=== PATIENT | male | born 1945 | race Caucasian/White ===

== ENCOUNTER 2023-12-12 06:20 | Emergency (ER) | payer MEDICARE, SELFPAY ==
[2023-12-12] VITALS (14 sets, daily range): BP systolic 131–177; BP diastolic 89–113; PULSE 50–78; TEMP 36.1; O2SAT 98–100
--- NOTE | 2023-12-12 06:32 | XR_ITS ---
The [address] [address] Patient Name: RAY SUAREZ MRN: [id number] date: 1945 Sex: M Assigned Patient Location: ED.MAIN Current Patient Location: ER Accession/Order Number: [id number] Exam Date: 12/12/2023 06:34 Report Date: 12/12/2023 06:56 At the request of: RICARDO WORLEY Procedure: XR chest 1V EXAM: XR chest 1V HISTORY: chest pain COMPARISON: Chest radiographs dated 09/02/2020. TECHNIQUE: One view of the chest was obtained. FINDINGS: The cardiac silhouette is enlarged though stable in size. Aortic atherosclerotic disease is seen. The lungs are clear. There is no significant pneumothorax or pleural effusion. No acute osseous abnormality is seen. XR/XR chest 1V IMPRESSION: 1. Stable enlarged cardiac silhouette with clear lungs. Electronically authenticated by: Lachelle HUNG Date: 12/12/2023 06:56
--- NOTE | 2023-12-12 06:32 | ECG_ITS ---
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
[2023-12-12 06:43] LABS: Basophils Absolute Auto 0.2 10^3/uL (0.0-0.1); Basophils Percent Auto 1.5 % (0.2-2.0); Eosinophils Absolute Auto 0.2 10^3/uL (0.0-0.7); Hematocrit 52.5 % (42.0-54.0); Hemoglobin 17.8 g/dL (14.0-18.0); Immature Granulocytes Abs Auto 0.03 10^3/uL (0.00-0.03); Immature Granulocytes Pct Auto 0.3 % (0.0-0.5); Lymphocytes Absolute Auto 3.3 10^3/uL (1.2-3.8); Mean Corpuscular HGB Conc 33.9 g/dL (29.9-35.2); Mean Corpuscular Hemoglobin 30.5 pg (25.9-34.0); Mean Corpuscular Volume 90.1 fL (80.0-94.0); Mean Platelet Volume 12.2 fL (9.5-13.5); Monocytes Absolute Auto 0.9 10^3/uL (0.3-0.8); Monocytes Percent Auto 8.6 % (1.7-12.0); Neutrophils Percent Auto 56.6 % (43.0-75.0); Platelet Count 213 10^3/uL (150-450); Red Blood Count 5.83 10^6/uL (4.70-6.10); Red Cell Distribution Width 14.1 % (11.0-15.0); White Blood Count 10.6 10^3/uL (4.0-11.0)
[2023-12-12] MEDS: ASPIRIN 81 MG TAB.CHEW 324 MG PO (06:43)
[2023-12-12] MEDS: NITROGLYCERIN 0.4 MG BOTTLE PO (06:43)
[2023-12-12] MEDS: TICAGRELOR 90 MG TABLET 180 MG PO (06:53)
[2023-12-12] MEDS: NITROGLYCERIN IN 5 % DEXTROSE 50 MG/250 ML INFUS..BTL 6 MG IV (06:53)
[2023-12-12 06:56] LABS: Partial Thromboplastin Time 26.7 sec (22.3-36.2); Prothrombin Time 10.6 sec (9.0-11.6)
--- NOTE | 2023-12-12 07:03 | ED.GENADUL1 ---
HPI HPI - General Adult General Chief complaint: Chest Pain Stated complaint: chest pain Time Seen by Provider: 12/12/23 06:27 Source: patient Mode of arrival: Wheelchair Limitations: no limitations History of Present Illness HPI narrative: 78-year-old male to the emergency department chief complaint of crushing chest pain. Patient reports symptoms began at 5:30 AM. It was associate with sweating. He denies any shortness of breath. Patient reports he has a remote history of a heart attack. He reports a history of diabetes, hyper tension, hyperlipidemia. He reports nausea without vomiting. He has otherwise been at his baseline health recently. He had carpal tunnel release surgery few weeks ago which went unremarkably. He has not seen a chicken catcher in several years per his report. Related Data Home Medications ?Medication ?Instructions ?Recorded ?Confirmed aspirin 81 mg capsule 81 mg PO DAILY 12/12/23 12/12/23 carvedilol 12.5 mg tablet 12.5 mg PO DAILY 12/12/23 12/12/23 levothyroxine 175 mcg tablet 175 mcg PO DAILY 12/12/23 12/12/23 montelukast 10 mg tablet 10 mg PO DAILY 12/12/23 12/12/23 pravastatin 20 mg tablet 20 mg PO DAILY 12/12/23 12/12/23 sacubitril 97 mg-valsartan 103 mg 1 tab PO BID 12/12/23 12/12/23 tablet (Entresto) sitagliptin phosphate 50 1 tab PO BID 12/12/23 12/12/23 mg-metformin 1,000 mg tablet (Janumet) Allergies Allergy/AdvReac Type Severity Reaction Status Date / Time Iodinated Contrast Media AdvReac Intermediate Vomiting Verified 12/12/23 06:33 Opioid HPI Opioid Management Most Recent Opioid Data: No Data to Display Review of Systems ROS Status of ROS 10 or more systems reviewed and unremarkable except as noted in history and below Exam Narrative Exam Narrative: VITALS: I have reviewed the triage vital signs. GENERAL: Diaphoretic, clutching chest. NEURO: Alert and oriented. Moves all extremities. Face is symmetric and expressive. EYES: PERRL. No scleral icterus or conjunctival injection. No discharge. HENT: Normocephalic, atraumatic. Hearing is grossly intact. Nares grossly patent and without discharge. Mucous membranes moist. NECK: No JVD. Patient moves neck without restriction. CARDIO: Rhythm regular. Normal rate. No murmur, rub, or gallop. Pulses equal bilaterally in the upper and lower extremity. No lower extremity edema. PULM: Lungs clear to auscultation in all cowan. No wheezes, rales, or rhonchi. No conversational dyspnea. No splinting, stridor, or accessory muscle use. GI/: Abdomen is soft and non-tender. Normoactive bowel sounds. EXTREMITIES: Symmetric muscle bulk. No joint swelling. No clubbing, cyanosis, or deformity. SKIN: Warm and dry. Normal turgor. No rash or lesions appreciated. PSYCH: Anxious Constitutional Vital Signs, click to edit/add: Last Vital Signs Temp 97 F L 12/12/23 06:27 Pulse 66 12/12/23 06:27 Resp 22 H 12/12/23 06:27 BP 168/113 H 12/12/23 06:27 Pulse Ox 100 12/12/23 06:27 O2 Del Method Room Air 12/12/23 06:27 Course Vital Signs Vital signs: Vital Signs Temperature 97 F L 12/12/23 06:27 Pulse Rate 66 12/12/23 06:27 Respiratory Rate 22 H 12/12/23 06:27 Blood Pressure 168/113 H 12/12/23 06:27 Pulse Oximetry 100 12/12/23 06:27 Oxygen Delivery Method Room Air 12/12/23 06:27 Temperature 97 F L 12/12/23 06:27 Pulse Rate 66 12/12/23 06:27 Respiratory Rate 22 H 12/12/23 06:27 Blood Pressure 168/113 H 12/12/23 06:27 Pulse Oximetry 100 12/12/23 06:27 Oxygen Delivery Method Room Air 12/12/23 06:27 Medical Decision Making MDM Narrative Medical decision making narrative: 78-year-old male to the emergency department chief with chest pain. Vital stable, the patient is afebrile. EKG is concerning for STEMI. He has a nonspecific intraventricular conduction delay however there is concordant ST elevation in V2, 1, aVL. Cardiac workup was initiated. I called and discussed the case with Dr. Sales who is the on-call chicken catcher at [facility]. He accepts the patient, asked for STEMI meds to be given. Patient's arrived and reports that he is at [facility] cardiology patient they would like transfer to that facility instead. The transfer to [facility] was called off. I called and discussed the case with Dr. Haynes and the nursing litharge supervisor at [facility]. They accept the patient to the Operator/Assistant Foreman. [facility] was called. Patient was transferred to [facility] for care of his STEMI. Medical Records Medical records reviewed: Yes I reviewed the patient's medical records Lab Data Lab results reviewed: Yes I reviewed the patient's lab results Labs: Lab Results 12/12/23 Range/Units 06:30 WBC 10.6 (4.0-11.0) 10^3/uL RBC 5.83 (4.70-6.10) 10^6/uL Hgb 17.8 (14.0-18.0) g/dL Hct 52.5 (42.0-54.0) % MCV 90.1 (80.0-94.0) fL MCH 30.5 (25.9-34.0) pg MCHC 33.9 (29.9-35.2) g/dL RDW 14.1 (11.0-15.0) % Plt Count 213 (150-450) 10^3/uL MPV 12.2 (9.5-13.5) fL Neut % (Auto) 56.6 (43.0-75.0) % Lymph % (Auto) 31.0 (20.5-60.0) % [place] % (Auto) 8.6 (1.7-12.0) % Eos % (Auto) 2.0 (0.9-7.0) % Baso % (Auto) 1.5 (0.2-2.0) % Neut # (Auto) 6.0 (1.4-6.5) 10^3/uL Lymph # (Auto) 3.3 (1.2-3.8) 10^3/uL [place] # (Auto) 0.9 H (0.3-0.8) 10^3/uL Eos # (Auto) 0.2 (0.0-0.7) 10^3/uL Baso # (Auto) 0.2 H (0.0-0.1) 10^3/uL Abs Immat Gran (auto) 0.03 (0.00-0.03) 10^3/uL Imm/Tot Granulo (auto) 0.3 (0.0-0.5) % Imaging Data Chest x-ray: Attestation: I have reviewed the pertinent imaging results. Radiologist's impression: ITS Impressions Chest X-Ray 12/12/23 06:32 IMPRESSION: 1. Stable enlarged cardiac silhouette with clear lungs. Electronically authenticated by: Lachelle HUNG Date: 12/12/2023 06:56 ECG Data Attestation: I personally reviewed and interpreted this ECG as follows: (Normal sinus rhythm. Nonspecific intraventricular conduction delay. Concordant ST elevation in 1, aVL, V2 concerning for STEMI. Normal QTc.) Critical Care Time Critical Care Time Critical Care Time: Yes Total Critical Care Time: 35 Attestation: Critical Care Procedure Note Authorized and Performed by: Taco Graham DO Total critical care time: 35 min Due to a high probability of clinically significant, life threatening deterioration, the patient required my highest level of preparedness to intervene emergently and I personally spent this critical care time directly and personally managing the patient. This critical care time included obtaining a history; examining the patient; pulse oximetry; ordering and review of studies; arranging urgent treatment with development of a management plan; evaluation of patient's response to treatment; frequent reassessment; and, discussions with other providers. This critical care time was performed to assess and manage the high probability of imminent, life-threatening deterioration that could result in multi-organ failure. It was exclusive of separately billable procedures and treating other patients and teaching time. Please see MDM section and the rest of the note for further information on patient assessment and treatment. Discharge Plan Discharge Chief Complaint: Chest Pain Clinical Impression: ST elevation (STEMI) myocardial infarction Patient Disposition: [facility] Time of Disposition Decision: 07:09 Discharge location: [facility] Operator/Assistant Foreman Condition: Fair Mode of Transportation: [facility] Prescriptions / Home Meds: No Action carvedilol 12.5 mg tablet 12.5 mg PO DAILY levothyroxine 175 mcg tablet 175 mcg PO DAILY montelukast 10 mg tablet 10 mg PO DAILY pravastatin 20 mg tablet 20 mg PO DAILY Entresto 97-103 mg tablet 1 tab PO BID Janumet 50-1,000 mg tablet 1 tab PO BID aspirin 81 mg capsule 81 mg PO DAILY Print Language: Trinidadian Referrals: Todd Osman DO [Primary Care Provider] - 1 week
[2023-12-12 07:04] LABS: Alanine Aminotransferase 30 U/L (16-63); Albumin Globulin Ratio 1.1; Albumin Level 4.1 g/dL (3.4-5.0); Alkaline Phosphatase 74 U/L (46-116); Aspartate Amino Transferase 32 U/L (15-37); BUN Creatinine Ratio 13.8; Bilirubin Total 0.6 mg/dL (0.2-1.0); Calcium 10.1 mg/dL (8.5-10.1); Carbon Dioxide 24.2 mmol/L (21.0-32.0); Chloride 103 mmol/L (98-107); Estimated GFR (African America >60 (>=60); Estimated GFR (Non-African Ame 53 (>=60); Globulin 3.6 g/dL; Glucose 150 mg/dL (74-106); Potassium 4.2 mmol/L (3.5-5.1); Sodium 140 mmol/L (136-145); Total Protein 7.7 g/dL (6.4-8.2)
[2023-12-12 07:05] LABS: Troponin I High Sensitivity 98.9 pg/mL (4.0-76.1)
[2023-12-12] MEDS: HEPARIN SODIUM (PORCINE) 5,000 UNIT/ML VIAL 5000 UNIT IV (07:08)
--- NOTE | 2023-12-12 07:17 | PC.NURSE ---
Pt reports dyspnea, breathing appears tachypneic. Pt placed on 2L O2 via NC.
--- NOTE | 2023-12-12 10:53 | ECG_ITS ---
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
== END 2023-12-12 07:21 | disposition short-term general hospital (02) ==
PROVIDERS: Emergency Provider Student in an Organized Health Care Education/Training Program; PCP Family Medicine
DX: I21.3 ST elevation (STEMI) myocardial infarction of unspecified site (principal); E11.9 Type 2 diabetes mellitus without complications; I10 Essential (primary) hypertension; E78.5 Hyperlipidemia, unspecified; I25.2 Old myocardial infarction
CPT/HCPCS: 36415; 71045; 80053; 83880; 84484; 85025; 85610; 85730; 93005; 99291; J2305

== ENCOUNTER 2024-12-01 14:33 | Emergency (ER) | payer MEDICARE, SELFPAY ==
--- OUTSIDE RECORDS SUMMARY | 2024-11-04 14:17 | XMS_ITS ---
Author Name Auto Generated Organization OH[facility] Care Team Providers Care Gym Instructor Name Role Phone DAVION NOLEN Attending UnavailDAVION Sanchez Referring Unavailab le GENERIC PROVIDER, NO ASSIGNED PCP Primary Care Unavailable DAVION NOLEN Attending UnavailDAVION Sanchez Referring Unavailab TODD Sarah Primary Care Unavailable DAVION NOLEN Referring Unavailab TODD Sarah Primary Care Unavailable Todd Osman Attending Unavailable Jonathna Hernandez Attending Unavailable Jonathan Hernandez Admitting Unavailable Jonathan Hernandez Referring Unavailable Wilner Hooper Consulting Unavailable Wilner Hooper Consulting Unavailable Wilner Hooper Consulting Unavailable ANDREAS MONCADA Admitting Unavailable ANDREAS MONCADA Attending Unavailable Jen Edgar Attending Unavailable Carol Underwood Attending Unavailable Carol Underwood Attending Unavailable [facility] Cardio, XXXX Consulting Unavailable Antonietta Lucia Admitting Unavailable Jen Edgar Attending Unavailable Todd Osman Attending Unavailable Todd Osman Admitting Unavailable Link, Todd C Admitting Unavailable Link, Todd C Attending Unavailable Link, Todd C Attending Unavailable Link, Todd C Admitting Unavailable Link, Todd C Admitting Unavailable Link, Todd C Admitting Unavailable ANDREAS MONCADA Attending Unavailable Link, Todd C Attending Unavailable Link, Todd C Referring Unavailable Link, Todd C Attending Unavailable Link, Todd C Attending Unavailable Link, Todd C Attending Unavailable Link, Todd C Attending Unavailable SYDNIE MODI Attending UnavailCarol Deleon Attending Unavailable Antonietta Lucia Admitting Unavailable Hernandez, Jonathan Anderson Admitting Unavailable Hernandez, Jonathan Anderson Attending Unavailable NONE, XXXX Referring Unavailable Hernandez, Jonathan A Attending Unavailable NONE, XXXX Referring Unavailable Hernandez, Jonathan A Admitting Unavailable Hernandez, Jonathan Anderson Attending Unavailable NONE, XXXX Referring Unavailable DAVION NOLEN Attending Unavaila ble DAVION NOLEN Referring Unavaila ble DAVION NOLEN Attending Unavaila ble DAVION NOLEN Referring Unavaila ble AMIR, Hasan Admitting Unavailable DAVION NOLEN Consulting Unavaila ble Leopoldo Patel Attending Unavailable MD DAVION NOLEN Consulting Unava ilDavion Herrera Consulting Unavaila ble AMIR, Hasan Admitting Unavailable DAVION NOLEN Consulting Unavaila ble Leopoldo Patel Attending Unavailable MD DAVION NOLEN Consulting Unava ilDavion Herrera Consulting Unavaila ble AMIR, Hasan Admitting Unavailable DAVION NOLEN Consulting Unavaila Leopoldo Mai Attending Unavailable MD DAVION NOLEN Consulting Unava ilDavion Herrera Consulting Unavaila ble [facility] Cardio, XXXX Consulting Unavailable Antonietta Lucia Attending Unavailable Jacquelin Luciaen Admitting Unavailable [facility] Cardio, XXXX Consulting Unavailable Antonietta Lucia Attending Unavailable Antonietta Lucia Admitting Unavailable Edd Alexandra Consulting Unavailable Antonietta Lucia Admitting Unavailable Antonietta Lucia Attending Unavailable MD Edd Alexandra Consulting Unavailable Edd Alexandra Consulting Unavailable Edd Alexandra Consulting Unavailable Edd Alexandra Consulting Unavailable Edd Alexandra Consulting Unavailable Edd Alexandra Consulting Unavailable Billings, Edd Consulting Unavailable Billings, Edd Consulting Unavailable [facility] Cardio, XXXX Consulting Unavailable [facility] Cardio, XXXX Consulting Unavailable Leopoldo Patel Attending Unavailable Antonietta Lucia Admitting Unavailable DAVION NOLEN Consulting Unavaila ble Ofmary, Leopoldo Horn Admitting Unavailable Ofungwnanette, Leopoldo Horn Attending Unavailable MD DAVION NOLEN Consulting Unava ilable AMIR, Hasan Admitting Unavailable OfungwuLeopoldo Attending Unavailable AMIR, Hasan Admitting Unavailable Ofungwu, Leopoldo Horn Attending Unavailable Hajdari, Astrit H Attending Unavailable NONE, XXXX Referring Unavailable Wilner Hooper Attending Unavailable Wilner Hooper Admitting Unavailable Link, Todd Pacheco Attending Unavailable Link, Todd Pacheco Attending Unavailable Link, Todd Pacheco Attending Unavailable Link, Todd Pacheco Attending Unavailable Link, Todd Pacheco Attending Unavailable POCOSRADHIKA Attending Unavailable DEWAYNE GOMEZ Attending Unavailable DWEAYNE GOMEZ Attending Unavailable FABI GODINEZ Attending Unavailable FABI GODINEZ Attending Unavailable PROBLEMS DATE TYPE CONDITION / CODE ATTENDING STATUS [facility] 06/26/2024 Admitting Diagnosis Atherosclerotic heart disease of [place] coronary artery with other forms of angina pectoris ([facility] / I25.118(ICD-10) [facility] 06/26/2024 Admitting Diagnosis Aneurysm of the ascending aorta, without rupture ([facility] [place] / I71.21(ICD-10) [facility] 06/26/2024 Admitting Diagnosis Acute combined systolic (congestive) and diastolic (congestive) heart failure / I50.41(ICD-10) [facility] 12/23/2023 Unknown I22.2 / I22.2(ICD-10) Leopoldo Valenzuela Active [facility] 12/12/2023 Unknown I21.02 / I21.02(ICD-10) Leopoldo Patel Active [facility] PROCEDURES No Procedure Records Found RESULTS AMBULATORY VISIT SUMMARY Observed: 10/28 5:22 PM Status: F Source: [facility] Ambulatory Visit Summary RAY SUAREZ :1945 Visit Date:10/28/2024 Ambulatory Visit Instructions Your Diagnosis Type 2 diabetes mellitus with hyperlipidemia Benign essential hypertension CHF - Congestive heart failure Former smoker BMI 28.0-28.9,adult Your Care Team Attending Physician - Todd Osman DO Primary Care Physician - Todd Osman DO This Is Your Medications List Misc Prescription (BD UF Mini Pen Needle [id number]) Misc Prescription (One Touch Ultra Test Strip) aspirin atorvastatin (atorvastatin 40 mg Tab) carvedilol (carvedilol 3.125 mg Tab) cholecalciferol (Vitamin D3) cyanocobalamin (Vitamin B12 1000 mcg Tab) ezetimibe (Zetia 10 mg Tab) levothyroxine (levothyroxine 175 mcg (0.175 mg) Tab) metformin-sitagliptin (Janumet 50 mg/1000 mg oral tablet) montelukast (Singulair 10 mg Tab) mupirocin topical (mupirocin Top 2% Oint) nitroglycerin (nitroglycerin 0.4 mg sublingual Tab) sacubitril-valsartan (sacubitril-valsartan 49 mg-51 mg oral tablet) ticagrelor (Brilinta (ticagrelor) 90 mg oral tablet) Procedures Performed Cardiac catheterization, left heart (12/24/2023), PCI - Percutaneous coronary intervention (12/24/2023), STEMI - ST elevation myocardial infarction (12/12/2023), Carpal tunnel (12/02/2023), right total hip arthroplasty (09/11/2016), left total hip arthroplasty (07/19/2015), Cardiac catheterization (08/27/2006), Colonoscopy (2006), Vasectomy (1975), attempted tendon repair right leg, back surgery, Radical prostatectomy, Rotator cuff repair, Thyroidectomy, Tonsillectomy. Discharge Vitals Heart Rate (Peripheral) 60 Respiratory Rate 18 Blood Pressure 118/70 Height 177 cm Height 70 in Weight 90.2 kg Weight 198.857 lb BMI 28.79 What to do next Scheduled Follow-Up Appointments 2024 11:20 AM EDT With: Todd Osman DO Where: [facility] [address] [place] [address]- Sunday2025 2:00 PM EST With: Where: [facility] [address] [place] [address]- Medications What How Much When Why Instructions Unchanged aspirin 81 Milligram By Mouth At bedtime Unchanged atorvastatin (atorvastatin 40 mg Tab) 1 Tablets By Mouth Every day Hyperlipidemia, unspecified Unchanged carvedilol (carvedilol 3.125 mg Tab) 1 Tablets By Mouth 2 times a day Unchanged cholecalciferol (Vitamin D3) 3,000 Units By Mouth Every day Unchanged cyanocobalamin (Vitamin B12 1000 mcg Tab) 1 Tablets By Mouth Every day Unchanged ezetimibe (Zetia 10 mg Tab) 0.5 Tablets By Mouth Every day Unchanged levothyroxine (levothyroxine 175 mcg (0.175 mg) Tab) 0.5 Tablets By Mouth Every day Unchanged metformin-sitagliptin (Janumet 50 mg/ 1000 mg oral tablet) 0.5 Tablets By Mouth Every day Unchanged Misc Prescription (BD UF Mini Pen Needle [id number]) See instructions For daily blood sugar management and application of medication Unchanged Misc Prescription (One Touch Ultra Test Strip) See instructions For daily blood sugar testing Unchanged montelukast (Singulair 10 mg Tab) 1 Tablets By Mouth Once a day (in the evening) Unchanged mupirocin topical (mupirocin Top 2% Oint) APPLY TO AFFECTED AREAS ON BUTTOCKS TWICE A DAY UNTIL CLEAR NEEDED FOR FLARES Unchanged nitroglycerin (nitroglycerin 0.4 mg sublingual Tab) 1 Tablets Sublingual As Directed as needed for for chest pain takeif SBP is greater than 110 Unchanged sacubitril-valsartan (sacubitril-valsartan 49 mg-51 mg oral tablet) 1 Tablets By Mouth 2 times a day hold if BP is lower than 90 systolic or 50 diastolic Unchanged ticagrelor (Brilinta (ticagrelor) 90 mg oral tablet) 1 Tablets By Mouth 2 times a day CAD in [place] artery Allergies Aldactone Contrast Dye (Flushing) Crestor Pollen (Hayfever) Toradol Problems Ongoing - Any problem that you are currently receiving treatment for. Asthma At risk for falls Benign essential hypertension BMI 27.0-27.9,adult CAD in [place] artery CHF - Congestive heart failure COPD with asthma Dyslipidemia Former smoker GERD (gastroesophageal reflux disease) History of prostate cancer History of prostatectomy Hyperlipidemia, unspecified Hypothyroidism (acquired) SAMIRA (obstructive sleep apnea) Type 2 diabetes mellitus with hyperlipidemia Historical - Any problem that you are no longer receiving treatment for. Chronic back pain Dyslipidemia Smoker Patient Survey You may receive a survey via text or e-mail asking about your office visit. Please share your experience with us by completing your survey. We appreciate your feedback and thank you for choosing us for your care. FAMILY MEDICINE OFFICE/CLINI C NOTE Observed: 10/28/2024 5:22 PM Status: F Source: [facility] Office/Clini c Note Chief Complaint Chronic Condition follow up HPI Staff Patient here for Chronic Condition f/u (, Maryjo) Patient is here for follow up on Diabetes. - At last visit Janumet discontinued. called in the beginning of September requesting to restart due to weight gain and increase in eating and sweats. Provider advised patient could restart half a tab. Patient is taking as directed. How often are you checking your blood sugars? 1 times per day What are your average readings?little higher then it should be Do you have any of the following symptoms? Vision problems? yes dry eyes, patient is using OTC Visine Lightheadedness? no Paresthesias, Ulcerations or sores? yes paresthesias in bilateral hands. Coccyx wound healed. Foot Exam: completed today Eye Exam: Patient see's every 6 months U Microalb: 2 mg/dL High (05/06/24 13:49:00) Hgb A1C %: 5.2 % (12/13/23 05:54:00) Hgb A1c POC: 5.4 % (10/05/23 10:36:00) - completed today 5.3 Patient is here for follow up on hypertension. - Patient does see [facility] Cardiology, last visit was 04/2024. No changes made. How often are you checking your blood pressure? Daily What are your average readings? WNL Do you have any of the following symptoms? Chest Pain? no Palpitations? no MILES/SOB? yes Intermittent MILES Headache? no Peripheral Edema? no BUN: 22 mg/dL High (05/06/24 11:17:00) Calcium Lvl: 10.1 mg/dL (05/06/24:17:00) Chloride: 106 mmol/L (05/06/24:17:00) CO2: 29 mmol/L (05/06/24:17:00) Creatinine: 1.3 mg/dL (05/06/24:17:00) eGFR: 55 mL/min/1.73 m2 Low (05/06/24:17:00) Glucose Lvl: 93 mg/dL (05/06/24:17:00) Potassium Lvl: 4.6 mmol/L (05/06/24:17:00) Sodium Lvl: 138 mmol/L (05/06/24:17:00) Chol: 98 mg/dL Low (05/06/24::) HDL: 48 mg/dL (05/06/24::) LDL Direct: 42 mg/dL (05/06/24::00) Tri mg/dL (05/06/24::) VLDL: 9 mg/dL (05/06/24::) Patient is here for follow up on Thyroid Disease. T3 Free: 2.6 (05/06/24) T4 Free: 1.25 ng/dL (05/06/24) TSH: 1.43 mcIU/mL (05/06/24::) - Patient notes bilateral leg weakness continues. He has completed PT in the past without improvement. He notes he has been working in his barn to try and strengthen them. AMW: UTD History of Present Illness Patient presents today for DM Followup. - Stable on medications today - No return of chest pain since last visit - 2x stents to LAD on 12/12/2023, 1x stent to PDA 12/24/2023, Echo 11/2023 showed EF 35-45% with ischemic cardiomyopathy/severe LVH Last A1c - 4.5% on 07/29/2024 Current medications - Janumet 1/2 tablet 50mg-1000mgQD Diabetic neuropathy - None noted Diabetic retinopathy - Monitored by ophthalmology Diabetic education - Completed previously Urine microalbumin - 2.0 on 05/06/2024 Diabetic foot exam - Due Statin - 40mg atorvastatin QD Today, they state that patient is doing well. Patient saw cardiology this morning. He continues to follow with [facility] Heart and Vascular. He states his fasting sugars are 90-120's in the AM. He is due for A1c as above. Patient states that his legs remain a little weak. He has been through physical therapy. He states that he has not had any other acute changes to his function. He is using 1/2 tab of Janumet, states he is tolerating this well. Review of Systems PHQ Score Initial Depression Screen Score: 0 SCORE ROS - Provider Constitutional: no fever, no chills Skin: no rash, no lesions ENMT: no ear pain, no sore throat, no congestion, no hoarseness. Respiratory: yes shortness of breath, no cough, no wheezing. Cardiovascular: yes chest pain, no palpitations, no edema. Gastrointestinal: no nausea, no vomiting, no diarrhea, Musculoskeletal: no back pain, no trauma. Neurologic: no headache, yes dizziness, no numbness, no weakness. Psychiatric: no sleeping problems, no irritability, no mood swings/depression. Physical Exam Vitals & Measurements HR: 60(Peripheral) RR: 18 BP: 118/70 SpO2: 97% HT: 70 in HT: 177 cm WT: 198.857 lb WT: 90.2 kg BMI: 28.79 General: Well developed, well nourished, in no acute distress Head: Normocephalic/atraumatic Eyes: Pupils equal, round, and reactive to light. Sclerae normal, and extraocular movements intact Lungs: Normal respiratory effort and clear to auscultation Cardio: Regular rate and rhythm, normal S1 and S2, no new murmur, no rub Musculoskeletal: No deformity or scoliosis noted. Normal range of motion. Joints normal. No erythema, edema, effusion, or ecchymosis Extremity: No clubbing, cyanosis, edema, or deformity, with normal ROM in both upper and lower bilateral extremities Neurologic: Grossly normal Skin: No rash, petechiae, suspicious lesions Mental Status: Alert and oriented x3. Normal mood and affect Diabetic Foot Exam Decreased Monofilament Sensation Foot: Left - Normal, Right - Normal Bunions/Foot Deformity: Left - Normal, Right - Normal Abnormal Pulse Foot: Left - Normal, Right - Normal Skin Lesions Foot: Left - Normal, Right - Normal Vibratory Sensation Foot: Left - Normal, Right - Normal Foot Exam Result: Normal foot exam Foot Exam Findings: Nail onychomycosis Assessment/Plan 1. Type 2 diabetes mellitus with hyperlipidemia (E11.69: Type 2 diabetes mellitus with other specified complication) POC A1c today is 5.3%. Doing fine on the 05/29 tab Lmt. Will hold on this at this time. We will consider further management of sugar if warranted. Ordered: Diabetic Foot Exam 2. Benign essential hypertension (I10: Essential (primary) hypertension) Stable today, no concerns. Recheck at followup, continue current medications. 3. CHF - Congestive heart failure (I50.9: Heart failure, unspecified) Stable today, weight steady on intake. No changes to medications, continue to follow with cardiology. 4. 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 5. BMI 28.0-28.9,adult (Z68.28: Body mass index [BMI] 28.0-28.9, adult) The standard range for ages 18 and older is >=18.5 and < 25 kg/m2. Your BMI today was above this range, this falls in the overweight to obese category and there are medical benefits to weight loss. We can offer counselling, referral, and/or medical support in addressing this problem. Your BMI and weight management will be followed at subsequent visits. Follow-up With When Contact Information Link Todd [facility] Within 3 months [address] [place] [address]- Additional Instructions: 3 MONTH DIABETIC CHECKUP Problem List/Past Medical History Ongoing Asthma At risk for falls Benign essential hypertension BMI 27.0-27.9,adult CAD in [place] artery CHF - Congestive heart failure COPD with asthma Dyslipidemia Former smoker GERD (gastroesophageal reflux disease) History of prostate cancer History of prostatectomy Hyperlipidemia, unspecified Hypothyroidism (acquired) SAMIRA (obstructive sleep apnea) Type 2 diabetes mellitus with hyperlipidemia Historical Chronic back pain Dyslipidemia Smoker Procedure/Surgical History Cardiac catheterization, left heart (12/24/2023), PCI - Percutaneous coronary intervention (12/24/2023), STEMI - ST elevation myocardial infarction (12/12/2023), Carpal tunnel (12/02/2023), right total hip arthroplasty (09/11/2016), left total hip arthroplasty (07/19/2015), Cardiac catheterization (08/27/2006), Colonoscopy (2006), Vasectomy (1975), attempted tendon repair right leg, back surgery, Radical prostatectomy, Rotator cuff repair, Thyroidectomy, Tonsillectomy. Medications aspirin, 81 mg, Oral, Bedtime atorvastatin 40 mg Tab, 40 mg= 1 tab(s), Oral, Daily, 3 refills BD UF Mini Pen Needle [id number], See Instructions, 5 refills Brilinta (ticagrelor) 90 mg oral tablet, 90 mg= 1 tab(s), Oral, BID, 2 refills carvedilol 3.125 mg Tab, 3.125 mg= 1 tab(s), Oral, BID, 3 refills Janumet 50 mg/1000 mg oral tablet, 0.5 tab(s), Oral, Daily levothyroxine 175 mcg (0.175 mg) Tab, 87.5 mcg= 0.5 tab(s), Oral, Daily, 4 refills mupirocin Top 2% Oint nitroglycerin 0.4 mg sublingual Tab, 0.4 mg= 1 tab(s), SubLingual, As Directed, PRN One Touch Ultra Test Strip, See Instructions, 5 refills sacubitril-valsartan 49 mg-51 mg oral tablet, 1 tab(s), Oral, BID, 11 refills Singulair 10 mg Tab, 10 mg= 1 tab(s), Oral, qPM, 4 refills Vitamin B12 1000 mcg Tab, 1000 mcg= 1 tab(s), Oral, Daily Vitamin D3, 3000 unit(s), Oral, Daily Zetia 10 mg Tab, 5 mg= 0.5 tab(s), Oral, Daily, 3 refills Allergies Aldactone Contrast Dye (Flushing) Crestor Pollen (Hayfever) Toradol Social History Alcohol - Low Risk, 07/29/2024 Current, Beer, 1-2 times per year, 1 drinks/episode average. 1.00 drinks/episode maximum., 07/29/2024 Substance Abuse - Denies Substance Abuse, 05/31/2015 Never., 05/22/2024 Tobacco - Denies Tobacco Use, 10/05/2023 Former smoker, quit more than 30 days ago Tobacco Use:. Never Smokeless Tobacco Use:. Household tobacco concerns: No., 10/28/2024 Family History Acute myocardial infarction: Grandparent. Alcoholism: Mother. Cardiac arrhythmia: Mother. Diabetes mellitus type 2: Mother and Father. Hypertension: Father. Hypotension: Brother. Primary malignant neoplasm of lung: Mother. Primary malignant neoplasm of prostate: Father. Stroke: Father. Immunizations Vaccine Date Status Comments influenza virus vaccine, inactivated 03/31/2024 Given influenza virus vaccine, inactivated - Not Given Postpone due to refusal influenza virus vaccine, inactivated 02/2023 Recorded SARS-CoV-2 (COVID-19) [id number] 05/16/2022 Recorded SARSCoV2 mRNA([id number]) vac 09/17/2021 Recorded influenza virus vaccine, inactivated 02/21/2021 Recorded SARS-CoV-2 (COVID-19) mRNA BNT-162b2 vax 02/21/2021 Recorded 2023-07-09: [id number] SARS-CoV-2 (COVID-19) mRNA BNT-162b2 vax 08/11/2020 Recorded SARS-CoV-2 (COVID-19) mRNA BNT-162b2 vax 07/18/2020 Recorded 2023-07-09: [id number] SARS-CoV-2 (COVID-19) mRNA BNT-162b2 vax 07/14/2020 Recorded SARS-CoV-2 (COVID-19) mRNA BNT-162b2 vax 06/27/2020 Recorded 2023-07-09: [id number] pneumococcal 23-valent vaccine 07/12/2018 Recorded pneumococcal 13-valent vaccine 12/09/2014 Recorded pneumococcal 13-valent vaccine 12/09/2014 Recorded zoster vaccine live 04/23/2013 Recorded Result Comment: Electronical ly Signed By: Todd Osman DO\.br\Date and Time Signed: 11/22/24 08:39 EDT AMBULATORY VISIT SUMMARY Observed: 07/29 4:46 PM Status: F Source: [facility] Ambulatory Visit Summary RAY SUAREZ :1945 Visit Date:07/29/2024 Ambulatory Visit Instructions Your Diagnosis Annual visit for general adult medical examination without abnormal findings Type 2 diabetes mellitus with hyperlipidemia CHF - Congestive heart failure COPD with asthma Hypothyroidism (acquired) Benign essential hypertension At risk for falls Overweight Your Care Team Attending Physician - Todd Osman DO Primary Care Physician - Todd Osman DO This Is Your Medications List [facility] Prescription (BD UF Mini Pen Needle [id number]) Misc Prescription (One Touch Ultra Test Strip) aspirin atorvastatin (atorvastatin 40 mg Tab) carvedilol (carvedilol 3.125 mg Tab) cholecalciferol (Vitamin D3) cyanocobalamin (Vitamin B12 1000 mcg Tab) ezetimibe (Zetia 10 mg Tab) levothyroxine (levothyroxine 175 mcg (0.175 mg) Tab) montelukast (Singulair 10 mg Tab) mupirocin topical (mupirocin Top 2% Oint) nitroglycerin (nitroglycerin 0.4 mg sublingual Tab) sacubitril-valsartan (sacubitril-valsartan 49 mg-51 mg oral tablet) ticagrelor (Brilinta (ticagrelor) 90 mg oral tablet) [Image Removed: STOP]Stop taking these medications metformin-sitagliptin (Janumet 50 mg/1000 mg oral tablet) Procedures Performed Cardiac catheterization, left heart (12/24/2023), PCI - Percutaneous coronary intervention (12/24/2023), STEMI - ST elevation myocardial infarction (12/12/2023), Carpal tunnel (12/02/2023), right total hip arthroplasty (09/11/2016), left total hip arthroplasty (07/19/2015), Cardiac catheterization (08/27/2006), Colonoscopy (2006), Vasectomy (1975), attempted tendon repair right leg, back surgery, Radical prostatectomy, Rotator cuff repair, Thyroidectomy, Tonsillectomy. Discharge Vitals Heart Rate (Peripheral) 63 Respiratory Rate 20 Blood Pressure 116/74 Height 177 cm Height 70 in Weight 86.7 kg Weight 191.141 lb BMI 27.67 What to do next Scheduled Follow-Up Appointments Sunday 5:40 PM EDT With: Todd Osman DO Where: [facility] [address] [place] [address]- Sunday2025 2:00 PM EST With: Where: [facility] [place] [address] [place] [address]- Medications What How Much When Why Instructions Unchanged aspirin 81 Milligram By Mouth At bedtime Unchanged atorvastatin (atorvastatin 40 mg Tab) 1 Tablets By Mouth Every day Hyperlipidemia, unspecified Unchanged carvedilol (carvedilol 3.125 mg Tab) 1 Tablets By Mouth 2 times a day Unchanged cholecalciferol (Vitamin D3) 3,000 Units By Mouth Every day Unchanged cyanocobalamin (Vitamin B12 1000 mcg Tab) 1 Tablets By Mouth Every day Unchanged ezetimibe (Zetia 10 mg Tab) 0.5 Tablets By Mouth Every day Unchanged levothyroxine (levothyroxine 175 mcg (0.175 mg) Tab) 0.5 Tablets By Mouth Every day Unchanged Misc Prescription (BD UF Mini Pen Needle [id number]) See instructions For daily blood sugar management and application of medication Unchanged Misc Prescription (One Touch Ultra Test Strip) See instructions For daily blood sugar testing Unchanged montelukast (Singulair 10 mg Tab) 1 Tablets By Mouth Once a day (in the evening) Unchanged mupirocin topical (mupirocin Top 2% Oint) APPLY TO AFFECTED AREAS ON BUTTOCKS TWICE A DAY UNTIL CLEAR NEEDED FOR FLARES Unchanged nitroglycerin (nitroglycerin 0.4 mg sublingual Tab) 1 Tablets Sublingual As Directed as needed for for chest pain takeif SBP is greater than 110 Unchanged sacubitril-valsartan (sacubitril-valsartan 49 mg-51 mg oral tablet) 1 Tablets By Mouth 2 times a day hold if BP is lower than 90 systolic or 50 diastolic Unchanged ticagrelor (Brilinta (ticagrelor) 90 mg oral tablet) 1 Tablets By Mouth 2 times a day What How Much When Comments Stop Taking metformin-sitagliptin (Janumet 50 mg/ 1000 mg oral tablet) 1 Tablets By Mouth Every day Allergies Aldactone Contrast Dye (Flushing) Crestor Pollen (Hayfever) Toradol Problems Ongoing - Any problem that you are currently receiving treatment for. Asthma At risk for falls Benign essential hypertension BMI 27.0-27.9,adult CAD in [place] artery CHF - Congestive heart failure COPD with asthma Dyslipidemia Former smoker GERD (gastroesophageal reflux disease) History of prostate cancer History of prostatectomy Hyperlipidemia, unspecified Hypothyroidism (acquired) SAMIRA (obstructive sleep apnea) Type 2 diabetes mellitus with hyperlipidemia Historical - Any problem that you are no longer receiving treatment for. Chronic back pain Dyslipidemia Smoker Patient Survey You may receive a survey via text or e-mail asking about your office visit. Please share your experience with us by completing your survey. We appreciate your feedback and thank you for choosing us for your care. Education Materials DASH Eating Plan DASH stands for Dietary Approaches to Stop Hypertension. The DASH eating plan is a healthy eating plan that has been shown to: ??? Lower high blood pressure (hypertension). ??? Reduce your risk for type 2 diabetes, heart disease, and stroke. ??? Help with weight loss. What are tips for following this plan? Reading food labels ??? Check food labels for the amount of salt (sodium) per serving. Choose foods with less than 5 percent of the Daily Value (DV) of sodium. In general, foods with less than 300 milligrams (mg) of sodium per serving fit into this eating plan. ??? To find whole grains, look for the word whole as the first word in the ingredient list. Shopping ??? Buy products labeled as low-sodium or no salt added. ??? Buy fresh foods. Avoid canned foods and pre-made or frozen meals. Cooking ??? Try not to add salt when you cook. Use salt-free seasonings or herbs instead of table salt or sea salt. Check with your health care provider or pharmacist before using salt substitutes. ??? Do not ruiz foods. Cook foods in healthy ways, such as baking, boiling, grilling, roasting, or broiling. ??? Cook using oils that are good for your heart. These include olive, canola, avocado, soybean, and sunflower oil. Meal planning ??? Eat a balanced diet. This should include: ? 4 or more servings of fruits and 4 or more servings of vegetables each day. Try to fill half of your plate with fruits and vegetables. ? 6???8 servings of whole grains each day. ? 6 or less servings of lean meat, poultry, or fish each day. 1 oz is 1 serving. A 3 oz (85 g) serving of meat is about the same size as the palm of your hand. One egg is 1 oz (28 g). ? 2???3 servings of low-fat dairy each day. One serving is 1 cup (237 mL). ? 1 serving of nuts, seeds, or beans 5 times each week. ? 2???3 servings of heart-healthy fats. Healthy fats called omega-3 fatty acids are found in foods such as walnuts, flaxseeds, fortified milks, and eggs. These fats are also found in cold-water fish, such as sardines, salmon, and mackerel. ??? Limit how much you eat of: ? Canned or prepackaged foods. ? Food that is high in trans fat, such as fried foods. ? Food that is high in saturated fat, such as fatty meat. ? Desserts and other sweets, sugary drinks, and other foods with added sugar. ? Full-fat dairy products. ??? Do not salt foods before eating. ??? Do not eat more than 4 egg yolks a week. ??? Try to eat at least 2 vegetarian meals a week. ??? Eat more home-cooked food and less restaurant, buffet, and fast food. Lifestyle ??? When eating at a restaurant, ask if your food can be made with less salt or no salt. ??? If you drink alcohol: ? Limit how much you have to: ? 0???1 drink a day if you are female. ? 0???2 drinks a day if you are male. ? Know how much alcohol is in your drink. In the [place] one drink is one 12 oz bottle of beer (355 mL), one 5 oz glass of wine (148 mL), or one 1??? oz glass of hard liquor (44 mL). General information ??? Avoid eating more than 2,300 mg of salt a day. If you have hypertension, you may need to reduce your sodium intake to 1,500 mg a day. ??? Work with your provider to stay at a healthy body weight or lose weight. Ask what the best weight range is for you. ??? On most days of the week, get at least 30 minutes of exercise that causes your heart to beat faster. This may include walking, swimming, or biking. ??? Work with your provider or dietitian to adjust your eating plan to meet your specific calorie needs. What foods should I eat? Fruits All fresh, dried, or frozen fruit. Canned fruits that are in their natural juice and do not have sugar added to them. Vegetables Fresh or frozen vegetables that are raw, steamed, roasted, or grilled. Low- sodium or reduced-sodium tomato and vegetable juice. Low-sodium or reduced-sodium tomato sauce and tomato paste. Low-sodium or reduced-sodium canned vegetables. Grains Whole-grain or whole-wheat bread. Whole-grain or whole-wheat pasta. Brown rice. Oatmeal. Quinoa. Bulgur. Whole-grain and low-sodium cereals. Lilly bread. Low- fat, low-sodium crackers. Whole-wheat flour tortillas. Meats and other proteins Skinless chicken or turkey. Ground chicken or turkey. Pork with fat trimmed off. Fish and seafood. Egg whites. Dried beans, peas, or lentils. Unsalted nuts, nut butters, and seeds. Unsalted canned beans. Lean cuts of beef with fat trimmed off. Low- sodium, lean precooked or cured meat, such as sausages or meat loaves. Dairy Low-fat (1%) or fat-free (skim) milk. Reduced-fat, low-fat, or fat-free cheeses. Nonfat, low-sodium ricotta or cottage cheese. Low-fat or nonfat yogurt. Low-fat, low-sodium cheese. Fats and oils Soft margarine without trans fats. Vegetable oil. Reduced-fat, low-fat, or light mayonnaise and salad dressings (reduced-sodium). Canola, safflower, olive, avocado, soybean, and sunflower oils. Avocado. Seasonings and condiments Herbs. Spices. Seasoning mixes without salt. Other foods Unsalted popcorn and pretzels. Fat-free sweets. The items listed above may not be all the foods and drinks you can have. Talk to a dietitian to learn more. What foods should I avoid? Fruits Canned fruit in a light or heavy syrup. Fried fruit. Fruit in cream or butter sauce. Vegetables Creamed or fried vegetables. Vegetables in a cheese sauce. Regular canned vegetables that are not marked as low-sodium or reduced-sodium. Regular canned tomato sauce and paste that are not marked as low-sodium or reduced-sodium. Regular tomato and vegetable juices that are not marked as low-sodium or reduced-sodium. Pickles. Olives. Grains Baked goods made with fat, such as croissants, muffins, or some breads. Dry pasta or rice meal packs. Meats and other proteins Fatty cuts of meat. Ribs. Fried meat. Powers. Bologna, salami, and other precooked or cured meats, such as sausages or meat loaves, that are not lean and low in sodium. Fat from the back of a pig (fatback). Bratwurst. Salted nuts and seeds. Canned beans with added salt. Canned or smoked fish. Whole eggs or egg yolks. Chicken or turkey with skin. Dairy Whole or 2% milk, cream, and [id number]. Whole or full-fat cream cheese. Whole-fat or sweetened yogurt. Full-fat cheese. Nondairy creamers. Whipped toppings. Processed cheese and cheese spreads. Fats and oils Butter. Stick margarine. Lard. Shortening. Ghee. Powers fat. Tropical oils, such as coconut, palm kernel, or palm oil. Seasonings and condiments Onion salt, garlic salt, seasoned salt, table salt, and sea salt. Worcestershire sauce. Tartar sauce. Barbecue sauce. Teriyaki sauce. Soy sauce, including reduced-sodium soy sauce. Steak sauce. Canned and packaged gravies. Fish sauce. Oyster sauce. Cocktail sauce. Store-bought horseradish. Ketchup. Mustard. Meat flavorings and tenderizers. Bouillon cubes. Hot sauces. Pre-made or packaged marinades. Pre-made or packaged taco seasonings. Relishes. Regular salad dressings. Other foods Salted popcorn and pretzels. The items listed above may not be all the foods and drinks you should avoid. Talk to a dietitian to learn more. Where to find more information ??? National Heart, Lung, and Blood [place] (NHLBI): nhlbi.nih.gov ??? [place] Heart Association (AHA): heart.org ??? Academy of Nutrition and Dietetics: eatright.org ??? National Kidney Foundation (NKF): kidney.org This information is not intended to replace advice given to you by your health care provider. Make sure you discuss any questions you have with your health care provider. Document Revised: 05/31/2023 Document Reviewed: 05/31/2023 [employer] Patient Education ??? 2023 [employer] Understanding Your Risk for Falls Millions of people have serious injuries from falls each year. It is important to understand your risk of falling. Talk with your health care provider about your risk and what you can do to lower it. If you do have a serious fall, make sure to tell your provider. Falling once raises your risk of falling again. How can falls affect me? Serious injuries from falls are common. These include: ??? Broken bones, such as hip fractures. ??? Head injuries, such as traumatic brain injuries (TBI) or concussions. A fear of falling can cause you to avoid activities and stay at home. This can make your muscles weaker and raise your risk for a fall. What can increase my risk? There are a number of risk factors that increase your risk for falling. The more risk factors you have, the higher your risk of falling. Serious injuries from a fall happen most often to people who are older than 65 years old. Teenagers and young adults ages 15???29 are also at higher risk. Common risk factors include: ??? Weakness in the lower body. ??? Being generally weak or confused due to long-term (chronic) illness. ??? Dizziness or balance problems. ??? Poor vision. ??? Medicines that cause dizziness or drowsiness. These may include: ? Medicines for your blood pressure, heart, anxiety, insomnia, or swelling (edema). ? Pain medicines. ? Muscle relaxants. Other risk factors include: ??? Drinking alcohol. ??? Having had a fall in the past. ??? Having foot pain or wearing improper footwear. ??? Working at a dangerous job. ??? Having any of the following in your home: ? Tripping hazards, such as floor clutter or loose rugs. ? Poor lighting. ? Pets. ??? Having dementia or memory loss. What actions can I take to lower my risk of falling? Physical activity Stay physically fit. Do strength and balance exercises. Consider taking a regular class to build strength and balance. Yoga and haven chi are good options. Vision Have your eyes checked every year and your prescription for glasses or contacts updated as needed. Shoes and walking aids ??? Wear non-skid shoes. ??? Wear shoes that have rubber soles and low heels. ??? Do not wear high heels. ??? Do not walk around the house in socks or slippers. ??? Use a cane or walker as told by your provider. Home safety ??? Attach secure railings on both sides of your stairs. ??? Install grab bars for your bathtub, shower, and toilet. Use a non-skid mat in your bathtub or shower. Attach bath mats securely with double-sided, non-slip rug tape. ??? Use good lighting in all rooms. Keep a flashlight near your bed. ??? Make sure there is a clear path from your bed to the bathroom. Use night-lights. ??? Do not use throw rugs. Make sure all carpeting is taped or tacked down securely. ??? Remove all clutter from walkways and stairways, including extension cords. ??? Repair uneven or broken steps and floors. ??? Avoid walking on icy or slippery surfaces. Walk on the grass instead of on icy or slick sidewalks. Use ice melter to get rid of ice on walkways in the winter. ??? Use a cordless phone. Questions to ask your health care provider ??? Can you help me check my risk for a fall? Do any of my medicines make me more likely to fall? Should I take a vitamin D supplement? What exercises can I do to improve my strength and balance? Should I make an appointment to have my vision checked? Do I need a bone density test to check for weak bones (osteoporosis)? Would it help to use a cane or a walker? Where to find more information ??? Centers for Disease Control and Prevention, STEADI: cdc.gov ??? Community-Based Fall Prevention Programs: cdc.gov ??? National [place] on Aging: [place].nih.gov Contact a health care provider if: ??? You fall at home. ??? You are afraid of falling at home. ??? You feel weak, drowsy, or dizzy. This information is not intended to replace advice given to you by your health care provider. Make sure you discuss any questions you have with your health care provider. Document Revised: 01/15/2023 Document Reviewed: 01/15/2023 [employer] Patient Education ??? 2023 [employer] Fall Prevention in the Home, Adult Falls can cause injuries and affect people of all ages. There are many simple things that you can do to make your home safe and to help prevent falls. If you need it, ask for help making these changes. What actions can I take to prevent falls? General information ??? Use good lighting in all rooms. Make sure to: ? Replace any light bulbs that burn out. ? Turn on lights if it is dark and use night-lights. ??? Keep items that you use often in [id number] places. Lower the shelves around your home if needed. ??? Move furniture so that there are clear paths around it. ??? Do not keep throw rugs or other things on the floor that can make you trip. ??? If any of your floors are uneven, fix them. ??? Add color or contrast paint or tape to clearly karel and help you see: ? Grab bars or handrails. ? First and last steps of staircases. ? Where the edge of each step is. ??? If you use a ladder or stepladder: ? Make sure that it is fully opened. Do not climb a closed ladder. ? Make sure the sides of the ladder are locked in place. ? Have someone hold the ladder while you use it. ??? Know where your pets are as you move through your home. What can I do in the bathroom? Keep the floor dry. Clean up any water that is on the floor right away. ??? Remove soap buildup in the bathtub or shower. Buildup makes bathtubs and showers slippery. ??? Use non-skid mats or decals on the floor of the bathtub or shower. ??? Attach bath mats securely with double-sided, non-slip rug tape. ??? If you need to sit down while you are in the shower, use a non-slip stool. ??? Install grab bars by the toilet and in the bathtub and shower. Do not use towel bars as grab bars. What can I do in the bedroom? Make sure that you have a light by your bed that is easy to reach. ??? Do not use any sheets or blankets on your bed that hang to the floor. ??? Have a firm bench or chair with side arms that you can use for support when you get dressed. What can I do in the kitchen? Clean up any spills right away. ??? If you need to reach something above you, use a sturdy step stool that has a grab bar. ??? Keep electrical cables out of the way. ??? Do not use floor tongan or wax that makes floors slippery. What can I do with my stairs? Do not leave anything on the stairs. ??? Make sure that you have a light switch at the top and the bottom of the stairs. Have them installed if you do not have them. ??? Make sure that there are handrails on both sides of the stairs. Fix handrails that are broken or loose. Make sure that handrails are as long as the staircases. ??? Install non-slip stair treads on all stairs in your home if they do not have carpet. ??? Avoid having throw rugs at the top or bottom of stairs, or secure the rugs with carpet tape to prevent them from moving. ??? Choose a carpet design that does not hide the edge of steps on the stairs. Make sure that carpet is firmly attached to the stairs. Fix any carpet that is loose or worn. What can I do on the outside of my home? Use bright outdoor lighting. ??? Repair the edges of walkways and driveways and fix any cracks. Clear paths of anything that can make you trip, such as tools or rocks. ??? Add color or contrast paint or tape to clearly karel and help you see high doorway thresholds. ??? Trim any bushes or trees on the main path into your home. ??? Check that handrails are securely fastened and in good repair. Both sides of all steps should have handrails. ??? Install guardrails along the edges of any raised decks or porches. ??? Have leaves, snow, and ice cleared regularly. Use sand, salt, or ice melt on walkways during winter months if you live where there is ice and snow. ??? In the garage, clean up any spills right away, including grease or oil spills. What other actions can I take? Review your medicines with your health care provider. Some medicines can make you confused or feel dizzy. This can increase your chance of falling. ??? Wear closed-toe shoes that fit well and support your feet. Wear shoes that have rubber soles and low heels. ??? Use a cane, walker, scooter, or crutches that help you move around if needed. Talk with your provider about other ways that you can decrease your risk of falls. This may include seeing a physical therapist to learn to do exercises to improve movement and strength. Where to find more information ??? Centers for Disease Control and Prevention, STEADI: cdc.gov ??? National [place] on Aging: mas[place].nih.gov ??? National [place] on Aging: [place].nih.gov Contact a health care provider if: ??? You are afraid of falling at home. ??? You feel weak, drowsy, or dizzy at home. ??? You fall at home. Get help right away if you: ??? Lose consciousness or have trouble moving after a fall. ??? Have a fall that causes a head injury. These symptoms may be an emergency. Get help right away. Call 911. ??? Do not wait to see if the symptoms will go away. ??? Do not drive yourself to the hospital. This information is not intended to replace advice given to you by your health care provider. Make sure you discuss any questions you have with your health care provider. Document Revised: 01/15/2023 Document Reviewed: 01/15/2023 [employer] Patient Education ??? 2023 [employer] FAMILY MEDICINE OFFICE/CLINI C NOTE Observed: 07/29/2024 4:46 PM Status: F Source: [facility] Medicine Office/Clini c Note Chief Complaint Medicare Wellness Visit History of Present Illness I was in the office and available for consultation and to provide direct supervision at the time of this visit. I have provided supervision of the care team and have reviewed this chart and office note and agree with the plan of care. Review of Systems PHQ Score Initial Depression Screen Score: 0 SCORE Physical Exam Vitals & Measurements HR: 63(Peripheral) RR: 20 BP: 116/74 SpO2: 98% HT: 177 cm HT: 70 in WT: 86.7 kg WT: 191.141 lb BMI: 27.67 Assessment/Plan 1. Annual visit for general adult medical examination without abnormal findings (Z00.00: Encounter for general adult medical examination without abnormal findings) Patient Maryjo accompanied patient to visit today. Discussed all the current AHRQ USPSTF???s recommendations for preventative services and all current CDC recommended immunizations, relevant risk recommendations and the following patient brochures were given. Reviewed Medicare Prevention Services checklist. CDC-Falls Prevention and home safety screening reviewed. Patient states 3 or 4 falls in last 12 months, voices some worry about falling. Uses a cane for ambulation. Patient aware with keeping walk way area free of clutter to prevent tripping and/or falling. See #7. [place] Advance Directives reviewed. Documents remain at home/district attorney's office and present in the chart. Patient denies any problems with ADL???s and Instrumental ADL???s. Cognitive screening completed with memory and clock face drawing. No deficits noted. Immunization record reviewed, discussed Shingrix vaccine with educational handout and availability. COVID vaccines have been administered, with Boosters received. Patient states he is UTD on Pneumonia vaccination through Dr. Villafuerte's office. Per a Annual Wellness visit note from Dr. Villafuerte's office it mentions patient having received Prevnar and Pneumo [address] Villafuerte's office for administration record for more specific information. Allergies and medications reviewed and up to date. No concerns with taking medication as prescribed. Reviewed OTC medications, medication list up to date. Blood tests were reviewed: Labs UTD. No concerns with bowel/ bladder. Colonoscopy: Aged out. Reviewed pain symptoms : denies pain today. States sometimes he has pain in his hand that is relieved with movement. Reviewed all outside providers that patient follows. Last visit summary notes available in chart and/or have been requested. Patient declines any signs or symptoms of depression at this time. 8 minutes spent with screening and documentation. PHQ2 screening score 0. Patient drinks alcohol once a year or less, 1 drink, denies concerns. 8 minutes spent with screening and documentation. Audit score 1. Follow up scheduled with PCP, 10/28/24 AWV has been scheduled, 07/28/25 Medicare provides yearly screening for alcohol and depression concerns. This is completed during our Medicare wellness visit for those who do not have a current diagnosis of depression or concerns with alcohol use. I spent a total of 16 minutes on this date of service which included preparing to see the patient, face to face patient care, completing clinical documentation, obtaining and/or reviewing separately obtained history, counseling and educating the patient with handouts. Explanations were provided with reviewing questionnaires. AUDIT risk assessment screening completed, risk score (1) with patient denying concerns with use. Completed PHQ-2 risk assessment for depression with risk score (0), negative findings. Patient has been reminded to notify the provider if there would be a change or concerns with symptoms with fear, unable to sleep, worrying too much or feeling down and/or sad with lost of interest with daily activities. Will continue to monitor with screening yearly during Medicare wellness visits. 2. Type 2 diabetes mellitus with hyperlipidemia (E11.69: Type 2 diabetes mellitus with other specified complication) DM stoplight handout reviewed with signs and symptoms to monitor for and report to PCP. Discussed ADA dietary recommendations with handouts provided. Encouraged to increase daily physical activity, adequate water intake, monitor carbs/chol and fats. Currently treating with diet and exercise. Monitoring BS at home with results reviewed with PCP. Follows up yearly with DM foot check, reminded patient to perform at home foot checks to prevent future complications. Patient has not completed DM education. Declines interest at this time for referral. Complete DM eye exams completed yearly with Dr. Godinez, latest DM eye exam requested for the chart. Patient encouraged to eat a diet that is low in saturated fats. Stressed importance of losing weight and/or maintain healthy BMI. as being overweight does produce more lipids. Monitor alcohol intake and avoid smoking. Risks may also increase with a family history of hyperlipidemia. Patient voices understanding with healthy dietary choices to reduce risk factors associated with CVA. Taking statin medication daily. Will continue to follow up with labs as directed. 3. CHF - Congestive heart failure (I50.9: Heart failure, unspecified) Taking Entresto as directed. Follows with Cardiology, Dr. Nolen every 6 months. Reviewed nutritional recommendations with handouts provided. Voices understanding with signs and symptoms to monitor for and report to provider. 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 Denies feeling SOB, denies concerns. Follow up with PCP. 5. Hypothyroidism (acquired) (E03.9: Hypothyroidism, unspecified) Continues taking Levothyroxine daily as ordered. Labs and medications followed up with PCP as needed. 6. Benign essential hypertension (I10: Essential (primary) hypertension) Patient taking medications daily as directed, BP monitored at home with <140/90 results. Patient does voice understanding with signs and symptoms to monitor for. HTN stoplight handout reviewed with importance of keeping BP <140/90 to prevent increased cardiovascular risks. DASH dietary handout reviewed with importance to lower salt intake, eat more chicken, fish and lean white meats. 7. At risk for falls (Z91.81: History of falling) Fall Risk Assessment reviewed with abnormal findings, patient states multiple falls in the past year. Encouraged patient to use a cane or walker for balance and support. Plan of care reviewed with patient: Upon standing up, do not start ambulating quickly and be aware of feeling dizzy which could increase fall risk. Patient to be aware of surroundings at all times. Make sure proper lighting is on, do not ambulate at night in the dark. Remove area rugs that are in walkway to prevent tripping. Always use caution with stairs, check banister railing for sturdiness. Discussed referral to PT for strengthening and/or balance needs. Referral declined at this time. Patient states he has done PT in the past year, states PCP changed some of his meds at office visit today and patient believes the med changes will help him feel less weak and more balance. Patient will start Supervised Exercise Therapy at [facility] soon per , they both believe this will help strengthen him and help prevent falls. Fall safety and prevention handout provided, will continue to monitor during visits. 8. Overweight (E66.3: Overweight) A combination of diet and exercise can help you lose weight. Discussed weight loss benefits to dietary management and overall health with increased cardiovascular risks associated with waist measurement female>35 men>40. Reminded of importance to work on lowering current body weight with healthy dietary intake choices and portion control. Reviewed goals and patients readiness with needing to make a lifestyle change. Will work on increasing daily activity to prevent further weight gain. Will continue to monitor during office visits with progress. Follow-up No qualifying data available Patient Education DASH Eating Plan Understanding Your Risk for Falls Fall Prevention in the Home, Adult Problem List/Past Medical History Ongoing Asthma At risk for falls Benign essential hypertension BMI 27.0-27.9,adult CAD in [place] artery CHF - Congestive heart failure COPD with asthma Dyslipidemia Former smoker GERD (gastroesophageal reflux disease) History of prostate cancer History of prostatectomy Hyperlipidemia, unspecified Hypothyroidism (acquired) SAMIRA (obstructive sleep apnea) Type 2 diabetes mellitus with hyperlipidemia Historical Chronic back pain Dyslipidemia Smoker Procedure/Surgical History Cardiac catheterization, left heart (12/24/2023), PCI - Percutaneous coronary intervention (12/24/2023), STEMI - ST elevation myocardial infarction (12/12/2023), Carpal tunnel (12/02/2023), right total hip arthroplasty (09/11/2016), left total hip arthroplasty (07/19/2015), Cardiac catheterization (08/27/2006), Colonoscopy (2006), Vasectomy (1975), attempted tendon repair right leg, back surgery, Radical prostatectomy, Rotator cuff repair, Thyroidectomy, Tonsillectomy. Medications aspirin, 81 mg, Oral, Bedtime atorvastatin 40 mg Tab, 40 mg= 1 tab(s), Oral, Daily, 3 refills BD UF Mini Pen Needle [id number], See Instructions, 5 refills Brilinta (ticagrelor) 90 mg oral tablet, 90 mg= 1 tab(s), Oral, BID carvedilol 3.125 mg Tab, 3.125 mg= 1 tab(s), Oral, BID, 3 refills levothyroxine 175 mcg (0.175 mg) Tab, 87.5 mcg= 0.5 tab(s), Oral, Daily mupirocin Top 2% Oint nitroglycerin 0.4 mg sublingual Tab, 0.4 mg= 1 tab(s), SubLingual, As Directed, PRN One Touch Ultra Test Strip, See Instructions, 5 refills sacubitril-valsartan 49 mg-51 mg oral tablet, 1 tab(s), Oral, BID, 11 refills Singulair 10 mg Tab, 10 mg= 1 tab(s), Oral, qPM, 4 refills Vitamin B12 1000 mcg Tab, 1000 mcg= 1 tab(s), Oral, Daily Vitamin D3, 3000 unit(s), Oral, Daily Zetia 10 mg Tab, 5 mg= 0.5 tab(s), Oral, Daily, 3 refills Allergies Aldactone Contrast Dye (Flushing) Crestor Pollen (Hayfever) Toradol Social History Alcohol - Low Risk, 07/29/2024 Current, Beer, 1-2 times per year, 1 drinks/episode average. 1.00 drinks/episode maximum., 07/29/2024 Substance Abuse - Denies Substance Abuse, 05/31/2015 Never., 05/22/2024 Tobacco - Denies Tobacco Use, 10/05/2023 Former smoker, quit more than 30 days ago Tobacco Use:. Never Smokeless Tobacco Use:. Household tobacco concerns: No., 07/29/2024 Family History Acute myocardial infarction: Grandparent. Alcoholism: Mother. Cardiac arrhythmia: Mother. Diabetes mellitus type 2: Mother and Father. Hypertension: Father. Hypotension: Brother. Primary malignant neoplasm of lung: Mother. Primary malignant neoplasm of prostate: Father. Stroke: Father. Immunizations Vaccine Date Status Comments influenza virus vaccine, inactivated 03/31/2024 Given influenza virus vaccine, inactivated - Not Given Postpone due to refusal influenza virus vaccine, inactivated 02/2023 Recorded SARS-CoV-2 (COVID-19) [id number] 05/16/2022 Recorded SARSCoV2 mRNA(ryfxfcfrl-wcan-hyusdx) vac 09/17/2021 Recorded influenza virus vaccine, inactivated 02/21/2021 Recorded SARS-CoV-2 (COVID-19) mRNA BNT-162b2 vax 02/21/2021 Recorded 2023-07-09: [id number] SARS-CoV-2 (COVID-19) mRNA BNT-162b2 vax 08/11/2020 Recorded SARS-CoV-2 (COVID-19) mRNA BNT-162b2 vax 07/18/2020 Recorded 2023-07-09: [id number] SARS-CoV-2 (COVID-19) mRNA BNT-162b2 vax 07/14/2020 Recorded SARS-CoV-2 (COVID-19) mRNA BNT-162b2 vax 06/27/2020 Recorded 2023-07-09: [id number] zoster vaccine live 04/23/2013 Recorded Result Comment: Electronical ly Signed By: Todd Osman DO\.br\Date and Time Signed: 07/29/24 17:57 EST\.br\Electronically Co-Signed By: Barb Grimaldo LPN\.br\Date and Time Co-Signed: 07/29/24 16:46 EST PATIENT EDUCATION Observed: 07/29/2024 4:41 PM Status: C Source: [facility] Patient Education Caregiving Understanding Your Risk for Falls Millions of people have serious injuries from falls each year. It is important to understand your risk of falling. Talk with your health care provider about your risk and what you can do to lower it. If you do have a serious fall, make sure to tell your provider. Falling once raises your risk of falling again. How can falls affect me? Serious injuries from falls are common. These include: ??? Broken bones, such as hip fractures. ??? Head injuries, such as traumatic brain injuries (TBI) or concussions. A fear of falling can cause you to avoid activities and stay at home. This can make your muscles weaker and raise your risk for a fall. What can increase my risk? There are a number of risk factors that increase your risk for falling. The more risk factors you have, the higher your risk of falling. Serious injuries from a fall happen most often to people who are older than 65 years old. Teenagers and young adults ages 15?29 are also at higher risk. Common risk factors include: ??? Weakness in the lower body. ??? Being generally weak or confused due to long-term (chronic) illness. ??? Dizziness or balance problems. ??? Poor vision. ??? Medicines that cause dizziness or drowsiness. These may include: ? Medicines for your blood pressure, heart, anxiety, insomnia, or swelling (edema). ? Pain medicines. ? Muscle relaxants. Other risk factors include: ??? Drinking alcohol. ??? Having had a fall in the past. ??? Having foot pain or wearing improper footwear. ??? Working at a dangerous job. ??? Having any of the following in your home: ? Tripping hazards, such as floor clutter or loose rugs. ? Poor lighting. ? Pets. ??? Having dementia or memory loss. What actions can I take to lower my risk of falling? Physical activity Stay physically fit. Do strength and balance exercises. Consider taking a regular class to build strength and balance. Yoga and [facility] chi are good options. Vision Have your eyes checked every year and your prescription for glasses or contacts updated as needed. Shoes and walking aids ??? Wear non-skid shoes. ??? Wear shoes that have rubber soles and low heels. ??? Do not wear high heels. ??? Do not walk around the house in socks or slippers. ??? Use a cane or walker as told by your provider. Home safety ??? Attach secure railings on both sides of your stairs. ??? Install grab bars for your bathtub, shower, and toilet. Use a non-skid mat in your bathtub or shower. Attach bath mats securely with double-sided, non-slip rug tape. ??? Use good lighting in all rooms. Keep a flashlight near your bed. ??? Make sure there is a clear path from your bed to the bathroom. Use night- lights. ??? Do not use throw rugs. Make sure all carpeting is taped or tacked down securely. ??? Remove all clutter from walkways and stairways, including extension cords. ??? Repair uneven or broken steps and floors. ??? Avoid walking on icy or slippery surfaces. Walk on the grass instead of on icy or slick sidewalks. Use ice melter to get rid of ice on walkways in the winter. ??? Use a cordless phone. Questions to ask your health care provider ??? Can you help me check my risk for a fall? Do any of my medicines make me more likely to fall? Should I take a vitamin D supplement? What exercises can I do to improve my strength and balance? Should I make an appointment to have my vision checked? Do I need a bone density test to check for weak bones (osteoporosis)? Would it help to use a cane or a walker? Where to find more information ??? Centers for Disease Control and Prevention, [place]: cdc.gov ??? Community-Based Fall Prevention Programs: cdc.gov ??? National [place] on Aging: [place].nih.gov Contact a health care provider if: ??? You fall at home. ??? You are afraid of falling at home. ??? You feel weak, drowsy, or dizzy. This information is not intended to replace advice given to you by your health care provider. Make sure you discuss any questions you have with your health care provider. Document Revised: 01/15/2023 Document Reviewed: 01/15/2023 [employer] Patient Education ? 2023 [employer]Fall Prevention in the Home, Adult Falls can cause injuries and affect people of all ages. There are many simple things that you can do to make your home safe and to help prevent falls. If you need it, ask for help making these changes. What actions can I take to prevent falls? General information ??? Use good lighting in all rooms. Make sure to: ? Replace any light bulbs that burn out. ? Turn on lights if it is dark and use night-lights. ??? Keep items that you use often in [id number] places. Lower the shelves around your home if needed. ??? Move furniture so that there are clear paths around it. ??? Do not keep throw rugs or other things on the floor that can make you trip. ??? If any of your floors are uneven, fix them. ??? Add color or contrast paint or tape to clearly karel and help you see: ? Grab bars or handrails. ? First and last steps of staircases. ? Where the edge of each step is. ??? If you use a ladder or stepladder: ? Make sure that it is fully opened. Do not climb a closed ladder. ? Make sure the sides of the ladder are locked in place. ? Have someone hold the ladder while you use it. ??? Know where your pets are as you move through your home. What can I do in the bathroom? Keep the floor dry. Clean up any water that is on the floor right away. ??? Remove soap buildup in the bathtub or shower. Buildup makes bathtubs and showers slippery. ??? Use non-skid mats or decals on the floor of the bathtub or shower. ??? Attach bath mats securely with double-sided, non-slip rug tape. ??? If you need to sit down while you are in the shower, use a non-slip stool. ??? Install grab bars by the toilet and in the bathtub and shower. Do not use towel bars as grab bars. What can I do in the bedroom? Make sure that you have a light by your bed that is easy to reach. ??? Do not use any sheets or blankets on your bed that hang to the floor. ??? Have a firm bench or chair with side arms that you can use for support when you get dressed. What can I do in the kitchen? Clean up any spills right away. ??? If you need to reach something above you, use a sturdy step stool that has a grab bar. ??? Keep electrical cables out of the way. ??? Do not use floor tongan or wax that makes floors slippery. What can I do with my stairs? Do not leave anything on the stairs. ??? Make sure that you have a light switch at the top and the bottom of the stairs. Have them installed if you do not have them. ??? Make sure that there are handrails on both sides of the stairs. Fix handrails that are broken or loose. Make sure that handrails are as long as the staircases. ??? Install non-slip stair treads on all stairs in your home if they do not have carpet. ??? Avoid having throw rugs at the top or bottom of stairs, or secure the rugs with carpet tape to prevent them from moving. ??? Choose a carpet design that does not hide the edge of steps on the stairs. Make sure that carpet is firmly attached to the stairs. Fix any carpet that is loose or worn. What can I do on the outside of my home? Use bright outdoor lighting. ??? Repair the edges of walkways and driveways and fix any cracks. Clear paths of anything that can make you trip, such as tools or rocks. ??? Add color or contrast paint or tape to clearly karel and help you see high doorway thresholds. ??? Trim any bushes or trees on the main path into your home. ??? Check that handrails are securely fastened and in good repair. Both sides of all steps should have handrails. ??? Install guardrails along the edges of any raised decks or porches. ??? Have leaves, snow, and ice cleared regularly. Use sand, salt, or ice melt on walkways during winter months if you live where there is ice and snow. ??? In the garage, clean up any spills right away, including grease or oil spills. What other actions can I take? Review your medicines with your health care provider. Some medicines can make you confused or feel dizzy. This can increase your chance of falling. ??? Wear closed-toe shoes that fit well and support your feet. Wear shoes that have rubber soles and low heels. ??? Use a cane, walker, scooter, or crutches that help you move around if needed. Talk with your provider about other ways that you can decrease your risk of falls. This may include seeing a physical therapist to learn to do exercises to improve movement and strength. Where to find more information ??? Centers for Disease Control and Prevention, [place]: cdc.gov ??? National [place] on Aging: [place].nih.gov ??? National [place] on Aging: [place].nih.gov Contact a health care provider if: ??? You are afraid of falling at home. ??? You feel weak, drowsy, or dizzy at home. ??? You fall at home. Get help right away if you: ??? Lose consciousness or have trouble moving after a fall. ??? Have a fall that causes a head injury. These symptoms may be an emergency. Get help right away. Call 911. ??? Do not wait to see if the symptoms will go away. ??? Do not drive yourself to the hospital. This information is not intended to replace advice given to you by your health care provider. Make sure you discuss any questions you have with your health care provider. Document Revised: 01/15/2023 Document Reviewed: 01/15/2023 [employer] Patient Education ? 2023 [employer]Nutrition DASH Eating Plan DASH stands for Dietary Approaches to Stop Hypertension. The DASH eating plan is a healthy eating plan that has been shown to: ??? Lower high blood pressure (hypertension). ??? Reduce your risk for type 2 diabetes, heart disease, and stroke. ??? Help with weight loss. What are tips for following this plan? Reading food labels ??? Check food labels for the amount of salt (sodium) per serving. Choose foods with less than 5 percent of the Daily Value (DV) of sodium. In general, foods with less than 300 milligrams (mg) of sodium per serving fit into this eating plan. ??? To find whole grains, look for the word whole as the first word in the ingredient list. Shopping ??? Buy products labeled as low-sodium or no salt added. ??? Buy fresh foods. Avoid canned foods and pre-made or frozen meals. Cooking ??? Try not to add salt when you cook. Use salt-free seasonings or herbs instead of table salt or sea salt. Check with your health care provider or pharmacist before using salt substitutes. ??? Do not ruiz foods. Cook foods in healthy ways, such as baking, boiling, grilling, roasting, or broiling. ??? Cook using oils that are good for your heart. These include olive, canola, avocado, soybean, and sunflower oil. Meal planning ??? Eat a balanced diet. This should include: ? 4 or more servings of fruits and 4 or more servings of vegetables each day. Try to fill half of your plate with fruits and vegetables. ? 6?8 servings of whole grains each day. ? 6 or less servings of lean meat, poultry, or fish each day. 1 oz is 1 serving. A 3 oz (85 g) serving of meat is about the same size as the palm of your hand. One egg is 1 oz (28 g). ? 2?3 servings of low-fat dairy each day. One serving is 1 cup (237 mL). ? 1 serving of nuts, seeds, or beans 5 times each week. ? 2?3 servings of heart-healthy fats. Healthy fats called omega-3 fatty acids are found in foods such as walnuts, flaxseeds, fortified milks, and eggs. These fats are also found in cold-water fish, such as sardines, salmon, and mackerel. ??? Limit how much you eat of: ? Canned or prepackaged foods. ? Food that is high in trans fat, such as fried foods. ? Food that is high in saturated fat, such as fatty meat. ? Desserts and other sweets, sugary drinks, and other foods with added sugar. ? Full-fat dairy products. ??? Do not salt foods before eating. ??? Do not eat more than 4 egg yolks a week. ??? Try to eat at least 2 vegetarian meals a week. ??? Eat more home-cooked food and less restaurant, buffet, and fast food. Lifestyle ??? When eating at a restaurant, ask if your food can be made with less salt or no salt. ??? If you drink alcohol: ? Limit how much you have to: ? 0?1 drink a day if you are female. ? 0?2 drinks a day if you are male. ? Know how much alcohol is in your drink. In the [place] one drink is one 12 oz bottle of beer (355 mL), one 5 oz glass of wine (148 mL), or one 1? oz glass of hard liquor (44 mL). General information ??? Avoid eating more than 2,300 mg of salt a day. If you have hypertension, you may need to reduce your sodium intake to 1,500 mg a day. ??? Work with your provider to stay at a healthy body weight or lose weight. Ask what the best weight range is for you. ??? On most days of the week, get at least 30 minutes of exercise that causes your heart to beat faster. This may include walking, swimming, or biking. ??? Work with your provider or dietitian to adjust your eating plan to meet your specific calorie needs. What foods should I eat? Fruits All fresh, dried, or frozen fruit. Canned fruits that are in their natural juice and do not have sugar added to them. Vegetables Fresh or frozen vegetables that are raw, steamed, roasted, or grilled. Low- sodium or reduced-sodium tomato and vegetable juice. Low-sodium or reduced-sodium tomato sauce and tomato paste. Low-sodium or reduced-sodium canned vegetables. Grains Whole-grain or whole-wheat bread. Whole-grain or whole-wheat pasta. Brown rice. Oatmeal. Quinoa. Bulgur. Whole-grain and low-sodium cereals. Lilly bread. Low- fat, low-sodium crackers. Whole-wheat flour tortillas. Meats and other proteins Skinless chicken or turkey. Ground chicken or turkey. Pork with fat trimmed off. Fish and seafood. Egg whites. Dried beans, peas, or lentils. Unsalted nuts, nut butters, and seeds. Unsalted canned beans. Lean cuts of beef with fat trimmed off. Low- sodium, lean precooked or cured meat, such as sausages or meat loaves. Dairy Low-fat (1%) or fat-free (skim) milk. Reduced-fat, low-fat, or fat-free cheeses. Nonfat, low-sodium ricotta or cottage cheese. Low-fat or nonfat yogurt. Low-fat, low-sodium cheese. Fats and oils Soft margarine without trans fats. Vegetable oil. Reduced-fat, low-fat, or light mayonnaise and salad dressings (reduced-sodium). Canola, safflower, olive, avocado, soybean, and sunflower oils. Avocado. Seasonings and condiments Herbs. Spices. Seasoning mixes without salt. Other foods Unsalted popcorn and pretzels. Fat-free sweets. The items listed above may not be all the foods and drinks you can have. Talk to a dietitian to learn more. What foods should I avoid? Fruits Canned fruit in a light or heavy syrup. Fried fruit. Fruit in cream or butter sauce. Vegetables Creamed or fried vegetables. Vegetables in a cheese sauce. Regular canned vegetables that are not marked as low-sodium or reduced-sodium. Regular canned tomato sauce and paste that are not marked as low-sodium or reduced-sodium. Regular tomato and vegetable juices that are not marked as low-sodium or reduced-sodium. Pickles. Olives. Grains Baked goods made with fat, such as croissants, muffins, or some breads. Dry pasta or rice meal packs. Meats and other proteins Fatty cuts of meat. Ribs. Fried meat. Powers. Bologna, salami, and other precooked or cured meats, such as sausages or meat loaves, that are not lean and low in sodium. Fat from the back of a pig (fatback). Bratwurst. Salted nuts and seeds. Canned beans with added salt. Canned or smoked fish. Whole eggs or egg yolks. Chicken or turkey with skin. Dairy Whole or 2% milk, cream, and bxls-ecz-uoni. Whole or full-fat cream cheese. Whole-fat or sweetened yogurt. Full-fat cheese. Nondairy creamers. Whipped toppings. Processed cheese and cheese spreads. Fats and oils Butter. Stick margarine. Lard. Shortening. Ghee. Powers fat. Tropical oils, such as coconut, palm kernel, or palm oil. Seasonings and condiments Onion salt, garlic salt, seasoned salt, table salt, and sea salt. Worcestershire sauce. Tartar sauce. Barbecue sauce. Teriyaki sauce. Soy sauce, including reduced-sodium soy sauce. Steak sauce. Canned and packaged gravies. Fish sauce. Oyster sauce. Cocktail sauce. Store-bought horseradish. Ketchup. Mustard. Meat flavorings and tenderizers. Bouillon cubes. Hot sauces. Pre-made or packaged marinades. Pre-made or packaged taco seasonings. Relishes. Regular salad dressings. Other foods Salted popcorn and pretzels. The items listed above may not be all the foods and drinks you should avoid. Talk to a dietitian to learn more. Where to find more information ??? National Heart, Lung, and Blood [place] (NHLBI): nhlbi.nih.gov ??? [place] Heart Association (AHA): heart.org ??? Academy of Nutrition and Dietetics: eatright.org ??? National Kidney Foundation (NKF): kidney.org This information is not intended to replace advice given to you by your health care provider. Make sure you discuss any questions you have with your health care provider. Document Revised: 05/31/2023 Document Reviewed: 05/31/2023 [employer] Patient Education ? 2023 [employer] AMBULATORY VISIT SUMMARY Observed: 07/29 2:33 PM Status: F Source: [facility] Ambulatory Visit Summary RAY SUAREZ :1945 Visit Date:07/29/2024 Ambulatory Visit Instructions Your Diagnosis Type 2 diabetes mellitus with hyperlipidemia Hyperlipidemia, unspecified, Hyperlipidemia, unspecified CHF - Congestive heart failure COPD with asthma At risk for falls Former smoker SAMIRA (obstructive sleep apnea) BMI 27.0-27.9,adult Your Care Team Attending Physician - Todd Osman DO Primary Care Physician - Todd Osman DO This Is Your Medications List Misc Prescription (BD UF Mini Pen Needle [id number]) Misc Prescription (One Touch Ultra Test Strip) aspirin atorvastatin (atorvastatin 40 mg Tab) carvedilol (carvedilol 3.125 mg Tab) cholecalciferol (Vitamin D3) cyanocobalamin (Vitamin B12 1000 mcg Tab) ezetimibe (Zetia 10 mg Tab) levothyroxine (levothyroxine 175 mcg (0.175 mg) Tab) montelukast (Singulair 10 mg Tab) mupirocin topical (mupirocin Top 2% Oint) nitroglycerin (nitroglycerin 0.4 mg sublingual Tab) sacubitril-valsartan (sacubitril-valsartan 49 mg-51 mg oral tablet) ticagrelor (Brilinta (ticagrelor) 90 mg oral tablet) [Image Removed: STOP]Stop taking these medications metformin-sitagliptin (Janumet 50 mg/1000 mg oral tablet) Procedures Performed Cardiac catheterization, left heart (12/24/2023), PCI - Percutaneous coronary intervention (12/24/2023), STEMI - ST elevation myocardial infarction (12/12/2023), Carpal tunnel (12/02/2023), right total hip arthroplasty (09/11/2016), left total hip arthroplasty (07/19/2015), Cardiac catheterization (08/27/2006), Colonoscopy (2006), Vasectomy (1975), attempted tendon repair right leg, back surgery, Radical prostatectomy, Rotator cuff repair, Thyroidectomy, Tonsillectomy. Discharge Vitals Heart Rate (Peripheral) 63 Blood Pressure 116/74 Height 177 cm Height 70 in Weight 86.7 kg Weight 191.141 lb BMI 27.67 What to do next Scheduled Follow-Up Appointments Sunday 5:40 PM EDT With: Todd Osman DO Where: [facility] [address] [place] [address]- Sunday2025 2:00 PM EST With: Where: [facility] [address] [place] [address]- You Need to Schedule the Following Appointments Follow Up with Todd Osman DO, FAM When: Within 3 months Comments: 3 MONTH DIABETIC CHECKUP Where: [address] [place] [address]- Medications What How Much When Why Instructions Unchanged aspirin 81 Milligram By Mouth At bedtime Unchanged atorvastatin (atorvastatin 40 mg Tab) 1 Tablets By Mouth Every day Hyperlipidemia, unspecified Unchanged carvedilol (carvedilol 3.125 mg Tab) 1 Tablets By Mouth 2 times a day Unchanged cholecalciferol (Vitamin D3) 3,000 Units By Mouth Every day Unchanged cyanocobalamin (Vitamin B12 1000 mcg Tab) 1 Tablets By Mouth Every day Unchanged ezetimibe (Zetia 10 mg Tab) 0.5 Tablets By Mouth Every day Unchanged levothyroxine (levothyroxine 175 mcg (0.175 mg) Tab) 0.5 Tablets By Mouth Every day Unchanged Misc Prescription (BD UF Mini Pen Needle [id number]) See instructions For daily blood sugar management and application of medication Unchanged Misc Prescription (One Touch Ultra Test Strip) See instructions For daily blood sugar testing Unchanged montelukast (Singulair 10 mg Tab) 1 Tablets By Mouth Once a day (in the evening) Unchanged mupirocin topical (mupirocin Top 2% Oint) APPLY TO AFFECTED AREAS ON BUTTOCKS TWICE A DAY UNTIL CLEAR NEEDED FOR FLARES Unchanged nitroglycerin (nitroglycerin 0.4 mg sublingual Tab) 1 Tablets Sublingual As Directed as needed for for chest pain takeif SBP is greater than 110 Unchanged sacubitril-valsartan (sacubitril-valsartan 49 mg-51 mg oral tablet) 1 Tablets By Mouth 2 times a day hold if BP is lower than 90 systolic or 50 diastolic Unchanged ticagrelor (Brilinta (ticagrelor) 90 mg oral tablet) 1 Tablets By Mouth 2 times a day What How Much When Comments Stop Taking metformin-sitagliptin (Janumet 50 mg/ 1000 mg oral tablet) 1 Tablets By Mouth Every day Allergies Aldactone Contrast Dye (Flushing) Crestor Pollen (Hayfever) Toradol Problems Ongoing - Any problem that you are currently receiving treatment for. Asthma At risk for falls Benign essential hypertension CAD in [place] artery CHF - Congestive heart failure COPD with asthma Dyslipidemia Former smoker GERD (gastroesophageal reflux disease) History of prostate cancer History of prostatectomy Hyperlipidemia, unspecified Hypothyroidism (acquired) SAMIRA (obstructive sleep apnea) Type 2 diabetes mellitus with hyperlipidemia Historical - Any problem that you are no longer receiving treatment for. Chronic back pain Dyslipidemia Smoker Patient Survey You may receive a survey via text or e-mail asking about your office visit. Please share your experience with us by completing your survey. We appreciate your feedback and thank you for choosing us for your care. FAMILY MEDICINE OFFICE/CLINI C NOTE Observed: 07/29/2024 1:53 PM Status: F Source: [facility] Family Medicine Office/Clini c Note Chief Complaint Chronic Condition follow up HPI Staff Patient here for Chronic Condition f/u (, Maryjo) Patient is here for follow up on hypertension. - Patient does see [facility] Cardiology, Dr. Hooper, last visit 05/23/24. No changes made. How often are you checking your blood pressure? Daily What are your average readings? 120's/70's Do you have any of the following symptoms? Chest Pain? no Palpitations? no MILES/SOB? no Headache? no Peripheral Edema? yes ankle, left Light Headiness? no BUN: 22 mg/dL High (05/06/24:17:00) Calcium Lvl: 10.1 mg/dL (05/06/24 11:17:00) Chloride: 106 mmol/L (05/06/24 11:17:00) CO2: 29 mmol/L (05/06/24:17:00) Creatinine: 1.3 mg/dL (05/06/24 11:17:00) eGFR: 55 mL/min/1.73 m2 Low (05/06/24 11:17:00) Glucose Lvl: 93 mg/dL (05/06/24 11:17:00) Potassium Lvl: 4.6 mmol/L (05/06/24 11:17:00) Sodium Lvl: 138 mmol/L (05/06/24 11:17:00) Chol: 98 mg/dL Low (05/06/24 11:17:00) HDL: 48 mg/dL (05/06/24 11:17:00) LDL Direct: 42 mg/dL (05/06/24 11:17:00) Tri mg/dL (05/06/24 11:17:00) VLDL: 9 mg/dL (05/06/24 11:17:00) Patient is here for follow up on Diabetes. How often are you checking your blood sugars? 1 times per day What are your average readings?100's Do you have any of the following symptoms? Vision problems? yes dry eyes, he is using OTC Visine GI-Nausea/committing/bloating? no Lightheadedness? no Paresthesias, Ulcerations or sores? yes Coccyx, he did see Dermatology ([facility]) was given cream, but notes no improvement. He has been using it for the last month. He is having paresthesias in bilateral hands. Foot Exam: Denies Eye Exam: per pt UTD U Microalb: 2 mg/dL High (05/06/24 13:49:00) Hgb A1C %: 5.2 % (12/13/23 05:54:00) Hgb A1c POC: 5.4 % (10/05/23 10:36:00) - Completed today 4.5 Patient is here for follow up on Thyroid Disease. TSH: 1.43 mcIU/mL (05/06/24 11:17:00) T3 Free: 2.6 (05/06/24) T4 Free: 1.25 ng/dL (05/06/24) AMW: Scheduled 10/09/24 Flu: UTD History of Present Illness Patient presents today for DM Followup. - Stable on medications today - No return of chest pain since last visit - 2x stents to LAD on 12/12/2023, 1x stent to PDA 12/24/2023, Echo 11/2023 showed EF 35-45% with ischemic cardiomyopathy/severe LVH Last A1c - 4.5 on 12/23/2023 Current medications - Janumet 50mg/1000mg QD Diabetic neuropathy - None noted Diabetic retinopathy - Monitored by ophthalmology Diabetic education - Completed previously Urine microalbumin - 2.0 on 05/06/2024 Diabetic foot exam - Due Statin - 40mg atorvastatin QD Today, they state that patient is doing well. Patient saw cardiology this morning. He continues to follow with Dr. Hooper. He states his fasting sugars are 90-120's in the AM. He is due for A1c as above. Review of Systems PHQ Score Initial Depression Screen Score: 3 SCORE Detailed Depression Screen Score: 8 Total Depression Screen Score: 11 ROS - Provider Constitutional: no fever, no chills Skin: no rash, no lesions ENMT: no ear pain, no sore throat, no congestion, no hoarseness. Respiratory: yes shortness of breath, no cough, no wheezing. Cardiovascular: yes chest pain, no palpitations, no edema. Gastrointestinal: no nausea, no vomiting, no diarrhea, Musculoskeletal: no back pain, no trauma. Neurologic: no headache, yes dizziness, no numbness, no weakness. Psychiatric: no sleeping problems, no irritability, no mood swings/depression. Physical Exam Vitals & Measurements HR: 63(Peripheral) BP: 116/74 SpO2: 98% HT: 70 in HT: 177 cm WT: 86.7 kg WT: 191.141 lb BMI: 27.67 General: Well developed, well nourished, in no acute distress Head: Normocephalic/atraumatic Eyes: Pupils equal, round, and reactive to light. Sclerae normal, and extraocular movements intact Lungs: Normal respiratory effort and clear to auscultation Cardio: Regular rate and rhythm, normal S1 and S2, no new murmur, no rub Musculoskeletal: No deformity or scoliosis noted. Normal range of motion. Joints normal. No erythema, edema, effusion, or ecchymosis Extremity: No clubbing, cyanosis, edema, or deformity, with normal ROM in both upper and lower bilateral extremities Neurologic: Grossly normal Skin: No rash, petechiae, suspicious lesions Mental Status: Alert and oriented x3. Normal mood and affect Assessment/Plan 1. Type 2 diabetes mellitus with hyperlipidemia (E11.69: Type 2 diabetes mellitus with other specified complication) POC A1c today is 4.5%. At this time would like to come off the Janumet. We will pull medication today. Recheck in 3 months for next A1c looking rebound. 2. Hyperlipidemia, unspecified, (E78.5: Hyperlipidemia, unspecified)Hyperlipidemia, unspecified Stable on last labs, no changes to current medications. 3. CHF - Congestive heart failure (I50.9: Heart failure, unspecified) Stable on last echocardiogram, notes as per the HPI. Continue to follow with cardiology, continue with current medications, no changes. 4. COPD with asthma (J44.9: Chronic obstructive pulmonary disease, unspecified) Secondary to smoking, doing well today. Monitor for exacerbations. 5. At risk for falls (Z91.81: History of falling) Maintain maximum fall risk precautions. 6. 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 Ordered: Current tobacco non-user 1036F Fall Risk Screen 2 or more w/injury 1100F Falls plan of care documented 0518F 7. SAMIRA (obstructive sleep apnea) (G47.33: Obstructive sleep apnea (adult) (pediatric)) Patient continues to use CPAP nightly, and continues to gain benefit from use. Recommended patient continue with nightly use to retain benefit. Recommend patient continue to receive all supplies necessary for patient's good functioning and maintenance of CPAP machine. 8. BMI 27.0-27.9,adult (Z68.27: Body mass index [BMI] 27.0-27.9, adult) The standard range for ages 18 and older is >=18.5 and < 25 kg/m2. Your BMI today was above this range, this falls in the overweight to obese category and there are medical benefits to weight loss. We can offer counselling, referral, and/or medical support in addressing this problem. Your BMI and weight management will be followed at subsequent visits. Ordered: Body Mass Index (BMI) documented 3008F Depression Screening Positive 3354F Influenza immunization administered or previously received 4274F Most recent diastolic blood pressure <80 mm Hg 3078F Systolic BP <130 mm Hg (Most Recent) 3074F Follow-up With When Contact Information Link Todd GARCÍA FAM Within 3 months [address] [place] [address]- Additional Instructions: 3 MONTH DIABETIC CHECKUP Problem List/Past Medical History Ongoing Asthma At risk for falls Benign essential hypertension CAD in [place] artery CHF - Congestive heart failure COPD with asthma Dyslipidemia Former smoker GERD (gastroesophageal reflux disease) History of prostate cancer History of prostatectomy Hyperlipidemia, unspecified Hypothyroidism (acquired) SAMIRA (obstructive sleep apnea) Type 2 diabetes mellitus with hyperlipidemia Historical Chronic back pain Dyslipidemia Smoker Procedure/Surgical History Cardiac catheterization, left heart (12/24/2023), PCI - Percutaneous coronary intervention (12/24/2023), STEMI - ST elevation myocardial infarction (12/12/2023), Carpal tunnel (12/02/2023), right total hip arthroplasty (09/11/2016), left total hip arthroplasty (07/19/2015), Cardiac catheterization (08/27/2006), Colonoscopy (2006), Vasectomy (1975), attempted tendon repair right leg, back surgery, Radical prostatectomy, Rotator cuff repair, Thyroidectomy, Tonsillectomy. Medications aspirin, 81 mg, Oral, Bedtime atorvastatin 40 mg Tab, 40 mg= 1 tab(s), Oral, Daily, 3 refills BD UF Mini Pen Needle [id number], See Instructions, 5 refills Brilinta (ticagrelor) 90 mg oral tablet, 90 mg= 1 tab(s), Oral, BID carvedilol 3.125 mg Tab, 3.125 mg= 1 tab(s), Oral, BID, 3 refills levothyroxine 175 mcg (0.175 mg) Tab, 87.5 mcg= 0.5 tab(s), Oral, Daily mupirocin Top 2% Oint nitroglycerin 0.4 mg sublingual Tab, 0.4 mg= 1 tab(s), SubLingual, As Directed, PRN One Touch Ultra Test Strip, See Instructions, 5 refills sacubitril-valsartan 49 mg-51 mg oral tablet, 1 tab(s), Oral, BID, 11 refills Singulair 10 mg Tab, 10 mg= 1 tab(s), Oral, qPM, 4 refills Vitamin B12 1000 mcg Tab, 1000 mcg= 1 tab(s), Oral, Daily Vitamin D3, 3000 unit(s), Oral, Daily Zetia 10 mg Tab, 5 mg= 0.5 tab(s), Oral, Daily, 3 refills Allergies Aldactone Contrast Dye (Flushing) Crestor Pollen (Hayfever) Toradol Social History Alcohol - No Risk, 10/05/2023 Never., 07/27/2024 Substance Abuse - Denies Substance Abuse, 05/31/2015 Never., 05/22/2024 Tobacco - Denies Tobacco Use, 10/05/2023 Former smoker, quit more than 30 days ago Tobacco Use:. Never Smokeless Tobacco Use:. Household tobacco concerns: No., 07/29/2024 Family History Acute myocardial infarction: Grandparent. Alcoholism: Mother. Cardiac arrhythmia: Mother. Diabetes mellitus type 2: Mother and Father. Hypertension: Father. Hypotension: Brother. Primary malignant neoplasm of lung: Mother. Primary malignant neoplasm of prostate: Father. Stroke: Father. Immunizations Vaccine Date Status Comments influenza virus vaccine, inactivated 03/31/2024 Given influenza virus vaccine, inactivated - Not Given Postpone due to refusal influenza virus vaccine, inactivated 02/2023 Recorded SARS-CoV-2 (COVID-19) [id number] 05/16/2022 Recorded SARSCoV2 mRNA([id number]) vac 09/17/2021 Recorded influenza virus vaccine, inactivated 02/21/2021 Recorded SARS-CoV-2 (COVID-19) mRNA BNT-162b2 vax 02/21/2021 Recorded 2023-07-09: TPV75 SARS-CoV-2 (COVID-19) mRNA BNT-162b2 vax 08/11/2020 Recorded SARS-CoV-2 (COVID-19) mRNA BNT-162b2 vax 07/18/2020 Recorded 2023-07-09: TPV75 SARS-CoV-2 (COVID-19) mRNA BNT-162b2 vax 07/14/2020 Recorded SARS-CoV-2 (COVID-19) mRNA BNT-162b2 vax 06/27/2020 Recorded 2023-07-09: TPV75 zoster vaccine live 04/23/2013 Recorded Result Comment: Electronical ly Signed By: Todd Osman DO\Date and Time Signed: 07/29/24 13:[address] CHEST W IV CONTRAST Observed: 025 10:35 AM Status: F Source: [facility] Interpreted By: Johnny Jose, STUDY: CT CHEST W IV CONTRAST; 07/07/2024 10:52 am INDICATION: Signs/Symptoms:aortic aneurysm. ,I71.21 Aneurysm of the ascending aorta, without rupture (CMS-HCC) COMPARISON: No prior cross-sectional imaging of the chest is available for comparison. ACCESSION NUMBER(S): [id number] ORDERING CLINICIAN: DAVION NOLEN TECHNIQUE: Helical data acquisition of the chest was obtained following intravenous administration of 75 ML Omnipaque 350. Images were reformatted in axial, coronal, and sagittal planes. FINDINGS: LUNGS AND AIRWAYS: The trachea and central airways are patent. No endobronchial lesion is seen. The bilateral lungs are clear without evidence of focal consolidation, pleural effusion, or pneumothorax. MEDIASTINUM AND PHILLIP, LOWER NECK AND AXILLA: Thyroid appears mildly atrophic, otherwise grossly normal. There is partially visualized 1.5 cm soft tissue nodule along the soft tissues of the left anterior thyroid cartilage, possibly representing a thyroglossal duct cyst.. No evidence of thoracic lymphadenopathy by CT criteria. Esophagus appears within normal limits as seen. HEART AND VESSELS: Mildly aneurysmal ascending thoracic aorta measuring 4.1 cm at the level of aortic root in coronal plane and measuring 4.1 cm at the level of pulmonary trunk. Mild aortic valve atherosclerotic calcifications. No wall irregularity to suggest dissection. Main pulmonary trunk is upper normal limits measuring 2.9 cm in caliber. The cardiac chambers are not enlarged. There is heavy coronary artery atherosclerotic calcifications versus left anterior coronary artery stent. There is no pericardial effusion seen. UPPER ABDOMEN: Partially visualized multiple small renal cysts. There is also intermediate density 1.7 cm right upper pole exophytic presumed proteinaceous cyst. Small nonobstructing right intrarenal calculus. Mild bilateral renal cortical thinning. Cholelithiasis. CHEST WALL AND OSSEOUS STRUCTURES: Chest wall is within normal limits. No acute osseous pathology.There are no suspicious osseous lesions. Mild chronic height loss of L1 vertebral body. IMPRESSION: 1. No evidence of acute pathology. Severe coronary artery atherosclerotic calcifications versus left anterior coronary artery stent. Mildly aneurysmal ascending aorta measuring 4.1 cm at the level of pulmonary trunk and at the level of aortic root. 2. Partially visualized 1.5 cm soft tissue nodule located along the anterior paramidline left thyroid cartilage. This may possibly represent a thyroglossal duct cyst and further characterization with follow-up CT of the neck is recommended. 3. Mild bilateral renal cortical thinning. Bilateral small renal cysts including presumed proteinaceous 1.7 cm cyst arising from the right upper lobe kidney incompletely characterized. Follow-up renal ultrasound or multiphase imaging of the kidneys is recommended. Signed by: Nael Jose 07/08/2024 3:58 PM Dictation workstation: [id number] ECHO TRANSTHORACIC W/ CONTRAST Observed: 06/10/2024 4:01 PM Status: F Source: [facility] Echocardiology Procedure Exam Date/Time Accession # Ordering Echo Transthoracic w/ 06/10/2024 16:01 EST [id number] Jonathan Hernandez PA-C Contrast CPT code 41446 C8929 Reason for Exam (Echo Transthoracic w/ Contrast) I25.10;Congestive Heart Failure Report [facility] [address] [place] [address] Adult Echocardiogram Report Name: RAY SUAREZ Study Date: 06/10/2024 02:04 PM BP: 116/71 mmHg Patient Location: [facility] Ambulatory(s) [facility] HR: 55 : 1945 Gender: Male Height: 70 in Age: 78 yrs Ethnicity: [facility] Weight: 185 lb Reason For Study: Congestive Heart Failure; Murmur BSA: 2.0 m2 History: High Cholesterol,HTN,Diabetes,Smoker-Quit,CAD,COPD,SAMIRA,Stents,Cardiomyopathy,IA Ordering Physician: Mary^Jonathan^Justin Referring Physician: Jonathan Hernandez Performed By: Karla Garcia [facility] Interpretation Summary Image enhancing agent used for endocardial delineation. Moderate left ventricular hypertrophy. Left ventricular systolic function is mild to moderately reduced. EF around 40% There is septal wall akinesis There is mid anterior wall akinesis There is apical wall akinesis Grade I diastolic dysfunction, (abnormal relaxation pattern). Aortic sclerosis. Probably mild to moderate aortic stenosis. There is mild tricuspid regurgitation. The aortic root is dilated at 4.3 cm. The ascending aorta is mildly dilated at 4.1 cm. Procedure A complete two-dimensional transthoracic echocardiogram was performed using contrast (2D, M-mode, spectral and color flow Doppler). Left Ventricle Echocardiology Report The left ventricle is normal in size. moderate left ventricular hypertrophy. Left ventricular systolic function is mild to moderately reduced. EF around 40%. There is septal wall akinesis. There is apical wall akinesis. There is mid anterior wall akinesis. Grade I diastolic dysfunction, (abnormal relaxation pattern). Left Atrium The left atrial size is normal. There is no atrial septal defect. Right Atrium The right atrium is grossly normal. Right Ventricle The right ventricular systolic function is normal. The right ventricle is normal size. Aortic Valve The aortic valve is trileaflet. No aortic regurgitation. Aortic sclerosis. Probably mild to moderate aortic stenosis. Mitral Valve The mitral valve is grossly normal. There is no mitral regurgitation noted. No mitral valve stenosis. Tricuspid Valve The tricuspid valve is grossly normal. There is mild tricuspid regurgitation. Right ventricular systolic pressure is normal. No evidence of tricuspid stenosis. Pulmonic Valve The pulmonic valve is normal. Trace pulmonic valvular regurgitation. No evidence of stenosis. Arteries The aortic root is dilated at 4.3 cm. The ascending aorta is mildly dilated at 4.1 cm. Effusion There is no pericardial effusion. MMode/2D Measurements & Calculations RVDd: 3.0 cm LVIDd: 5.4 cm FS: 47.1 % Ao root diam: 4.3 cm IVSd: 1.5 cm LVIDs: 2.9 cm EDV(Teich): 143.7 ml Ao root area: 14.2 cm2 LVPWd: 1.2 cm ESV(Teich): 31.7 ml LA dimension: 4.0 cm EF(Teich): 78.0 % asc Aorta Diam: 4.1 cm LVOT diam: 2.4 cm LVLd ap4: 9.8 cm EDV(MOD-sp2): 130.0 ml LVOT area: 4.7 cm2 EDV(MOD-sp4): 170.0 ml ESV(MOD-sp2): 84.1 ml LVLs ap4: 8.8 cm EF(MOD-sp2): 35.3 % ESV(MOD-sp4): 88.7 ml EF(MOD-sp4): 47.8 % SV(MOD-sp4): 81.3 ml TAPSE: 2.4 cm RVIDd/LVIDd: 0.54 EF (MOD-bp): 43.9 % LA Vol Index: 21.6 ml/m2 Echocardiology Report Doppler Measurements & Calculations MV E max jaison: 56.9 cm/sec MV dec time: 0.23 sec Ao V2 max: 204.0 cm/sec LV V1 max P.7 mmHg MV A max jaison: 74.4 cm/sec Ao max P.6 mmHg LV V1 mean P.0 mmHg MV E/A: 0.76 Ao V2 mean: 136.0 cm/sec LV V1 max: 64.3 cm/sec Lat Peak E' Jaison: 5.2 cm/sec Ao mean P.0 mmHg LV V1 mean: 42.2 cm/sec E/E' Lat: 10.9 Ao V2 VTI: 40.5 cm LV V1 VTI: 12.8 cm Med Peak E' Jaison: 4.8 cm/sec E/E' Med: 11.9 KYRIE(I,D): 1.5 cm2 KYRIE(V,D): 1.5 cm2 SV(LVOT): 59.7 ml TR max jaison: 202.6 cm/sec AV VR: 0.32 TR max P.4 mmHg KYRIE(VTI)/BSA_phl: 0.71 FINAL REPORT Dictated: 06/10/2024 2:04 pm Wilner Hooper MD Signed (Electronic Signature): 06/12/2024 12:45 pm Signed by: Wilner Hoopre MD Transcribed by: SUE Technologist: [facility]/CLINIC NOTE Observed: 05/23/2024 3:12 PM Status: F Source: [facility] Heart and Vascular Office/Cl inic Note Chief Complaint f/u questioning heart rythm, recent illness. seen at [facility] last week and was given bromfed and was told by pharmacy he should not be given that. pt is also sob History of Present Illness Ray is an 78 year old male with past medical hx of CAD with PCI due to in STEMI 11/2023. Patient had ARLETTE x 2 to LAD on 12/12/2023 followed by ARLETTE x 1 to right PDA on 12/24/2023. Echo from 11/2023 showed decreased EF of 35-40%, ischemic cardiomyopathy, akinetic septum/dyskinetic apex and severe LVH. He was seen by Jonathan Hernandez last time in the office on April for 3 months follow-up. He presents today with symptoms of what looks like bronchitis; he was prescribed Zithromax, according to him, it is not making any difference. He is requesting a different antibiotics. Complaints of fatigue. Reports no chest pain or worsening shortness of breath, orthopnea or PND Review of Systems PHQ Score Initial Depression Screen Score: 0 SCORE ROS - Provider Constitutional: no fever, no chills, yes fatigue Skin:no rash, no lesions ENMT: no ear pain, no sore throat, no congestion. Respiratory: yes shortness of breath, yes cough, no wheezing. Cardiovascular: no chest pain, no palpitations, no edema. Gastrointestinal: no nausea, no vomiting, no diarrhea, no GI bleeding. Genitourinary: no dysuria, no frequencyno hematuria Musculoskeletal: no back pain, no trauma. Neurologic: no headache, no dizziness, no numbness, no weakness. Psychiatric: no sleeping problems, no irritability, no mood swings/depression. Heme/Lymph: no bleeding tendency, no bruising tendency, no petechiae, Allergy/Immuno logic: no seasonal allergies, no food allergies, no recurrent infections Physical Exam Vitals & Measurements HR: 64(Peripheral) RR: 16 BP: 138/87 SpO2: 97% HT: 70 in HT: 177 cm WT: 83 kg WT: 182.983 lb BMI: 26.49 General: alert, no acute distress Neck: Supple, noJVD nocarotid bruit Cardiovascular: regular rate and rhythm, no murmur normal peripheral perfusion Respiratory: Lungs rhonchi, respirations non labored Extremities: no edema left lower extremity. no edema right lower extremity Neurological: oriented x 4, LOC appropriate for age, speech normal Skin: Warm, dry, intact- no rash or concerning lesions Procedure (12/13/2023 17:05 EDT Echo Transthoracic w/ Contrast) Adult Echocardiogram Report Name: RAY SUAREZ Study Date: 12/13/2023, 3: 17 PM Patient Location: [address] [place] [address] : 1945 (MM/DD/YYYY) Gender: Male Age: 78 Years Height: 177 cm BP: 108 / 70 mmHg Weight: 102 kg HR: 57 bpm BSA: 2.19 m?? Ordering Physician: Leopoldo Patel Performed By: Karla Garcia RDCS Reason For Study: CAD Coronary artery disease History: High Cholesterol, HTN, CHF, Obesity Interpretation Summary Ejection Fraction = 35-40%. Ischemic cardiomyopathy. Normal LV size with moderate LV systolic dysfunction. Akinetic septum/dyskinetic apex. No LV apical thrombus. No significant valve disease. No estimated PA pressure. Impaired diastolic relaxation. Severe LVH. [1] Cardiac Diagnostics [facility] with Dr. Nolen on 12/24/2023: LMT: Normal left main trunk with trifurcation LAD: Normal caliber with patent proximal to mid stents and mild diffuse disease less than 30% stenosis, reaches the apex. LCx: Normal caliber with mild-moderate disease less than 30% stenosis, reaches the lateral wall. Ramus intermedius present RCA: Normal caliber with mild irregularity and 99% stenosis of ostial PDA stenosis, dominant, reaches the inferior wall. Hemodynamics: Normal LVEDP at 11 mmHg with no gradient across the aortic valve. Left ventriculography: Not performed PCI note: Success PCI right PDA 99% stenosed SYMONE-3 flow reduced to 0% residual SYMONE-3 flow after implantation of a Xience 2.5/28 postdilated stent balloon at multiple inflations. Conclusions: Patent previously placed stents, no new narrowings. Nonculprit lesion was stented. CAD: DAPT, beta-shawn, statin, risk factor modification., Importance of antiplatelet compliance was emphasized including risk of stent thrombosis or . The patient understands as well as his accompanying family member/friend that the patient may have stent thrombosis or heart attack and the patient agrees. I myself have specifically counseled the patient regarding stent thrombosis risk including and the patient will additionally be counseled by the [employer] team and in follow-up. [1] [facility] with Dr. Nolen on 12/12/2023: LMT: Normal left main trunk with trifurcation LAD: Normal caliber with 100% proximal stenosis, reaches the apex. Heavily calcified. 80% mid stenosis beyond the lesion after opening up the proximal LAD. LCx: Normal caliber with mild-moderate diffuse disease less than 50% stenosis, reaches the lateral wall. RCA: Normal caliber with mild-moderate diffuse disease less than 50% stenosis, dominant, reaches the inferior wall. The PDA has 95% ostial stenosis and 90% mid body stenosis. Hemodynamics: Borderline elevated LVEDP at 25 mmHg with no gradient across the aortic valve. Left ventriculography: Abnormal LV systolic function, EF 35-40 %, apical dyskinesis wall motion abnormalities and normal chamber size with no mitral regurgitation. PCI note: Success PCI proximal/mid LAD 100% stenosis SYMONE 0 flow reduced to 0% residual SYMONE-3 flow after implantation of a Xience 3.0/23 and 2.75/23 overlapping from proximal to mid. Postdilated with a 2.75 NC and a 3.25 NC high-pressure. Conclusions: Anterolateral STEMI secondary to proximal LAD occlusion, status post primary PCI with ARLETTE x 2. Probable staged PCI at a much later date of the PDA due to renal insufficiency contrast and urgency, nonculprit lesion. CAD: DAPT, beta- shawn, statin, risk factor modification. Importance of antiplatelet compliance was emphasized including risk of stent thrombosis or . The patient understands as well as his accompanying family member/friend that the patient may have stent thrombosis or heart attack and the patient agrees. I myself have specifically counseled the patient regarding stent thrombosis risk including and the patient will additionally be counseled by the [employer] team and in follow-up. [2] (12/13/2023 17:05 EDT Echo Transthoracic w/ Contrast) Interpretation Summary Ejection Fraction = 35-40%. Ischemic cardiomyopathy. Normal LV size with moderate LV systolic dysfunction. Akinetic septum/dyskinetic apex. No LV apical thrombus. No significant valve disease. No estimated PA pressure. Impaired diastolic relaxation. Severe LVH. [2] Assessment/Plan 1. CAD in [place] artery (I25.10: Atherosclerotic heart disease of [place] coronary artery without angina pectoris) Stable status. The patient does have unrevascularized PLV territory with significant stenosis, however, reports no chest pain or worsening shortness of breath. Continue DAPT for at least a year since the index event/last PCI 2. Ischemic cardiomyopathy (I25.5: Ischemic cardiomyopathy) TTE was ordered for May 29. 3. Benign essential hypertension (I10: Essential (primary) hypertension) Blood pressure is slightly elevated. In the setting of systemic disease, I would not make any adjustments of antihypertensives. 4. CHF - Congestive heart failure (I50.9: Heart failure, unspecified) Documented LVEF in the range of 35 to 40%. Appears to be euvolemic by physical exam. Current medical therapy will be continued without making any changes. 5. Bronchitis (J40: Bronchitis, not specified as acute or chronic) I suggested the patient and his family, if symptoms of bronchitis are not improving, seek care at ER or urgent care. Follow-up No qualifying data available After the echocardiogram/recovery Problem List/Past Medical History Ongoing Asthma At risk for falls Benign essential hypertension CAD in [place] artery CHF - Congestive heart failure COPD with asthma Dyslipidemia Former smoker GERD (gastroesophageal reflux disease) History of prostate cancer History of prostatectomy Hyperlipidemia, unspecified Hypothyroidism (acquired) SAMIRA (obstructive sleep apnea) Type 2 diabetes mellitus with hyperlipidemia Historical Chronic back pain Smoker Procedure/Surgical History Cardiac catheterization, left heart (12/24/2023), PCI - Percutaneous coronary intervention (12/24/2023), STEMI - ST elevation myocardial infarction (12/12/2023), Carpal tunnel (12/02/2023), right total hip arthroplasty (09/11/2016), left total hip arthroplasty (07/19/2015), Cardiac catheterization (08/27/2006), Colonoscopy (2006), Vasectomy (1975), attempted tendon repair right leg, back surgery, Radical prostatectomy, Rotator cuff repair, Thyroidectomy, Tonsillectomy. Medications aspirin, 81 mg, Oral, Bedtime atorvastatin 40 mg Tab, 40 mg= 1 tab(s), Oral, Daily, 3 refills BD UF Mini Pen Needle [id number], See Instructions, 5 refills Brilinta (ticagrelor) 90 mg oral tablet, 90 mg= 1 tab(s), Oral, BID Bromfed DM oral syrup, 10 mL, Oral, QID carvedilol 3.125 mg Tab, 3.125 mg= 1 tab(s), Oral, BID, 3 refills Janumet 50 mg/1000 mg oral tablet, 1 tab(s), Oral, Daily levothyroxine 175 mcg (0.175 mg) Tab, 87.5 mcg= 0.5 tab(s), Oral, Daily nitroglycerin 0.4 mg sublingual Tab, 0.4 mg= 1 tab(s), SubLingual, As Directed, PRN One Touch Ultra Test Strip, See Instructions, 5 refills sacubitril-valsartan 49 mg-51 mg oral tablet, 1 tab(s), Oral, BID, 11 refills Singulair 10 mg Tab, 10 mg= 1 tab(s), Oral, qPM, 4 refills Vitamin B12 1000 mcg Tab, 1000 mcg= 1 tab(s), Oral, Daily Vitamin D3, 3000 unit(s), Oral, Daily Zetia 10 mg Tab, 5 mg= 0.5 tab(s), Oral, Daily, 3 refills Allergies Aldactone Contrast Dye (Flushing) Crestor Pollen (Hayfever) Toradol Social History Alcohol - No Risk, 10/05/2023 Current. 1-2 times per year., 05/22/2024 Substance Abuse - Denies Substance Abuse, 05/31/2015 Never., 05/22/2024 Tobacco - Denies Tobacco Use, 10/05/2023 Former smoker, quit more than 30 days ago Tobacco Use:., 05/23/2024 Family History Acute myocardial infarction: Grandparent. Alcoholism: Mother. Cardiac arrhythmia: Mother. Diabetes mellitus type 2: Mother and Father. Hypertension: Father. Hypotension: Brother. Primary malignant neoplasm of lung: Mother. Primary malignant neoplasm of prostate: Father. Stroke: Father. Immunizations Vaccine Date Status Comments influenza virus vaccine, inactivated 03/31/2024 Given influenza virus vaccine, inactivated - Not Given Postpone due to refusal influenza virus vaccine, inactivated 02/2023 Recorded SARS-CoV-2 (COVID-19) [id number].[id number] 05/16/2022 Recorded SARSCoV2 mRNA(fszrevylp-ibxd-uhtehb) vac 09/17/2021 Recorded influenza virus vaccine, inactivated 02/21/2021 Recorded SARS-CoV-2 (COVID-19) mRNA BNT-162b2 vax 02/21/2021 Recorded 2023-07-09: [id number] SARS-CoV-2 (COVID-19) mRNA BNT-162b2 vax 08/11/2020 Recorded SARS-CoV-2 (COVID-19) mRNA BNT-162b2 vax 07/18/2020 Recorded 2023-07-09: [id number] SARS-CoV-2 (COVID-19) mRNA BNT-162b2 vax 07/14/2020 Recorded SARS-CoV-2 (COVID-19) mRNA BNT-162b2 vax 06/27/2020 Recorded 2023-07-09: [id number] zoster vaccine live 04/23/2013 Recorded [1] Echo Transthoracic w/ Contrast; Davion Nolen MD 12/13/2023 17:05 EDT [2] Office Visit Note; Mary ORELLANA, Jonathan Anderson 05/02/2024 12:21 EST Result Comment: Electronical ly Signed By: Rufus AUGUSTE, Wilner Echeverria.[email or web address]\Date and Time Signed: 05/23/24 15:13 [facility] OFFICE/CLINI C NOTE Observed: 05/17/2024 12:26 PM Status: F Source: [facility] Medicine Office/Clini c Note Chief Complaint cough, runny nose HPI Staff 78 year old male presents with a cough, runny nose symptoms began Sunday took Tessalon pearls History of Present Illness Reviewed and agree with above documented HPI by biomedical equipment technician. Portions of this record may have been created with voice recognition artificial intelligence software, specifically [employer] and or [employer]. Substitutions may have occurred due to the inherent limitations of voice recognition and artificial intelligence software. Patient is a 78-year-old male who presents to [facility] care, for nonproductive cough, sinus congestion, facial pressure, sinus headache. Patient states he does have a history of acute bronchitis, but no history of asthma, states his symptoms started on Sunday, about 4 days ago, before that he was not feeling well, has sinus issues, has been trying to treat it with sjog-xwv-ddsojjd medication, states he had some leftover Tessalon Perles, started taking Tessalon Perles without any relief, states that they are not concerned about exposure to COVID-19 influenza, she thinks this might he has bronchitis, patient stated when he eats and drinks she has a sense of taste and smell intact. Patient denies any worsening headache, different type of headache, dizziness, acute visual changes, nausea vomiting, fevers, chills, difficulty swallowing, productive cough, wheezing, palpitations, chest pain, dyspnea exertion, weakness. Review of Systems PHQ Score Initial Depression Screen Score: 0 SCORE Physical Exam Vitals & Measurements T: 36.5 ???C(Oral) HR: 68(Peripheral) BP: 120/84 SpO2: 99% HT: 70 in HT: 177 cm WT: 89 kg WT: 196.211 lb BMI: 28.41 General: Well developed, well nourished, in no acute distress. Patient does appear ill but not septic. No respiratory distress. Patient answers questions appropriately and in complete sentences. Follows commands appropriately. Head: Normocephalic/atraumatic. Positive upper respiratory infection. Eyes: Pupils equal, round, and reactive to light. Conjunctivae and sclerae normal.Ears: Bilateral TMs bulging equally, no signs of otitis media or otitis externa. Hearing intact. Nose: No deformity, discharge, inflammation, or lesions Mouth: Mucous membranes moist. Normal oropharynx, and posterior pharynx without erythema, nasal drip, exudates, lesions, or enlarged tonsils. No trismus. No difficulty swallowing. Neck: Neck supple. No masses or palpable cervical nodes. No mastoid tenderness. Lungs: Normal respiratory effort and clear to auscultation throughout. No wheezing, rales, crackles, or decreased breath sounds. Cardio: regular rate and rhythm, no murmur no chest wall tenderness. Pulses: Normal capillary refill Neurologic: Grossly normal Skin: No rashes, ulcerations, or suspicious lesions Lymph Nodes: no lad Mental Status: alert, active Assessment/Plan Chest x-ray for any possible acute findings. Patient preferred no swabs to be done at this time. Discussed with patient imaging findings read by the radiologist: No evidence of active cardiopulmonary disease . 78-year-old male presented to [facility] care, for acute bronchitis, symptoms started ago, worsening symptoms past 4 days, patient did appear ill but not septic, no respiratory distress, difficulty swallowing, chest pain, shortness of breath, weakness. Patient was given new prescriptions for Zithromax and Bromfed, to continue taking jpyz-chx-gpgvcfa ibuprofen and Tylenol for pain, headaches, fevers, body aches. Drink plenty of fluids to stay hydrated. Follow-up with primary care provider as needed. 1. Acute bronchitis (J20.9: Acute bronchitis, unspecified) See above 2. BMI 28.0-28.9,adult (Z68.28: Body mass index [BMI] 28.0-28.9, adult) The standard range for ages 18 and older is >=18.5 and < 25 kg/m2. Your BMI today was above this range, this falls in the overweight to obese category and there are medical benefits to weight loss. We can offer counselling, referral, and/or medical support in addressing this problem. Your BMI and weight management will be followed at subsequent visits. Follow-up With When Contact Information Link Todd GARCÍA, [address] [place] [address]- Additional Instructions: Problem List/Past Medical History Ongoing Asthma At risk for falls Benign essential hypertension CAD in [place] artery CHF - Congestive heart failure COPD with asthma Dyslipidemia Former smoker GERD (gastroesophageal reflux disease) History of prostate cancer History of prostatectomy Hyperlipidemia, unspecified Hypothyroidism (acquired) SAMIRA (obstructive sleep apnea) Type 2 diabetes mellitus with hyperlipidemia Historical Chronic back pain Smoker Procedure/Surgical History Cardiac catheterization, left heart (12/24/2023), PCI - Percutaneous coronary intervention (12/24/2023), STEMI - ST elevation myocardial infarction (12/12/2023), Carpal tunnel (12/02/2023), right total hip arthroplasty (09/11/2016), left total hip arthroplasty (07/19/2015), Cardiac catheterization (08/27/2006), Colonoscopy (2006), Vasectomy (1975), attempted tendon repair right leg, back surgery, Radical prostatectomy, Rotator cuff repair, Thyroidectomy, Tonsillectomy. Medications aspirin, 81 mg, Oral, Bedtime atorvastatin 40 mg Tab, 40 mg= 1 tab(s), Oral, Daily, 3 refills BD UF Mini Pen Needle [id number], See Instructions, 5 refills Brilinta (ticagrelor) 90 mg oral tablet, 90 mg= 1 tab(s), Oral, BID Bromfed DM oral syrup, 10 mL, Oral, QID, PRN carvedilol 3.125 mg Tab, 3.125 mg= 1 tab(s), Oral, BID, 3 refills Janumet 50 mg/1000 mg oral tablet, 1 tab(s), Oral, Daily Lasix 20 mg Tab, 40 mg= 2 tab(s), Oral, Daily, PRN levothyroxine 175 mcg (0.175 mg) Tab, 87.5 mcg= 0.5 tab(s), Oral, Daily nitroglycerin 0.4 mg sublingual Tab, 0.4 mg= 1 tab(s), SubLingual, As Directed, PRN One Touch Ultra Test Strip, See Instructions, 5 refills sacubitril-valsartan 49 mg-51 mg oral tablet, 1 tab(s), Oral, BID, 11 refills Singulair 10 mg Tab, 10 mg= 1 tab(s), Oral, qPM, 4 refills Vitamin B12 1000 mcg Tab, 1000 mcg= 1 tab(s), Oral, Daily Vitamin D3, 3000 unit(s), Oral, Daily Zetia 10 mg Tab, 5 mg= 0.5 tab(s), Oral, Daily, 3 refills Zithromax Z-Juan C 250 mg oral tablet, 1 packet(s), Oral, As Directed Allergies Aldactone Contrast Dye (Flushing) Crestor Pollen (Hayfever) Toradol Social History Alcohol - No Risk, 10/05/2023 Current, 1-2 times per year, 1 drinks/episode average. 1.00 drinks/episode maximum., 10/05/2023 Substance Abuse - Denies Substance Abuse, 05/31/2015 Tobacco - Denies Tobacco Use, 10/05/2023 Former smoker, quit more than 30 days ago Tobacco Use:. Former smokeless tobacco user, quit more than 30 days ago Smokeless Tobacco Use:. Cigarettes, Cigars, Oral, Started age 18.0 Years. Stopped age 33 Years., 05/15/2024 Family History Acute myocardial infarction: Grandparent. Alcoholism: Mother. Cardiac arrhythmia: Mother. Diabetes mellitus type 2: Mother and Father. Hypertension: Father. Hypotension: Brother. Primary malignant neoplasm of lung: Mother. Primary malignant neoplasm of prostate: Father. Stroke: Father. Immunizations Vaccine Date Status Comments influenza virus vaccine, inactivated 03/31/2024 Given influenza virus vaccine, inactivated - Not Given Postpone due to refusal influenza virus vaccine, inactivated 02/2023 Recorded SARS-CoV-2 (COVID-19) [id number].[id number] 05/16/2022 Recorded SARSCoV2 mRNA(rhjuvyylh-fjhc-cilqla) vac 09/17/2021 Recorded influenza virus vaccine, inactivated 02/21/2021 Recorded SARS-CoV-2 (COVID-19) mRNA BNT-162b2 vax 02/21/2021 Recorded 2023-07-09: TPV75 SARS-CoV-2 (COVID-19) mRNA BNT-162b2 vax 08/11/2020 Recorded SARS-CoV-2 (COVID-19) mRNA BNT-162b2 vax 07/18/2020 Recorded 2023-07-09: TPV75 SARS-CoV-2 (COVID-19) mRNA BNT-162b2 vax 07/14/2020 Recorded SARS-CoV-2 (COVID-19) mRNA BNT-162b2 vax 06/27/2020 Recorded 2023-07-09: TPV75 zoster vaccine live 04/23/2013 Recorded Result Comment: Electronical ly Signed By: CORAL ORELLANA, ANDREAS\.br\Date and Time Signed: 05/17/24 12:26 EST AMBULATORY VISIT SUMMARY Observed: 05/15 4:14 PM Status: F Source: [facility] Ambulatory Visit Summary RAY SUAREZ :1945 Visit Date:05/15/2024 Ambulatory Visit Instructions Your Diagnosis Acute bronchitis BMI 28.0-28.9,adult Your Care Team Attending Physician - CORAL ORELLANA, ANDREAS Primary Care Physician - Todd Osman DO This Is Your Medications List Misc Prescription (BD UF Mini Pen Needle [id number]) Misc Prescription (One Touch Ultra Test Strip) aspirin atorvastatin (atorvastatin 40 mg Tab) carvedilol (carvedilol 3.125 mg Tab) cholecalciferol (Vitamin D3) cyanocobalamin (Vitamin B12 1000 mcg Tab) ezetimibe (Zetia 10 mg Tab) furosemide (Lasix 20 mg Tab) levothyroxine (levothyroxine 175 mcg (0.175 mg) Tab) metformin-sitagliptin (Janumet 50 mg/1000 mg oral tablet) montelukast (Singulair 10 mg Tab) nitroglycerin (nitroglycerin 0.4 mg sublingual Tab) sacubitril-valsartan (sacubitril-valsartan 49 mg-51 mg oral tablet) ticagrelor (Brilinta (ticagrelor) 90 mg oral tablet) Procedures Performed Cardiac catheterization, left heart (12/24/2023), PCI - Percutaneous coronary intervention (12/24/2023), STEMI - ST elevation myocardial infarction (12/12/2023), Carpal tunnel (12/02/2023), right total hip arthroplasty (09/11/2016), left total hip arthroplasty (07/19/2015), Cardiac catheterization (08/27/2006), Colonoscopy (2006), Vasectomy (1975), attempted tendon repair right leg, back surgery, Radical prostatectomy, Rotator cuff repair, Thyroidectomy, Tonsillectomy. Discharge Vitals Temperature (Oral) 36.5 ???C Heart Rate (Peripheral) 68 Blood Pressure 120/84 Height 177 cm Height 70 in Weight 89 kg Weight 196.211 lb BMI 28.41 What to do next Scheduled Follow-Up Appointments Sunday 1:20 PM EST With: Todd Osman DO Where: [facility] [address] [place] [address]- Sunday 11:30 AM EST With: Jonathan Hernandez PA-C Where: [facility] 2024 9:30 AM EDT With: Where: [facility] [address] [place] [address]- Medications What How Much When Why Instructions Unchanged aspirin 81 Milligram By Mouth At bedtime Unchanged atorvastatin (atorvastatin 40 mg Tab) 1 Tablets By Mouth Every day Hyperlipidemia, unspecified Unchanged carvedilol (carvedilol 3.125 mg Tab) 1 Tablets By Mouth 2 times a day Unchanged cholecalciferol (Vitamin D3) 3,000 Units By Mouth Every day Unchanged cyanocobalamin (Vitamin B12 1000 mcg Tab) 1 Tablets By Mouth Every day Unchanged ezetimibe (Zetia 10 mg Tab) 0.5 Tablets By Mouth Every day Unchanged furosemide (Lasix 20 mg Tab) 2 Tablets By Mouth Every day as needed for Other (see comment) PRN for leg swelling (takes for >3 pound weight gain) Unchanged levothyroxine (levothyroxine 175 mcg (0.175 mg) Tab) 0.5 Tablets By Mouth Every day Unchanged metformin-sitagliptin (Janumet 50 mg/ 1000 mg oral tablet) 1 Tablets By Mouth Every day Unchanged Misc Prescription (BD UF Mini Pen Needle [id number]) See instructions For daily blood sugar management and application of medication Unchanged Misc Prescription (One Touch Ultra Test Strip) See instructions For daily blood sugar testing Unchanged montelukast (Singulair 10 mg Tab) 1 Tablets By Mouth Once a day (in the evening) Unchanged nitroglycerin (nitroglycerin 0.4 mg sublingual Tab) 1 Tablets Sublingual As Directed as needed for for chest pain takeif SBP is greater than 110 Unchanged sacubitril-valsartan (sacubitril-valsartan 49 mg-51 mg oral tablet) 1 Tablets By Mouth 2 times a day hold if BP is lower than 90 systolic or 50 diastolic Unchanged ticagrelor (Brilinta (ticagrelor) 90 mg oral tablet) 1 Tablets By Mouth 2 times a day Allergies Aldactone Contrast Dye (Flushing) Crestor Pollen (Hayfever) Toradol Problems Ongoing - Any problem that you are currently receiving treatment for. Asthma At risk for falls Benign essential hypertension CAD in [place] artery CHF - Congestive heart failure COPD with asthma Dyslipidemia Former smoker GERD (gastroesophageal reflux disease) History of prostate cancer History of prostatectomy Hyperlipidemia, unspecified Hypothyroidism (acquired) SAMIRA (obstructive sleep apnea) Type 2 diabetes mellitus with hyperlipidemia Historical - Any problem that you are no longer receiving treatment for. Chronic back pain Smoker Patient Survey You may receive a survey via text or e-mail asking about your office visit. Please share your experience with us by completing your survey. We appreciate your feedback and thank you for choosing us for your care. XR CHEST 2 VIEWS Observed: 05/15/2024 3:55 PM Status: F Source: [facility] Exam Date/Time: 05/15/2024 15:55 EST Reason for Exam: Cough Report IMPRESSION: NO EVIDENCE OF ACTIVE CARDIOPULMONARY DISEASE. EXAM: XR Chest 2 Views DATE: 05/15/2024 3:55 PM CLINICAL HISTORY: Cough. COMPARISON: Portable chest 03/15/2024 and two-view chest 08/24/2016. TECHNIQUE: Upright PA and lateral radiographs of the chest were obtained. FINDINGS: There is no significant pulmonary infiltrate, cardiomegaly, pleural effusion, vascular congestion, pneumothorax, or displaced fractures identified. Ordering Provider: ANDREAS MONCADA FINAL REPORT Dictated: 05/15/2024 4:00 pm Kobe Barboza MD Signed (Electronic Signature): 05/15/2024 4:00 pm Signed by: Kobe Barboza MD Transcribed by: NII Technologist: SABA Technical Comments Radiation Dose: Ka,r in mGy = na DAP = na U MICROALB Collected: 05/06/2024 1:49 PM Status: F Source: [facility] TYPE CODE TESTS RESULT OUT OF RANGE REFERENCE UNITS LAB 00122-5(LOINC) ALBUMIN:MCNC: PT:URINE:QN:D ETECTION LIMIT <= 20 MG/L 2.0 High 0.0-1.9 mg/dL Performed By: #### [id number] #### [facility] [address] [place] [address] NURSE CONSULTATION NOTE Observed: 2023 11:18 AM Status: F Source: [facility] Nurse Consultation Note Reason for Visit Patient here for lab draw Assessment/Plan Diabetes (E11.9: Type 2 diabetes mellitus without complications) Medications aspirin, 81 mg, Oral, Bedtime atorvastatin 40 mg Tab, 40 mg= 1 tab(s), Oral, Daily, 3 refills BD UF Mini Pen Needle [id number], See Instructions, 5 refills Brilinta (ticagrelor) 90 mg oral tablet, 90 mg= 1 tab(s), Oral, BID carvedilol 3.125 mg Tab, 3.125 mg= 1 tab(s), Oral, BID, 3 refills Janumet 50 mg/1000 mg oral tablet, 1 tab(s), Oral, Daily Lasix 20 mg Tab, 40 mg= 2 tab(s), Oral, Daily, PRN levothyroxine 175 mcg (0.175 mg) Tab, 87.5 mcg= 0.5 tab(s), Oral, Daily nitroglycerin 0.4 mg sublingual Tab, 0.4 mg= 1 tab(s), SubLingual, As Directed, PRN One Touch Ultra Test Strip, See Instructions, 5 refills sacubitril-valsartan 49 mg-51 mg oral tablet, 1 tab(s), Oral, BID, 11 refills Singulair 10 mg Tab, 10 mg= 1 tab(s), Oral, qPM, 4 refills Vitamin B12 1000 mcg Tab, 1000 mcg= 1 tab(s), Oral, Daily Vitamin D3, 3000 unit(s), Oral, Daily Zetia 10 mg Tab, 5 mg= 0.5 tab(s), Oral, Daily, 3 refills Allergies Aldactone Contrast Dye (Flushing) Crestor Pollen (Hayfever) Toradol Immunizations Vaccine Date Status Comments influenza virus vaccine, inactivated 03/31/2024 Given influenza virus vaccine, inactivated - Not Given Postpone due to refusal influenza virus vaccine, inactivated 02/2023 Recorded SARS-CoV-2 (COVID-19) [id number].[id number] 05/16/2022 Recorded SARSCoV2 mRNA(iivmhvvxx-pzxl-vlsqvn) vac 09/17/2021 Recorded influenza virus vaccine, inactivated 02/21/2021 Recorded SARS-CoV-2 (COVID-19) mRNA BNT-162b2 vax 02/21/2021 Recorded 2023-07-09: [id number] SARS-CoV-2 (COVID-19) mRNA BNT-162b2 vax 08/11/2020 Recorded SARS-CoV-2 (COVID-19) mRNA BNT-162b2 vax 07/18/2020 Recorded 2023-07-09: TPV75 SARS-CoV-2 (COVID-19) mRNA BNT-162b2 vax 07/14/2020 Recorded SARS-CoV-2 (COVID-19) mRNA BNT-162b2 vax 06/27/2020 Recorded 2023-07-09: [id number] zoster vaccine live 04/23/2013 Recorded FREE T4 Collected: 11:17 AM Status: F Source: [facility] TYPE CODE TESTS RESULT OUT OF RANGE REFERENCE UNITS LAB 3024-7(LOINC) THYROXINE.ZOYA E:MCNC:PT:SER /PLAS:QN: 1.25 Normal 0.58-1.64 ng/dL Performed By: #### [id number] # ### [facility] [address] [place] [address] T3 FREE Collected: 11:17 AM Status: F Source: [facility] TYPE CODE TESTS RESULT OUT OF RANGE REFERENCE UNITS LAB 3051-0(LOINC) TRIIODOTHYRON INE.FREE:MCNC :PT:SER/PLAS: QN: 2.6 Unknown 2.0-4.4 pg/mL Result Comment: Performed at : [facility] [address] [place], [place] [id number] PhD Mack Caceres Performed By: #### [id number] # ### [facility] [address] [place] [address] CBC W/ AUTO DIFF Collected: 05/06/2024 11:17 AM Stat us: F Source: [facility] TYPE CODE TESTS RESULT OUT OF RANGE REFERENCE UNITS LAB 08383-6(LOINC) LEUKOCYTES^^RANDI ECTED FOR NUCLEATED ERYTHROCYTES:NCN C:PT:BLD:QN:AUTO MATED COUNT 6.5 Normal 4.0-11.0 E9/L LAB 789-8([facility]) ERYTHROCYTES:NCN C:PT:BLD:QN:AUTO MATED COUNT 4.9 Normal 4.3-5.9 E12/L LAB 718-7([facility]) HEMOGLOBIN:MCNC: PT:BLD:QN: 15.6 Normal 13.5-17.5 gm/dL LAB 4544-3([facility]) HEMATOCRIT:VFR:P T:BLD:QN:AUTOMAT ED COUNT 45.6 Normal 37.7-49.0 % LAB 788-0([facility]) ERYTHROCYTE DISTRIBUTION WIDTH:RATIO:PT:R BC:QN:AUTOMATED COUNT 14.0 Normal 10.9-14.2 % LAB 785-6([facility]) ERYTHROCYTE MEAN CORPUSCULAR HEMOGLOBIN:ENTMA SS:PT:RBC:QN:AUT OMATED COUNT 32.0 Normal 27.0-34.0 pg LAB 786-4([facility]) ERYTHROCYTE MEAN CORPUSCULAR HEMOGLOBIN CONCENTRATION:MC NC:PT:RBC:QN:AUT OMATED COUNT 34.2 Normal 31.4-36.0 gm/dL LAB 787-2([facility]) ERYTHROCYTE MEAN CORPUSCULAR VOLUME:ENTVOL:PT :RBC:QN:AUTOMATE D COUNT 93.8 Normal 80.0-100.0 fL LAB 46467-4([facility]) PLATELET MEAN VOLUME:ENTVOL:PT :BLD:QN:AUTOMATE D COUNT 11.0 High 6.4-10.8 fL LAB 777-3([facility]) PLATELETS:NCNC:P T:BLD:QN:AUTOMAT ED COUNT 155.0 Normal 150.0-500.0 E9/L LAB 45027-2([facility]) NEUTROPHILS/100 LEUKOCYTES:NFR:P T:BLD:QN: 66.2 Normal 36.0-75.0 % LAB 731-0([facility]) LYMPHOCYTES:NCNC :PT:BLD:QN:AUTOM ATED COUNT 19.6 Normal 14.0-50.0 % LAB 742-7([facility]) MONOCYTES:NCNC:P T:BLD:QN:AUTOMAT ED COUNT 0.6 Normal 0.2-1.0 E9/L LAB 713-8([facility]) EOSINOPHILS/100 LEUKOCYTES:NFR:P T:BLD:QN:AUTOMAT ED COUNT 2.7 Normal 0.0-8.0 % LAB 704-7([facility]) BASOPHILS:NCNC:P T:BLD:QN:AUTOMAT ED COUNT 1.8 Normal 0.0-2.0 % LAB 751-8([facility]) NEUTROPHILS:NCNC :PT:BLD:QN:AUTOM ATED COUNT 4.3 Normal 2.0-7.5 E9/L LAB 26688-7([facility]) LYMPHOCYTES:NCNC :PT:BLD:QN: 1.3 Normal 1.0-4.0 E9/L LAB 16903-5([facility]) EOSINOPHILS:NCNC :PT:BLD:QN: 0.2 Normal 0.0-0.5 E9/L LAB 47722-3([facility]) BASOPHILS/LEUKOC YTES:NFR.DF:PT:B LD:QN:AUTOMATED COUNT 0.1 Normal 0.0-0.2 E9/L Performed By: #### [id number] # ### [facility] [address] [place] [address] EGFR Collected: 4 11:17 AM Status: F Source: [facility] TYPE CODE TESTS RESULT OUT OF RANGE REFERENCE UNITS LAB [id number]([facility]) eGFR 55 Low >=59 mL/min/1 .7 3 m2 Performed By: #### [id number] #### [facility] [address] [place] [address] TSH Collected: 4 11:17 AM Status: F Source: [facility] TYPE CODE TESTS RESULT OUT OF RANGE REFERENCE UNITS LAB 3016-3([facility]) THYROTROPIN: ACNC:PT:SER/ PLAS:QN: 1.43 Normal 0.34-5.60 mcIU/mL Performed By: #### [id number] # ### [facility] [address] [place] [address] LIPID PANEL Collected: 4 11:17 AM Status: F Source: [facility] TYPE CODE TESTS RESULT OUT OF RANGE REFERENCE UNITS LAB 2093-3([facility]) CHOLESTEROL:M CNC:PT:SER/PL :QN: 98 Low 120-200 mg/dL LAB 2085-01([facility]) CHOLESTEROL.I N HDL:MCNC:PT:S ER/PLAS:QN: 48 Unknown mg/dL Result Comment: '>= 60 LOW R ISK' '<= 40 HIGH RISK' LAB 2088-05([facility]) CHOLESTEROL.I N LDL:MCNC:PT:S ER/PLAS:QN: 42 Normal <=129 mg/dL LAB 2571-8([facility]) TRIGLYCERIDE: MCNC:PT:SER/P LAS:QN: 46 Normal <=149 mg/dL LAB 50880-9([facility]) CHOLESTEROL.I N VLDL:MCNC:PT: SER/PLAS:QN:C ALCULATED 9 Normal 7-40 mg/dL Performed By: #### [id number] # ### [facility] [address] [place] [address] LAB MISCELLANEOUS-LC Collected: 024 11:17 AM Status: F Source: [facility] TYPE CODE TESTS RESULT OUT OF RANGE REFERENCE UNITS LAB CD:[id number] ([facility]) Lab Miscellaneous COMMENT Unknown Result Comment: Test Ordered : [id number] Hemoglobin A1c Hemoglobin A1c 5.3 % Reference Range: 4.8-5.6 Prediabetes: 5.7 - 6.4 Diabetes: >6.4 Glycemic control for adults with diabetes: <7.0 Performed at: [facility] [id number] PhD Mack Caceres LAB CD:[id number] ([facility]) Test Code 763324 Unknown LAB 13275461([facility]) Test Name HgbA1c Unknown Performed By: #### [id number] #### [facility] [address] [place] [address] CMP Collected: 4 11:17 AM Status: F Source: [facility] TYPE CODE TESTS RESULT OUT OF RANGE REFERENCE UNITS LAB 2345-7([facility]) GLUCOSE:MCNC:P T:SER/PLAS:QN: 93 Normal 55-199 mg/dL LAB 3094-0([facility]) UREA NITROGEN:MCNC: PT:SER/PLAS:QN : 22 High 5-21 mg/dL LAB 2160-0([facility]) CREATININE:MCN C:PT:SER/PLAS: QN: 1.3 Normal 0.5-1.3 mg/dL LAB 26677-3([facility]) CALCIUM:MCNC:P T:SER/PLAS:QN: 10.1 Normal 8.9-11.1 mg/dL LAB 2951-2([facility]) SODIUM:SCNC:PT :SER/PLAS:QN: 138 Normal 135-145 mmol/L LAB 2823-3([facility]) POTASSIUM:SCNC :PT:SER/PLAS:Q N: 4.6 Normal 3.5-5.3 mmol/L LAB 2075-0([facility]) CHLORIDE:SCNC: PT:SER/PLAS:QN : 106 Normal 101-111 mmol/L LAB 2028-9([facility]) CARBON DIOXIDE:SCNC:P T:SER/PLAS:QN: 29 Normal 21-31 mmol/L LAB 6768-6([facility]) ALKALINE PHOSPHATASE:CC NC:PT:SER/PLAS :QN: 63 Normal 21-98 Int._Unit /L LAB 1975-2([facility]) BILIRUBIN:MCNC :PT:SER/PLAS:Q N: 0.9 Normal 0.0-1.1 mg/dL LAB 1751-7([facility]) ALBUMIN:MCNC:P T:SER/PLAS:QN: 4.1 Normal 3.3-5.0 gm/dL LAB 2885-2([facility]) PROTEIN:MCNC:P T:SER/PLAS:QN: 6.5 Normal 6.0-7.8 gm/dL LAB 1744-2([facility]) ALANINE AMINOTRANSFERA SE:CCNC:PT:SER /PLAS:QN:NO ADDITION OF P-5'-P 53 High 6-46 Int._Unit /L LAB 1920-8([facility]) ASPARTATE AMINOTRANSFERA SE:CCNC:PT:SER /PLAS:QN: 46 High 5-43 Int._Unit /L LAB 3097-3([facility]) UREA NITROGEN/CREAT ININE:MRTO:PT: SER/PLAS:QN: 17 Normal 10-20 No Units LAB 20187-8(LOINC) ANION GAP:SCNC:PT:SE R/PLAS:QN: 8 Normal 6-16 mEq/L LAB 59292-9(LOINC) GLOBULIN:MCNC: PT:SER:QN:CALC ULATED 2.4 Normal 1.4-4.0 gm/dL LAB 12031-9(LOINC) ALBUMIN/GLOBUL IN:MCRTO:PT:SE R:QN: 1.7 Normal 1.1-2.2 Performed By: #### [id number] # ### [facility] [address] [place] [address] AMBULATORY VISIT SUMMARY Observed: 05/02 1:35 PM Status: F Source: [facility] Ambulatory Visit Summary RAY SUAREZ :1945 Visit Date:05/02/2024 Ambulatory Visit Instructions Your Diagnosis Type 2 diabetes mellitus with hyperlipidemia Benign essential hypertension Hypothyroidism (acquired) Former smoker BMI 28.0-28.9,adult Non-smoker Your Care Team Attending Physician - Todd Osman DO Primary Care Physician - Todd Osman DO This Is Your Medications List Contact prescribing physician if questions or concerns Misc Prescription (BD UF Mini Pen Needle [id number]) Misc Prescription (One Touch Ultra Test Strip) aspirin atorvastatin (atorvastatin 40 mg Tab) carvedilol (carvedilol 3.125 mg Tab) cholecalciferol (Vitamin D3) cyanocobalamin (Vitamin B12 1000 mcg Tab) ezetimibe (Zetia 10 mg Tab) furosemide (Lasix 20 mg Tab) levothyroxine (levothyroxine 175 mcg (0.175 mg) Tab) metformin-sitagliptin (Janumet 50 mg/1000 mg oral tablet) montelukast (Singulair 10 mg Tab) nitroglycerin (nitroglycerin 0.4 mg sublingual Tab) sacubitril-valsartan (sacubitril-valsartan 49 mg-51 mg oral tablet) ticagrelor (Brilinta (ticagrelor) 90 mg oral tablet) Procedures Performed Cardiac catheterization, left heart (12/24/2023), PCI - Percutaneous coronary intervention (12/24/2023), STEMI - ST elevation myocardial infarction (12/12/2023), Carpal tunnel (12/02/2023), right total hip arthroplasty (09/11/2016), left total hip arthroplasty (07/19/2015), Cardiac catheterization (08/27/2006), Colonoscopy (2006), Vasectomy (1975), attempted tendon repair right leg, back surgery, Radical prostatectomy, Rotator cuff repair, Thyroidectomy, Tonsillectomy. Discharge Vitals Heart Rate (Peripheral) 51 Blood Pressure 122/84 Height 177 cm Height 70 in Weight 88.1 kg Weight 194.227 lb BMI 28.12 What to do next Scheduled Follow-Up Appointments Sunday 10:00 AM EST With: Where: [facility] [address] [facility] [address] [facility] [address]- Sunday 1:20 PM EST With: Todd Osman DO Where: [facility] [address] [facility] [address] [place] [address]- Sunday 11:30 AM EST With: Jonathan Hernandez PA-C Where: [facility] 2024 9:30 AM EDT With: Where: [facility] [address] [place] [address] [place] [address]- You Need to Schedule the Following Appointments Follow Up with Todd Osman DO, FAM When: Within 3 months Comments: 3 MONTH DIABETIC CHECKUP Where: [address] [place] [address]- You Need to Complete the Following CBC w/ Auto Diff, Blood, Routine collect, 05/02/24, Order for future visit, Lab Collect, Type 2 diabetes mellitus with hyperlipidemia, Not Required, Print Label By Order Location Comprehensive Metabolic Panel, Blood, Routine collect, 05/02/24, Order for future visit, Lab Collect, Type 2 diabetes mellitus with hyperlipidemia, Not Required, Print Label By Order Location Free T4, Blood, Routine collect, 05/02/24, Order for future visit, Lab Collect, Hypothyroidism (acquired), Required & Missing, Print Label By Order Location HgbA1c, Blood, Routine collect, 05/02/24, Order for future visit, Lab Collect, Type 2 diabetes mellitus with hyperlipidemia, Required & Missing, Print Label By Order Location Lipid Panel, Blood, Routine collect, 05/02/24, Order for future visit, Lab Collect, Type 2 diabetes mellitus with hyperlipidemia, Not Required, Print Label By Order Location Microalbumin Level Urine, Urine, Routine collect, 05/02/24, Order for future visit, Nurse collect, Type 2 diabetes mellitus with hyperlipidemia, Not Required, Print Label By Order Location T3 Free, Blood, Routine collect, 05/02/24, Order for future visit, Lab Collect, Hypothyroidism (acquired), Not Required, Print Label By Order Location Thyroid Stimulating Hormone, Blood, Routine collect, 05/02/24, Order for future visit, Lab Collect, Hypothyroidism (acquired), Required & Missing, Print Label By Order Location Medications What How Much When Why Instructions Unchanged aspirin 81 Milligram By Mouth At bedtime Contact prescribing physician if questions or concerns Unchanged atorvastatin (atorvastatin 40 mg Tab) 1 Tablets By Mouth Every day Hyperlipidemia, unspecified Contact prescribing physician if questions or concerns Unchanged carvedilol (carvedilol 3.125 mg Tab) 1 Tablets By Mouth 2 times a day Contact prescribing physician if questions or concerns Unchanged cholecalciferol (Vitamin D3) 3,000 Units By Mouth Every day Contact prescribing physician if questions or concerns Unchanged cyanocobalamin (Vitamin B12 1000 mcg Tab) 1 Tablets By Mouth Every day Contact prescribing physician if questions or concerns Unchanged ezetimibe (Zetia 10 mg Tab) 0.5 Tablets By Mouth Every day Contact prescribing physician if questions or concerns Unchanged furosemide (Lasix 20 mg Tab) 2 Tablets By Mouth Every day as needed for Other (see comment) PRN for leg swelling (takes for >3 pound weight gain) Contact prescribing physician if questions or concerns Unchanged levothyroxine (levothyroxine 175 mcg (0.175 mg) Tab) 0.5 Tablets By Mouth Every day Contact prescribing physician if questions or concerns Unchanged metformin-sitagliptin (Janumet 50 mg/ 1000 mg oral tablet) 1 Tablets By Mouth Every day Contact prescribing physician if questions or concerns Unchanged Misc Prescription (BD UF Mini Pen Needle [id number]) See instructions For daily blood sugar management and application of medication Contact prescribing physician if questions or concerns Unchanged Misc Prescription (One Touch Ultra Test Strip) See instructions For daily blood sugar testing Contact prescribing physician if questions or concerns Unchanged montelukast (Singulair 10 mg Tab) 1 Tablets By Mouth Once a day (in the evening) Contact prescribing physician if questions or concerns Unchanged nitroglycerin (nitroglycerin 0.4 mg sublingual Tab) 1 Tablets Sublingual As Directed as needed for for chest pain takeif SBP is greater than 110 Contact prescribing physician if questions or concerns Unchanged sacubitril-valsartan (sacubitril-valsartan 49 mg-51 mg oral tablet) 1 Tablets By Mouth 2 times a day hold if BP is lower than 90 systolic or 50 diastolic Contact prescribing physician if questions or concerns Unchanged ticagrelor (Brilinta (ticagrelor) 90 mg oral tablet) 1 Tablets By Mouth 2 times a day Contact prescribing physician if questions or concerns Allergies Aldactone Contrast Dye ([place]) Crestor Pollen (Hayfever) Toradol Problems Ongoing - Any problem that you are currently receiving treatment for. Asthma At risk for falls Benign essential hypertension CAD in [place] artery CHF - Congestive heart failure COPD with asthma Dyslipidemia Former smoker GERD (gastroesophageal reflux disease) History of prostate cancer History of prostatectomy Hyperlipidemia, unspecified Hypothyroidism (acquired) SAMIRA (obstructive sleep apnea) Type 2 diabetes mellitus with hyperlipidemia Historical - Any problem that you are no longer receiving treatment for. Chronic back pain Smoker Patient Survey You may receive a survey via text or e-mail asking about your office visit. Please share your experience with us by completing your survey. We appreciate your feedback and thank you for choosing us for your care. AMBULATORY VISIT SUMMARY Observed: 05/02 1:34 PM Status: F Source: [facility] Ambulatory Visit Summary RAY SUAREZ :1945 Visit Date:05/02/2024 Ambulatory Visit Instructions Your Diagnosis Type 2 diabetes mellitus with hyperlipidemia Benign essential hypertension Hypothyroidism (acquired) Former smoker BMI 28.0-28.9,adult Non-smoker Your Care Team Attending Physician - Todd Osman DO Primary Care Physician - Todd Osman DO This Is Your Medications List Contact prescribing physician if questions or concerns Misc Prescription (BD UF Mini Pen Needle [id number]) Misc Prescription (One Touch Ultra Test Strip) aspirin atorvastatin (atorvastatin 40 mg Tab) carvedilol (carvedilol 3.125 mg Tab) cholecalciferol (Vitamin D3) cyanocobalamin (Vitamin B12 1000 mcg Tab) ezetimibe (Zetia 10 mg Tab) furosemide (Lasix 20 mg Tab) levothyroxine (levothyroxine 175 mcg (0.175 mg) Tab) metformin-sitagliptin (Janumet 50 mg/1000 mg oral tablet) montelukast (Singulair 10 mg Tab) nitroglycerin (nitroglycerin 0.4 mg sublingual Tab) sacubitril-valsartan (sacubitril-valsartan 49 mg-51 mg oral tablet) ticagrelor (Brilinta (ticagrelor) 90 mg oral tablet) Procedures Performed Cardiac catheterization, left heart (12/24/2023), PCI - Percutaneous coronary intervention (12/24/2023), STEMI - ST elevation myocardial infarction (12/12/2023), Carpal tunnel (12/02/2023), right total hip arthroplasty (09/11/2016), left total hip arthroplasty (07/19/2015), Cardiac catheterization (08/27/2006), Colonoscopy (2006), Vasectomy (1975), attempted tendon repair right leg, back surgery, Radical prostatectomy, Rotator cuff repair, Thyroidectomy, Tonsillectomy. Discharge Vitals Heart Rate (Peripheral) 51 Blood Pressure 122/84 Height 177 cm Height 70 in Weight 88.1 kg Weight 194.227 lb BMI 28.12 What to do next Scheduled Follow-Up Appointments Sunday 10:00 AM EST With: Where: [facility] [address] [facility] [address] [place] [address]- Sunday 1:20 PM EST With: Todd Osman DO Where: [facility] [address] [facility] [address] [place] [address]- Sunday 11:30 AM EST With: Jonathan Hernandez PA-C Where: [facility] 2024 9:30 AM EDT With: Where: [facility] [address] [facility] [address] [place] [address]- You Need to Schedule the Following Appointments Follow Up with Todd Osman DO, FAM When: Within 3 months Comments: 3 MONTH DIABETIC CHECKUP Where: [address] [place] [address]- You Need to Complete the Following CBC w/ Auto Diff, Blood, Routine collect, 05/02/24, Order for future visit, Lab Collect, Type 2 diabetes mellitus with hyperlipidemia, Not Required, Print Label By Order Location Comprehensive Metabolic Panel, Blood, Routine collect, 05/02/24, Order for future visit, Lab Collect, Type 2 diabetes mellitus with hyperlipidemia, Not Required, Print Label By Order Location Free T4, Blood, Routine collect, 05/02/24, Order for future visit, Lab Collect, Hypothyroidism (acquired), Required & Missing, Print Label By Order Location HgbA1c, Blood, Routine collect, 05/02/24, Order for future visit, Lab Collect, Type 2 diabetes mellitus with hyperlipidemia, Required & Missing, Print Label By Order Location Lipid Panel, Blood, Routine collect, 05/02/24, Order for future visit, Lab Collect, Type 2 diabetes mellitus with hyperlipidemia, Not Required, Print Label By Order Location Microalbumin Level Urine, Urine, Routine collect, 05/02/24, Order for future visit, Nurse collect, Type 2 diabetes mellitus with hyperlipidemia, Not Required, Print Label By Order Location T3 Free, Blood, Routine collect, 05/02/24, Order for future visit, Lab Collect, Hypothyroidism (acquired), Not Required, Print Label By Order Location Thyroid Stimulating Hormone, Blood, Routine collect, 05/02/24, Order for future visit, Lab Collect, Hypothyroidism (acquired), Required & Missing, Print Label By Order Location Medications What How Much When Why Instructions Unchanged aspirin 81 Milligram By Mouth At bedtime Contact prescribing physician if questions or concerns Unchanged atorvastatin (atorvastatin 40 mg Tab) 1 Tablets By Mouth Every day Hyperlipidemia, unspecified Contact prescribing physician if questions or concerns Unchanged carvedilol (carvedilol 3.125 mg Tab) 1 Tablets By Mouth 2 times a day Contact prescribing physician if questions or concerns Unchanged cholecalciferol (Vitamin D3) 3,000 Units By Mouth Every day Contact prescribing physician if questions or concerns Unchanged cyanocobalamin (Vitamin B12 1000 mcg Tab) 1 Tablets By Mouth Every day Contact prescribing physician if questions or concerns Unchanged ezetimibe (Zetia 10 mg Tab) 0.5 Tablets By Mouth Every day Contact prescribing physician if questions or concerns Unchanged furosemide (Lasix 20 mg Tab) 2 Tablets By Mouth Every day as needed for Other (see comment) PRN for leg swelling (takes for >3 pound weight gain) Contact prescribing physician if questions or concerns Unchanged levothyroxine (levothyroxine 175 mcg (0.175 mg) Tab) 0.5 Tablets By Mouth Every day Contact prescribing physician if questions or concerns Unchanged metformin-sitagliptin (Janumet 50 mg/ 1000 mg oral tablet) 1 Tablets By Mouth Every day Contact prescribing physician if questions or concerns Unchanged Misc Prescription (BD UF Mini Pen Needle [id number]) See instructions For daily blood sugar management and application of medication Contact prescribing physician if questions or concerns Unchanged Misc Prescription (One Touch Ultra Test Strip) See instructions For daily blood sugar testing Contact prescribing physician if questions or concerns Unchanged montelukast (Singulair 10 mg Tab) 1 Tablets By Mouth Once a day (in the evening) Contact prescribing physician if questions or concerns Unchanged nitroglycerin (nitroglycerin 0.4 mg sublingual Tab) 1 Tablets Sublingual As Directed as needed for for chest pain takeif SBP is greater than 110 Contact prescribing physician if questions or concerns Unchanged sacubitril-valsartan (sacubitril-valsartan 49 mg-51 mg oral tablet) 1 Tablets By Mouth 2 times a day hold if BP is lower than 90 systolic or 50 diastolic Contact prescribing physician if questions or concerns Unchanged ticagrelor (Brilinta (ticagrelor) 90 mg oral tablet) 1 Tablets By Mouth 2 times a day Contact prescribing physician if questions or concerns Allergies Aldactone Contrast Dye ([place]) Crestor Pollen (Hayfever) Toradol Problems Ongoing - Any problem that you are currently receiving treatment for. Asthma At risk for falls Benign essential hypertension CAD in [place] artery CHF - Congestive heart failure COPD with asthma Dyslipidemia Former smoker GERD (gastroesophageal reflux disease) History of prostate cancer History of prostatectomy Hyperlipidemia, unspecified Hypothyroidism (acquired) SAMIRA (obstructive sleep apnea) Type 2 diabetes mellitus with hyperlipidemia Historical - Any problem that you are no longer receiving treatment for. Chronic back pain Smoker Patient Survey You may receive a survey via text or e-mail asking about your office visit. Please share your experience with us by completing your survey. We appreciate your feedback and thank you for choosing us for your care. FAMILY MEDICINE OFFICE/CLINI C NOTE Observed: 05/02/2024 1:24 PM Status: F Source: [facility] Family Medicine Office/Clini c Note Chief Complaint Chronic condition f/u HPI Staff Patient here for Chronic Condition f/u (, Maryjo - daughter, Jv) Patient is here for follow up on hypertension. - Patient does see [facility] Cardiology, last visit 05/02/24. Patient is also participating in Cardiac rehab in [place] 3 times a week. No medication changes, echo ordered. F/u scheduled for 08/02/23. How often are you checking your blood pressure? Daily What are your average readings? 120/74 Do you have any of the following symptoms? Chest Pain? no Palpitations? no MILES/SOB? no Headache? no Peripheral Edema? no Light Headiness? no BUN: 19 mg/dL (03/15/24 13:15:00) Calcium Lvl: 10.3 mg/dL (03/15/24 13:15:00) Chloride: 109 mmol/L (03/15/24 13:15:00) CO2: 27 mmol/L (03/15/24 13:15:00) Creatinine: 1.2 mg/dL (03/15/24 13:15:00) eGFR: 61 mL/min/1.73 m2 (03/15/24 13:15:00) Glucose Lvl: 97 mg/dL (03/15/24 13:15:00) Potassium Lvl: 5 mmol/L (03/15/24 13:15:00) Sodium Lvl: 140 mmol/L (03/15/24 13:15:00) Chol: 159 mg/dL (12/13/23 05:54:00) HDL: 44 mg/dL (12/13/23 05:54:00) LDL Direct: 99 mg/dL (12/13/23 05:54:00) Tri mg/dL (12/13/23 05:54:00) VLDL: 23 mg/dL (12/13/23 05:54:00) Patient is here for follow up on Diabetes. How often are you checking your blood sugars? 1 times per day What are your average readings?95-98 Do you have any of the following symptoms? Vision problems? yes currently is taking eye drops from eye doctor GI-Nausea/committing/bloating? no Lightheadedness? no Paresthesias, Ulcerations or sores? no Foot Exam: denies Eye Exam: recent per pt Microalbumin: Please order Hgb A1C %: 5.2 % (12/13/23 05:54:00) Hgb A1c POC: 5.4 % (10/05/23 10:36:00) TSH: 1.05 mcIU/mL (12/13/23 05:54:00) AMW: UTD Flu: UTD History of Present Illness Patient presents today for DM Followup. - Stable on medications today - No return of chest pain since last visit Last A1c - Due Current medications - Janumet 50mg/1000mg QD Diabetic neuropathy - None noted Diabetic retinopathy - Monitored by ophthalmology Diabetic education - Completed previously Urine microalbumin - Due Diabetic foot exam - Due Statin - 40mg atorvastatin QD Today, they state that patient is doing well. Patient saw cardiology this morning. He had an Echocardiogram ordered this morning. He states that he had a murmur that is getting checked out. He states his fasting sugars are 90-120's in the AM. He is due for A1c as above. Review of Systems PHQ Score Initial Depression Screen Score: 0 SCORE ROS - Provider Constitutional: no fever, no chills Skin: no rash, no lesions ENMT: no ear pain, no sore throat, no congestion, no hoarseness. Respiratory: yes shortness of breath, no cough, no wheezing. Cardiovascular: yes chest pain, no palpitations, no edema. Gastrointestinal: no nausea, no vomiting, no diarrhea, Musculoskeletal: no back pain, no trauma. Neurologic: no headache, yes dizziness, no numbness, no weakness. Psychiatric: no sleeping problems, no irritability, no mood swings/depression. Physical Exam Vitals & Measurements HR: 51(Peripheral) BP: 122/84 SpO2: 100% HT: 70 in HT: 177 cm WT: 88.1 kg WT: 194.227 lb BMI: 28.12 General: Well developed, well nourished, in no acute distress Head: Normocephalic/atraumatic Eyes: Pupils equal, round, and reactive to light. Sclerae normal, and extraocular movements intact Lungs: Normal respiratory effort and clear to auscultation Cardio: Regular rate and rhythm, normal S1 and S2, no new murmur, no rub Musculoskeletal: No deformity or scoliosis noted. Normal range of motion. Joints normal. No erythema, edema, effusion, or ecchymosis Extremity: No clubbing, cyanosis, edema, or deformity, with normal ROM in both upper and lower bilateral extremities Neurologic: Grossly normal Skin: No rash, petechiae, suspicious lesions Mental Status: Alert and oriented x3. Normal mood and affect Assessment/Plan 1. Type 2 diabetes mellitus with hyperlipidemia (E11.69: Type 2 diabetes mellitus with other specified complication) Due for A1c, POC A1c is not available. Will order labs for patient today, will call with results to discuss adjustment. Patient to call with any concerns. Ordered: CBC w/ Auto Diff Comprehensive Metabolic Panel HgbA1c Lipid Panel Microalbumin Level Urine 2. Benign essential hypertension (I10: Essential (primary) hypertension) Stable on intake, no acute concerns. Will continue with current medications. recheck at followup. 3. Hypothyroidism (acquired) (E03.9: Hypothyroidism, unspecified) Due for recheck on labs, will check thyroid panel with labs drawn above. Ordered: Free T4 T3 Free Thyroid Stimulating Hormone 4. 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 Ordered: Current tobacco non-user 1036F 5. BMI 28.0-28.9,adult (Z68.28: Body mass index [BMI] 28.0-28.9, adult) The standard range for ages 18 and older is >=18.5 and < 25 kg/m2. Your BMI today was above this range, this falls in the overweight to obese category and there are medical benefits to weight loss. We can offer counselling, referral, and/or medical support in addressing this problem. Your BMI and weight management will be followed at subsequent visits. Ordered: Body Mass Index (BMI) documented 3008F Depression Screening Negative 3352F Influenza immunization status assessed 1030F Most recent diastolic blood pressure 80-89 mm Hg 3079F Patient screen for fall risk: no falls in last year or 1 fall with no injury in last year 1101F Systolic BP <130 mm Hg (Most Recent) 3074F 6. Non-smoker (Z78.9: Other specified health status) Stable. Follow-up With When Contact Information Link Todd [facility] Within 3 months [id number] [place] [address]- Additional Instructions: 3 MONTH DIABETIC CHECKUP Problem List/Past Medical History Ongoing Asthma At risk for falls Benign essential hypertension CAD in [place] artery CHF - Congestive heart failure COPD with asthma Dyslipidemia Former smoker GERD (gastroesophageal reflux disease) History of prostate cancer History of prostatectomy Hyperlipidemia, unspecified Hypothyroidism (acquired) SAMIRA (obstructive sleep apnea) Type 2 diabetes mellitus with hyperlipidemia Historical Chronic back pain Smoker Procedure/Surgical History Cardiac catheterization, left heart (12/24/2023), PCI - Percutaneous coronary intervention (12/24/2023), STEMI - ST elevation myocardial infarction (12/12/2023), Carpal tunnel (12/02/2023), right total hip arthroplasty (09/11/2016), left total hip arthroplasty (07/19/2015), Cardiac catheterization (08/27/2006), Colonoscopy (2006), Vasectomy (1975), attempted tendon repair right leg, back surgery, Radical prostatectomy, Rotator cuff repair, Thyroidectomy, Tonsillectomy. Medications aspirin, 81 mg, Oral, Bedtime atorvastatin 40 mg Tab, 40 mg= 1 tab(s), Oral, Daily, 3 refills BD UF Mini Pen Needle [id number], See Instructions, 5 refills Brilinta (ticagrelor) 90 mg oral tablet, 90 mg= 1 tab(s), Oral, BID carvedilol 3.125 mg Tab, 3.125 mg= 1 tab(s), Oral, BID, 3 refills Janumet 50 mg/1000 mg oral tablet, 1 tab(s), Oral, Daily Lasix 20 mg Tab, 40 mg= 2 tab(s), Oral, Daily, PRN levothyroxine 175 mcg (0.175 mg) Tab, 87.5 mcg= 0.5 tab(s), Oral, Daily nitroglycerin 0.4 mg sublingual Tab, 0.4 mg= 1 tab(s), SubLingual, As Directed, PRN One Touch Ultra Test Strip, See Instructions, 5 refills sacubitril-valsartan 49 mg-51 mg oral tablet, 1 tab(s), Oral, BID, 11 refills Singulair 10 mg Tab, 10 mg= 1 tab(s), Oral, qPM, 4 refills Vitamin B12 1000 mcg Tab, 1000 mcg= 1 tab(s), Oral, Daily Vitamin D3, 3000 unit(s), Oral, Daily Zetia 10 mg Tab, 5 mg= 0.5 tab(s), Oral, Daily, 3 refills Allergies Aldactone Contrast Dye ([place]) Crestor Pollen (Hayfever) Toradol Social History Alcohol - No Risk, 10/05/2023 Current, 1-2 times per year, 1 drinks/episode average. 1.00 drinks/episode maximum., 10/05/2023 Substance Abuse - Denies Substance Abuse, 05/31/2015 Tobacco - Denies Tobacco Use, 10/05/2023 Former smoker, quit more than 30 days ago Tobacco Use:. Former smokeless tobacco user, quit more than 30 days ago Smokeless Tobacco Use:. Cigarettes, Cigars, Oral, Started age 18.0 Years. Stopped age 33 Years. Household tobacco concerns: No., 05/02/2024 Family History Acute myocardial infarction: Grandparent. Alcoholism: Mother. Cardiac arrhythmia: Mother. Diabetes mellitus type 2: Mother and Father. Hypertension: Father. Hypotension: Brother. Primary malignant neoplasm of lung: Mother. Primary malignant neoplasm of prostate: Father. Stroke: Father. Immunizations Vaccine Date Status Comments influenza virus vaccine, inactivated 03/31/2024 Given influenza virus vaccine, inactivated - Not Given Postpone due to refusal influenza virus vaccine, inactivated 02/2023 Recorded SARS-CoV-2 (COVID-19) [id number].[id number] 05/16/2022 Recorded SARSCoV2 mRNA(qaofywrba-rnrd-dvohok) vac 09/17/2021 Recorded influenza virus vaccine, inactivated 02/21/2021 Recorded SARS-CoV-2 (COVID-19) mRNA BNT-162b2 vax 02/21/2021 Recorded 2023-07-09: [id number] SARS-CoV-2 (COVID-19) mRNA BNT-162b2 vax 08/11/2020 Recorded SARS-CoV-2 (COVID-19) mRNA BNT-162b2 vax 07/18/2020 Recorded 2023-07-09: [id number] SARS-CoV-2 (COVID-19) mRNA BNT-162b2 vax 07/14/2020 Recorded SARS-CoV-2 (COVID-19) mRNA BNT-162b2 vax 06/27/2020 Recorded 2023-07-09: [id number] zoster vaccine live 04/23/2013 Recorded Result Comment: Electronical ly Signed By: Todd Osman DO\Date and Time Signed: 05/02/24 13:25 EST HEART AND VASCULAR OFFICE/CLINIC NOTE Observed: 05/02/2024 12:21 PM Status: F Source: [facility] Heart and Vascular Office/Cl inic Note Chief Complaint 3 month F/.U History of Present Illness Ray is an 78 year old male with past medical hx of CAD with PCI due to in STEMI 11/2023. Patient had ARLETTE x 2 to LAD on 12/12/2023 followed by ARLETTE x 1 to right PDA on 12/24/2023. Echo from 11/2023 showed decreased EF of 35-40%, ischemic cardiomyopathy, akinetic septum/dyskinetic apex and severe LVH. Patient comes in for 3-month follow-up today. At last visit, I saw patient at which time he was continue with current medications. Patient reports that he has been pretty well overall since last visit. He has been doing cardiac rehab and has been doing well with that. He is now doing at [facility] since he completed his 12 weeks here at [facility]. Patient is compliant with all medicines for CAD including aspirin, atorvastatin, carvedilol, Brilinta. He is taking all these medications without any issues and tolerating them all well. Patient also has CHF due to ischemic cardiomyopathy. Patient is compliant with carvedilol, Entresto, furosemide 20 mg as needed for CHF. He states he has not had much swelling to his lower extremities lately and if he does that usually goes away after he props them up for a while. Patient has been monitoring his blood pressure and heart rate and they have not been dropping what they were previously. Patient denies chest pain, shortness of breath, heart palpitations, dizziness/lightheadedness, and swelling in lower legs. NOTE FROM 02/01/2024: Patient comes to the office today for 1 month follow-up. Patient comes in with his Maryjo and daughter. At last visit, I saw patient at which time Entresto was decreased from 97-103 mg to 49-51 mg twice daily due to hypotensive episodes. Carvedilol was also decreased from 12.5 mg to 3.125 mg twice daily due to hypotensive episodes. Pravastatin was changed to atorvastatin 40 mg daily as well and patient is taking Zetia 10 mg daily. Patient reports that has been doing well since last visit without any significant issues. Patient shows me a blood pressure log that confirms his blood pressure is not dropping below 100 systolic anytime recently and is usually well-controlled in the 110s-120s range. Patient reports that he has not had any recent lightheadedness or dizziness at all. Patient reports that he has been walking and doing well with it. Has gone as far as 1.5 miles. He believes he is supposed to start cardiac rehab next week. Patient reports that he has not had any chest discomfort with these walks and no significant shortness of breath. Patient is compliant with DAPT, statin, beta-shawn and reiterated to patient that he has to be on the Brilinta x 1 year. Patient denies, heart palpitations, and swelling in lower legs. Review of Systems PHQ Score Initial Depression Screen Score: 0 SCORE ROS - Provider Constitutional: no fever, no chills, no sweats, no weakness Respiratory: no shortness of breath, no cough Cardiovascular: no chest pain Neuro: no dizziness. no loss of consciousness Physical Exam Vitals & Measurements HR: 62(Peripheral) RR: 18 BP: 121/72 SpO2: 99% HT: 70 in HT: 177 cm WT: 89.8 kg WT: 197.975 lb BMI: 28.66 General: alert, no acute distress Cardiovascular: regular rate and rhythm, Harsh Crescendo-decrescendo murmur heard best at the right sternal border normal peripheral perfusion Respiratory: Lungs CTAB, respirations non labored Extremities: no edema left lower extremity. no edema right lower extremity Neurological: oriented x 4, LOC appropriate for age, speech normal Skin: Warm, dry, intact- no rash or concerning lesions Cardiac Diagnostics [facility] with Dr. Nolen on 12/24/2023: LMT: Normal left main trunk with trifurcation LAD: Normal caliber with patent proximal to mid stents and mild diffuse disease less than 30% stenosis, reaches the apex. LCx: Normal caliber with mild-moderate disease less than 30% stenosis, reaches the lateral wall. Ramus intermedius present RCA: Normal caliber with mild irregularity and 99% stenosis of ostial PDA stenosis, dominant, reaches the inferior wall. Hemodynamics: Normal LVEDP at 11 mmHg with no gradient across the aortic valve. Left ventriculography: Not performed PCI note: Success PCI right PDA 99% stenosed SYMONE-3 flow reduced to 0% residual SYMONE-3 flow after implantation of a Xience 2.5/28 postdilated stent balloon at multiple inflations. Conclusions: Patent previously placed stents, no new narrowings. Nonculprit lesion was stented. CAD: DAPT, beta-shawn, statin, risk factor modification., Importance of antiplatelet compliance was emphasized including risk of stent thrombosis or . The patient understands as well as his accompanying family member/friend that the patient may have stent thrombosis or heart attack and the patient agrees. I myself have specifically counseled the patient regarding stent thrombosis risk including and the patient will additionally be counseled by the [employer] team and in follow-up. [1] [facility] with Dr. Nolen on 12/12/2023: LMT: Normal left main trunk with trifurcation LAD: Normal caliber with 100% proximal stenosis, reaches the apex. Heavily calcified. 80% mid stenosis beyond the lesion after opening up the proximal LAD. LCx: Normal caliber with mild-moderate diffuse disease less than 50% stenosis, reaches the lateral wall. RCA: Normal caliber with mild-moderate diffuse disease less than 50% stenosis, dominant, reaches the inferior wall. The PDA has 95% ostial stenosis and 90% mid body stenosis. Hemodynamics: Borderline elevated LVEDP at 25 mmHg with no gradient across the aortic valve. Left ventriculography: Abnormal LV systolic function, EF 35-40 %, apical dyskinesis wall motion abnormalities and normal chamber size with no mitral regurgitation. PCI note: Success PCI proximal/mid LAD 100% stenosis SYMONE 0 flow reduced to 0% residual SYMONE-3 flow after implantation of a Xience 3.0/23 and 2.75/23 overlapping from proximal to mid. Postdilated with a 2.75 NC and a 3.25 NC high-pressure. Conclusions: Anterolateral STEMI secondary to proximal LAD occlusion, status post primary PCI with ARLETTE x 2. Probable staged PCI at a much later date of the PDA due to renal insufficiency contrast and urgency, nonculprit lesion. CAD: DAPT, beta- shawn, statin, risk factor modification. Importance of antiplatelet compliance was emphasized including risk of stent thrombosis or . The patient understands as well as his accompanying family member/friend that the patient may have stent thrombosis or heart attack and the patient agrees. I myself have specifically counseled the patient regarding stent thrombosis risk including and the patient will additionally be counseled by the [employer] team and in follow-up. [2] (12/13/2023 17:05 EDT Echo Transthoracic w/ Contrast) Interpretation Summary Ejection Fraction = 35-40%. Ischemic cardiomyopathy. Normal LV size with moderate LV systolic dysfunction. Akinetic septum/dyskinetic apex. No LV apical thrombus. No significant valve disease. No estimated PA pressure. Impaired diastolic relaxation. Severe LVH. Assessment/Plan 1. CAD in [place] artery (I25.10: Atherosclerotic heart disease of [place] coronary artery without angina pectoris) Patient has CAD with ARLETTE x 3 in 11/2023. Patient is compliant with aspirin 81 mg daily, Brilinta 90 mg twice daily, atorvastatin 40 mg daily, carvedilol 3.125 mg twice daily. He is doing well at this time and is no longer having low blood pressures since decreasing a couple medications. Patient is is to be compliant with DAPT x 1 year following stent he voiced understanding. He is currently in rehab at [facility]. Continue current meds Ordered: Echo Transthoracic Complete 2. CHF - Congestive heart failure (I50.9: Heart failure, unspecified) Pt has decreased EF of 35-40%. Patient is currently taking Entresto 49-51 mg twice daily, carvedilol 3.125 mg twice daily, Lasix 20 mg as needed. Both Entresto and carvedilol were decreased previously and patient has been doing better with the decrease in meds as he has no longer had low blood pressures. Continue with current meds. Will get an transthoracic echo to reassess EF in the near future Ordered: Echo Transthoracic Complete 3. Hyperlipidemia, unspecified (E78.5: Hyperlipidemia, unspecified) Patient is currently taking atorvastatin therapy. Getting an echo to reassess continue with atorvastatin 40 mg daily. Ordered: atorvastatin, 40 mg = 1 tab(s), Oral, Daily, # 90 tab(s), Refills(s) 3, Pharmacy: [facility]/pharmacy #[id number], 177, cm, 05/02/24 11:29:00 EST, Height/Length Dosing, 89.8, kg, 05/02/24 11:38:00 EST, Weight Dosing atorvastatin, 40 mg = 1 tab(s), Oral, Daily, # 90 tab(s), Refills(s) 1, Pharmacy: [facility]/pharmacy #[id number], 177, cm, 12/31/23 15:34:00 EDT, Height/Length Dosing, 92.4, kg, 12/31/23 15:34:00 EDT, Weight Dosing Echo Transthoracic Complete 4. Heart murmur (R01.1: Cardiac murmur, unspecified) Heart murmur heard on exam today in the office. Getting echo to reassess EF, but will also look into heart murmur Orders: carvedilol, 3.125 mg = 1 tab(s), Oral, BID, # 180 tab(s), Refills(s) 3, Pharmacy: [facility]/pharmacy #[id number], 177, cm, 05/02/24 11:29:00 EST, Height/Length Dosing, 89.8, kg, 05/02/24 11:38:00 EST, Weight Dosing carvedilol, 3.125 mg = 1 tab(s), Oral, BID, # 60 tab(s), Refills(s) 5, Pharmacy: [facility]/pharmacy #[id number], 177.8, cm, 03/15/24 12:37:00 EDT, Height/Length Dosing, 90.5, kg, 03/15/24 12:37:00 EDT, Weight Dosing Follow-up with me in 3 months or sooner if needed Portions of this record may have been created with voice recognition artificial intelligence software, specifically [employer], [employer] and or [employer]. Substitutions may have occurred due to the inherent limitations of voice recognition and artificial intelligence software. Follow-up No qualifying data available Problem List/Past Medical History Ongoing Asthma Benign essential hypertension CAD in [place] artery CHF - Congestive heart failure COPD with asthma Dyslipidemia Former smoker GERD (gastroesophageal reflux disease) History of prostate cancer History of prostatectomy Hyperlipidemia, unspecified Hypothyroidism (acquired) SAMIRA (obstructive sleep apnea) Type 2 diabetes mellitus with hyperlipidemia Historical Chronic back pain Smoker Procedure/Surgical History Cardiac catheterization, left heart (12/24/2023), PCI - Percutaneous coronary intervention (12/24/2023), STEMI - ST elevation myocardial infarction (12/12/2023), Carpal tunnel (12/02/2023), right total hip arthroplasty (09/11/2016), left total hip arthroplasty (07/19/2015), Cardiac catheterization (08/27/2006), Colonoscopy (2006), Vasectomy (1975), attempted tendon repair right leg, back surgery, Radical prostatectomy, Rotator cuff repair, Thyroidectomy, Tonsillectomy. Medications aspirin, 81 mg, Oral, Bedtime atorvastatin 40 mg Tab, 40 mg= 1 tab(s), Oral, Daily, 3 refills BD UF Mini Pen Needle [id number], See Instructions, 5 refills Brilinta (ticagrelor) 90 mg oral tablet, 90 mg= 1 tab(s), Oral, BID carvedilol 3.125 mg Tab, 3.125 mg= 1 tab(s), Oral, BID, 3 refills Janumet 50 mg/1000 mg oral tablet, 1 tab(s), Oral, Daily Lasix 20 mg Tab, 40 mg= 2 tab(s), Oral, Daily, PRN levothyroxine 175 mcg (0.175 mg) Tab, 87.5 mcg= 0.5 tab(s), Oral, Daily nitroglycerin 0.4 mg sublingual Tab, 0.4 mg= 1 tab(s), SubLingual, As Directed, PRN One Touch Ultra Test Strip, See Instructions, 5 refills sacubitril-valsartan 49 mg-51 mg oral tablet, 1 tab(s), Oral, BID, 11 refills Singulair 10 mg Tab, 10 mg= 1 tab(s), Oral, qPM, 4 refills Vitamin B12 1000 mcg Tab, 1000 mcg= 1 tab(s), Oral, Daily Vitamin D3, 3000 unit(s), Oral, Daily Zetia 10 mg Tab, 5 mg= 0.5 tab(s), Oral, Daily, 3 refills Allergies Aldactone Contrast Dye ([place]) Crestor Pollen (Hayfever) Toradol Social History Alcohol - No Risk, 10/05/2023 Current, 1-2 times per year, 1 drinks/episode average. 1.00 drinks/episode maximum., 10/05/2023 Substance Abuse - Denies Substance Abuse, 05/31/2015 Tobacco - Denies Tobacco Use, 10/05/2023 Former smoker, quit more than 30 days ago Tobacco Use:. Former smokeless tobacco user, quit more than 30 days ago Smokeless Tobacco Use:. Cigarettes, Cigars, Oral, Started age 18.0 Years. Stopped age 33 Years. Household tobacco concerns: No., 05/02/2024 Family History Acute myocardial infarction: Grandparent. Alcoholism: Mother. Cardiac arrhythmia: Mother. Diabetes mellitus type 2: Mother and Father. Hypertension: Father. Hypotension: Brother. Primary malignant neoplasm of lung: Mother. Primary malignant neoplasm of prostate: Father. Stroke: Father. Immunizations Vaccine Date Status Comments influenza virus vaccine, inactivated 03/31/2024 Given influenza virus vaccine, inactivated - Not Given Postpone due to refusal influenza virus vaccine, inactivated 02/2023 Recorded SARS-CoV-2 (COVID-19) [id number] 05/16/2022 Recorded SARSCoV2 mRNA(ilchnaexk-ylii-wfpqtx) vac 09/17/2021 Recorded influenza virus vaccine, inactivated 02/21/2021 Recorded SARS-CoV-2 (COVID-19) mRNA BNT-162b2 vax 02/21/2021 Recorded 2023-07-09: [id number] SARS-CoV-2 (COVID-19) mRNA BNT-162b2 vax 08/11/2020 Recorded SARS-CoV-2 (COVID-19) mRNA BNT-162b2 vax 07/18/2020 Recorded 2023-07-09: [id number] SARS-CoV-2 (COVID-19) mRNA BNT-162b2 vax 07/14/2020 Recorded SARS-CoV-2 (COVID-19) mRNA BNT-162b2 vax 06/27/2020 Recorded 2023-07-09: [id number] zoster vaccine live 04/23/2013 Recorded Result Comment: Electronical ly Signed By: Jonathan Hernandez PA-C\.br\Date and Time Signed: 05/02/24 12:21 EST CARDIAC REHAB Observed: 04/02/2024 12:00 AM Status: F Source: [facility] Report Please click on link to see report CARDIAC REHAB Observed: 04/02/2024 12:00 AM Status: F Source: [facility] Report Please click on link to see report CARDIAC REHAB Observed: 04/02/2024 12:00 AM Status: F Source: [facility] Report Please click on link to see report CARDIAC REHAB Observed: 04/02/2024 12:00 AM Status: F Source: [facility] Report Please click on link to see report CARDIAC REHAB Observed: 04/02/2024 12:00 AM Status: F Source: [facility] Report Please click on link to see report CARDIAC REHAB Observed: 04/02/2024 12:00 AM Status: F Source: [facility] Report Please click on link to see report NURSE CONSULTATION NOTE Observed: 2023 11:26 AM Status: F Source: [facility] Nurse Consultation Note Reason for Visit Patient here for Influenza Vaccine Assessment/Plan Encounter for immunization (Z23: Encounter for immunization) Medications aspirin, 81 mg, Oral, Bedtime atorvastatin 40 mg Tab, 40 mg= 1 tab(s), Oral, Daily, 1 refills BD UF Mini Pen Needle [id number], See Instructions, 5 refills Brilinta (ticagrelor) 90 mg oral tablet, 90 mg= 1 tab(s), Oral, BID carvedilol 3.125 mg Tab, 3.125 mg= 1 tab(s), Oral, BID, 5 refills Janumet 50 mg/1000 mg oral tablet, 1 tab(s), Oral, Daily Lasix 20 mg Tab, 40 mg= 2 tab(s), Oral, Daily, PRN levothyroxine 175 mcg (0.175 mg) Tab, 87.5 mcg= 0.5 tab(s), Oral, Daily [facility] Prescription, 0, Daily nitroglycerin 0.4 mg sublingual Tab, 0.4 mg= 1 tab(s), SubLingual, As Directed, PRN One Touch Ultra Test Strip, See Instructions, 5 refills sacubitril-valsartan 49 mg-51 mg oral tablet, 1 tab(s), Oral, BID, 11 refills Singulair 10 mg Tab, 10 mg= 1 tab(s), Oral, qPM, 4 refills Vitamin B12 1000 mcg Tab, 1000 mcg= 1 tab(s), Oral, Daily Vitamin D3, 3000 unit(s), Oral, Daily Zetia 10 mg Tab, 5 mg= 0.5 tab(s), Oral, Daily, 3 refills Allergies Aldactone Contrast Dye ([place]) Crestor Pollen (Hayfever) Toradol Immunizations Vaccine Date Status Comments influenza virus vaccine, inactivated 03/31/2024 Given influenza virus vaccine, inactivated - Not Given Postpone due to refusal influenza virus vaccine, inactivated 02/2023 Recorded SARS-CoV-2 (COVID-19) [id number] 05/16/2022 Recorded SARSCoV2 mRNA(mrfqrwxrp-bcrg-phbldf) vac 09/17/2021 Recorded influenza virus vaccine, inactivated 02/21/2021 Recorded SARS-CoV-2 (COVID-19) mRNA BNT-162b2 vax 02/21/2021 Recorded 2023-07-09: [id number] SARS-CoV-2 (COVID-19) mRNA BNT-162b2 vax 08/11/2020 Recorded SARS-CoV-2 (COVID-19) mRNA BNT-162b2 vax 07/18/2020 Recorded 2023-07-09: [id number] SARS-CoV-2 (COVID-19) mRNA BNT-162b2 vax 07/14/2020 Recorded SARS-CoV-2 (COVID-19) mRNA BNT-162b2 vax 06/27/2020 Recorded 2023-07-09: [id number] zoster vaccine live 04/23/2013 Recorded ED PATIENT EDUCATION NOTE Observed: 02/25 5:00 PM Status: F Source: [facility] ED Patient Education Note Neurology Weakness Weakness is a lack of strength. You may feel weak all over your body (generalized), or you may feel weak in one part of your body (focal). Common causes of weakness include: ? Infection and disorders of the body's defense system (immune system). ? Physical exhaustion. ? Internal bleeding or other blood loss that results in a lack of red blood cells (anemia). ? Dehydration. ? An imbalance in mineral (electrolyte) levels, such as potassium. ? Chronic kidney or liver disease. ? Cancer. Other causes include: ? Some medicines or cancer treatment. ? Stress, anxiety, or depression. ? Heart disease, circulation problems, or stroke. ? Nervous system disorders. ? Thyroid disorders. ? Loss of muscle strength because of age or inactivity. ? Poor sleep quality or sleep disorders. The cause of your weakness may not be known. Some causes of weakness can be serious, so it is important to see your health care provider. Follow these instructions at home: Activity ? Rest as needed. ? Try to get enough sleep. Most adults need 7?8 hours of quality sleep each night. Talk to your health care provider about how much sleep you need. ? Do exercises, such as arm curls and leg raises, for 30 minutes at least 2 days a week or as told by your health care provider. This helps build muscle strength. ? Consider working with a physical therapist or employment trainer who can develop an exercise plan to help you gain muscle strength. General instructions ? Take wrkf-eqt-uebvizs and prescription medicines only as told by your health care provider. ? Eat a healthy, well-balanced diet. This includes: ? Proteins to build muscles, such as lean meats and fish. ? Fresh fruits and vegetables. ? Carbohydrates to boost energy, such as whole grains. ? Drink enough fluid to keep your urine pale yellow. ? Keep all follow-up visits. This is important. Contact a health care provider if: ? Your weakness does not improve or gets worse. ? Your weakness affects your ability to think clearly. ? Your weakness affects your ability to do your normal daily activities. Get help right away if: ? You develop sudden weakness, especially on one side of your face or body. ? You have chest pain. ? You have trouble breathing or shortness of breath. ? You have problems with your vision. ? You have trouble talking or swallowing. ? You have trouble standing or walking. ? You are light-headed or lose consciousness. These symptoms may be an emergency. Get help right away. Call 911. ? Do not wait to see if the symptoms will go away. ? Do not drive yourself to the hospital. Summary ? Weakness is a lack of strength. You may feel weak all over your body or just in one specific part of your body. ? Weakness can be caused by a variety of things. In some cases, the cause may be unknown. ? Rest as needed, and try to get enough sleep. Most adults need 7?8 hours of quality sleep each night. ? Eat a healthy, well-balanced diet. This information is not intended to replace advice given to you by your health care provider. Make sure you discuss any questions you have with your health care provider. Document Revised: 04/16/2022 Document Reviewed: 04/16/2022 [employer] Patient Education ? 2023 [employer].Obstetrics and Gynecology Urinary Tract Infection, Adult A urinary tract infection (UTI) is an infection of any part of the urinary tract. The urinary tract includes the kidneys, ureters, bladder, and urethra. These organs make, store, and get rid of urine in the body. An upper UTI affects the ureters and kidneys. A lower UTI affects the bladder and urethra. What are the causes? Most urinary tract infections are caused by bacteria in your genital area around your urethra, where urine leaves your body. These bacteria grow and cause inflammation of your urinary tract. What increases the risk? You are more likely to develop this condition if: ? You have a urinary catheter that stays in place. ? You are not able to control when you urinate or have a bowel movement (incontinence). ? You are female and you: ? Use a spermicide or diaphragm for control. ? Have low estrogen levels. ? Are . ? You have certain genes that increase your risk. ? You are sexually active. ? You take antibiotic medicines. ? You have a condition that causes your flow of urine to slow down, such as: ? An enlarged prostate, if you are male. ? Blockage in your urethra. ? A kidney stone. ? A nerve condition that affects your bladder control (neurogenic bladder). ? Not getting enough to drink, or not urinating often. ? You have certain medical conditions, such as: ? Diabetes. ? A weak disease-fighting system (immunesystem). ? Sickle cell disease. ? Gout. ? Spinal cord injury. What are the signs or symptoms? Symptoms of this condition include: ? Needing to urinate right away (urgency). ? Frequent urination. This may include small amounts of urine each time you urinate. ? Pain or burning with urination. ? Blood in the urine. ? Urine that smells bad or unusual. ? Trouble urinating. ? Cloudy urine. ? Vaginal discharge, if you are female. ? Pain in the abdomen or the lower back. You may also have: ? Vomiting or a decreased appetite. ? Confusion. ? Irritability or tiredness. ? A fever or chills. ? Diarrhea. The first symptom in older adults may be confusion. In some cases, they may not have any symptoms until the infection has worsened. How is this diagnosed? This condition is diagnosed based on your medical history and a physical exam. You may also have other tests, including: ? Urine tests. ? Blood tests. ? Tests for STIs (sexually transmitted infections). If you have had more than one UTI, a cystoscopy or imaging studies may be done to determine the cause of the infections. How is this treated? Treatment for this condition includes: ? Antibiotic medicine. ? Hslk-zvm-doerbqj medicines to treat discomfort. ? Drinking enough water to stay hydrated. If you have frequent infections or have other conditions such as a kidney stone, you may need to see a health care provider who specializes in the urinary tract (urologist). In rare cases, urinary tract infections can cause sepsis. Sepsis is a life-threatening condition that occurs when the body responds to an infection. Sepsis is treated in the hospital with IV antibiotics, fluids, and other medicines. Follow these instructions at home: Medicines ? Take cuvv-efo-msiagup and prescription medicines only as told by your health care provider. ? If you were prescribed an antibiotic medicine, take it as told by your health care provider. Do not stop using the antibiotic even if you start to feel better. General instructions ? Make sure you: ? Empty your bladder often and completely. Do not hold urine for long periods of time. ? Empty your bladder after sex. ? Wipe from front to back after urinating or having a bowel movement if you are female. Use each tissue only one time when you wipe. ? Drink enough fluid to keep your urine pale yellow. ? Keep all follow-up visits. This is important. Contact a health care provider if: ? Your symptoms do not get better after 1?2 days. ? Your symptoms go away and then return. Get help right away if: ? You have severe pain in your back or your lower abdomen. ? You have a fever or chills. ? You have nausea or vomiting. Summary ? A urinary tract infection (UTI) is an infection of any part of the urinary tract, which includes the kidneys, ureters, bladder, and urethra. ? Most urinary tract infections are caused by bacteria in your genital area. ? Treatment for this condition often includes antibiotic medicines. ? If you were prescribed an antibiotic medicine, take it as told by your health care provider. Do not stop using the antibiotic even if you start to feel better. ? Keep all follow-up visits. This is important. This information is not intended to replace advice given to you by your health care provider. Make sure you discuss any questions you have with your health care provider. Document Revised: 12/19/2020 Document Reviewed: 12/24/2020 [employer] Patient Education ? 2023 [employer]. ED PATIENT SUMMARY Observed: 03/15/2024 5:00 PM Status: F Source: [facility] ED Patient Summary [address] [address] Patient Discharge Instructions Person Information Name: RAY SUAREZ Age: 78 Years Arrival Date: 03/15/2024 12:26:51 Discharge Diagnosis: 1:Weakness; 2:Urinary tract infection Primary Care Physician: Todd Osman DO Provider Information Primary Provider: Jen Edgar M.D. Advanced Resort Manager:None The exam and treatment you received in the Emergency Department were for an urgent problem and are not intended as complete care. It is important that you follow up with a doctor, nurse practitioner, or physician?s restaurant assistant for ongoing care. If your symptoms become worse or you do not improve as expected and you are unable to reach your usual health care provider, you should return to the Emergency Department. We are available 24 hours a day. RAY SUAREZ has been given the following list of patient education materials, prescriptions and follow-up instructions: Follow-up Instructions: With: Address: When: Todd Osman [address] [place] [id number] Business (1) In 3 days 03/18/2024 Comments: Return to the emergency room if your weakness gets worse, fever or any new symptoms. In the event that this physician does not participate in your insurance network, please consult with your insurance company to find a nearby participating provider. Patient Education Materials: Urinary Tract Infection, Adult; Weakness A MESSAGE TO ALL PATIENTS REGARDING OPIOIDS PRESCRIPTION OPIOIDS: WHAT YOU NEED TO KNOW Prescription opioids can be used to help relieve cshlabbq-at-lkxkud pain and are often prescribed following a surgery or injury, or for certain health conditions. These medications can be an important part of the treatment but also come with serious risks. It is important to work with your healthcare provider to make sure you are getting the safest, most effective care. WHAT ARE THE RISKS AND SIDE EFFECTS OF OPIOID USE? Prescription opioids carry serious risks of addiction and overdose, especially with prolonged use. An opioid overdose, often marked by slowed breathing, can cause sudden . The use of prescription opioids can have a number of side effects as well, even when taken as directed: ? Tolerance?meaning you might need to take more of the medication for the same pain relief ? Physical dependence?meaning you have symptoms of withdrawal when a medication is stopped ? Increased sensitivity to pain ? Constipation ? Nausea, vomiting, and dry mouth ? Sleepiness and dizziness ? Confusion ? Depression ? Low levels of testosterone that can result in lower sex drive, energy, and strength ? Itching and sweating RISKS ARE GREATER WITH: ? History of drug misuse, substance use disorder, or overdose ? Mental health conditions (such as depression or anxiety) ? Sleep apnea ? Older age (65 years and older) ? Avoid alcohol while taking prescription opioids. Also, unless specifically advised by your health care provider, medications to avoid include: ? Benzodiazepines (such as Xanax or Valium) ? Muscle relaxants (such as Soma or Flexeril) ? Hypnotics (such as Ambien or Lunesta) ? Other prescription opioids KNOW YOUR OPTIONS Talk to your health care provider about ways to manage your pain that don?t involve prescription opioids. Some of these options may actually work better and have fewer risks and side effects. Options may include: ? Pain relievers such as acetaminophen, ibuprofen, and naproxen ? Some medication that are also used for depression or seizures ? Physical therapy and exercise ? Cognitive behavioral therapy, a psychological, goal-directed approach, in which patients learn how to modify physical, behavioral, and emotional triggers of pain and stress. IF YOU ARE PRESCRIBED OPIOIDS FOR PAIN: ? Never take opioids in greater amounts or more often than prescribed. ? Follow up with your primary health care provider. o Work together to create a plan on how to manage your pain. o Talk about ways to help manage your pain that don?t involve prescription opioids. o Talk about any and all concerns and side effects. ? Help prevent misuse and abuse o Never sell or share prescription opioids. o Never use another person?s prescription opioids. ? Store prescription opioids in a secure place and out of reach of others (this may include visitors, children, friends, and family). ? Safely dispose of unused prescription opioids: Find your community drug take- back program or your pharmacy mail-back program, or flush them down the toilet, following guidance from the Food and Drug Administration (www.fda.gov/Drugs/ResourcesForYou). ? Visit www.cdc.gov/drugoverdose to learn about the risks of opioids abuse and overdose. ? If you believe you may be struggling with addiction, tell your health home health care social worker and ask for guidance or call [employer]?S National Helpline at 7-899-408-XXJW. b Source: [place] Department of Health and Human Services/Center for Disease Control & Prevention [facility] Medications Given: Medication Dose Route No medications found. Medication Information: New Medications [id number], [address], [place] [id number], [phone] cephalexin (Keflex 500 mg Cap) 1 Capsules By Mouth every 6 hours for 7 Days. Refills: 0. Medications to Continue with No Changes Other Medications aspirin 81 Milligram By Mouth at bedtime. atorvastatin (atorvastatin 40 mg Tab) 1 Tablets By Mouth every day. Refills: 1. carvedilol (carvedilol 3.125 mg Tab) 1 Tablets By Mouth 2 times a day. hold if BP is lower than 100 systolic or 50 diastolic. Refills: 2. cholecalciferol (Vitamin D3) 3,000 Units By Mouth every day. cyanocobalamin (Vitamin B12 1000 mcg Tab) 1 Tablets By Mouth every day. ezetimibe (Zetia 10 mg Tab) 0.5 Tablets By Mouth every day. Refills: 3. furosemide (Lasix 20 mg Tab) 2 Tablets By Mouth every day as needed Other (see comment). PRN for leg swelling (takes for >3 pound weight gain). levothyroxine (levothyroxine 175 mcg (0.175 mg) Tab) 0.5 Tablets By Mouth every day. metformin-sitagliptin (Janumet 50 mg/1000 mg oral tablet) 1 Tablets By Mouth every day. [facility] [place] 0 every day for 90 Days. Testing daily as directed. [facility] [place] (BD UF Mini Pen Needle [id number]) For daily blood sugar management and application of medication. Refills: 5. [facility] [place] (One Touch Ultra Test Strip) For daily blood sugar testing. Refills: 5. montelukast (Singulair 10 mg Tab) 1 Tablets By Mouth once a day (in the evening). Refills: 4. nitroglycerin (nitroglycerin 0.4 mg sublingual Tab) 1 Tablets Sublingual As Directed as needed for chest pain. takeif SBP is greater than 110. Refills: 0. sacubitril-valsartan (sacubitril-valsartan 49 mg-51 mg oral tablet) 1 Tablets By Mouth 2 times a day. hold if BP is lower than 90 systolic or 50 diastolic. Refills: 11. ticagrelor (Brilinta (ticagrelor) 90 mg oral tablet) 1 Tablets By Mouth 2 times a day. Refills: 0. Comment: Pharmacy Information: Patient Portal You may access all of your results and other medical record information on our secure patient portal. If you are not signed up for this yet, please contact [employer] at [phone] to get signed up today. LEONARDO Award Nomination The LEONARDO (Diseases Attacking the Immune SYstem) Award is an international recognition program that honors and celebrates the skillful, compassionate care nurses provide every day. Anyone who experiences or observes amazing care being provided by a nurse is encouraged to submit a nomination. To nominate your nurse, use your smart phone to scan the QR code below. You may receive a survey from [employer] asking you to rate your care experience. Your feedback is important and will help us understand what we do well and how we can improve the quality of care we provide to you, your loved ones and our community. It?s an honor to serve you. Thank you for choosing [facility] Patient Education Materials: Urinary Tract Infection, Adult A urinary tract infection (UTI) is an infection of any part of the urinary tract. The urinary tract includes the kidneys, ureters, bladder, and urethra. These organs make, store, and get rid of urine in the body. An upper UTI affects the ureters and kidneys. A lower UTI affects the bladder and urethra. What are the causes? Most urinary tract infections are caused by bacteria in your genital area around your urethra, where urine leaves your body. These bacteria grow and cause inflammation of your urinary tract. What increases the risk? You are more likely to develop this condition if: ? You have a urinary catheter that stays in place. ? You are not able to control when you urinate or have a bowel movement (incontinence). ? You are female and you: ? Use a spermicide or diaphragm for control. ? Have low estrogen levels. ? Are . ? You have certain genes that increase your risk. ? You are sexually active. ? You take antibiotic medicines. ? You have a condition that causes your flow of urine to slow down, such as: ? An enlarged prostate, if you are male. ? Blockage in your urethra. ? A kidney stone. ? A nerve condition that affects your bladder control (neurogenic bladder). ? Not getting enough to drink, or not urinating often. ? You have certain medical conditions, such as: ? Diabetes. ? A weak disease-fighting system (immunesystem). ? Sickle cell disease. ? Gout. ? Spinal cord injury. What are the signs or symptoms? Symptoms of this condition include: ? Needing to urinate right away (urgency). ? Frequent urination. This may include small amounts of urine each time you urinate. ? Pain or burning with urination. ? Blood in the urine. ? Urine that smells bad or unusual. ? Trouble urinating. ? Cloudy urine. ? Vaginal discharge, if you are female. ? Pain in the abdomen or the lower back. You may also have: ? Vomiting or a decreased appetite. ? Confusion. ? Irritability or tiredness. ? A fever or chills. ? Diarrhea. The first symptom in older adults may be confusion. In some cases, they may not have any symptoms until the infection has worsened. How is this diagnosed? This condition is diagnosed based on your medical history and a physical exam. You may also have other tests, including: ? Urine tests. ? Blood tests. ? Tests for STIs (sexually transmitted infections). If you have had more than one UTI, a cystoscopy or imaging studies may be done to determine the cause of the infections. How is this treated? Treatment for this condition includes: ? Antibiotic medicine. ? Xotl-tqf-bskbggw medicines to treat discomfort. ? Drinking enough water to stay hydrated. If you have frequent infections or have other conditions such as a kidney stone, you may need to see a health care provider who specializes in the urinary tract (urologist). In rare cases, urinary tract infections can cause sepsis. Sepsis is a life-threatening condition that occurs when the body responds to an infection. Sepsis is treated in the hospital with IV antibiotics, fluids, and other medicines. Follow these instructions at home: Medicines ? Take tpyd-qzd-nvqijcx and prescription medicines only as told by your health care provider. ? If you were prescribed an antibiotic medicine, take it as told by your health care provider. Do not stop using the antibiotic even if you start to feel better. General instructions ? Make sure you: ? Empty your bladder often and completely. Do not hold urine for long periods of time. ? Empty your bladder after sex. ? Wipe from front to back after urinating or having a bowel movement if you are female. Use each tissue only one time when you wipe. ? Drink enough fluid to keep your urine pale yellow. ? Keep all follow-up visits. This is important. Contact a health care provider if: ? Your symptoms do not get better after 1?2 days. ? Your symptoms go away and then return. Get help right away if: ? You have severe pain in your back or your lower abdomen. ? You have a fever or chills. ? You have nausea or vomiting. Summary ? A urinary tract infection (UTI) is an infection of any part of the urinary tract, which includes the kidneys, ureters, bladder, and urethra. ? Most urinary tract infections are caused by bacteria in your genital area. ? Treatment for this condition often includes antibiotic medicines. ? If you were prescribed an antibiotic medicine, take it as told by your health care provider. Do not stop using the antibiotic even if you start to feel better. ? Keep all follow-up visits. This is important. This information is not intended to replace advice given to you by your health care provider. Make sure you discuss any questions you have with your health care provider. Document Revised: 12/19/2020 Document Reviewed: 12/24/2020 [employer] Patient Education ? 2023 [employer] Weakness Weakness is a lack of strength. You may feel weak all over your body (generalized), or you may feel weak in one part of your body (focal). Common causes of weakness include: ? Infection and disorders of the body's defense system (immune system). ? Physical exhaustion. ? Internal bleeding or other blood loss that results in a lack of red blood cells (anemia). ? Dehydration. ? An imbalance in mineral (electrolyte) levels, such as potassium. ? Chronic kidney or liver disease. ? Cancer. Other causes include: ? Some medicines or cancer treatment. ? Stress, anxiety, or depression. ? Heart disease, circulation problems, or stroke. ? Nervous system disorders. ? Thyroid disorders. ? Loss of muscle strength because of age or inactivity. ? Poor sleep quality or sleep disorders. The cause of your weakness may not be known. Some causes of weakness can be serious, so it is important to see your health care provider. Follow these instructions at home: Activity ? Rest as needed. ? Try to get enough sleep. Most adults need 7?8 hours of quality sleep each night. Talk to your health care provider about how much sleep you need. ? Do exercises, such as arm curls and leg raises, for 30 minutes at least 2 days a week or as told by your health care provider. This helps build muscle strength. ? Consider working with a physical therapist or employment trainer who can develop an exercise plan to help you gain muscle strength. General instructions ? Take daez-ofy-ebrzfej and prescription medicines only as told by your health care provider. ? Eat a healthy, well-balanced diet. This includes: ? Proteins to build muscles, such as lean meats and fish. ? Fresh fruits and vegetables. ? Carbohydrates to boost energy, such as whole grains. ? Drink enough fluid to keep your urine pale yellow. ? Keep all follow-up visits. This is important. Contact a health care provider if: ? Your weakness does not improve or gets worse. ? Your weakness affects your ability to think clearly. ? Your weakness affects your ability to do your normal daily activities. Get help right away if: ? You develop sudden weakness, especially on one side of your face or body. ? You have chest pain. ? You have trouble breathing or shortness of breath. ? You have problems with your vision. ? You have trouble talking or swallowing. ? You have trouble standing or walking. ? You are light-headed or lose consciousness. These symptoms may be an emergency. Get help right away. Call 911. ? Do not wait to see if the symptoms will go away. ? Do not drive yourself to the hospital. Summary ? Weakness is a lack of strength. You may feel weak all over your body or just in one specific part of your body. ? Weakness can be caused by a variety of things. In some cases, the cause may be unknown. ? Rest as needed, and try to get enough sleep. Most adults need 7?8 hours of quality sleep each night. ? Eat a healthy, well-balanced diet. This information is not intended to replace advice given to you by your health care provider. Make sure you discuss any questions you have with your health care provider. Document Revised: 04/16/2022 Document Reviewed: 04/16/2022 [employer] Patient Education ? 2023 [employer]. IDANIELA JOE M , have received the following patient education materials/instructions and have verbalized understanding: Patient Education Materials: Urinary Tract Infection, Adult; Weakness Follow-up Instructions: With: Address: Veto: Todd Osman [address] [place], [place] [id number] Business (1) In 3 days 03/18/2024 Comments: Return to the emergency room if your weakness gets worse, fever or any new symptoms. Patient Signature Date Clinician/Nurse Signature Date 03/15/2024 17:00:47 ED CLINICAL SUMMARY Observed: 03/15/2024 5:00 PM Status: F Source: [facility] ED Clinical Summary [address] [address] ED Clinical Summary Person Information [facility] Age[facility] 78 [facility] : 1945 Sex: Male Language: Sudanese PCP: Todd Osman DO Marital Status: Visit Id: Visit Reason: Weakness or fatigue; LOW BP Speciality: Acuity: 3 Enc Type: Emergency Med Service: Emergency Arrival: 03/15/2024 12:26:51 Discharge: 03/15/2024 17:00:40 LOS: 000 04:34 Checkin: 03/15/2024 12:26:51 Checkout: 03/15/2024 17:00:40 Dispo Type: Home (Routine DC) EVENTS: Event Name Event Status Request Date/Time Start Date/Time Complete Date/Time Arrive Complete 03/15/2024 12:26:51 03/15/2024 12:26:51 03/15/2024 12:26:51 Document Home Meds Request 03/15/2024 12:26:51 Triage Complete 03/15/2024 12:26:51 03/15/2024 12:37:47 03/15/2024 12:37:47 EKG Complete 03/15/2024 12:36:52 03/15/2024 12:39:59 Pending Labs Complete 03/15/2024 12:38:31 03/15/2024 13:20:15 Lab Complete 03/15/2024 12:38:31 03/15/2024 13:20:15 Pending Labs Complete 03/15/2024 12:42:37 03/15/2024 15:45:45 Lab Complete 03/15/2024 12:42:37 03/15/2024 13:45:54 X-Ray Complete 03/15/2024 12:42:37 03/15/2024 14:34:46 03/15/2024 14:46:26 Registration Complete 03/15/2024 12:47:28 03/15/2024 12:47:28 03/15/2024 12:47:28 Reg Complete Request 03/15/2024 12:47:28 Reg Bed Request Complete 03/15/2024 12:47:28 03/15/2024 12:47:28 03/15/2024 12:47:28 Pending Labs Complete 03/15/2024 13:18:53 03/15/2024 13:18:53 03/15/2024 13:45:54 Lab Complete 03/15/2024 13:18:53 03/15/2024 13:18:53 03/15/2024 13:45:54 Pending Labs Complete 03/15/2024 13:19:48 03/15/2024 13:19:48 03/15/2024 13:19:48 Bed Assign Complete 03/15/2024 14:00:30 03/15/2024 14:00:30 03/15/2024 14:00:30 Dr Exam Complete 03/15/2024 14:00:30 03/15/2024 14:21:12 03/15/2024 14:21:12 RN Exam Complete 03/15/2024 14:00:30 03/15/2024 14:58:04 03/15/2024 14:58:04 Registration Request 03/15/2024 14:21:12 Pending Labs Cancel 03/15/2024 14:39:38 03/15/2024 14:40:51 Lab Cancel 03/15/2024 14:39:38 03/15/2024 14:40:51 Pending Labs Complete 03/15/2024 14:41:26 03/15/2024 14:41:26 03/15/2024 14:54:33 Lab Complete 03/15/2024 14:41:26 03/15/2024 14:41:26 03/15/2024 14:54:33 Wet Read Request 03/15/2024 14:46:26 Pending Labs Collected 03/15/2024 15:45:45 03/15/2024 15:45:45 Lab Collected 03/15/2024 15:45:45 03/15/2024 15:45:45 Discharge Complete 03/15/2024 16:39:58 03/15/2024 17:00:45 03/15/2024 17:00:45 Transfer Complete 03/15/2024 17:00:45 03/15/2024 17:00:45 03/15/2024 17:00:45 ADDRESS: [address] [place] [id number] PHYS DOC NOTES: MEDICAL INFORMATION: Prescriptions Given: New Medications [id number], [address], [place] [id number], [phone] cephalexin (Keflex 500 mg Cap) 1 Capsules By Mouth every 6 hours for 7 Days. Refills: 0. Medications to Continue with No Changes Other Medications aspirin 81 Milligram By Mouth at bedtime. atorvastatin (atorvastatin 40 mg Tab) 1 Tablets By Mouth every day. Refills: 1. carvedilol (carvedilol 3.125 mg Tab) 1 Tablets By Mouth 2 times a day. hold if BP is lower than 100 systolic or 50 diastolic. Refills: 2. cholecalciferol (Vitamin D3) 3,000 Units By Mouth every day. cyanocobalamin (Vitamin B12 1000 mcg Tab) 1 Tablets By Mouth every day. ezetimibe (Zetia 10 mg Tab) 0.5 Tablets By Mouth every day. Refills: 3. furosemide (Lasix 20 mg Tab) 2 Tablets By Mouth every day as needed Other (see comment). PRN for leg swelling (takes for >3 pound weight gain). levothyroxine (levothyroxine 175 mcg (0.175 mg) Tab) 0.5 Tablets By Mouth every day. metformin-sitagliptin (Janumet 50 mg/1000 mg oral tablet) 1 Tablets By Mouth every day. Misc Prescription 0 every day for 90 Days. Testing daily as directed. Misc Prescription (BD UF Mini Pen Needle [id number]) For daily blood sugar management and application of medication. Refills: 5. Mis Prescription (One Touch Ultra Test Strip) For daily blood sugar testing. Refills: 5. montelukast (Singulair 10 mg Tab) 1 Tablets By Mouth once a day (in the evening). Refills: 4. nitroglycerin (nitroglycerin 0.4 mg sublingual Tab) 1 Tablets Sublingual As Directed as needed for chest pain. takeif SBP is greater than 110. Refills: 0. sacubitril-valsartan (sacubitril-valsartan 49 mg-51 mg oral tablet) 1 Tablets By Mouth 2 times a day. hold if BP is lower than 90 systolic or 50 diastolic. Refills: 11. ticagrelor (Brilinta (ticagrelor) 90 mg oral tablet) 1 Tablets By Mouth 2 times a day. Refills: 0. PATIENT EDUCATION INFORMATION: Instructions: Urinary Tract Infection, Adult; Weakness Follow up: With: Address: When: Todd Osman [address] [place], [place] [id number] Business (1) In 3 days 03/18/2024 Comments: Return to the emergency room if your weakness gets worse, fever or any new symptoms. DIAGNOSIS: 1:Weakness; 2:Urinary tract infection ED NOTE-PHYSICIAN Observed: 03/15/2024 4:40 PM Status: F Source: [facility] ED Note-Physician Basic Information Time Seen: Tala Lewis Jen Richards 03/15/2024 14:21 Chief Complaint pt woke up this morning with weakness in his legs. concern BP was low as well. dizziness present. denies pain in chest or SOB History of Present Illness The patient is an 78-year-old male past medical history of congestive heart failure, hypertension, COPD, hyperlipidemia, GERD, hypothyroidism, coronary artery disease status post cardiac stents and November, diabetes mellitus who presented to the emergency room with his for weakness and a low blood pressure. The patient states yesterday he had the large diarrhea. Denies any black or bloody stool. The patient denies any diarrhea today. The patient states today he was feeling lightheaded when standing. He states he feels weak since yesterday. The patient denies any sore throat. He denies any cough. The patient denies any chest pain denies any shortness of breath. He denies any abdominal pain. He stated he had some cramping yesterday that has resolved. The patient reports some nausea earlier denies any vomiting. The patient denies any burning with urination. The patient's states that she took his blood pressure in the morning is 101 systolic. She states she repeated again and was 92/52 then at 1 point was 80/40. The patient denies any other associated symptoms. Review of Systems Additional ROS info: Except as noted in the above Review of Systems and in the History of Present Illness all other systems have been reviewed and are negative or noncontributory. Physical Exam Vitals & Measurements T: 36.3 ?C(Oral) HR: 61(Monitored) RR: 16 BP: 149/87 BP: 131/67(Sitting) BP: 142/83(Standing) SpO2: 95% HT: 177.8 cm WT: 90.5 kg BMI: 28.63 General: alert, no acute distress Skin: warm, dry Head: no trauma, normocephalic Neck: Trachea midline, no tenderness, supple Eye: normal conjunctiva, sclera clear, PERRL, EOMI, vision unchanged ENMT: Oral mucosa moist, no pharyngeal erythema or exudate Cardiovascular: regular rate and rhythm, Respiratory: Lungs CTA, respirations non labored, breath sounds equal, Gastrointestinal: soft, non distended, no tenderness, no guarding, Extremities: no deformity, no trauma Neurological: Alert and oriented, CN II-XII intact, motor strength equal & normal bilaterally, sensation equal & normal bilaterally, speech normal, no focal neuro deficits Psychiatric: cooperative, affect appropriate for age, Medical Decision Making MEDICAL DECISION MAKING Number and Complexity of Problems Differential Diagnosis: [] [facility] Data External documents reviewed: [] My EKG interpretation: [] My CT interpretation: [] My X-ray interpretation: [] My Ultrasound interpretation: [] Decision rules/scores evaluated: [] Discussed with: [] Treatment and Disposition ED Course: The patient presented with generalized weakness and low blood pressure. His blood pressure is normal for us. He has no focal neurological deficit. COVID is negative. Blood work reviewed unremarkable. White count is normal. The orthostatic vital signs are negative. The urine shows infection. The chest x-ray no acute cardiopulmonary disease. Will discharge patient home with prescription for Keflex and follow-up with primary care. He is instructed to return to the emergency room if his weakness gets worse, fever or any new symptoms. Shared decision making: [] Code status: [] Assessment/Plan 1. Weakness (R53.1: Weakness) 2. Urinary tract infection (N39.0: Urinary tract infection, site not specified) Orders: cephalexin, 500 mg = 1 cap(s), Oral, q6hr, X 7 day(s), # 28 cap(s), Refills(s) 0, Pharmacy: [facility]/pharmacy #[id number], 177.8, cm, 03/15/24 12:37:00 EDT, Height/Length Dosing, 90.5, kg, 03/15/24 12:37:00 EDT, Weight Dosing Basic Metabolic Panel CBC w/ Auto Diff eGFR Extra Blue Tube Extra SST Tube Hepatic Function Panel Magnesium Level Orthostatic Vitals Signs Rapid COVID Antigen ([facility]) Troponin 0 Hr. Troponin 1 Hr. UA with Cult Rflx Urine Culture XR Chest Single View Disposition Plan Patient Discharge Condition Stable Discharge Disposition Discharge home Discharge Prescription List Prescriptions Keflex 500 mg Cap, 500 mg= 1 cap(s), Oral, q6hr Follow-up With When Contact Information Todd Link In 3 days 03/18/2024 EDT [address] [phone] Business (1) Additional Instructions: Return to the emergency room if your weakness gets worse, fever or any new symptoms. Patient Education Urinary Tract Infection, Adult Weakness Problem List/Past Medical History Ongoing Asthma Benign essential hypertension CAD in [place] artery CHF - Congestive heart failure COPD with asthma Dyslipidemia Former smoker GERD (gastroesophageal reflux disease) History of prostate cancer History of prostatectomy Hyperlipidemia, unspecified Hypothyroidism (acquired) SAMIRA (obstructive sleep apnea) Type 2 diabetes mellitus with hyperlipidemia Historical Chronic back pain Smoker Procedure/Surgical History Cardiac catheterization, left heart (12/24/2023), PCI - Percutaneous coronary intervention (12/24/2023), STEMI - ST elevation myocardial infarction (12/12/2023), Carpal tunnel (12/02/2023), right total hip arthroplasty (09/11/2016), left total hip arthroplasty (07/19/2015), Cardiac catheterization (08/27/2006), Colonoscopy (2006), Vasectomy (1975), attempted tendon repair right leg, back surgery, Radical prostatectomy, Rotator cuff repair, Thyroidectomy, Tonsillectomy. Medications Inpatient No active inpatient medications Home aspirin, 81 mg, Oral, Bedtime atorvastatin 40 mg Tab, 40 mg= 1 tab(s), Oral, Daily, 1 refills BD UF Mini Pen Needle [id number], See Instructions, 5 refills Brilinta (ticagrelor) 90 mg oral tablet, 90 mg= 1 tab(s), Oral, BID carvedilol 3.125 mg Tab, 3.125 mg= 1 tab(s), Oral, BID, 2 refills Janumet 50 mg/1000 mg oral tablet, 1 tab(s), Oral, Daily Keflex 500 mg Cap, 500 mg= 1 cap(s), Oral, q6hr Lasix 20 mg Tab, 40 mg= 2 tab(s), Oral, Daily, PRN levothyroxine 175 mcg (0.175 mg) Tab, 87.5 mcg= 0.5 tab(s), Oral, Daily Misc Prescription, 0, Daily nitroglycerin 0.4 mg sublingual Tab, 0.4 mg= 1 tab(s), SubLingual, As Directed, PRN One Touch Ultra Test Strip, See Instructions, 5 refills sacubitril-valsartan 49 mg-51 mg oral tablet, 1 tab(s), Oral, BID, 11 refills Singulair 10 mg Tab, 10 mg= 1 tab(s), Oral, qPM, 4 refills Vitamin B12 1000 mcg Tab, 1000 mcg= 1 tab(s), Oral, Daily Vitamin D3, 3000 unit(s), Oral, Daily Zetia 10 mg Tab, 5 mg= 0.5 tab(s), Oral, Daily, 3 refills Allergies Aldactone Contrast Dye (Flushing) Crestor Pollen (Hayfever) Toradol Social History Alcohol - No Risk, 10/05/2023 Current, 1-2 times per year, 1 drinks/episode average. 1.00 drinks/episode maximum., 10/05/2023 Substance Abuse - Denies Substance Abuse, 05/31/2015 Tobacco - Denies Tobacco Use, 10/05/2023 Former smoker, quit more than 30 days ago Tobacco Use:. Former smokeless tobacco user, quit more than 30 days ago Smokeless Tobacco Use:. Cigarettes, Cigars, Oral, Started age 18.0 Years. Stopped age 33 Years. Household tobacco concerns: No., 02/01/2024 Family History Acute myocardial infarction: Grandparent. Alcoholism: Mother. Cardiac arrhythmia: Mother. Diabetes mellitus type 2: Mother and Father. Hypertension: Father. Hypotension: Brother. Primary malignant neoplasm of lung: Mother. Primary malignant neoplasm of prostate: Father. Stroke: Father. Lab Results WBC: 7.6 E9/L (03/15/24 13:15:00) RBC: 4.7 E12/L (03/15/24 13:15:00) HGB: 15 gm/dL (03/15/24 13:15:00) Hct: 43.1 % (03/15/24 13:15:00) MCV: 92 fL (03/15/24 13:15:00) MCH: 32 pg (03/15/24 13:15:00) MCHC: 34.8 gm/dL (03/15/24 13:15:00) RDW: 15.3 % High (03/15/24 13:15:00) Platelet: 151 E9/L (03/15/24 13:15:00) MPV: 10 fL (03/15/24 13:15:00) Neutro Auto: 69.9 % (03/15/24 13:15:00) Lymph Auto: 17.2 % (03/15/24 13:15:00) Benson Auto: 9.5 % (03/15/24 13:15:00) Eos Auto: 2 % (03/15/24 13:15:00) Basophil Auto: 1.4 % (03/15/24 13:15:00) Neutro Absolute: 5.3 E9/L (03/15/24:15:00) Lymph Absolute: 1.3 E9/L (03/15/24 13:15:00) Benson Absolute: 0.7 E9/L (03/15/24 13:15:00) Eos Absolute: 0.2 E9/L (03/15/24 13:15:00) Basophil Absolute: 0.1 E9/L (03/15/24 13:15:00) Glucose Lvl: 97 mg/dL (03/15/24 13:15:00) BUN: 19 mg/dL (03/15/24 13:15:00) Creatinine: 1.2 mg/dL (03/15/24 13:15:00) eGFR: 61 mL/min/1.73 m2 (03/15/24 13:15:00) BUN/Creat Ratio: 16 (03/15/24 13:15:00) Sodium Lvl: 140 mmol/L (03/15/24 13:15:00) Potassium Lvl: 5 mmol/L (03/15/24 13:15:00) Chloride: 109 mmol/L (03/15/24 13:15:00) CO2: 27 mmol/L (03/15/24 13:15:00) AGAP: 9 mEq/L (03/15/24 13:15:00) Calcium Lvl: 10.3 mg/dL (03/15/24 13:15:00) Alk Phos: 56 Int._Unit/L (10/19/24 13:15:00) ALT: 25 Int._Unit/L (03/15/24 13:15:00) AST: 26 Int._Unit/L (03/15/24 13:15:00) Total Protein: 6.2 gm/dL (03/15/24 13:15:00) Albumin Lvl: 4 gm/dL (03/15/24 13:15:00) Globulin: 2.2 gm/dL (03/15/24 13:15:00) A/G Ratio: 1.8 (03/15/24 13:15:00) Bili Total: 1 mg/dL (03/15/24 13:15:00) Bili Direct: 0.2 mg/dL (03/15/24 13:15:00) Bili Indirect: 0.8 mg/dL (03/15/24 13:15:00) Magnesium: 1.6 mg/dL (03/15/24 13:15:00) Troponin HS: 15.4 pg/mL Low (03/15/24 14:17:00) UA Spec Desc: Clean Catch (03/15/24 15:19:00) UA Color: Yellow (03/15/24 15:19:00) UA Clarity: Clear (03/15/24 15:19:00) UA Spec Grav: 1.022 (03/15/24 15:19:00) UA pH: 5.5 (03/15/24 15:19:00) UA Protein: Negat (03/15/24 15:19:00) UA Glucose: Negat (03/15/24 15:19:00) UA Ketones: Negat (03/15/24 15:19:00) UA Bili: Negat (03/15/24 15:19:00) UA Blood: Negat (03/15/24 15:19:00) UA Nitrite: 2+ Abnormal (03/15/24 15:19:00) UA Urobilinogen: Negat (03/15/24 15:19:00) UA Leuk Est: 75 Jorge A/uL Abnormal (03/15/24 15:19:00) UA RBC: 0-3 (03/15/24 15:19:00) UA WBC: 26-30 Abnormal (03/15/24 15:19:00) UA Bacteria: 4+ Abnormal (03/15/24 15:19:00) UA Mucous: Trace (03/15/24 15:19:00) Rapid COVID Ag: Not Detected (03/15/24 12:50:00) Rapid COV Int NEG Ctl: Pass (03/15/24 12:50:00) Rapid COV Int POS Ctl: Pass (03/15/24 12:50:00) Diagnostic Results XR Chest Single View 03/15/24 14:50:59 IMPRESSION: NO ACUTE CARDIOPULMONARY DISEASE. CLINICAL HISTORY: Shortness of breath (SOB) COMPARISON: December 23, 2023 FINDINGS: Osseous structures intact. Cardiopericardial silhouette normal. Pulmonary vasculature normal. Lungs clear. Ordering Provider: Jen Edgar Signed By: Jose L Hobbs MD 03/15/24 14:46:25 Radiation Dose: Ka,r in mGy = . DAP = . Signed By: Jose L Hobbs MD EKG Results EC03/15/24: SINUS RHYTHM WITH FIRST DEGREE AV BLOCK INTRAVENTRICULAR CONDUCTION DELAY [130+ ms QRS DURATION] INFERIOR MYOCARDIAL INFARCTION [40+ ms Q WAVE AND/OR ST/T ABNORMALITY IN II/aVF], OF INDETERMINATE AGE ANTEROSEPTAL MYOCARDIAL INFARCTION [40+ ms Q WAVE IN V1-V4], OF INDETERMINATE AGE ABNORMAL ECG Signed By: Jen Edgar M.D. 03/15/2024 14:49:02 Result Comment: Electronical ly Signed By: Jen Edgar M.D.\.br\Date and Time Signed: 03/15/24 16:41 EDT ED NOTE-PHYSICIAN Observed: 03/15/2024 4:40 PM Status: F Source: [facility] ED Note-Physician Basic Information Time Seen: Jen Edgar M.D. 03/15/2024 14:21 Chief Complaint pt woke up this morning with weakness in his legs. concern BP was low as well. dizziness present. denies pain in chest or SOB History of Present Illness The patient is an 78-year-old male past medical history of congestive heart failure, hypertension, COPD, hyperlipidemia, GERD, hypothyroidism, coronary artery disease status post cardiac stents and November, diabetes mellitus who presented to the emergency room with his for weakness and a low blood pressure. The patient states yesterday he had the large diarrhea. Denies any black or bloody stool. The patient denies any diarrhea today. The patient states today he was feeling lightheaded when standing. He states he feels weak since yesterday. The patient denies any sore throat. He denies any cough. The patient denies any chest pain denies any shortness of breath. He denies any abdominal pain. He stated he had some cramping yesterday that has resolved. The patient reports some nausea earlier denies any vomiting. The patient denies any burning with urination. The patient's states that she took his blood pressure in the morning is 101 systolic. She states she repeated again and was 92/52 then at 1 point was 80/40. The patient denies any other associated symptoms. Review of Systems Additional ROS info: Except as noted in the above Review of Systems and in the History of Present Illness all other systems have been reviewed and are negative or noncontributory. Physical Exam Vitals & Measurements T: 36.3 ?C(Oral) HR: 61(Monitored) RR: 16 BP: 149/87 BP: 131/67(Sitting) BP: 142/83(Standing) SpO2: 95% HT: 177.8 cm WT: 90.5 kg BMI: 28.63 General: alert, no acute distress Skin: warm, dry Head: no trauma, normocephalic Neck: Trachea midline, no tenderness, supple Eye: normal conjunctiva, sclera clear, PERRL, EOMI, vision unchanged ENMT: Oral mucosa moist, no pharyngeal erythema or exudate Cardiovascular: regular rate and rhythm, Respiratory: Lungs CTA, respirations non labored, breath sounds equal, Gastrointestinal: soft, non distended, no tenderness, no guarding, Extremities: no deformity, no trauma Neurological: Alert and oriented, CN II-XII intact, motor strength equal & normal bilaterally, sensation equal & normal bilaterally, speech normal, no focal neuro deficits Psychiatric: cooperative, affect appropriate for age, Medical Decision Making MEDICAL DECISION MAKING Number and Complexity of Problems Differential Diagnosis: [] [facility] Data External documents reviewed: [] My EKG interpretation: [] My CT interpretation: [] My X-ray interpretation: [] My Ultrasound interpretation: [] Decision rules/scores evaluated: [] Discussed with: [] Treatment and Disposition ED Course: The patient presented with generalized weakness and low blood pressure. His blood pressure is normal for us. He has no focal neurological deficit. COVID is negative. Blood work reviewed unremarkable. White count is normal. The orthostatic vital signs are negative. The urine shows infection. The chest x-ray no acute cardiopulmonary disease. Will discharge patient home with prescription for Keflex and follow-up with primary care. He is instructed to return to the emergency room if his weakness gets worse, fever or any new symptoms. Shared decision making: [] Code status: [] Assessment/Plan 1. Weakness (R53.1: Weakness) 2. Urinary tract infection (N39.0: Urinary tract infection, site not specified) Orders: cephalexin, 500 mg = 1 cap(s), Oral, q6hr, X 7 day(s), # 28 cap(s), Refills(s) 0, Pharmacy: [facility]/pharmacy #[id number], 177.8, cm, 03/15/24 12:37:00 EDT, Height/Length Dosing, 90.5, kg, 03/15/24 12:37:00 EDT, Weight Dosing Basic Metabolic Panel CBC w/ Auto Diff eGFR Extra Blue Tube Extra SST Tube Hepatic Function Panel Magnesium Level Orthostatic Vitals Signs Rapid COVID Antigen ([facility]) Troponin 0 Hr. Troponin 1 Hr. UA with Cult Rflx Urine Culture XR Chest Single View Disposition Plan Patient Discharge Condition Stable Discharge Disposition Discharge home Discharge Prescription List Prescriptions Keflex 500 mg Cap, 500 mg= 1 cap(s), Oral, q6hr Follow-up With When Contact Information Todd Link In 3 days 03/18/2024 EDT [address] [phone] Business (1) Additional Instructions: Return to the emergency room if your weakness gets worse, fever or any new symptoms. Patient Education Urinary Tract Infection, Adult Weakness Problem List/Past Medical History Ongoing Asthma Benign essential hypertension CAD in [place] artery CHF - Congestive heart failure COPD with asthma Dyslipidemia Former smoker GERD (gastroesophageal reflux disease) History of prostate cancer History of prostatectomy Hyperlipidemia, unspecified Hypothyroidism (acquired) SAMIRA (obstructive sleep apnea) Type 2 diabetes mellitus with hyperlipidemia Historical Chronic back pain Smoker Procedure/Surgical History Cardiac catheterization, left heart (12/24/2023), PCI - Percutaneous coronary intervention (12/24/2023), STEMI - ST elevation myocardial infarction (12/12/2023), Carpal tunnel (12/02/2023), right total hip arthroplasty (09/11/2016), left total hip arthroplasty (07/19/2015), Cardiac catheterization (08/27/2006), Colonoscopy (2006), Vasectomy (1975), attempted tendon repair right leg, back surgery, Radical prostatectomy, Rotator cuff repair, Thyroidectomy, Tonsillectomy. Medications Inpatient No active inpatient medications Home aspirin, 81 mg, Oral, Bedtime atorvastatin 40 mg Tab, 40 mg= 1 tab(s), Oral, Daily, 1 refills BD UF Mini Pen Needle [id number], See Instructions, 5 refills Brilinta (ticagrelor) 90 mg oral tablet, 90 mg= 1 tab(s), Oral, BID carvedilol 3.125 mg Tab, 3.125 mg= 1 tab(s), Oral, BID, 2 refills Janumet 50 mg/1000 mg oral tablet, 1 tab(s), Oral, Daily Keflex 500 mg Cap, 500 mg= 1 cap(s), Oral, q6hr Lasix 20 mg Tab, 40 mg= 2 tab(s), Oral, Daily, PRN levothyroxine 175 mcg (0.175 mg) Tab, 87.5 mcg= 0.5 tab(s), Oral, Daily Misc Prescription, 0, Daily nitroglycerin 0.4 mg sublingual Tab, 0.4 mg= 1 tab(s), SubLingual, As Directed, PRN One Touch Ultra Test Strip, See Instructions, 5 refills sacubitril-valsartan 49 mg-51 mg oral tablet, 1 tab(s), Oral, BID, 11 refills Singulair 10 mg Tab, 10 mg= 1 tab(s), Oral, qPM, 4 refills Vitamin B12 1000 mcg Tab, 1000 mcg= 1 tab(s), Oral, Daily Vitamin D3, 3000 unit(s), Oral, Daily Zetia 10 mg Tab, 5 mg= 0.5 tab(s), Oral, Daily, 3 refills Allergies Aldactone Contrast Dye (Flushing) Crestor Pollen (Hayfever) Toradol Social History Alcohol - No Risk, 10/05/2023 Current, 1-2 times per year, 1 drinks/episode average. 1.00 drinks/episode maximum., 10/05/2023 Substance Abuse - Denies Substance Abuse, 05/31/2015 Tobacco - Denies Tobacco Use, 10/05/2023 Former smoker, quit more than 30 days ago Tobacco Use:. Former smokeless tobacco user, quit more than 30 days ago Smokeless Tobacco Use:. Cigarettes, Cigars, Oral, Started age 18.0 Years. Stopped age 33 Years. Household tobacco concerns: No., 02/01/2024 Family History Acute myocardial infarction: Grandparent. Alcoholism: Mother. Cardiac arrhythmia: Mother. Diabetes mellitus type 2: Mother and Father. Hypertension: Father. Hypotension: Brother. Primary malignant neoplasm of lung: Mother. Primary malignant neoplasm of prostate: Father. Stroke: Father. Lab Results WBC: 7.6 E9/L (03/15/24 13:15:00) RBC: 4.7 E12/L (03/15/24 13:15:00) HGB: 15 gm/dL (03/15/24 13:15:00) Hct: 43.1 % (03/15/24 13:15:00) MCV: 92 fL (03/15/24 13:15:00) MCH: 32 pg (03/15/24 13:15:00) MCHC: 34.8 gm/dL (03/15/24 13:15:00) RDW: 15.3 % High (03/15/24 13:15:00) Platelet: 151 E9/L (03/15/24 13:15:00) MPV: 10 fL (03/15/24 13:15:00) Neutro Auto: 69.9 % (03/15/24 13:15:00) Lymph Auto: 17.2 % (03/15/24 13:15:00) Benson Auto: 9.5 % (03/15/24 13:15:00) Eos Auto: 2 % (03/15/24 13:15:00) Basophil Auto: 1.4 % (03/15/24 13:15:00) Neutro Absolute: 5.3 E9/L (03/15/24 13:15:00) Lymph Absolute: 1.3 E9/L (03/15/24 13:15:00) Benson Absolute: 0.7 E9/L (03/15/24 13:15:00) Eos Absolute: 0.2 E9/L (03/15/24 13:15:00) Basophil Absolute: 0.1 E9/L (03/15/24 13:15:00) Glucose Lvl: 97 mg/dL (03/15/24 13:15:00) BUN: 19 mg/dL (03/15/24 13:15:00) Creatinine: 1.2 mg/dL (03/15/24 13:15:00) eGFR: 61 mL/min/1.73 m2 (03/15/24 13:15:00) BUN/Creat Ratio: 16 (03/15/24 13:15:00) Sodium Lvl: 140 mmol/L (03/15/24 13:15:00) Potassium Lvl: 5 mmol/L (03/15/24 13:15:00) Chloride: 109 mmol/L (03/15/24 13:15:00) CO2: 27 mmol/L (03/15/24 13:15:00) AGAP: 9 mEq/L (03/15/24 13:15:00) Calcium Lvl: 10.3 mg/dL (03/15/24 13:15:00) Alk Phos: 56 Int._Unit/L (03/15/24 13:15:00) ALT: 25 Int._Unit/L (03/15/24 13:15:00) AST: 26 Int._Unit/L (03/15/24 13:15:00) Total Protein: 6.2 gm/dL (03/15/24 13:15:00) Albumin Lvl: 4 gm/dL (03/15/24 13:15:00) Globulin: 2.2 gm/dL (03/15/24 13:15:00) A/G Ratio: 1.8 (03/15/24 13:15:00) Bili Total: 1 mg/dL (03/15/24 13:15:00) Bili Direct: 0.2 mg/dL (03/15/24 13:15:00) Bili Indirect: 0.8 mg/dL (03/15/24 13:15:00) Magnesium: 1.6 mg/dL (03/15/24 13:15:00) Troponin HS: 15.4 pg/mL Low (03/15/24 14:17:00) UA Spec Desc: Clean Catch (03/15/24 15:19:00) UA Color: Yellow (03/15/24 15:19:00) UA Clarity: Clear (03/15/24 15:19:00) UA Spec Grav: 1.022 (03/15/24 15:19:00) UA pH: 5.5 (03/15/24 15:19:00) UA Protein: Negat (03/15/24:19:00) UA Glucose: Negat (03/15/24:19:00) UA Ketones: Negat (03/15/24:19:00) UA Bili: Negat (03/15/24 15:19:00) UA Blood: Negat (03/15/24 15:19:00) UA Nitrite: 2+ Abnormal (03/15/24 15:19:00) UA Urobilinogen: Negat (03/15/24 15:19:00) UA Leuk Est: 75 Jorge A/uL Abnormal (03/15/24 15:19:00) UA RBC: 0-3 (03/15/24 15:19:00) UA WBC: 26-30 Abnormal (03/15/24 15:19:00) UA Bacteria: 4+ Abnormal (03/15/24 15:19:00) UA Mucous: Trace (03/15/24 15:19:00) Rapid COVID Ag: Not Detected (03/15/24 12:50:00) Rapid COV Int NEG Ctl: Pass (03/15/24 12:50:00) Rapid COV Int POS Ctl: Pass (03/15/24 12:50:00) Diagnostic Results XR Chest Single View 03/15/24 14:50:59 IMPRESSION: NO ACUTE CARDIOPULMONARY DISEASE. CLINICAL HISTORY: Shortness of breath (SOB) COMPARISON: December 23, 2023 FINDINGS: Osseous structures intact. Cardiopericardial silhouette normal. Pulmonary vasculature normal. Lungs clear. Ordering Provider: Jen Edgar Signed By: Jose L Hobbs MD 03/15/24 14:46:25 Radiation Dose: Ka,r in mGy = . DAP = . Signed By: Signer Jose L AUGUSTE EKG Results EC03/15/24: SINUS RHYTHM WITH FIRST DEGREE AV BLOCK INTRAVENTRICULAR CONDUCTION DELAY [130+ ms QRS DURATION] INFERIOR MYOCARDIAL INFARCTION [40+ ms Q WAVE AND/OR ST/T ABNORMALITY IN II/aVF], OF INDETERMINATE AGE ANTEROSEPTAL MYOCARDIAL INFARCTION [40+ ms Q WAVE IN V1-V4], OF INDETERMINATE AGE ABNORMAL ECG Signed By: Jen Edgar M.D. 03/15/2024 14:49:02 Result Comment: Electronical ly Signed By: Jen Edgar M.D.\.br\Date and Time Signed: 03/15/24 16:41 EDT C URINE Observed: 03/15/2024 3:19 PM Status: F Source: [facility] Microbiology PROCEDURE: Urine Culture [R1] SOURCE: U CleanCatch BODY SITE: COLLECTED DATE/TIME: 03/15/2024 15:19 EDT RECEIVED DATE/TIME: 03/15/2024 18:41 EDT START DATE/TIME: 03/15/2024 18:41 EDT FREE TEXT SOURCE: Jen Edgar M.D., M.D., Jen Richards FINAL REPORTS Final Report [] Verified Date/Time: 03/17/2024 10:33 EDT >100,000 cfu/ml Escherichia coli SUSCEPTIBILITY RESULTS LEGEND: S=Susceptible, N/R=Not Reported, Blank=Data not available, or drug not advisable or tested, I=Intermediate, ESBL=Extended spectrum beta-lactamase, R=Resistant, TFG=Thymidine-dependent strain, SARAH=Beta-lactamase positive, QUENTIN=mcg/m;(mg/L), S*=Predicted susceptible interp, R*=Predicted resistant interp EC Antibiotic QUENTIN Dilutn QUENTIN Interp Ampicillin >16 R Ampicillin/ >16/8 R Sulbactam Aztreonam <=4 S Cefazolin 4 S Cefepime <=2 S Ceftazidime <=1 S Ceftazidime/ <=8 S Avibactam Ceftriaxone <=1 S Cefuroxime <=4 S Ciprofloxacin <=0.25 S Ertapenem <=0.5 S Gentamicin <=2 S Levofloxacin <=0.5 S Meropenem <=1 S Nitrofurantoin <=32 S Piperacillin/ <=8 S Tazobactam Tetracycline <=4 S Tobramycin <=2 S Trimethoprim/ <=2/38 S Sulfa Performing Locations R1: This test was performed at: [facility], [address] [place] [address], [address] [place] [address], Performed By: #### [id number] # ### [facility] [address] [place] [address] WITH CULT RFLX Collected: 4 3:19 PM Status: F Source: [facility] TYPE CODE TESTS RESULT OUT OF RANGE REFERENCE UNITS LAB 9194-2([facility]) CLASS:TYPE:PT: URINE COLLECTION METHOD:NOM:* Clean Catch Normal LAB 23565-8([facility]) COLOR:TYPE:PT: URINE:NOM:AUTO Yellow Normal Yellow Result Comment: Microscopic readings are only performed on those samples that meet specific criteria set forth by [facility]. LAB 18528-2([facility]) CLARITY:TYPE:P T:URINE:NOM: Clear Normal Clear LAB 5811-5([facility]) SPECIFIC GRAVITY:RDEN:P T:URINE:SEMIQN :TEST STRIP 1.022 Unknown 1.005-1.030 LAB 5803-2(INC) PH:LSCNC:PT:UR INE:SEMIQN:EDILBERTO T STRIP 5.5 Unknown 5.0-9.0 LAB 85873-4(INC) PROTEIN:PRTHR: PT:URINE:ORD:T EST STRIP Negative Normal Negative mg/dL LAB 00756-8(INC) GLUCOSE:PRTHR: PT:URINE:ORD:T EST STRIP Negative Normal Negative mg/dL LAB 41261-7(INC) KETONES:PRTHR: PT:URINE:ORD:T EST STRIP.AUTOMATE D Negative Normal Negative mg/dL LAB 93933-2([facility]) BILIRUBIN:PRTH R:PT:URINE:ORD :TEST STRIP.AUTOMATE D Negative Normal Negative mg/dL LAB 21331-8(INC) HEMOGLOBIN:MCN C:PT:URINE:ANNIE IQN:TEST STRIP.AUTOMATE D Negative Normal Negative mg/dL LAB 81311-6([facility]) NITRITE:PRTHR: PT:URINE:ORD:T EST STRIP.AUTOMATE D 2+ Abnormal Negative mg/dL LAB 99333-5([facility]) UROBILINOGEN:M CNC:PT:URINE:S EMIQN:TEST STRIP Negative Normal Negative mg/dL LAB 10237-0(INC) LEUKOCYTE ESTERASE:PRTHR :PT:URINE:ORD: TEST STRIP.AUTOMATE D 75 Jorge A/uL Abnormal Negative CD:00618 63416 LAB 31320-1(INC) LEUKOCYTES:GIGI IC:PT:URINE SED:QN:AUTOMAT ED COUNT 26-30 Abnormal 0-5 CD:47404 20510 LAB 64452-7(INC) ERYTHROCYTES:P RTHR:PT:URINE SED:ORD:MICROS COPY.LIGHT 0-3 Normal 0-3 CD:15439 51850 LAB 45627-9(LOINC) BACTERIA:PRTHR :PT:URINE:ORD: AUTOMATED 4+ Abnormal Trace /HPF LAB 92663-4(LOINC) MUCUS:PRTHR:PT :URINE:ORD:AUT OMATED Trace Normal Negative CD:50793 59553 Performed By: #### [id number] #### [facility] [address] [place] [address] XR CHEST SINGLE VIEW Observed: 4 2:34 PM Status: F Source: [facility] Exam Date/Time: 03/15/2024 14:46 EDT Reason for Exam: Shortness of breath (SOB) Report IMPRESSION: NO ACUTE CARDIOPULMONARY DISEASE. CLINICAL HISTORY: Shortness of breath (SOB) COMPARISON: December 23, 2023 FINDINGS: Osseous structures intact. Cardiopericardial silhouette normal. Pulmonary vasculature normal. Lungs clear. Ordering Provider: Jen Edgar FINAL REPORT Dictated: 03/15/2024 2:47 pm Jose L Hobbs MD Signed (Electronic Signature): 03/15/2024 2:47 pm Signed by: Jose L Hobbs MD Transcribed by: NII Technologist: JOHN Technical Comments Radiation Dose: Kar in mGy = . DAP = . TROPONIN 1 HR. Collected: 2:17 PM Status: F Source: [facility] Order Comment: due @ 1415 TYPE CODE TESTS RESULT OUT OF RANGE REFERENCE UNITS LAB [id number](INC) Troponin HS 15.40 Low 15.90-38.40 pg/mL Result Comment: The 95% CI ( Confidence Interval) PPV (Positive Predictive Value) for myocardial infarction in females is 38 pg/mL, in males 51 pg/mL. The results should be used in conjunction with clinical conditions of myocardial infarction. (Access High Sensitivity Troponin I Instructions For Use, [place], December 2017) Performed By: #### [id number] #### [facility] [address] [place] [address] [facility] Collected: 1:15 PM Status: F Source: [facility] TYPE CODE TESTS RESULT OUT OF RANGE REFERENCE UNITS LAB 2345-7(LOINC) GLUCOSE:MCNC :PT:SER/PLAS :QN: 97 Normal 55-199 mg/dL LAB 3094-0(LOINC) UREA NITROGEN:MCN C:PT:SER/GILBERT S:QN: 19 Normal 5-21 mg/dL LAB 2160-0(LOINC) CREATININE:M CNC:PT:SER/P LAS:QN: 1.2 Normal 0.5-1.3 mg/dL LAB 3097-3(LOINC) UREA NITROGEN/CRE ATININE:MRTO :PT:SER/PLAS :QN: 16 Normal 10-20 No Units LAB 05163-4([facility]) CALCIUM:MCNC :PT:SER/PLAS :QN: 10.3 Normal 8.9-11.1 mg/dL LAB 2951-2([facility]) SODIUM:SCNC: PT:SER/PLAS: QN: 140 Normal 135-145 mmol/L LAB 2823-3([facility]) POTASSIUM:SC NC:PT:SER/PL :QN: 5.0 Normal 3.5-5.3 mmol/L LAB 2075-0([facility]) CHLORIDE:SCN C:PT:SER/GILBERT S:QN: 109 Normal 101-111 mmol/L LAB 2027-9([facility]) CARBON DIOXIDE:SCNC :PT:SER/PLAS :QN: 27 Normal 21-31 mmol/L LAB 35082-0([facility]) ANION GAP:SCNC:PT: SER/PLAS:QN: 9 Normal 6-16 mEq/L Performed By: #### [id number] # ### [facility] [address] [place] [id number] EGFR Collected: 1:15 PM Status: F Source: [facility] TYPE CODE TESTS RESULT OUT OF RANGE REFERENCE UNITS LAB 18228555([facility]) eGFR 61 Normal >=59 mL/min/1 .7 3 m2 Performed By: #### [id number] #### [facility] [address] [place] [address] MAGNESIUM Collected: 03/15/2024 1:15 PM Status: F Source: [facility] TYPE CODE TESTS RESULT OUT OF RANGE REFERENCE UNITS LAB 72709-3([facility]) MAGNESIUM:MCN C:PT:SER/PLAS :QN: 1.6 Normal 1.3-2.4 mg/dL Performed By: #### [id number] # ### [facility] [address] [place] [address] TROPONIN 0 HR. Collected: 1:15 PM Status: F Source: [facility] TYPE CODE TESTS RESULT OUT OF RANGE REFERENCE UNITS LAB 87324975([facility]) Troponin HS 16.00 Normal 15.90-38.40 pg/mL Result Comment: The 95% CI ( Confidence Interval) PPV (Positive Predictive Value) for myocardial infarction in females is 38 pg/mL, in males 51 pg/mL. The results should be used in conjunction with clinical conditions of myocardial infarction. (Access High Sensitivity Troponin I Instructions For Use, [place], December 2017) Performed By: #### [id number] #### [facility] [address] [place] [address] HEP FUNC PANEL Collected: 03/15/2024 1:15 PM Status: F Source: [facility] TYPE CODE TESTS RESULT OUT OF RANGE REFERENCE UNITS LAB 1744-2([facility]) ALANINE AMINOTRANSFERA SE:CCNC:PT:SER /PLAS:QN:NO ADDITION OF P-5'-P 25 Normal 6-46 Int._Unit /L LAB 1920-8([facility]) ASPARTATE AMINOTRANSFERA SE:CCNC:PT:SER /PLAS:QN: 26 Normal 5-43 Int._Unit /L LAB 1751-7([facility]) ALBUMIN:MCNC:P T:SER/PLAS:QN: 4.0 Normal 3.3-5.0 gm/dL LAB 67079-7([facility]) GLOBULIN:MCNC: PT:SER:QN:CALC ULATED 2.2 Normal 1.4-4.0 gm/dL LAB 14271-2([facility]) ALBUMIN/GLOBUL IN:MCRTO:PT:SE R:QN: 1.8 Normal 1.1-2.2 LAB 6768-6([facility]) ALKALINE PHOSPHATASE:CC NC:PT:SER/PLAS :QN: 56 Normal 21-98 Int._Unit /L LAB 1968-7([facility]) BILIRUBIN.GLUC URONIDATED+JOVANA IRUBIN.ALBUMIN BOUND:MCNC:PT: SER/PLAS:QN: 0.2 Normal 0.0-0.4 mg/dL LAB 86886-9([facility]) BILIRUBIN.NON- GLUCURONIDATED :MSCNC:PT:SER/ PLAS:QN: 0.8 Normal 0.1-0.9 mg/dL LAB 1975-2([facility]) BILIRUBIN:MCNC :PT:SER/PLAS:Q N: 1.0 Normal 0.0-1.1 mg/dL LAB 2885-2([facility]) PROTEIN:MCNC:P T:SER/PLAS:QN: 6.2 Normal 6.0-7.8 gm/dL Performed By: #### [id number] # ### [facility] [address] [place] [address] EXTRA BLUE Collected: 03/15/2024 1:15 PM Status: F Source: [facility] TYPE CODE TESTS RESULT OUT OF RANGE REFERENCE UNITS LAB CD:[id number](L OINC) Tube Collected Plasma Yes Unknown Performed By: #### [id number] #### [facility] [address] [place] [address] CBC W/ AUTO DIFF Collected: 03/15/2024 1:15 PM Statu s: F Source: [facility] TYPE CODE TESTS RESULT OUT OF RANGE REFERENCE UNITS LAB 66746-3([facility]) LEUKOCYTES^^RANDI ECTED FOR NUCLEATED ERYTHROCYTES:NCN C:PT:BLD:QN:AUTO MATED COUNT 7.6 Normal 4.0-11.0 E9/L LAB 789-8([facility]) ERYTHROCYTES:NCN C:PT:BLD:QN:AUTO MATED COUNT 4.7 Normal 4.3-5.9 E12/L LAB 718-7([facility]) HEMOGLOBIN:MCNC: PT:BLD:QN: 15.0 Normal 13.5-17.5 gm/dL LAB 4544-3([facility]) HEMATOCRIT:VFR:P T:BLD:QN:AUTOMAT ED COUNT 43.1 Normal 37.7-49.0 % LAB 788-0([facility]) ERYTHROCYTE DISTRIBUTION WIDTH:RATIO:PT:R BC:QN:AUTOMATED COUNT 15.3 High 10.9-14.2 % LAB 785-6([facility]) ERYTHROCYTE MEAN CORPUSCULAR HEMOGLOBIN:ENTMA SS:PT:RBC:QN:AUT OMATED COUNT 32.0 Normal 27.0-34.0 pg LAB 786-4([facility]) ERYTHROCYTE MEAN CORPUSCULAR HEMOGLOBIN CONCENTRATION:MC NC:PT:RBC:QN:AUT OMATED COUNT 34.8 Normal 31.4-36.0 gm/dL LAB 787-2([facility]) ERYTHROCYTE MEAN CORPUSCULAR VOLUME:ENTVOL:PT :RBC:QN:AUTOMATE D COUNT 92.0 Normal 80.0-100.0 fL LAB 84616-0(INC) PLATELET MEAN VOLUME:ENTVOL:PT :BLD:QN:AUTOMATE D COUNT 10.0 Normal 6.4-10.8 fL LAB 58559059(INC) Platelet 151.0 Normal 150.0-500.0 E9/ L LAB 96782-0([facility]) NEUTROPHILS/100 LEUKOCYTES:NFR:P T:BLD:QN: 69.9 Normal 36.0-75.0 % LAB 731-0([facility]) LYMPHOCYTES:NCNC :PT:BLD:QN:AUTOM ATED COUNT 17.2 Normal 14.0-50.0 % LAB 742-7([facility]) MONOCYTES:NCNC:P T:BLD:QN:AUTOMAT ED COUNT 0.7 Normal 0.2-1.0 E9/L LAB 713-8([facility]) EOSINOPHILS/100 LEUKOCYTES:NFR:P T:BLD:QN:AUTOMAT ED COUNT 2.0 Normal 0.0-8.0 % LAB 704-7([facility]) BASOPHILS:NCNC:P T:BLD:QN:AUTOMAT ED COUNT 1.4 Normal 0.0-2.0 % LAB 751-8([facility]) NEUTROPHILS:NCNC :PT:BLD:QN:AUTOM ATED COUNT 5.3 Normal 2.0-7.5 E9/L LAB 37505-4([facility]) LYMPHOCYTES:NCNC :PT:BLD:QN: 1.3 Normal 1.0-4.0 E9/L LAB 56056-7([facility]) EOSINOPHILS:NCNC :PT:BLD:QN: 0.2 Normal 0.0-0.5 E9/L LAB 45925-4([facility]) BASOPHILS/LEUKOC YTES:NFR.DF:PT:B LD:QN:AUTOMATED COUNT 0.1 Normal 0.0-0.2 E9/L Performed By: #### [id number] # ### [facility] [address] [place] [address] RAPID COVID ANTIGEN ([facility]) Collected: 12:50 PM Status: F Source: [facility] TYPE CODE TESTS RESULT OUT OF RANGE REFERENCE UNITS LAB 95922-9([facility]) SARS CORONAVIRUS+SA RS CORONAVIRUS 2 AG:PRTHR:PT:RE SPIRATORY SYSTEM SPECIMEN:ORD:I A.RAPID Not Detected Normal Not Detected Result Comment: The BD Verit or? System for Rapid Detection of SARS-CoV-2 is a chromatographic digital immunoassay intended for the direct and qualitative detection of SARS-CoV-2 nucleocapsid antigens in nasal swabs from individuals who are suspected of COVID-19 by their healthcare provider within the first five days of the onset of symptoms. Negative results should be treated as presumptive, do not rule out SARS-CoV-2 infection and should not be used as the sole basis for treatment or patient management decisions, including infection control decisions. Negative results should be considered in the context of a patient?s recent exposures, history and the presence of clinical signs and symptoms consistent with COVID-19, and confirmed with a molecular assay, if necessary, for patient management. For in vitro diagnostic use. In the [place], only for use under an Emergency Use Authorization. In the [place], this test has not been FDA cleared or approved; this test has been authorized by FDA under an EUA for use by authorized laboratories; use by laboratories certified under the CLIA, 42 U.S.C. ?263a, that meet requirements to perform moderate, high, or waived complexity tests and at the Point of Care (POC), i.e., in patient care settings operating under a CLIA Certificate of Waiver, Certificate of Compliance, or Certificate of Accreditation. This test has been authorized only for the detection of proteins from SARS-CoV-2, not for any other viruses or pathogens; and, in the [place], this test is only authorized for the duration of the declaration that circumstances exist justifying the authorization of emergency use of in vitro diagnostics for detection and/or diagnosis of the virus that causes COVID-19 under Section 564(b)(1) of the Act, 21 U.S.C. ? 360bbb- 3(b)(1), unless the authorization is terminated or revoked sooner. LAB CD:[id number]( [facility]) Rapid COV Int POS Ctl Pass Normal LAB CD:[id number]( [facility]) Rapid COV Int NEG Ctl Pass Normal Performed By: #### [id number] #### [facility] [address] [place] [address] CAPILLARY GLUCOSE POC Collected: 2023 11:23 AM Status: F Source: [facility] TYPE CODE TESTS RESULT OUT OF RANGE REFERENCE UNITS LAB 2340-8(LOINC) GLUCOSE:MCNC: PT:BLD:SEMIQN :TEST STRIP.AUTOMAT ED 94 Normal 55-99 mg/dL Result Comment: Cleaned Mete r Performed By: #### [id number] #### [facility] [address] [place] [address] CAPILLARY GLUCOSE POC Collected: 2023 10:38 AM Status: F Source: [facility] TYPE CODE TESTS RESULT OUT OF RANGE REFERENCE UNITS LAB 2340-8(LOINC) GLUCOSE:MCNC: PT:BLD:SEMIQN :TEST STRIP.AUTOMAT ED 80 Normal 55-99 mg/dL Performed By: #### [id number] #### [facility] [address] [place] [address] CAPILLARY GLUCOSE POC Collected: 2023 10:26 AM Status: F Source: [facility] TYPE CODE TESTS RESULT OUT OF RANGE REFERENCE UNITS LAB 2340-8(LOINC) GLUCOSE:MCNC: PT:BLD:SEMIQN :TEST STRIP.AUTOMAT ED 87 Normal 55-99 mg/dL Result Comment: Notified RN/ MD Performed By: #### [id number] #### [facility] [address] [place] [address] CAPILLARY GLUCOSE POC Collected: 2023 11:24 AM Status: F Source: [facility] TYPE CODE TESTS RESULT OUT OF RANGE REFERENCE UNITS LAB 2340-8(LOINC) GLUCOSE:MCNC: PT:BLD:SEMIQN :TEST STRIP.AUTOMAT ED 84 Normal 55-99 mg/dL Result Comment: Notified RN/ MD Performed By: #### [id number] #### [facility] [address] [place] [address] CAPILLARY GLUCOSE POC Collected: 2023 10:21 AM Status: F Source: [facility] TYPE CODE TESTS RESULT OUT OF RANGE REFERENCE UNITS LAB 2340-8(LOINC) GLUCOSE:MCNC: PT:BLD:SEMIQN :TEST STRIP.AUTOMAT ED 84 Normal 55-99 mg/dL Result Comment: Notified RN/ MD Performed By: #### [id number] #### [facility] [address] [place] [address] FAMILY MEDICINE OFFICE/CLINI C NOTE Observed: 02/01/2024 1:58 PM Status: F Source: [facility] Family Medicine Office/Clini c Note Chief Complaint 1 month follow up HPI Staff Patient here for 1 month f/u (, Maryjo - aneesh Carias) - Patient note he is still doing well. Finished with HH and PT. Cardiac rehab starts Sunday. Last Cardiology f/u was today, noting everything looks good, to f/u in 3 months. Last seen Neurology 2-3 weeks ago, to call with a f/u. AMW: UTD Flu: declines History of Present Illness Patient presents today for follow-up after NSTEMI. - Saw cardiology today, reduced Entresto to 49-51mg twice daily, stable on this dose. Coreg 3.125mg BID also stable. Today, patient states that he has had no new return of chest pressure or visual disturbances. He has been been following with cardiology, saw them this morning. He has been walking at 1.5mi yesterday. He has been active and has been wanting to get back to driving and getting back to mowing the lawn. Family is concerned that he is still too weak to control the vehicle. He has been having persistent carpal tunnel with his hands, has had surgery previously. Denies any falls or injuries. Denies any medication changes. Review of Systems PHQ Score Initial Depression Screen Score: 0 SCORE ROS - Provider Constitutional: no fever, no chills Skin: no rash, no lesions ENMT: no ear pain, no sore throat, no congestion, no hoarseness. Respiratory: yes shortness of breath, no cough, no wheezing. Cardiovascular: yes chest pain, no palpitations, no edema. Gastrointestinal: no nausea, no vomiting, no diarrhea, Musculoskeletal: no back pain, no trauma. Neurologic: no headache, yes dizziness, no numbness, no weakness. Psychiatric: no sleeping problems, no irritability, no mood swings/depression. Physical Exam Vitals & Measurements HR: 67(Peripheral) BP: 100/62 SpO2: 98% HT: 70 in HT: 177.8 cm WT: 90.5 kg WT: 199.1 lb BMI: 28.63 General: Well developed, well nourished, in no acute distress Head: Normocephalic/atraumatic Eyes: Pupils equal, round, and reactive to light. Sclerae normal, and extraocular movements intact Lungs: Normal respiratory effort and clear to auscultation Cardio: Regular rate and rhythm, normal S1 and S2, no new murmur, no rub Musculoskeletal: No deformity or scoliosis noted. Normal range of motion. Joints normal. No erythema, edema, effusion, or ecchymosis Extremity: No clubbing, cyanosis, edema, or deformity, with normal ROM in both upper and lower bilateral extremities Neurologic: Grossly normal Skin: No rash, petechiae, suspicious lesions Mental Status: Alert and oriented x3. Normal mood and affect Assessment/Plan 1. Type 2 diabetes mellitus with hyperlipidemia (E11.69: Type 2 diabetes mellitus with other specified complication) Patient's last A1c was 5.2%, well controlled on 01/13/2024, due for recheck on 04/14/2024. Continue with current medications. 2. Benign essential hypertension (I10: Essential (primary) hypertension) Well controlled on intake, managed by cardiology. Agree with changes started so far by cardiology, defer to their management. 3. CAD in [place] artery (I25.10: Atherosclerotic heart disease of [place] coronary artery without angina pectoris) Stable at this time. Defer to cardiology for management. 4. CHF - Congestive heart failure (I50.9: Heart failure, unspecified) Stable in weight at this time. Continue on daily weights. Monitor patient at this time as Entresto is reduced. 5. 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 Follow-up With When Contact Information Link Todd GARCÍA [facility] Within 3 months [address] [place] [address]- Additional Instructions: 3 MONTH FOLLOWUP Problem List/Past Medical History Ongoing Asthma Benign essential hypertension CAD in [place] artery CHF - Congestive heart failure COPD with asthma Dyslipidemia Former smoker GERD (gastroesophageal reflux disease) History of prostate cancer History of prostatectomy Hyperlipidemia, unspecified Hypothyroidism (acquired) SAMIRA (obstructive sleep apnea) Type 2 diabetes mellitus with hyperlipidemia Historical Chronic back pain Smoker Procedure/Surgical History Cardiac catheterization, left heart (12/24/2023), PCI - Percutaneous coronary intervention (12/24/2023), STEMI - ST elevation myocardial infarction (12/12/2023), Carpal tunnel (12/02/2023), right total hip arthroplasty (09/11/2016), left total hip arthroplasty (07/19/2015), Cardiac catheterization (08/27/2006), Colonoscopy (2006), Vasectomy (1975), attempted tendon repair right leg, back surgery, Radical prostatectomy, Rotator cuff repair, Thyroidectomy, Tonsillectomy. Medications aspirin, 81 mg, Oral, Bedtime atorvastatin 40 mg Tab, 40 mg= 1 tab(s), Oral, Daily, 1 refills BD UF Mini Pen Needle [id number], See Instructions, 5 refills Brilinta (ticagrelor) 90 mg oral tablet, 90 mg= 1 tab(s), Oral, BID carvedilol 3.125 mg Tab, 3.125 mg= 1 tab(s), Oral, BID, 2 refills Janumet 50 mg/1000 mg oral tablet, 1 tab(s), Oral, Daily Lasix 20 mg Tab, 40 mg= 2 tab(s), Oral, Daily, PRN levothyroxine 175 mcg (0.175 mg) Tab, 87.5 mcg= 0.5 tab(s), Oral, Daily Misc Prescription, 0, Daily nitroglycerin 0.4 mg sublingual Tab, 0.4 mg= 1 tab(s), SubLingual, As Directed, PRN One Touch Ultra Test Strip, See Instructions, 5 refills sacubitril-valsartan 49 mg-51 mg oral tablet, 1 tab(s), Oral, BID, 11 refills Singulair 10 mg Tab, 10 mg= 1 tab(s), Oral, qPM, 4 refills Vitamin B12 1000 mcg Tab, 1000 mcg= 1 tab(s), Oral, Daily Vitamin D3, 3000 unit(s), Oral, Daily Zetia 10 mg Tab, 5 mg= 0.5 tab(s), Oral, Daily, 3 refills Allergies Aldactone Contrast Dye ([place]) Crestor Pollen ([place]) Toradol Social History Alcohol - No Risk, 10/05/2023 Current, 1-2 times per year, 1 drinks/episode average. 1.00 drinks/episode maximum., 10/05/2023 Substance Abuse - Denies Substance Abuse, 05/31/2015 Tobacco - Denies Tobacco Use, 10/05/2023 Former smoker, quit more than 30 days ago Tobacco Use:. Former smokeless tobacco user, quit more than 30 days ago Smokeless Tobacco Use:. Cigarettes, Cigars, Oral, Started age 18.0 Years. Stopped age 33 Years. Household tobacco concerns: No., 02/01/2024 Family History Acute myocardial infarction: Grandparent. Alcoholism: Mother. Cardiac arrhythmia: Mother. Diabetes mellitus type 2: Mother and Father. Hypertension: Father. Hypotension: Brother. Primary malignant neoplasm of lung: Mother. Primary malignant neoplasm of prostate: Father. Stroke: Father. Immunizations Vaccine Date Status Comments influenza virus vaccine, inactivated - Not Given Postpone due to refusal influenza virus vaccine, inactivated 02/2023 Recorded SARS-CoV-2 (COVID-19) [id number].[id number] 05/16/2022 Recorded SARSCoV2 mRNA(xwmguysxg-exti-khyqyx) vac 09/17/2021 Recorded influenza virus vaccine, inactivated 02/21/2021 Recorded SARS-CoV-2 (COVID-19) mRNA BNT-162b2 vax 02/21/2021 Recorded 2023-07-09: [id number] SARS-CoV-2 (COVID-19) mRNA BNT-162b2 vax 08/11/2020 Recorded SARS-CoV-2 (COVID-19) mRNA BNT-162b2 vax 07/18/2020 Recorded 2023-07-09: [id number] SARS-CoV-2 (COVID-19) mRNA BNT-162b2 vax 07/14/2020 Recorded SARS-CoV-2 (COVID-19) mRNA BNT-162b2 vax 06/27/2020 Recorded 2023-07-09: [id number] zoster vaccine live 04/23/2013 Recorded Result Comment: Electronical ly Signed By: Todd Osman DO\Date and Time Signed: 02/01/24 13:58 EDT AMBULATORY VISIT SUMMARY Observed: 01/31 1:54 PM Status: F Source: [facility] Ambulatory Visit Summary RAY SUAREZ :1945 Visit Date:02/01/2024 Ambulatory Visit Instructions Your Diagnosis BMI 28.0-28.9,adult Type 2 diabetes mellitus with hyperlipidemia Benign essential hypertension CAD in [place] artery CHF - Congestive heart failure Former smoker Your Care Team Attending Physician - Todd Osman DO Primary Care Physician - Todd Osman DO This Is Your Medications List Misc Prescription Misc Prescription (BD UF Mini Pen Needle [id number]) Misc Prescription (One Touch Ultra Test Strip) aspirin atorvastatin (atorvastatin 40 mg Tab) carvedilol (carvedilol 3.125 mg Tab) cholecalciferol (Vitamin D3) cyanocobalamin (Vitamin B12 1000 mcg Tab) ezetimibe (Zetia 10 mg Tab) furosemide (Lasix 20 mg Tab) levothyroxine (levothyroxine 175 mcg (0.175 mg) Tab) metformin-sitagliptin (Janumet 50 mg/1000 mg oral tablet) montelukast (Singulair 10 mg Tab) nitroglycerin (nitroglycerin 0.4 mg sublingual Tab) sacubitril-valsartan (sacubitril-valsartan 49 mg-51 mg oral tablet) ticagrelor (Brilinta (ticagrelor) 90 mg oral tablet) Procedures Performed Cardiac catheterization, left heart (12/24/2023), PCI - Percutaneous coronary intervention (12/24/2023), STEMI - ST elevation myocardial infarction (12/12/2023), Carpal tunnel (12/02/2023), right total hip arthroplasty (09/11/2016), left total hip arthroplasty (07/19/2015), Cardiac catheterization (08/27/2006), Colonoscopy (2006), Vasectomy (1975), attempted tendon repair right leg, back surgery, Radical prostatectomy, Rotator cuff repair, Thyroidectomy, Tonsillectomy. Discharge Vitals Heart Rate (Peripheral) 67 Blood Pressure 100/62 Height 177.8 cm Height 70 in Weight 90.5 kg Weight 199.1 lb BMI 28.63 What to do next Scheduled Follow-Up Appointments Sunday 9:40 AM EDT With: Todd Osman DO Where: [facility] [address] [place] [address]- Sunday 11:30 AM EST With: Mary ORELLANA, Jonathan Anderson Where: [facility] 2024 9:30 AM EDT With: Where: [facility] [place] [address] [place] [address]- Medications What How Much When Why Instructions Unchanged aspirin 81 Milligram By Mouth At bedtime Unchanged atorvastatin (atorvastatin 40 mg Tab) 1 Tablets By Mouth Every day Hyperlipidemia, unspecified Unchanged carvedilol (carvedilol 3.125 mg Tab) 1 Tablets By Mouth 2 times a day hold if BP is lower than 100 systolic or 50 diastolic Unchanged cholecalciferol (Vitamin D3) 3,000 Units By Mouth Every day Unchanged cyanocobalamin (Vitamin B12 1000 mcg Tab) 1 Tablets By Mouth Every day Unchanged ezetimibe (Zetia 10 mg Tab) 0.5 Tablets By Mouth Every day Unchanged furosemide (Lasix 20 mg Tab) 2 Tablets By Mouth Every day as needed for Other (see comment) PRN for leg swelling (takes for >3 pound weight gain) Unchanged levothyroxine (levothyroxine 175 mcg (0.175 mg) Tab) 0.5 Tablets By Mouth Every day Unchanged metformin-sitagliptin (Janumet 50 mg/ 1000 mg oral tablet) 1 Tablets By Mouth Every day Unchanged Misc Prescription 0 Every day Duration: 90 Days Testing daily as directed Unchanged Misc Prescription (BD UF Mini Pen Needle [id number]) See instructions For daily blood sugar management and application of medication Unchanged Misc Prescription (One Touch Ultra Test Strip) See instructions For daily blood sugar testing Unchanged montelukast (Singulair 10 mg Tab) 1 Tablets By Mouth Once a day (in the evening) Unchanged nitroglycerin (nitroglycerin 0.4 mg sublingual Tab) 1 Tablets Sublingual As Directed as needed for for chest pain takeif SBP is greater than 110 Unchanged sacubitril-valsartan (sacubitril-valsartan 49 mg-51 mg oral tablet) 1 Tablets By Mouth 2 times a day hold if BP is lower than 90 systolic or 50 diastolic Unchanged ticagrelor (Brilinta (ticagrelor) 90 mg oral tablet) 1 Tablets By Mouth 2 times a day Medications and Immunizations Administered Not Given influenza virus vaccine, inactivated, Postpone due to refusal Allergies Aldactone Contrast Dye ([place]) Crestor Pollen ([place]fe[place]) Toradol Problems Ongoing - Any problem that you are currently receiving treatment for. Asthma Benign essential hypertension CAD in [place] artery CHF - Congestive heart failure COPD with asthma Dyslipidemia Former smoker GERD (gastroesophageal reflux disease) History of prostate cancer History of prostatectomy Hyperlipidemia, unspecified Hypothyroidism (acquired) SAMIRA (obstructive sleep apnea) Type 2 diabetes mellitus with hyperlipidemia Historical - Any problem that you are no longer receiving treatment for. Chronic back pain Smoker Patient Survey You may receive a survey via text or e-mail asking about your office visit. Please share your experience with us by completing your survey. We appreciate your feedback and thank you for choosing us for your care. HEART AND VASCULAR OFFICE/CLINIC NOTE Observed: 02/01/2024 11:36 AM Status: F Source: [facility] Heart and Vascular Office/ inic Note Chief Complaint f/u s/p LHC and PCI 12/24/23 History of Present Illness Ray is an 78 year old male with past medical hx of CAD with PCI due to in STEMI 11/2023. Patient had ARLETTE x 2 to LAD on 12/12/2023 followed by ARLETTE x 1 to right PDA on 12/24/2023. Echo from 11/2023 showed decreased EF of 35-40%, ischemic cardiomyopathy, akinetic septum/dyskinetic apex and severe LVH. Patient comes to the office today for 1 month follow-up. Patient comes in with his Maryjo and daughter. At last visit, I saw patient at which time Entresto was decreased from 97-103 mg to 49-51 mg twice daily due to hypotensive episodes. Carvedilol was also decreased from 12.5 mg to 3.125 mg twice daily due to hypotensive episodes. Pravastatin was changed to atorvastatin 40 mg daily as well and patient is taking Zetia 10 mg daily. Patient reports that has been doing well since last visit without any significant issues. Patient shows me a blood pressure log that confirms his blood pressure is not dropping below 100 systolic anytime recently and is usually well-controlled in the 110s-120s range. Patient reports that he has not had any recent lightheadedness or dizziness at all. Patient reports that he has been walking and doing well with it. Has gone as far as 1.5 miles. He believes he is supposed to start cardiac rehab next week. Patient reports that he has not had any chest discomfort with these walks and no significant shortness of breath. Patient is compliant with DAPT, statin, beta-shawn and reiterated to patient that he has to be on the Brilinta x 1 year. Patient denies, heart palpitations, and swelling in lower legs. NOTE FROM 12/31/2023: Accompanied by Maryjo and daughter Paula today. Pt states hes been feeling okay, but he does tire easily. Pt has decreased EF at 35-40% based on echo from 11/2023. Paula stated home health noted that pt was walking with toes curled upward, she wondered of it was the pravastatin and a potassium issue. Pt and family agree to try Atorvastatin in place of pravastatin 40mg to see if this improves the toe curling symptoms. Pt experienced mild SOB while walking outside that resolved with rest -this was also the first longer walk patient has tried since returning over the hospital the second time. Pt should continue with mild physical activity and monitor SOB increase or intensity of symptoms while being on Brilinta. If noticeable increase of SOB pt is to notify us. Pt should begin cardiac rehab as soon as he can, pt and family would prefer [facility] cardiac rehab clinic instead of [facility]. Patient has had blood pressures that been running on the low side of normal and has had a little bit of associated lightheadedness from this. Has had blood pressures in the 100s/50s range and is concerned with his low pressures. Will be decreasing Carvedilol 3.125 mg BID, hold if BP is lower than 100 systolic or 50 diastolic. Decreasing Entresto to 49 mg-51 mg BID, hold if BP is lower than 90 systolic or 50 diastolic Pt denies angina or anginal-like symptoms. Patient specifically denies chest pain, palpitations, edema, dizziness, near syncope, or syncope. Review of Systems PHQ Score Initial Depression Screen Score: 0 SCORE ROS - Provider Constitutional: no fever, no chills, no sweats, no weakness Respiratory: no shortness of breath, no cough Cardiovascular: no chest pain Neuro: no dizziness. no loss of consciousness Physical Exam Vitals & Measurements HR: 60(Peripheral) RR: 16 BP: 134/82 SpO2: 98% HT: 70 in HT: 177 cm WT: 91.4 kg WT: 201.08 lb BMI: 29.17 General: alert, no acute distress Cardiovascular: regular rate and rhythm, no murmur normal peripheral perfusion Respiratory: Lungs CTAB, respirations non labored Extremities: no edema left lower extremity. no edema right lower extremity Neurological: oriented x 4, LOC appropriate for age, speech normal Skin: Warm, dry, intact- no rash or concerning lesions Cardiac Diagnostics [facility] with Dr. Nolen on 12/24/2023: LMT: Normal left main trunk with trifurcation LAD: Normal caliber with patent proximal to mid stents and mild diffuse disease less than 30% stenosis, reaches the apex. LCx: Normal caliber with mild-moderate disease less than 30% stenosis, reaches the lateral wall. Ramus intermedius present RCA: Normal caliber with mild irregularity and 99% stenosis of ostial PDA stenosis, dominant, reaches the inferior wall. Hemodynamics: Normal LVEDP at 11 mmHg with no gradient across the aortic valve. Left ventriculography: Not performed PCI note: Success PCI right PDA 99% stenosed SYMONE-3 flow reduced to 0% residual SYMONE-3 flow after implantation of a Xience 2.5/28 postdilated stent balloon at multiple inflations. Conclusions: Patent previously placed stents, no new narrowings. Nonculprit lesion was stented. CAD: DAPT, beta-shawn, statin, risk factor modification., Importance of antiplatelet compliance was emphasized including risk of stent thrombosis or . The patient understands as well as his accompanying family member/friend that the patient may have stent thrombosis or heart attack and the patient agrees. I myself have specifically counseled the patient regarding stent thrombosis risk including and the patient will additionally be counseled by the [employer] team and in follow-up. [1] [facility] with Dr. Nolen on 12/12/2023: LMT: Normal left main trunk with trifurcation LAD: Normal caliber with 100% proximal stenosis, reaches the apex. Heavily calcified. 80% mid stenosis beyond the lesion after opening up the proximal LAD. LCx: Normal caliber with mild-moderate diffuse disease less than 50% stenosis, reaches the lateral wall. RCA: Normal caliber with mild-moderate diffuse disease less than 50% stenosis, dominant, reaches the inferior wall. The PDA has 95% ostial stenosis and 90% mid body stenosis. Hemodynamics: Borderline elevated LVEDP at 25 mmHg with no gradient across the aortic valve. Left ventriculography: Abnormal LV systolic function, EF 35-40 %, apical dyskinesis wall motion abnormalities and normal chamber size with no mitral regurgitation. PCI note: Success PCI proximal/mid LAD 100% stenosis SYMONE 0 flow reduced to 0% residual SYMONE-3 flow after implantation of a Xience 3.0/23 and 2.75/23 overlapping from proximal to mid. Postdilated with a 2.75 NC and a 3.25 NC high-pressure. Conclusions: Anterolateral STEMI secondary to proximal LAD occlusion, status post primary PCI with ARLETTE x 2. Probable staged PCI at a much later date of the PDA due to renal insufficiency contrast and urgency, nonculprit lesion. CAD: DAPT, beta- shawn, statin, risk factor modification. Importance of antiplatelet compliance was emphasized including risk of stent thrombosis or . The patient understands as well as his accompanying family member/friend that the patient may have stent thrombosis or heart attack and the patient agrees. I myself have specifically counseled the patient regarding stent thrombosis risk including and the patient will additionally be counseled by the [employer] team and in follow-up. [2] (12/13/2023 17:05 EDT Echo Transthoracic w/ Contrast) Interpretation Summary Ejection Fraction = 35-40%. Ischemic cardiomyopathy. Normal LV size with moderate LV systolic dysfunction. Akinetic septum/dyskinetic apex. No LV apical thrombus. No significant valve disease. No estimated PA pressure. Impaired diastolic relaxation. Severe LVH. Assessment/Plan 1. CAD in [place] artery (I25.10: Atherosclerotic heart disease of [place] coronary artery without angina pectoris) Patient has CAD with ARLETTE x 3 in 11/2023. Patient is compliant with DAPT, statin, beta-shawn. He is doing well at this time and is no longer having low blood pressures since decreasing a couple medications. Patient is is to be compliant with DAPT x 1 year following stent he voiced understanding. He is going to start cardiac rehab next week. 2. CHF - Congestive heart failure (I50.9: Heart failure, unspecified) Pt has decreased EF of 35-40%. Patient is currently taking Entresto 49-51 mg twice daily, carvedilol 3.125 mg twice daily, Lasix 20 mg as needed. Both Entresto and carvedilol were decreased at last visit and patient has been doing better with the decrease in meds as he has no longer had low blood pressures. Continue with current meds. 3. Hyperlipidemia, unspecified (E78.5: Hyperlipidemia, unspecified) Continue with atorvastatin 40 mg daily. Follow-up with me in 3 months Portions of this record may have been created with voice recognition artificial intelligence software, specifically [employer], [employer] and or [employer]. Substitutions may have occurred due to the inherent limitations of voice recognition and artificial intelligence software. Follow-up No qualifying data available Problem List/Past Medical History Ongoing Asthma Benign essential hypertension CAD in [place] artery CHF - Congestive heart failure COPD with asthma Dyslipidemia Former smoker GERD (gastroesophageal reflux disease) History of prostate cancer History of prostatectomy Hyperlipidemia, unspecified Hypothyroidism (acquired) SAMIRA (obstructive sleep apnea) Type 2 diabetes mellitus with hyperlipidemia Historical Chronic back pain Smoker Procedure/Surgical History Cardiac catheterization, left heart (12/24/2023), PCI - Percutaneous coronary intervention (12/24/2023), STEMI - ST elevation myocardial infarction (12/12/2023), Carpal tunnel (12/02/2023), right total hip arthroplasty (09/11/2016), left total hip arthroplasty (07/19/2015), Cardiac catheterization (08/27/2006), Colonoscopy (2006), Vasectomy (1975), attempted tendon repair right leg, back surgery, Radical prostatectomy, Rotator cuff repair, Thyroidectomy, Tonsillectomy. Medications aspirin, 81 mg, Oral, Bedtime atorvastatin 40 mg Tab, 40 mg= 1 tab(s), Oral, Daily, 1 refills BD UF Mini Pen Needle [id number], See Instructions, 5 refills Brilinta (ticagrelor) 90 mg oral tablet, 90 mg= 1 tab(s), Oral, BID carvedilol 3.125 mg Tab, 3.125 mg= 1 tab(s), Oral, BID, 2 refills Janumet 50 mg/1000 mg oral tablet, 1 tab(s), Oral, Daily Lasix 20 mg Tab, 40 mg= 2 tab(s), Oral, Daily, PRN levothyroxine 175 mcg (0.175 mg) Tab, 87.5 mcg= 0.5 tab(s), Oral, Daily Misc Prescription, 0, Daily nitroglycerin 0.4 mg sublingual Tab, 0.4 mg= 1 tab(s), SubLingual, As Directed, PRN One Touch Ultra Test Strip, See Instructions, 5 refills sacubitril-valsartan 49 mg-51 mg oral tablet, 1 tab(s), Oral, BID, 11 refills Singulair 10 mg Tab, 10 mg= 1 tab(s), Oral, qPM, 4 refills Vitamin B12 1000 mcg Tab, 1000 mcg= 1 tab(s), Oral, Daily Vitamin D3, 3000 unit(s), Oral, Daily Zetia 10 mg Tab, 5 mg= 0.5 tab(s), Oral, Daily, 3 refills Allergies Aldactone Contrast Dye ([place]) Crestor Pollen (Hayfever) Toradol Social History Alcohol - No Risk, 10/05/2023 Current, 1-2 times per year, 1 drinks/episode average. 1.00 drinks/episode maximum., 10/05/2023 Substance Abuse - Denies Substance Abuse, 05/31/2015 Tobacco - Denies Tobacco Use, 10/05/2023 Former smoker, quit more than 30 days ago Tobacco Use:. Former smokeless tobacco user, quit more than 30 days ago Smokeless Tobacco Use:. Cigarettes, Cigars, Oral, Started age 18.0 Years. Stopped age 33 Years. Household tobacco concerns: No., 02/01/2024 Family History Acute myocardial infarction: Grandparent. Alcoholism: Mother. Cardiac arrhythmia: Mother. Diabetes mellitus type 2: Mother and Father. Hypertension: Father. Hypotension: Brother. Primary malignant neoplasm of lung: Mother. Primary malignant neoplasm of prostate: Father. Stroke: Father. Immunizations Vaccine Date Status Comments influenza virus vaccine, inactivated 02/2023 Recorded SARS-CoV-2 (COVID-19) [id number].[id number] 05/16/2022 Recorded SARSCoV2 mRNA(ukrmiohhi-xmdl-whkiyg) vac 09/17/2021 Recorded influenza virus vaccine, inactivated 02/21/2021 Recorded SARS-CoV-2 (COVID-19) mRNA BNT-162b2 vax 02/21/2021 Recorded 2023-07-09: [id number] SARS-CoV-2 (COVID-19) mRNA BNT-162b2 vax 08/11/2020 Recorded SARS-CoV-2 (COVID-19) mRNA BNT-162b2 vax 07/18/2020 Recorded 2023-07-09: [id number] SARS-CoV-2 (COVID-19) mRNA BNT-162b2 vax 07/14/2020 Recorded SARS-CoV-2 (COVID-19) mRNA BNT-162b2 vax 06/27/2020 Recorded 2023-07-09: [id number] zoster vaccine live 04/23/2013 Recorded [1] Op Note; Davion Nolen MD 12/24/2023 12:00 EDT [2] Op Note; Davion Nolen MD 12/12/2023 09:25 EDT Result Comment: Electronical ly Signed By: Mary ORELLANA, Jonathan Anderson\.br\Date and Time Signed: 02/01/24 11:37 EDT AMBULATORY VISIT SUMMARY Observed: 01/31 11:27 AM Status: F Source: [facility] Ambulatory Visit Summary RAY SUAREZ :1945 Visit Date:02/01/2024 Ambulatory Visit Instructions Your Diagnosis CAD in [place] artery CHF - Congestive heart failure Hyperlipidemia, unspecified Your Care Team Attending Physician - Jonathan Hernandez PA-C Primary Care Physician - Todd Osman DO Referring Physician - NONE, XXXX This Is Your Medications List Misc Prescription Misc Prescription (BD UF Mini Pen Needle [id number]) Misc Prescription (One Touch Ultra Test Strip) aspirin atorvastatin (atorvastatin 40 mg Tab) carvedilol (carvedilol 3.125 mg Tab) cholecalciferol (Vitamin D3) cyanocobalamin (Vitamin B12 1000 mcg Tab) ezetimibe (Zetia 10 mg Tab) furosemide (Lasix 20 mg Tab) levothyroxine (levothyroxine 175 mcg (0.175 mg) Tab) metformin-sitagliptin (Janumet 50 mg/1000 mg oral tablet) montelukast (Singulair 10 mg Tab) nitroglycerin (nitroglycerin 0.4 mg sublingual Tab) sacubitril-valsartan (sacubitril-valsartan 49 mg-51 mg oral tablet) ticagrelor (Brilinta (ticagrelor) 90 mg oral tablet) Procedures Performed Cardiac catheterization, left heart (12/24/2023), PCI - Percutaneous coronary intervention (12/24/2023), STEMI - ST elevation myocardial infarction (12/12/2023), Carpal tunnel (12/02/2023), right total hip arthroplasty (09/11/2016), left total hip arthroplasty (07/19/2015), Cardiac catheterization (08/27/2006), Colonoscopy (2006), Vasectomy (1975), attempted tendon repair right leg, back surgery, Radical prostatectomy, Rotator cuff repair, Thyroidectomy, Tonsillectomy. Discharge Vitals Heart Rate (Peripheral) 60 Respiratory Rate 16 Blood Pressure 134/82 Height 177 cm Height 70 in Weight 91.4 kg Weight 201.08 lb BMI 29.17 What to do next Scheduled Follow-Up Appointments Sunday 1:00 PM EDT With: Todd Osman DO Where: [place] [address] [place] [address]- Sunday 9:40 AM EDT With: Todd Osman DO Where: [address] [place] [address]- Sunday 11:30 AM EST With: Jonathan Hernandez PA-C Where: [facility] 2024 9:30 AM EDT With: Where: [address] [place] [address]- Medications What How Much When Why Instructions Unchanged aspirin 81 Milligram By Mouth At bedtime Unchanged atorvastatin (atorvastatin 40 mg Tab) 1 Tablets By Mouth Every day Hyperlipidemia, unspecified Unchanged carvedilol (carvedilol 3.125 mg Tab) 1 Tablets By Mouth 2 times a day hold if BP is lower than 100 systolic or 50 diastolic Unchanged cholecalciferol (Vitamin D3) 3,000 Units By Mouth Every day Unchanged cyanocobalamin (Vitamin B12 1000 mcg Tab) 1 Tablets By Mouth Every day Unchanged ezetimibe (Zetia 10 mg Tab) 0.5 Tablets By Mouth Every day Unchanged furosemide (Lasix 20 mg Tab) 2 Tablets By Mouth Every day as needed for Other (see comment) PRN for leg swelling (takes for >3 pound weight gain) Unchanged levothyroxine (levothyroxine 175 mcg (0.175 mg) Tab) 0.5 Tablets By Mouth Every day Unchanged metformin-sitagliptin (Janumet 50 mg/ 1000 mg oral tablet) 1 Tablets By Mouth Every day Unchanged Misc Prescription 0 Every day Duration: 90 Days Testing daily as directed Unchanged Misc Prescription (BD UF Mini Pen Needle [id number]) See instructions For daily blood sugar management and application of medication Unchanged Misc Prescription (One Touch Ultra Test Strip) See instructions For daily blood sugar testing Unchanged montelukast (Singulair 10 mg Tab) 1 Tablets By Mouth Once a day (in the evening) Unchanged nitroglycerin (nitroglycerin 0.4 mg sublingual Tab) 1 Tablets Sublingual As Directed as needed for for chest pain takeif SBP is greater than 110 Unchanged sacubitril-valsartan (sacubitril-valsartan 49 mg-51 mg oral tablet) 1 Tablets By Mouth 2 times a day hold if BP is lower than 90 systolic or 50 diastolic Unchanged ticagrelor (Brilinta (ticagrelor) 90 mg oral tablet) 1 Tablets By Mouth 2 times a day Allergies Aldactone Contrast Dye ([place]) Crestor Pollen (Hayfever) Toradol Problems Ongoing - Any problem that you are currently receiving treatment for. Asthma Benign essential hypertension CAD in [place] artery CHF - Congestive heart failure COPD with asthma Dyslipidemia Former smoker GERD (gastroesophageal reflux disease) History of prostate cancer History of prostatectomy Hyperlipidemia, unspecified Hypothyroidism (acquired) SAMIRA (obstructive sleep apnea) Type 2 diabetes mellitus with hyperlipidemia Historical - Any problem that you are no longer receiving treatment for. Chronic back pain Smoker Patient Survey You may receive a survey via text or e-mail asking about your office visit. Please share your experience with us by completing your survey. We appreciate your feedback and thank you for choosing us for your care. CARDIAC REHAB Observed: 02/01/2024 12:00 AM Status: F Source: [facility] Report Please click on link to see report POPULATION HEALTH Observed: 01/23/2024 1:19 PM Status: F Source: [facility] Population Health Case Information Case Priority: None Programs: -- Referral Source: [employer] Referral Reason: Care coordination Case Type: Transition Care Management Risk Score: -- Case Status: Enrolled (December 26, 2023) Date Assigned: December 26, 2023 Assigned By: Bibi Kovacs RN Date Enrolled: December 26, 2023 Assigned Primary Personnel: Bibi Kovacs RN Assigned Secondary Personnel: -- Case Physician: Todd Osman DO Problems Ongoing Asthma Benign essential hypertension CHF - Congestive heart failure COPD with asthma Dyslipidemia Former smoker GERD (gastroesophageal reflux disease) History of prostate cancer History of prostatectomy Hyperlipidemia, unspecified Hypothyroidism (acquired) SAMIRA (obstructive sleep apnea) Type 2 diabetes mellitus with hyperlipidemia Historical Chronic back pain Smoker Procedure/Surgical History Cardiac catheterization, left heart (12/24/2023), PCI - Percutaneous coronary intervention (12/24/2023), STEMI - ST elevation myocardial infarction (12/12/2023), Carpal tunnel (12/02/2023), right total hip arthroplasty (09/11/2016), left total hip arthroplasty (07/19/2015), Cardiac catheterization (08/27/2006), Colonoscopy (2006), Vasectomy (1975), attempted tendon repair right leg, back surgery, Radical prostatectomy, Rotator cuff repair, Thyroidectomy, Tonsillectomy. Home Medications aspirin, 81 mg, Oral, Bedtime atorvastatin 40 mg Tab, 40 mg= 1 tab(s), Oral, Daily, 1 refills BD UF Mini Pen Needle [id number], See Instructions, 5 refills Brilinta (ticagrelor) 90 mg oral tablet, 90 mg= 1 tab(s), Oral, BID carvedilol 3.125 mg Tab, 3.125 mg= 1 tab(s), Oral, BID, 2 refills Janumet 50 mg/1000 mg oral tablet, 1 tab(s), Oral, Daily Lasix 20 mg Tab, 40 mg= 2 tab(s), Oral, Daily, PRN levothyroxine 175 mcg (0.175 mg) Tab, 87.5 mcg= 0.5 tab(s), Oral, Daily Misc Prescription, 0, Daily nitroglycerin 0.4 mg sublingual Tab, 0.4 mg= 1 tab(s), SubLingual, As Directed, PRN One Touch Ultra Test Strip, See Instructions, 5 refills sacubitril-valsartan 49 mg-51 mg oral tablet, 1 tab(s), Oral, BID, 11 refills Singulair 10 mg Tab, 10 mg= 1 tab(s), Oral, qPM, 4 refills Vitamin B12 1000 mcg Tab, 1000 mcg= 1 tab(s), Oral, Daily Vitamin D3, 3000 unit(s), Oral, Daily Zetia 10 mg Tab, 5 mg= 0.5 tab(s), Oral, Daily, 3 refills Allergies Aldactone Contrast Dye (Flushing) Crestor Pollen (Hayfever) Toradol Social History Alcohol - No Risk, 10/05/2023 Current, 1-2 times per year, 1 drinks/episode average. 1.00 drinks/episode maximum., 10/05/2023 Substance Abuse - Denies Substance Abuse, 05/31/2015 Tobacco - Denies Tobacco Use, 10/05/2023 Former smoker, quit more than 30 days ago Tobacco Use:. Former smokeless tobacco user, quit more than 30 days ago Smokeless Tobacco Use:. Cigarettes, Cigars, Oral, Started age 18.0 Years. Stopped age 33 Years. Household tobacco concerns: No., 01/04/2024 Family History Acute myocardial infarction: Grandparent. Alcoholism: Mother. Cardiac arrhythmia: Mother. Diabetes mellitus type 2: Mother and Father. Hypertension: Father. Hypotension: Brother. Primary malignant neoplasm of lung: Mother. Primary malignant neoplasm of prostate: Father. Stroke: Father. Screenings and Assessments 12/26/23 14:28:00 Result Name Value Comment Phone Call Monitoring Consent Agreed to continue call Phone Verification Patient Information Full name, street address and date of verified CM Program Enrollment Provides verbal consent for enrollment Goals and Interventions Care Plan Progress Note Called patient to see how he was progressing since being discharged from the hospital. Patient reports he is doing fine/good. He reports the pain in his hand from the carpal tunnel surgery is decreasing. He is not having any chest pain. He does experience shortness of breath when he takes his walk but reports he recovers quickly. He is eating, drinking and sleeping well. He denies questions or concerns. Let patient know this is the final call for the transitional care management program; office contact information given to patient. Communication Events Date: January 23, 2024 Method: Phone call Type: Outbound Duration (min): 6 Outcome: Case discussion Contact Type: Patient Contact Name: RAY SUAREZ Notes: TCM #4 - called patient for weekly follow up call - see case summary note Created By: Bibi Kovacs RN Date: January 16, 2024 Method: Phone call Type: Inbound Duration (min): 4 Outcome: Case discussion Contact Type: Patient Contact Name: RAY SUAREZ Notes: TCM #3 recieved at return call patient for weekly follow up call - see case summary note Created By: Bibi Kovacs RN Date: January 16, 2024 Method: Phone call Type: Outbound Duration (min): 1 Outcome: Left message-voicemail Contact Type: Patient Contact Name: RAY SUAREZ Notes: TCM #3 - called patient for weekly follow up call - no answer - left message along with cn contact info Created By: Bibi Kovacs RN Date: January 07, 2024 Method: Phone call Type: Outbound Duration (min): 15 Outcome: Case discussion Contact Type: Patient Contact Name: RAY SUAREZ Notes: TCM #2 - called for weekly follow up call - see case summary note Created By: Bibi Kovacs RN Date: December 26, 2023 Method: Phone call Type: Outbound Duration (min): 38 Outcome: Case discussion Contact Type: Patient emergency contact Contact Name: Paula Notes: TCM #1 - see case summary note Created By: Bibi Kovacs RN [facility] Observed: 01/16/2024 3:34 PM Status: F Source: [facility] Case Information Case Priority: None Programs: -- Referral Source: [employer] Referral Reason: Care coordination Case Type: Transition Care Management Risk Score: -- Case Status: Enrolled (December 26, 2023) Date Assigned: December 26, 2023 Assigned By: Bibi Kovacs RN Date Enrolled: December 26, 2023 Assigned Primary Personnel: Bibi Kovacs RN Assigned Secondary Personnel: -- Case Physician: Todd Osman DO Problems Ongoing Asthma Benign essential hypertension CHF - Congestive heart failure COPD with asthma Dyslipidemia Former smoker GERD (gastroesophageal reflux disease) History of prostate cancer History of prostatectomy Hyperlipidemia, unspecified Hypothyroidism (acquired) SAMIRA (obstructive sleep apnea) Type 2 diabetes mellitus with hyperlipidemia Historical Chronic back pain Smoker Procedure/Surgical History Cardiac catheterization, left heart (12/24/2023), PCI - Percutaneous coronary intervention (12/24/2023), STEMI - ST elevation myocardial infarction (12/12/2023), Carpal tunnel (12/02/2023), right total hip arthroplasty (09/11/2016), left total hip arthroplasty (07/19/2015), Cardiac catheterization (08/27/2006), Colonoscopy (2006), Vasectomy (1975), attempted tendon repair right leg, back surgery, Radical prostatectomy, Rotator cuff repair, Thyroidectomy, Tonsillectomy. Home Medications aspirin, 81 mg, Oral, Bedtime atorvastatin 40 mg Tab, 40 mg= 1 tab(s), Oral, Daily, 1 refills BD UF Mini Pen Needle [id number], See Instructions, 5 refills Brilinta (ticagrelor) 90 mg oral tablet, 90 mg= 1 tab(s), Oral, BID carvedilol 3.125 mg Tab, 3.125 mg= 1 tab(s), Oral, BID, 2 refills Janumet 50 mg/1000 mg oral tablet, 1 tab(s), Oral, Daily Lasix 20 mg Tab, 40 mg= 2 tab(s), Oral, Daily, PRN levothyroxine 175 mcg (0.175 mg) Tab, 87.5 mcg= 0.5 tab(s), Oral, Daily [facility] [place], 0, Daily nitroglycerin 0.4 mg sublingual Tab, 0.4 mg= 1 tab(s), SubLingual, As Directed, PRN One Touch Ultra Test Strip, See Instructions, 5 refills sacubitril-valsartan 49 mg-51 mg oral tablet, 1 tab(s), Oral, BID, 11 refills Singulair 10 mg Tab, 10 mg= 1 tab(s), Oral, qPM, 4 refills Vitamin B12 1000 mcg Tab, 1000 mcg= 1 tab(s), Oral, Daily Vitamin D3, 3000 unit(s), Oral, Daily Zetia 10 mg Tab, 5 mg= 0.5 tab(s), Oral, Daily, 3 refills Allergies Aldactone Contrast Dye (Flushing) Crestor Pollen (Hayfever) Toradol Social History Alcohol - No Risk, 10/05/2023 Current, 1-2 times per year, 1 drinks/episode average. 1.00 drinks/episode maximum., 10/05/2023 Substance Abuse - Denies Substance Abuse, 05/31/2015 Tobacco - Denies Tobacco Use, 10/05/2023 Former smoker, quit more than 30 days ago Tobacco Use:. Former smokeless tobacco user, quit more than 30 days ago Smokeless Tobacco Use:. Cigarettes, Cigars, Oral, Started age 18.0 Years. Stopped age 33 Years. Household tobacco concerns: No., 01/04/2024 Family History Acute myocardial infarction: Grandparent. Alcoholism: Mother. Cardiac arrhythmia: Mother. Diabetes mellitus type 2: Mother and Father. Hypertension: Father. Hypotension: Brother. Primary malignant neoplasm of lung: Mother. Primary malignant neoplasm of prostate: Father. Stroke: Father. Screenings and Assessments 12/26/23 14:28:00 Result Name Value Comment Phone Call Monitoring Consent Agreed to continue call Phone Verification Patient Information Full name, street address and date of verified CM Program Enrollment Provides verbal consent for enrollment Goals and Interventions Care Plan Progress Note Received a return call from patient. CN called patient for weekly follow up call. Patient is tired. He waled a total of 1 mile; he is working with PT. He reports being short of breath after walk but is able to recover easily. He is not having any chest pain or leg swelling. He is eating, drinking and sleeping well. He is not having any pain; he reports some discomfort to hand from carpal tunnel surgery. He denies needs or concerns at this time. Communication Events Date: January 16, 2024 Method: Phone call Type: Inbound Duration (min): 4 Outcome: Case discussion Contact Type: Patient Contact Name: RAY SUAREZ Notes: TCM #3 recieved at return call patient for weekly follow up call - see case summary note Created By: Bibi Kovacs RN Date: January 16, 2024 Method: Phone call Type: Outbound Duration (min): 1 Outcome: Left message-voicemail Contact Type: Patient Contact Name: RAY SUAREZ Notes: TCM #3 - called patient for weekly follow up call - no answer - left message along with cn contact info Created By: Bibi Kovacs RN Date: January 07, 2024 Method: Phone call Type: Outbound Duration (min): 15 Outcome: Case discussion Contact Type: Patient Contact Name: RAY SUAREZ Notes: TCM #2 - called for weekly follow up call - see case summary note Created By: Bibi Kovacs RN Date: December 26, 2023 Method: Phone call Type: Outbound Duration (min): 38 Outcome: Case discussion Contact Type: Patient emergency contact Contact Name: Paula Notes: TCM #1 - see case summary note Created By: Bibi Kovacs RN [employer] [facility] Observed: 01/07/2024 2:27 PM Status: F Source: [facility] Case Information Case Priority: None Programs: -- Referral Source: [employer] Referral Reason: Care coordination Case Type: Transition Care Management Risk Score: -- Case Status: Enrolled (December 26, 2023) Date Assigned: December 26, 2023 Assigned By: Bibi Kovacs RN Date Enrolled: December 26, 2023 Assigned Primary Personnel: Bibi Kovacs RN Assigned Secondary Personnel: -- Case Physician: Todd Osman DO Problems Ongoing Asthma Benign essential hypertension CHF - Congestive heart failure COPD with asthma Dyslipidemia Former smoker GERD (gastroesophageal reflux disease) History of prostate cancer History of prostatectomy Hyperlipidemia, unspecified Hypothyroidism (acquired) SAMIRA (obstructive sleep apnea) Type 2 diabetes mellitus with hyperlipidemia Historical Chronic back pain Smoker Procedure/Surgical History Cardiac catheterization, left heart (12/24/2023), PCI - Percutaneous coronary intervention (12/24/2023), STEMI - ST elevation myocardial infarction (12/12/2023), Carpal tunnel (12/02/2023), right total hip arthroplasty (09/11/2016), left total hip arthroplasty (07/19/2015), Cardiac catheterization (08/27/2006), Colonoscopy (2006), Vasectomy (1975), attempted tendon repair right leg, back surgery, Radical prostatectomy, Rotator cuff repair, Thyroidectomy, Tonsillectomy. Home Medications aspirin, 81 mg, Oral, Bedtime atorvastatin 40 mg Tab, 40 mg= 1 tab(s), Oral, Daily, 1 refills Brilinta (ticagrelor) 90 mg oral tablet, 90 mg= 1 tab(s), Oral, BID carvedilol 3.125 mg Tab, 3.125 mg= 1 tab(s), Oral, BID, 2 refills Janumet 50 mg/1000 mg oral tablet, 1 tab(s), Oral, Daily Lasix 20 mg Tab, 40 mg= 2 tab(s), Oral, Daily, PRN levothyroxine 175 mcg (0.175 mg) Tab, 87.5 mcg= 0.5 tab(s), Oral, Daily nitroglycerin 0.4 mg sublingual Tab, 0.4 mg= 1 tab(s), SubLingual, As Directed, PRN ONETOUCH ULTRA TEST STRIP sacubitril-valsartan 49 mg-51 mg oral tablet, 1 tab(s), Oral, BID, 11 refills Singulair 10 mg Tab, 10 mg= 1 tab(s), Oral, qPM, 4 refills Vitamin B12 1000 mcg Tab, 1000 mcg= 1 tab(s), Oral, Daily Vitamin D3, 3000 unit(s), Oral, Daily Zetia 10 mg Tab, 5 mg= 0.5 tab(s), Oral, Daily, 3 refills Allergies Aldactone Contrast Dye (Flushing) Crestor Pollen (Hayfever) Toradol Social History Alcohol - No Risk, 10/05/2023 Current, 1-2 times per year, 1 drinks/episode average. 1.00 drinks/episode maximum., 10/05/2023 Substance Abuse - Denies Substance Abuse, 05/31/2015 Tobacco - Denies Tobacco Use, 10/05/2023 Former smoker, quit more than 30 days ago Tobacco Use:. Former smokeless tobacco user, quit more than 30 days ago Smokeless Tobacco Use:. Cigarettes, Cigars, Oral, Started age 18.0 Years. Stopped age 33 Years. Household tobacco concerns: No., 01/04/2024 Family History Acute myocardial infarction: Grandparent. Alcoholism: Mother. Cardiac arrhythmia: Mother. Diabetes mellitus type 2: Mother and Father. Hypertension: Father. Hypotension: Brother. Primary malignant neoplasm of lung: Mother. Primary malignant neoplasm of prostate: Father. Stroke: Father. Screenings and Assessments 12/26/23 14:28:00 Result Name Value Comment Phone Call Monitoring Consent Agreed to continue call Phone Verification Patient Information Full name, street address and date of verified CM Program Enrollment Provides verbal consent for enrollment Goals and Interventions Care Plan Progress Note Called patient to see how he was progressing since being discharged from the hospital. Patient reports he is doing fine. He is not having any shortness of breath or chest pain. He walks on his own 2 days per week. He is not having any leg swelling. He is sleeping well. He is not having any bowel issues. The only pain he is experiencing is from carpal tunnel surgery; he reports this pain has decreased; he is exercising hand using exercise ball. He is drinking well. He still does not have much appetite; he is drinking Boost supplemental drinks. His blood glucose is 105; blood pressurin on left 138/78 & right 137/87 hr 60 spo2 99% on room air, pulse 60 and weght is 199 pounds. Patieint denies questions or concerns at this time. Communication Events Date: January 07, 2024 Method: Phone call Type: Outbound Duration (min): 15 Outcome: Case discussion Contact Type: Patient Contact Name: RAY SUAREZ Notes: TCM #2 - called for weekly follow up call - see case summary note Created By: Bibi Kovacs RN Date: December 26, 2023 Method: Phone call Type: Outbound Duration (min): 38 Outcome: Case discussion Contact Type: Patient emergency contact Contact Name: Paula Notes: TCM #1 - see case summary note Created By: Bibi Kovacs RN FAMILY MEDICINE OFFICE/CLINI C NOTE Observed: 01/04/2024 10:42 AM Status: F Source: [facility] Family Medicine Office/Clini c Note Chief Complaint Hospitalization follow up HPI Staff Patient here for Hospitalization f/u (daughter, Stacia, and , Maryjo) Hospitalization: Hospital: [facility] Admission date: 12/22 Discharge date: 12/24 Symptoms the patient presented with: Chest Pain Patient had Cardiac Cath with stent placement x 2 on 12/11, returned to hospital with chest pain, left arm weakness, and vision disturbances. CT of head and Carotid US completed as well as Cardiology consult. Decided a repeat cardiac cath should be completed. 12/23 Cardiac cath with placement of 1 drug eluting stent to Rt PDA completed. Repeat MRI and MRA followed, negative. Neurology consult completed. Patient to f/u with Neurology, Cardiology and PCP. Neurology scheduled: not at this time. Patient has HH and PT. Cardiology f/u completed: 12/31, Pravastatin discontinued and Atorvastatin prescribed. Decreased Carvedilol and Entresto. Cardiac rehab not scheduled at this time. Cardiology f/u scheduled 01/31. Current concerns: Medication management, Cardiology vs PCP. AMW: UTD History of Present Illness Patient presents today for hospital followup. Hospital location: [facility] Admission Date: 12/23/2023 Discharge Date: 12/25/2023 Reviewed Records: ER summary, history and physical, consultation notes, discharge summary, home call notes Summary: Patient presented following onset of chest pain after having had heart catheterization with stent placement x2 on 12/12/2023. He also had sudden loss of vision with neck pain, which resolved spontaneously as well as spontaneous left arm weakness. He had elevated Trops at intake, but he did have heart cath as noted above. Carotid US showed no stenosis, he was admitted for further management. He had repeat heart cath on 12/24/2023 and had a 3rd stent placed by Dr. Nolen. MRI and MRA were negative, he was seen by Dr. Varma. No medications were changed for patient related to these findings. He was cleared for discharge home on date above. Today, patient states that he has had no new return of chest pressure or visual disturbances. He has been been following with cardiology. He and family are frustrated with management as they are unclear on some of his medications and they are unclear on his management from here. He denies any current physical concerns. He does need some clarifications of his medications, and we are working on medication assistance for him. Review of Systems PHQ Score Initial Depression Screen Score: 0 SCORE ROS - Provider Constitutional: no fever, no chills Skin: no rash, no lesions ENMT: no ear pain, no sore throat, no congestion, no hoarseness. Respiratory: yes shortness of breath, no cough, no wheezing. Cardiovascular: yes chest pain, no palpitations, no edema. Gastrointestinal: no nausea, no vomiting, no diarrhea, Musculoskeletal: no back pain, no trauma. Neurologic: no headache, yes dizziness, no numbness, no weakness. Psychiatric: no sleeping problems, no irritability, no mood swings/depression. Physical Exam Vitals & Measurements HR: 69(Peripheral) BP: 122/78 SpO2: 100% HT: 70 in HT: 177.8 cm WT: 91.7 kg WT: 201.74 lb BMI: 29.01 General: Well developed, well nourished, in no acute distress Head: Normocephalic/atraumatic Eyes: Pupils equal, round, and reactive to light. Sclerae normal, and extraocular movements intact Lungs: Normal respiratory effort and clear to auscultation Cardio: Regular rate and rhythm, normal S1 and S2, no new murmur, no rub Musculoskeletal: No deformity or scoliosis noted. Normal range of motion. Joints normal. No erythema, edema, effusion, or ecchymosis Extremity: No clubbing, cyanosis, edema, or deformity, with normal ROM in both upper and lower bilateral extremities Neurologic: Grossly normal Skin: No rash, petechiae, suspicious lesions Mental Status: Alert and oriented x3. Normal mood and affect Assessment/Plan 1. NSTEMI (non-ST elevated myocardial infarction) (I21.4: Non-ST elevation (NSTEMI) myocardial infarction) Resolved with stenting by cardiology, following with their care. Continue with current medications at their recommendation, follow up with cardiology as recommended. Discussed his apparent TIA findings today, this is likely a clot effect but cannot be sure based on information available. Encouraged to continue on the Brilinta as this will prevent further TIA/stroke effect, as well as statin. Will hold on any medication changes today. We will continue to hold on medication, refill as necessary. 2. Benign essential hypertension (I10: Essential (primary) hypertension) Stable on intake, no changes. Concern for hypotension at last visit. Reviewed his antihypertensives, the best option is good appropriate hydration with monitoring of daily weights. Encouraged patient to call with any concerns. Recheck at followup in 4-6 weeks. 3. CHF - Congestive heart failure (I50.9: Heart failure, unspecified) Working on getting financial support for [employer]. Diuretic as needed if daily weights increase. Recheck if needed, or as indicated above. 4. 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 Ordered: Current tobacco non-user 1036F 5. BMI 29.0-29.9,adult (Z68.29: Body mass index [BMI] 29.0-29.9, adult) Stable. Ordered: Body Mass Index (BMI) documented 3008F Depression Screening Negative 3352F Influenza immunization status assessed 1030F Most recent diastolic blood pressure <80 mm Hg 3078F Patient screen for fall risk: no falls in last year or 1 fall with no injury in last year 1101F Systolic BP <130 mm Hg (Most Recent) 3074F Orders: sacubitril-valsartan, 1 tab(s), Oral, BID, 60 tab(s), Refill(s) 11, hold if BP is lower than 90 systolic or 50 diastolic sacubitril-valsartan, 1 tab(s), Oral, BID, 60 tab(s), Refill(s) 11, hold if BP is lower than 90 systolic or 50 diastolic Total time spent TODAY preparing the chart, [id number] interaction with the patient/family and time spent documenting, reviewing, and ordering above care was 45 mins. Patient was counseled on the above diagnosis and treatment, all questions were answered and patient agrees to adhere to the plan above. Risk and benefits of appropriate procedures and medications were reviewed as well with patient, who voiced understanding and agreement with stated management of care. Follow-up No qualifying data available Problem List/Past Medical History Ongoing Asthma Benign essential hypertension CHF - Congestive heart failure COPD with asthma Dyslipidemia Former smoker GERD (gastroesophageal reflux disease) History of prostate cancer History of prostatectomy Hyperlipidemia, unspecified Hypothyroidism (acquired) SAMIRA (obstructive sleep apnea) Type 2 diabetes mellitus with hyperlipidemia Historical Chronic back pain Smoker Procedure/Surgical History Cardiac catheterization, left heart (12/24/2023), PCI - Percutaneous coronary intervention (12/24/2023), STEMI - ST elevation myocardial infarction (12/12/2023), Carpal tunnel (12/02/2023), right total hip arthroplasty (09/11/2016), left total hip arthroplasty (07/19/2015), Cardiac catheterization (08/27/2006), Colonoscopy (2006), Vasectomy (1975), attempted tendon repair right leg, back surgery, Radical prostatectomy, Rotator cuff repair, Thyroidectomy, Tonsillectomy. Medications aspirin, 81 mg, Oral, Bedtime atorvastatin 40 mg Tab, 40 mg= 1 tab(s), Oral, Daily, 1 refills Brilinta (ticagrelor) 90 mg oral tablet, 90 mg= 1 tab(s), Oral, BID carvedilol 3.125 mg Tab, 3.125 mg= 1 tab(s), Oral, BID, 2 refills Janumet 50 mg/1000 mg oral tablet, 1 tab(s), Oral, Daily Lasix 20 mg Tab, 40 mg= 2 tab(s), Oral, Daily, PRN levothyroxine 175 mcg (0.175 mg) Tab, 87.5 mcg= 0.5 tab(s), Oral, Daily nitroglycerin 0.4 mg sublingual Tab, 0.4 mg= 1 tab(s), SubLingual, As Directed, PRN ONETOUCH ULTRA TEST STRIP sacubitril-valsartan 49 mg-51 mg oral tablet, 1 tab(s), Oral, BID, 11 refills Singulair 10 mg Tab, 10 mg= 1 tab(s), Oral, qPM, 4 refills Vitamin B12 1000 mcg Tab, 1000 mcg= 1 tab(s), Oral, Daily Vitamin D3, 3000 unit(s), Oral, Daily Zetia 10 mg Tab, 5 mg= 0.5 tab(s), Oral, Daily, 3 refills Allergies Aldactone Contrast Dye (Flushing) Crestor Pollen (Hayfever) Toradol Social History Alcohol - No Risk, 10/05/2023 Current, 1-2 times per year, 1 drinks/episode average. 1.00 drinks/episode maximum., 10/05/2023 Substance Abuse - Denies Substance Abuse, 05/31/2015 Tobacco - Denies Tobacco Use, 10/05/2023 Former smoker, quit more than 30 days ago Tobacco Use:. Former smokeless tobacco user, quit more than 30 days ago Smokeless Tobacco Use:. Cigarettes, Cigars, Oral, Started age 18.0 Years. Stopped age 33 Years. Household tobacco concerns: No., 01/04/2024 Family History Acute myocardial infarction: Grandparent. Alcoholism: Mother. Cardiac arrhythmia: Mother. Diabetes mellitus type 2: Mother and Father. Hypertension: Father. Hypotension: Brother. Primary malignant neoplasm of lung: Mother. Primary malignant neoplasm of prostate: Father. Stroke: Father. Immunizations Vaccine Date Status Comments influenza virus vaccine, inactivated 02/2023 Recorded SARS-CoV-2 (COVID-19) mRNAMUL.ORD![id number] 05/16/2022 Recorded SARSCoV2 mRNA(yenytaont-taio-vdlerb) vac 09/17/2021 Recorded influenza virus vaccine, inactivated 02/21/2021 Recorded SARS-CoV-2 (COVID-19) mRNA BNT-162b2 vax 02/21/2021 Recorded 2023-07-09: [id number] SARS-CoV-2 (COVID-19) mRNA BNT-162b2 vax 08/11/2020 Recorded SARS-CoV-2 (COVID-19) mRNA BNT-162b2 vax 07/18/2020 Recorded 2023-07-09: [id number] SARS-CoV-2 (COVID-19) mRNA BNT-162b2 vax 07/14/2020 Recorded SARS-CoV-2 (COVID-19) mRNA BNT-162b2 vax 06/27/2020 Recorded 2023-07-09: [id number] zoster vaccine live 04/23/2013 Recorded Result Comment: Electronical ly Signed By: Todd Osman DO\.br\Date and Time Signed: 01/04/24 10:42 EDT AMBULATORY VISIT SUMMARY Observed: 01/03 9:58 AM Status: F Source: [facility] Ambulatory Visit Summary RAY SUAREZ :1945 Visit Date:01/04/2024 Ambulatory Visit Instructions Your Diagnosis NSTEMI (non-ST elevated myocardial infarction) Benign essential hypertension CHF - Congestive heart failure Former smoker BMI 29.0-29.9,adult Your Care Team Attending Physician - Todd Osman DO Primary Care Physician - Todd Osman DO This Is Your Medications List [facility] [place] (FanMobUCH ULTRA TEST STRIP) aspirin atorvastatin (atorvastatin 40 mg Tab) carvedilol (carvedilol 3.125 mg Tab) cholecalciferol (Vitamin D3) cyanocobalamin (Vitamin B12 1000 mcg Tab) ezetimibe (Zetia 10 mg Tab) furosemide (Lasix 20 mg Tab) levothyroxine (levothyroxine 175 mcg (0.175 mg) Tab) metformin-sitagliptin (Janumet 50 mg/1000 mg oral tablet) montelukast (Singulair 10 mg Tab) nitroglycerin (nitroglycerin 0.4 mg sublingual Tab) sacubitril-valsartan (sacubitril-valsartan 49 mg-51 mg oral tablet) ticagrelor (Brilinta (ticagrelor) 90 mg oral tablet) Procedures Performed Cardiac catheterization, left heart (12/24/2023), PCI - Percutaneous coronary intervention (12/24/2023), STEMI - ST elevation myocardial infarction (12/12/2023), Carpal tunnel (12/02/2023), right total hip arthroplasty (09/11/2016), left total hip arthroplasty (07/19/2015), Cardiac catheterization (08/27/2006), Colonoscopy (2006), Vasectomy (1975), attempted tendon repair right leg, back surgery, Radical prostatectomy, Rotator cuff repair, Thyroidectomy, Tonsillectomy. Discharge Vitals Heart Rate (Peripheral) 69 Blood Pressure 122/78 Height 177.8 cm Height 70 in Weight 91.7 kg Weight 201.74 lb BMI 29.01 What to do next Scheduled Follow-Up Appointments Sunday 10:45 AM EDT With: Jonathan Hernandez PA-C Where: [facility] Sunday 1:00 PM EDT With: Todd Osman DO Where: [address] [place] [address]- Sunday 9:40 AM EDT With: Todd Osman DO Where: [address] [place] [address]- 2024 9:30 AM EDT With: Where: [address] [place] [address]- Medications What How Much When Why Instructions Unchanged aspirin 81 Milligram By Mouth At bedtime Unchanged atorvastatin (atorvastatin 40 mg Tab) 1 Tablets By Mouth Every day Hyperlipidemia, unspecified Unchanged carvedilol (carvedilol 3.125 mg Tab) 1 Tablets By Mouth 2 times a day hold if BP is lower than 100 systolic or 50 diastolic Unchanged cholecalciferol (Vitamin D3) 3,000 Units By Mouth Every day Unchanged cyanocobalamin (Vitamin B12 1000 mcg Tab) 1 Tablets By Mouth Every day Unchanged ezetimibe (Zetia 10 mg Tab) 0.5 Tablets By Mouth Every day Unchanged furosemide (Lasix 20 mg Tab) 2 Tablets By Mouth Every day as needed for Other (see comment) PRN for leg swelling (takes for >3 pound weight gain) Unchanged levothyroxine (levothyroxine 175 mcg (0.175 mg) Tab) 0.5 Tablets By Mouth Every day Unchanged metformin-sitagliptin (Janumet 50 mg/ 1000 mg oral tablet) 1 Tablets By Mouth Every day Unchanged Misc Prescription (servtag ULTRA TEST STRIP) TEST ONCE DAILY Unchanged montelukast (Singulair 10 mg Tab) 1 Tablets By Mouth Once a day (in the evening) Unchanged nitroglycerin (nitroglycerin 0.4 mg sublingual Tab) 1 Tablets Sublingual As Directed as needed for for chest pain takeif SBP is greater than 110 Unchanged sacubitril-valsartan (sacubitril-valsartan 49 mg-51 mg oral tablet) 1 Tablets By Mouth 2 times a day hold if BP is lower than 90 systolic or 50 diastolic Unchanged ticagrelor (Brilinta (ticagrelor) 90 mg oral tablet) 1 Tablets By Mouth 2 times a day Allergies Aldactone Contrast Dye ([place]) Crestor Pollen (Hayfever) Toradol Problems Ongoing - Any problem that you are currently receiving treatment for. Asthma Benign essential hypertension CHF - Congestive heart failure COPD with asthma Dyslipidemia Former smoker GERD (gastroesophageal reflux disease) History of prostate cancer History of prostatectomy Hyperlipidemia, unspecified Hypothyroidism (acquired) SAMIRA (obstructive sleep apnea) Type 2 diabetes mellitus with hyperlipidemia Historical - Any problem that you are no longer receiving treatment for. Chronic back pain Smoker Patient Survey You may receive a survey via text or e-mail asking about your office visit. Please share your experience with us by completing your survey. We appreciate your feedback and thank you for choosing us for your care. HEART AND VASCULAR OFFICE/CLINIC NOTE Observed: 12/31/2023 4:15 PM Status: F Source: [facility] Heart and Vascular Office/Cl in Note Chief Complaint F/U STEMI HPI Staff Inpatient follow up-STEMI History of Present Illness Ray is an 78 year old male with past medical hx of recent STEMI, CAD, HTN. Pt is here today for IN PT fu. Accompanied by Maryjo and daughter Paula today. Pt states hes been feeling okay, but he does tire easily. Pt has decreased EF at 35-40% based on echo from 11/2023. Paula stated home health noted that pt was walking with toes curled upward, she wondered of it was the pravastatin and a potassium issue. Pt and family agree to try Atorvastatin in place of pravastatin 40mg to see if this improves the toe curling symptoms. Pt experienced mild SOB while walking outside that resolved with rest -this was also the first longer walk patient has tried since returning over the hospital the second time. Pt should continue with mild physical activity and monitor SOB increase or intensity of symptoms while being on Brilinta. If noticeable increase of SOB pt is to notify us. Pt should begin cardiac rehab as soon as he can, pt and family would prefer [facility] cardiac rehab clinic instead of [place]. Patient has had blood pressures that been running on the low side of normal and has had a little bit of associated lightheadedness from this. Has had blood pressures in the 100s/50s range and is concerned with his low pressures. Will be decreasing Carvedilol 3.125 mg BID, hold if BP is lower than 100 systolic or 50 diastolic. Decreasing Entresto to 49 mg-51 mg BID, hold if BP is lower than 90 systolic or 50 diastolic Pt denies angina or anginal-like symptoms. Patient specifically denies chest pain, palpitations, edema, dizziness, near syncope, or syncope. CONSULT NOTE FROM 12/23/23 78-year-old male with history of CAD and recent STEMI of the LAD. Resulting ischemic cardiomyopathy. Was plan for eventual staged PCI of the PDA. Workup. Chest discomfort and tightness as well as some shortness of breath last night. Had a sensation of radiating couple of times up into his neck like a whooshing sensation. Decided to come in and troponin was elevated although recent STEMI. Since admission his troponin essentially is in flat pattern. No orthopnea or nocturnal dyspnea. No lower extremity edema Review of Systems PHQ Score Initial Depression Screen Score: 0 SCORE ROS - Provider Constitutional: no fever, no chills, no sweats, no weakness Respiratory: no shortness of breath, no cough Cardiovascular: no chest pain Neuro: no dizziness. no loss of consciousness Cardiac Diagnostics 12/24/2023 [facility] + PCI Findings LMT: Normal left main trunk with trifurcation LAD: Normal caliber with patent proximal to mid stents and mild diffuse disease less than 30% stenosis, reaches the apex. LCx: Normal caliber with mild-moderate disease less than 30% stenosis, reaches the lateral wall. Ramus intermedius present RCA: Normal caliber with mild irregularity and 99% stenosis of ostial PDA stenosis, dominant, reaches the inferior wall. Hemodynamics: Normal LVEDP at 11 mmHg with no gradient across the aortic valve. Left ventriculography: Not performed PCI note: Success PCI right PDA 99% stenosed SYMONE-3 flow reduced to 0% residual SYMONE-3 flow after implantation of a Xience 2.5/ postdilated stent balloon at multiple inflations. Conclusions: Patent previously placed stents, no new narrowings. Nonculprit lesion was stented. CAD: DAPT, beta-shawn, statin, risk factor modification., Importance of antiplatelet compliance was emphasized including risk of stent thrombosis or . The patient understands as well as his accompanying family member/friend that the patient may have stent thrombosis or heart attack and the patient agrees. I myself have specifically counseled the patient regarding stent thrombosis risk including and the patient will additionally be counseled by the [employer] team and in follow-up. [2] (12/13/2023 17:05 EDT Echo Transthoracic w/ Contrast) Interpretation Summary Ejection Fraction = 35-40%. Ischemic cardiomyopathy. Normal LV size with moderate LV systolic dysfunction. Akinetic septum/dyskinetic apex. No LV apical thrombus. No significant valve disease. No estimated PA pressure. Impaired diastolic relaxation. Severe LVH. Physical Exam Vitals & Measurements HR: 66(Peripheral) RR: 16 BP: 112/70 SpO2: 98% HT: 70 in HT: 177 cm WT: 92.4 kg WT: 203.28 lb BMI: 29.49 General: alert, no acute distress Cardiovascular: regular rate and rhythm, no murmur normal peripheral perfusion Respiratory: Lungs CTAB, respirations non labored Extremities: no edema left lower extremity. no edema right lower extremity Neurological: oriented x 4, LOC appropriate for age, speech normal Skin: Warm, dry, intact- no rash or concerning lesions Assessment/Plan 1. CAD in [place] artery (I25.10: Atherosclerotic heart disease of [place] coronary artery without angina pectoris) 12/24/2023 Success PCI right PDA 99% stenosed SYMONE-3 flow reduced to 0% residual SYMONE-3 flow after implantation of a Xience 2.5/28 postdilated stent balloon at multiple inflations. Pt should continue aspirin, 81 mg qPM, Brilinta 90 mg BID. 2. CHF - Congestive heart failure (I50.9: Heart failure, unspecified) Pt has decreased EF of 35-40% Pt having blood pressures that are fairly low so we are decreasing carvedilol from 12.5 mg to 3.125 BID , decreasing Entresto 97 mg-103 mg to 49-51 mg BID, Lasix 20 mg 2 tab PRN. Will continue with surveillance echo to monitor in the future. Also gave parameters on when to hold medications. Hold carvedilol if systolic less than 100 or diastolic less than 50. Hold Entresto if systolic less than 90 or diastolic less than 50. Hoping that a decrease in medications will help prevent having to hold them completely. 3. Hyperlipidemia, unspecified (E78.5: Hyperlipidemia, unspecified) Pt will switch to Atorvastatin [address] of pravastatin 40 mg qPM , and continue zetia 10 mg qD Patient will return to clinic in 1 month for regular follow up appointment with me. Patient will call office for sooner appointment for acute concerns. IKay, personally scribed for Jonathan Hernandez PA-C 12/31/2023 Total time spent preparing for the encounter, evaluating and assessing the patient, documenting the visit, and ordering appropriate follow-up work was 40 minutes. Follow-up No qualifying data available Problem List/Past Medical History Ongoing Asthma Benign essential hypertension CHF - Congestive heart failure COPD with asthma Dyslipidemia Former smoker GERD (gastroesophageal reflux disease) History of prostate cancer History of prostatectomy Hyperlipidemia, unspecified Hypothyroidism (acquired) SAMIRA (obstructive sleep apnea) Type 2 diabetes mellitus with hyperlipidemia Historical Chronic back pain Smoker Procedure/Surgical History Cardiac catheterization, left heart (12/24/2023), PCI - Percutaneous coronary intervention (12/24/2023), STEMI - ST elevation myocardial infarction (12/12/2023), Carpal tunnel (12/02/2023), right total hip arthroplasty (09/11/2016), left total hip arthroplasty (07/19/2015), Cardiac catheterization (08/27/2006), Colonoscopy (2006), Vasectomy (1975), attempted tendon repair right leg, back surgery, Radical prostatectomy, Rotator cuff repair, Thyroidectomy, Tonsillectomy. Medications aspirin, 81 mg, Oral, Bedtime atorvastatin 40 mg Tab, 40 mg= 1 tab(s), Oral, Daily, 1 refills Brilinta (ticagrelor) 90 mg oral tablet, 90 mg= 1 tab(s), Oral, BID carvedilol 3.125 mg Tab, 3.125 mg= 1 tab(s), Oral, BID, 2 refills Janumet 50 mg/1000 mg oral tablet, 1 tab(s), Oral, Daily Lasix 20 mg Tab, 40 mg= 2 tab(s), Oral, Daily, PRN levothyroxine 175 mcg (0.175 mg) Tab, 87.5 mcg= 0.5 tab(s), Oral, Daily nitroglycerin 0.4 mg sublingual Tab, 0.4 mg= 1 tab(s), SubLingual, As Directed, PRN ONETOUCH ULTRA TEST STRIP sacubitril-valsartan 49 mg-51 mg oral tablet, 1 tab(s), Oral, BID, 2 refills Singulair 10 mg Tab, 10 mg= 1 tab(s), Oral, qPM, 4 refills Vitamin B12 1000 mcg Tab, 1000 mcg= 1 tab(s), Oral, Daily Vitamin D3, 3000 unit(s), Oral, Daily Zetia 10 mg Tab, 5 mg= 0.5 tab(s), Oral, Daily, 3 refills Allergies Aldactone Contrast Dye ([place]) Crestor Pollen (Hayfever) Toradol Social History Alcohol - No Risk, 10/05/2023 Current, 1-2 times per year, 1 drinks/episode average. 1.00 drinks/episode maximum., 10/05/2023 Substance Abuse - Denies Substance Abuse, 05/31/2015 Tobacco - Denies Tobacco Use, 10/05/2023 Former smoker, quit more than 30 days ago Tobacco Use:. Former smokeless tobacco user, quit more than 30 days ago Smokeless Tobacco Use:. Cigarettes, Cigars, Oral, Started age 18.0 Years. Stopped age 33 Years. Household tobacco concerns: No., 12/31/2023 Former smoker, quit more than 30 days ago Tobacco Use:., 12/23/2023 Family History Acute myocardial infarction: Grandparent. Alcoholism: Mother. Cardiac arrhythmia: Mother. Diabetes mellitus type 2: Mother and Father. Hypertension: Father. Hypotension: Brother. Primary malignant neoplasm of lung: Mother. Primary malignant neoplasm of prostate: Father. Stroke: Father. Immunizations Vaccine Date Status Comments influenza virus vaccine, inactivated 02/2023 Recorded SARS-CoV-2 (COVID-19) [id number].ORD![id number] 05/16/2022 Recorded SARSCoV2 mRNA(voywlxcld-xuzf-rwmbth) vac 09/17/2021 Recorded influenza virus vaccine, inactivated 02/21/2021 Recorded SARS-CoV-2 (COVID-19) mRNA BNT-162b2 vax 02/21/2021 Recorded 2023-07-09: TPV75 SARS-CoV-2 (COVID-19) mRNA BNT-162b2 vax 08/11/2020 Recorded SARS-CoV-2 (COVID-19) mRNA BNT-162b2 vax 07/18/2020 Recorded 2023-07-09: TPV75 SARS-CoV-2 (COVID-19) mRNA BNT-162b2 vax 07/14/2020 Recorded SARS-CoV-2 (COVID-19) mRNA BNT-162b2 vax 06/27/2020 Recorded 2023-07-09: TPV75 zoster vaccine live 04/23/2013 Recorded Result Comment: Electronical ly Signed By: Jonathan Hernandez PA-C\.br\Date and Time Signed: 01/01/24 12:47 EDT\.br\Electronically Co-Signed By: Kay Stevens\.br\Date and Time Co-Signed: 12/31/23 16:15 EDT CODING QUERY Observed: 12/27/2023 10:40 AM Status: C Source: [facility] Coding Query From: Lana GARLAND, Estrellita To: Khloe VO; Cc: Dulce Maria Nettles; Sent: 12/27/2023 10:40:51 EDT ! Subject: Coding Query Due Date/Time: 01/01/2024 10:40:00 EDT Caller Name: RAY SUAREZ; Caller Number: H The following diagnosis was indicated for this patient: dc summary- 2. Non-ST elevation IA (NSTEMI), 12/23/2023 The Progress Notes and/or Discharge Summary, Consultation, Operative Report, Pathology Report or other provider documentation for this patient stated the following: dc summary- Acute ST elevation myocardial infarction (STEMI), 12/23/2023 Based on your medical judgment, can you please clarify which is the wording most closely reflecting the condition of the patient? [___]Subsequent NSTEMI [___]Subsequent STEMI [___]Other: In responding to this request, please exercise your independent professional judgement. The fact that a question is asked does not imply that any particular answer is desired or expected. Thank you! Estrellita [phone] From: Khloe VO To: Lana GARLAND, Estrellita; Sent: 01/02/2024 20:37:52 EDT Subject: RE: Coding Query Caller Name: RAY SUAREZ; Caller Number: H Pt did have prior admission of STEMI however was to have staged placement of another stent but came in with NSTEMI the second admit. ARLETTE was placed as it was planned anyways. If any issues let me know. POPULATION HEALTH Observed: 12/26/2023 2:31 PM Status: F Source: [facility] Health Case Information Case Priority: None Programs: -- Referral Source: [employer] Referral Reason: Care coordination Case Type: Transition Care Management Risk Score: -- Case Status: Enrolled (December 26, 2023) Date Assigned: December 26, 2023 Assigned By: Bibi Kovacs RN Date Enrolled: December 26, 2023 Assigned Primary Personnel: Bibi Kovacs RN Assigned Secondary Personnel: -- Case Physician: Todd Osman DO Problems Ongoing Asthma Benign essential hypertension CHF - Congestive heart failure COPD with asthma Dyslipidemia Former smoker GERD (gastroesophageal reflux disease) History of prostate cancer History of prostatectomy Hyperlipidemia, unspecified Hypothyroidism (acquired) SAMIRA (obstructive sleep apnea) Type 2 diabetes mellitus with hyperlipidemia Historical Chronic back pain Smoker Procedure/Surgical History Cardiac catheterization, left heart (12/24/2023), PCI - Percutaneous coronary intervention (12/24/2023), STEMI - ST elevation myocardial infarction (12/12/2023), Carpal tunnel (12/02/2023), right total hip arthroplasty (09/11/2016), left total hip arthroplasty (07/19/2015), Cardiac catheterization (08/27/2006), Colonoscopy (2006), Vasectomy (1975), attempted tendon repair right leg, back surgery, Radical prostatectomy, Rotator cuff repair, Thyroidectomy, Tonsillectomy. Home Medications aspirin, 81 mg, Oral, Bedtime Brilinta (ticagrelor) 90 mg oral tablet, 90 mg= 1 tab(s), Oral, BID carvedilol 12.5 mg Tab, 6.25 mg= 0.5 tab(s), Oral, BID Entresto 97 mg-103 mg oral tablet, 1 tab(s), Oral, BID Janumet 50 mg/1000 mg oral tablet, 1 tab(s), Oral, Daily Lasix 20 mg Tab, 40 mg= 2 tab(s), Oral, Daily, PRN, Self Directed levothyroxine 175 mcg (0.175 mg) Tab, 87.5 mcg= 0.5 tab(s), Oral, Daily nitroglycerin 0.4 mg sublingual Tab, 0.4 mg= 1 tab(s), SubLingual, As Directed, PRN ONETOUCH ULTRA TEST STRIP pravastatin 40 mg Tab, 40 mg= 1 tab(s), Oral, Once a day (at bedtime) Singulair 10 mg Tab, 10 mg= 1 tab(s), Oral, qPM, 4 refills traMADOL 50 mg Tab, 1-2 tabs, Oral, q8hr, PRN Vitamin B12 1000 mcg Tab, 1000 mcg= 1 tab(s), Oral, Daily Vitamin D3, 3000 unit(s), Oral, Daily Zetia 10 mg Tab, 5 mg= 0.5 tab(s), Oral, Daily, 3 refills Allergies Aldactone Contrast Dye ([place]) Crestor Pollen (Hayfever) Toradol Social History Alcohol - No Risk, 10/05/2023 Current, 1-2 times per year, 1 drinks/episode average. 1.00 drinks/episode maximum., 10/05/2023 Substance Abuse - Denies Substance Abuse, 05/31/2015 Tobacco - Denies Tobacco Use, 10/05/2023 Former smoker, quit more than 30 days ago Tobacco Use:., 12/23/2023 Former smoker, quit more than 30 days ago Tobacco Use:. Former smokeless tobacco user, quit more than 30 days ago Smokeless Tobacco Use:. Cigarettes, Cigars, Oral, Started age 18.0 Years. Stopped age 33 Years. Household tobacco concerns: No., 12/20/2023 Family History Acute myocardial infarction: Grandparent. Alcoholism: Mother. Cardiac arrhythmia: Mother. Diabetes mellitus type 2: Mother and Father. Hypertension: Father. Hypotension: Brother. Primary malignant neoplasm of lung: Mother. Primary malignant neoplasm of prostate: Father. Stroke: Father. Screenings and Assessments 12/26/23 14:28:00 Result Name Value Comment Phone Call Monitoring Consent Agreed to continue call Phone Verification Patient Information Full name, street address and date of verified CM Program Enrollment Provides verbal consent for enrollment Goals and Interventions Care Plan Progress Note Admit Date: 12/23/2023 Date of Discharge: 12/25/2023 Follow-up appointment scheduled? yes with PCP Dr Osman on 01/04/2024 at 0900 Did you understand your discharge instructions? yes Are you able to follow them? yes Did you receive new medications? no Have you filled the Rx's? n/a Are you taking them as prescribed? n/a Are you having difficulty eating or swallowing your pills? no Are you having any stomach upset, diarrhea or constipation? no How are you sleeping? yes Are you having any pain? no Do you have everything you need at home to care for yourself? yes Do you have Home Health? yes [facility] Called patient for initial Transitional Care Management Program. Patient is a moderate risk for readmission. Spoke to patient's daughter Meryl. Reviewed discharge instructions and diagnosis of chest pain, no-st elevation mi, cad, chronic heart failure, hypertension, dyslipidemia, type 2 dm, history of stemi, neck pain left side and acute st elevation mi. Medications to be reconciled at office visit. Patient's daughter reports he is very weak. She reports he is not having any chest pain or shortness of breath. He does not have a headache. She reports he does not have any vision problems. She reports he does complain of left hand/arm bothering him since he had a procedure; he is using Tylenol for the pain. She reports home health was in with patient today. She reports his blood pressure was 80/40;she said the home health nurse had him drink water and after about 30 minutes his blood pressure was 110/70. She also reports his heart rate was ranging from 40's to 50's. She reports patient was told to hold his blood pressure medications if his systolic blood pressure was below 100 and heart rate was below 60. She does report he was given both medications today. She is going to call parks recreation director to see if he will make changes to medication parameters. She reports he is eating and drinking very little. She reports he is not having any issues with his bowels. Patient does need refills for is Brilinta and Pravastatin; communication sent to PCP Dr Osman. Patient also needs assistance with medication cost; I will look to see what I can find and contact patient with findings. She reports no other questions or concerns at this time. Scheduled hospital follow up office visit with PCP Dr Osman 01/04/2024 at 0900. Explained TCM Program and gave CN contact information. Communication Events Date: December 26, 2023 Method: Phone call Type: Outbound Duration (min): 38 Outcome: Case discussion Contact Type: Patient emergency contact Contact Name: Paula Notes: TCM #1 - see case summary note Created By: Bibi Kovacs RN GENERAL MESSAGE OFFICE Observed: 024 2:31 AM Status: F Source: [facility] [email or web address] Message Office --- --- --- --- --- --- --- --- --- From: CowanArnaldo, DirectInbox To: RAY SUAREZ Sent: 12/26/23 02:31:00 AM EDT Subject: Discharge Summary Ready to View A summary regarding your recent visit is available in the Documents section of your health record. INPATIENT PATIENT SUMMARY Observed: 11/27 2:29 PM Status: C Source: [facility] Inpatient Patient Summary RAY SUAREZ :1945 Visit Date:12/23/2023 Inpatient Discharge Instructions Your Care Team Admitting Physician - Rea AUGUSTE, Antonietta Consulting Physician - Ibrahima AUGUSTE, Edd [facility] Cardio, XXXX Reason for Your Visit pt arrives for c/o chest pain at 0300 with radiation into his neck. pt spouse states pt had a IA december 11 with stents placed. Your Diagnosis Chest pain Non-ST elevation IA (NSTEMI) CAD (coronary artery disease) Chronic systolic heart failure HTN (hypertension) Dyslipidemia Type [address] elevation myocardial infarction (STEMI) Neck pain on left side Acute ST elevation myocardial infarction (STEMI) Chest pain Medical problem - minor Tests Performed CT Head or Brain w/o Contrast CV Cardiovascular -- Results Pending -- MRA Head w/o Contrast MRA Neck w/o Contrast MRI Brain w/o Contrast US Carotid Duplex Bilateral XR Chest Single View Please visit your patient portal for your results or contact your primary care physician. This Is Your Medications List [facility] (servtag ULTRA TEST STRIP) aspirin carvedilol (carvedilol 12.5 mg Tab) cholecalciferol (Vitamin D3) cyanocobalamin (Vitamin B12 1000 mcg Tab) ezetimibe (Zetia 10 mg Tab) furosemide (Lasix 20 mg Tab) levothyroxine (levothyroxine 175 mcg (0.175 mg) Tab) metformin-sitagliptin (Janumet 50 mg/1000 mg oral tablet) montelukast (Singulair 10 mg Tab) nitroglycerin (nitroglycerin 0.4 mg sublingual Tab) pravastatin (pravastatin 40 mg Tab) sacubitril-valsartan (Entresto 97 mg-103 mg oral tablet) ticagrelor (Brilinta (ticagrelor) 90 mg oral tablet) tramadol (traMADOL 50 mg Tab) Procedure History Cardiac catheterization, left heart (12/24/2023), PCI - Percutaneous coronary intervention (12/24/2023), STEMI - ST elevation myocardial infarction (12/12/2023), Carpal tunnel (12/02/2023), right total hip arthroplasty (09/11/2016), left total hip arthroplasty (07/19/2015), Cardiac catheterization (08/27/2006), Colonoscopy (2006), Vasectomy (1975), attempted tendon repair right leg, back surgery, Radical prostatectomy, Rotator cuff repair, Thyroidectomy, Tonsillectomy. 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 Previously Scheduled Follow-Up Appointments Sunday 10:15 AM EDT With: Jonathan Hernandez PA-C Where[facility] 2023 10:00 AM EDT With: Todd Osman DO Where: [facility] [address] [place] [address]- Sunday 9:40 AM EDT With: Todd Osman DO Where: [facility] [address] [place] [address]- 2024 9:30 AM EDT With: Where: [facility] [address] [place] [address]- New Follow Up Appointments after Discharge Follow Up with Ibrahima AUGUSTE, MANUEL Puga When: Within 2 to 4 weeks Comments: Call for followup appointment Where: [facility] [address] [place] [address]- Follow Up with Davion Nolen When: Comments: Call for followup appointment 2-3 weeks Where: [facility] [place] [address]- Business (1) Follow Up with Todd Osman When: Where: [address] [place] [address]- Business (1) Medications What How Much When Instructions Next Dose Unchanged aspirin 81 Milligram By Mouth At bedtime Unchanged carvedilol (carvedilol 12.5 mg Tab) 0.5 Tablets By Mouth 2 times a day Unchanged cholecalciferol (Vitamin D3) 3,000 Units By Mouth Every day Unchanged cyanocobalamin (Vitamin B12 1000 mcg Tab) 1 Tablets By Mouth Every day Unchanged ezetimibe (Zetia 10 mg Tab) 0.5 Tablets By Mouth Every day Unchanged furosemide (Lasix 20 mg Tab) 2 Tablets By Mouth Every day as needed for Other (see comment) PRN for leg swelling (takes for >3 pound weight gain) Unchanged levothyroxine (levothyroxine 175 mcg (0.175 mg) Tab) 0.5 Tablets By Mouth Every day Unchanged metformin-sitagliptin (Janumet 50 mg/ 1000 mg oral tablet) 1 Tablets By Mouth Every day Unchanged Misc Prescription (ONETOUCH ULTRA TEST STRIP) TEST ONCE DAILY Unchanged montelukast (Singulair 10 mg Tab) 1 Tablets By Mouth Once a day (in the evening) Unchanged nitroglycerin (nitroglycerin 0.4 mg sublingual Tab) 1 Tablets Sublingual As Directed as needed for for chest pain takeif SBP is greater than 110 Unchanged pravastatin (pravastatin 40 mg Tab) 1 Tablets By Mouth Once a day (at bedtime) Unchanged sacubitril-valsartan (Entresto 97 mg-103 mg oral tablet) 1 Tablets By Mouth 2 times a day hold if systolic is less than 100 Unchanged ticagrelor (Brilinta (ticagrelor) 90 mg oral tablet) 1 Tablets By Mouth 2 times a day Unchanged tramadol (traMADOL 50 mg Tab) 1-2 tabs By Mouth Every 8 hours as needed for Pain Test Results CBC BMP WBC: 9.1 E9/L (12/25/23 05:49:00) Glucose Lvl: 94 mg/dL (12/25/23 05:49:00) RBC: 5.1 E12/L (12/25/23 05:49:00) BUN: 20 mg/dL (12/25/23 05:49:00) HGB: 15.9 gm/dL (12/25/23 05:49:00) Creatinine: 1.2 mg/dL (12/25/23 05:49:00) Hct: 45.6 % (12/25/23 05:49:00) BUN/Creat Ratio: 17 (12/25/23 05:49:00) MCV: 89.7 fL (12/25/23 05:49:00) Sodium Lvl: 139 mmol/L (12/25/23 05:49:00) MCH: 31.3 pg (12/25/23 05:49:00) Potassium Lvl: 4 mmol/L (12/25/23 05:49:00) MCHC: 34.9 gm/dL (12/25/23 05:49:00) Chloride: 107 mmol/L (12/25/23 05:49:00) RDW: 14.2 % (12/25/23 05:49:00) CO2: 22 mmol/L (12/25/23 05:49:00) Platelet: 198 E9/L (12/25/23 05:49:00) AGAP: 14 mEq/L (12/25/23 05:49:00) MPV: 9.4 fL (12/25/23 05:49:00) Calcium Lvl: 10.1 mg/dL (12/25/23 05:49:00) Allergies Aldactone Contrast Dye (Flushing) Crestor Pollen (Hayfever) Toradol Problems Ongoing - Any problem that you are currently receiving treatment for. Asthma Benign essential hypertension CHF - Congestive heart failure COPD with asthma Dyslipidemia Former smoker GERD (gastroesophageal reflux disease) History of prostate cancer History of prostatectomy Hyperlipidemia, unspecified Hypothyroidism (acquired) SAMIRA (obstructive sleep apnea) Type 2 diabetes mellitus with hyperlipidemia Historical - Any problem that you are no longer receiving treatment for. Chronic back pain Smoker Devices Implanted/Removed This Visit Notice: You have devices implanted this visit that may not be MRI compatible. Implanted PCI Body Site Undefined Xience Zak Coronary Stent 12/24/2023, MR [employer] [place], [place] Cardiovascular PCI DISCHARGE INSTRUCTIONS Diet: ? Resume pre-procedure diet. ? Increase water intake the next 2 days to flush dye out of the body. Activity: ? If radial access: ? Limit your activity today. Do not operate a vehicle, machinery or power tools. ? NO LIFTING OVER 3 POUNDS for 3 days. ? Do not bend your wrist for 24 hours. ? May resume driving in 24 hours. ? Let pain/discomfort guide your activity. If you are having pain, stop. ? No sexual activity for 1 week. ? Return to the Emergency Room if you have trouble breathing, walking or nausea and vomiting. Medications: ? Resume pre-procedure medication, unless otherwise directed. ? Minimal pain, soreness and/or discomfort is expected. ? If you are prescribed an aspirin and/or antiplatelet (such as Plavix, Brilinta or Effient) do NOT stop taking these medications for any reason without talking to your parks recreation director Site Care: ? Do not remove dressing for 24 hours unless it becomes saturated, then replace. ? Keep site clean and dry; inspect site daily. ? Do not use any lotions, powders, or ointments at the groin or wrist site for 1 week. ? May shower 24 hours after the procedure. Clean site with soap and water. Pat dry and apply band aid. No tub baths, swimming or hot tubs for 3 days. Post Procedure: ? Soreness and tenderness to the site can last up to one week. ? Bruising may occur to site. ? A responsible adult should be with you for the first 24 hours after you arrive home. ? Keep follow-up appointment. ? Carry your stent card with you at all times. This provides information about your heart disease for any doctor who cares for you. ? No smoking for 24 hours as it increases the risk of developing blood clots. ? If you are interested in smoking cessation, contact [facility] at [phone], ext. [phone]. ? In the event you are unable to reach your physician, please call [facility] at [phone] and the corduroy cutter operator will assist you. Seek Medicare Care for: ? Bleeding: Apply continuous pressure to the site and Call 911. ? Should the arm or leg become cold, numb, blue or white call your physician immediately. ? Signs of infection are redness, warmth, swelling, getting more sore, colored drainage, fever or chills ? Chest pain ? Blood in your urine or stool ? Black tarry stools ? Common Emergency Awareness Tips IS IT A STROKE? Act FAST and Check for these signs: FACE Does the face look uneven? ARM Does one arm drift down? SPEECH Does their speech sound strange? TIME Call at any sign of stroke Heart Attack Signs Chest discomfort: Most heart attacks involve discomfort in the center of the chest and lasts more than a few minutes, or goes away and comes back. It can feel like uncomfortable pressure, squeezing, fullness or pain. Discomfort in upper body: Symptoms can include pain or discomfort in one or both arms, back, neck, jaw or stomach. Shortness of breath: With or without discomfort. Other signs: Breaking out in a cold sweat, nausea, or lightheaded. Remember, MINUTES DO MATTER. If you experience any of these heart attack warning signs, call to get immediate medical attention! Patient Survey You may receive a survey in the mail asking you about your stay with us. We want to hear from you, please share your experience with us by completing your survey. Thank you for choosing [facility]. Leonardo Award Nomination The LEONARDO (Diseases Attacking the Immune SYstem) Award is an international recognition program that honors and celebrates the skillful, compassionate care nurses provide every day. Anyone who experiences or observes amazing care being provided by a nurse is encouraged to submit a nomination. To nominate your nurse, use your smart phone to scan the QR code below. Patient Portal You may access all of your results and other medical record information on our secure patient portal. If you are not signed up for this yet, please contact [employer] at [phone] to get signed up today. Patient Name: RAY SUAREZ I have received this information and my questions have been answered. Patient/Washing Machine Mechanic Name: Patient/Washing Machine Mechanic Signature: Relationship to Patient: Witness Name/Signature: Date: INPATIENT CLINICAL SUMMARY Observed: 2:29 PM Status: C Source: [facility] Inpatient Clinical Summary [place] [id number] Clinical Summary Person Information: Name: RAY SUAREZ Age: 78 Years : 1945 Sex: Male PCP: Todd Osman DO Marital Status: Race: White Ethnicity: Non- or Language: Sudanese Visit Id: Visit Reason: Medical problem - minor; Chest pain; CHEST PAIN Speciality: Acuity: Enc Type: Inpatient Med Service: Medical Arrival: 12/23/2023 04:00:03 Discharge: 12/25/2023 14:08:08 Dispo Type: Home w/ Home Health Address: [address] [place] [id number] Provider Notes: Diagnosis: 1:Chest pain; 2:Non-ST elevation IA (NSTEMI); 3:CAD (coronary artery disease); 4:Chronic systolic heart failure; 5:HTN (hypertension); 6:Dyslipidemia; 7:Type 2 diabetes mellitus; 8:History of ST elevation myocardial infarction (STEMI); 9:Neck pain on left side Problems Active CHF - Congestive heart failure Former smoker Hyperlipidemia, unspecified Type 2 diabetes mellitus with hyperlipidemia Benign essential hypertension Dyslipidemia SAMIRA (obstructive sleep apnea) History of prostate cancer History of prostatectomy Hypothyroidism (acquired) GERD (gastroesophageal reflux disease) COPD with asthma Asthma Smoking Status: Former Smoker Functional Status: Sensory Deficits: Hearing deficit, left ear, Hearing deficit, right ear History of Falls: Mobility Assistance Prior to Admission: Partial assistance ADLs: Minimal assistance Current Level of Assistance for Self-Care/Mobility: Cognitive Status: Oriented x 3 Allergies Pollen (Hayfever) Contrast Dye (Flushing) Crestor Toradol Aldactone Measurements: Height: 177 cm Weight: 95.1 kg Blood Pressure: 129 mmHg / 80 mmHg BMI: 30.39 kg/m2 Procedures Cardiac catheterization, left heart (12/24/2023) PCI - Percutaneous coronary intervention (12/24/2023) Immunizations No Immunizations Documented This Visit Final Med List: aspirin 81 Milligram By Mouth at bedtime. carvedilol (carvedilol 12.5 mg Tab) 0.5 Tablets By Mouth 2 times a day. Refills: 0. cholecalciferol (Vitamin D3) 3,000 Units By Mouth every day. cyanocobalamin (Vitamin B12 1000 mcg Tab) 1 Tablets By Mouth every day. ezetimibe (Zetia 10 mg Tab) 0.5 Tablets By Mouth every day. Refills: 3. furosemide (Lasix 20 mg Tab) 2 Tablets By Mouth every day as needed Other (see comment). PRN for leg swelling (takes for >3 pound weight gain). levothyroxine (levothyroxine 175 mcg (0.175 mg) Tab) 0.5 Tablets By Mouth every day. metformin-sitagliptin (Janumet 50 mg/1000 mg oral tablet) 1 Tablets By Mouth every day. Misc Prescription (ONETOUCH ULTRA TEST STRIP) TEST ONCE DAILY. montelukast (Singulair 10 mg Tab) 1 Tablets By Mouth once a day (in the evening). Refills: 4. nitroglycerin (nitroglycerin 0.4 mg sublingual Tab) 1 Tablets Sublingual As Directed as needed for chest pain. takeif SBP is greater than 110. Refills: 0. pravastatin (pravastatin 40 mg Tab) 1 Tablets By Mouth once a day (at bedtime). Refills: 0. sacubitril-valsartan (Entresto 97 mg-103 mg oral tablet) 1 Tablets By Mouth 2 times a day. hold if systolic is less than 100. ticagrelor (Brilinta (ticagrelor) 90 mg oral tablet) 1 Tablets By Mouth 2 times a day. Refills: 0. tramadol (traMADOL 50 mg Tab) 1-2 tabs By Mouth every 8 hours as needed Pain. Refills: 0. Care Team Members: Attending Physician: Antonietta Lucia MD Consulting Physician: [facility] Cardio, XXXX Referring Physician: Follow up: With: Address: When: Edd Alexandra MD, [facility] [address] [place] [address] Within 2 to 4 weeks Comments: Call for followup appointment With: Address: When: Davion Nolen [facility] [place] [address] Business (1) Comments: Call for followup appointment 2-3 weeks With: Address: When: Todd Osman [address] [place] [address] Business (1) Type Location Start [facility] Cardiology Inpatient Follow Up (FT) [facility]Cardiology Clinic 12/28/2023 10:15 AM 12/28/2023 10:30 AM Confirmed FM Open [facility] 01/24/2024 10:00 AM 01/24/2024 10:20 AM Confirmed FM Open [facility] 03/24/2024 9:40 AM 03/24/2024 10:00 AM Confirmed FM Medicare Wellness Subsequent [facility] 10/09/2024 9:30 AM 10/09/2024 10:30 AM Confirmed Patient Education Information: CV - Cardiovascular PCI Discharge Instructions (CUSTOM) INPATIENT PATIENT SUMMARY Observed: 11/27 2:24 PM Status: C Source: [facility] Inpatient Patient Summary [address] [address] Patient Discharge Instructions PERSON INFORMATION Name: RAY SUAREZ Date of : 1945 Current Date: 12/25/2023 14:24:26 PHYSICIANS Admitting Physician: Antonietta Lucia MD Primary Care Physician: Todd Osman DO PCP Comment: Discharge Diagnosis: 1:Chest pain; 2:Non-ST elevation IA (NSTEMI); 3:CAD (coronary artery disease); 4:Chronic systolic heart failure; 5:HTN (hypertension); 6:Dyslipidemia; 7:Type 2 diabetes mellitus; 8:History of ST elevation myocardial infarction (STEMI); 9:Neck pain on left side Condition at Discharge: Stable RAY SUAREZ has been given the following list of follow-up instructions, prescriptions, and patient education materials: PATIENT FOLLOW-UP INFORMATION Diet: Fat Modified- Low cholesterol Discharge Activity: Activity as tolerated Discharge Restrictions: Wound Care Instructions: Remove Your Dressing In Days Call Your Doctor For: IF UNABLE TO CONTACT YOUR PHYSICIAN AND YOU FEEL IT IS AN EMERGENCY, GO TO THE NEAREST EMERGENCY ROOM OR CALL 911 Home Treatment: Devices/Equipment: Blood glucose monitor, Cane, Other: hearing aids, bp machine Special Services: Additional Instructions: Primary Care Physician to provide the following pending test results: None Follow up: With: Address: When: Ibrahima AUGUSTE, MANUEL Puga [facility] [address] [place] [address] Within 2 to 4 weeks Comments: Call for followup appointment With: Address: When: Davion Nolen [address] [place] [address] Business (1) Comments: Call for followup appointment 2-3 weeks With: Address: When: Todd Osman [address] [place] [id number] Business (1) In the event that this physician does not participate in your insurance network, please consult with your insurance company to find a nearby participating provider. Type Location Start [facility] Cardiology Inpatient Follow Up (FT) [facility] 12/28/2023 10:15 AM 12/28/2023 10:30 AM Confirmed FM Open [facility] 01/24/2024 10:00 AM 01/24/2024 10:20 AM Confirmed FM Open [facility] 03/24/2024 9:40 AM 03/24/2024 10:00 AM Confirmed FM Medicare Wellness Subsequent [facility] 10/09/2024 9:30 AM 10/09/2024 10:30 AM Confirmed Comment: DAINELA España JOE M, have received the attached patient education materials/instructions and have verbalized understanding: Patient Signature Date Clinican/Nurse Signature Date HERE ARE THE MEDICATION CHANGES THAT OCCURRED DURING YOUR HOSPITAL STAY Medications to Continue with No Changes Other Medications aspirin 81 Milligram By Mouth at bedtime. Last Dose: Next Dose: carvedilol (carvedilol 12.5 mg Tab) 0.5 Tablets By Mouth 2 times a day. Refills: 0. Last Dose: Next Dose: cholecalciferol (Vitamin D3) 3,000 Units By Mouth every day. Last Dose: Next Dose: cyanocobalamin (Vitamin B12 1000 mcg Tab) 1 Tablets By Mouth every day. Last Dose: Next Dose: ezetimibe (Zetia 10 mg Tab) 0.5 Tablets By Mouth every day. Refills: 3. Last Dose: Next Dose: furosemide (Lasix 20 mg Tab) 2 Tablets By Mouth every day as needed Other (see comment). PRN for leg swelling (takes for >3 pound weight gain)., PRN for leg swelling. (Takes for >3 pound weight gain) Last Dose: Next Dose: levothyroxine (levothyroxine 175 mcg (0.175 mg) Tab) 0.5 Tablets By Mouth every day. Last Dose: Next Dose: metformin-sitagliptin (Janumet 50 mg/1000 mg oral tablet) 1 Tablets By Mouth every day. Last Dose: Next Dose: Misc Prescription (ONETOUCH ULTRA TEST STRIP) TEST ONCE DAILY. Last Dose: Next Dose: montelukast (Singulair 10 mg Tab) 1 Tablets By Mouth once a day (in the evening). Refills: 4., for breathing Last Dose: Next Dose: nitroglycerin (nitroglycerin 0.4 mg sublingual Tab) 1 Tablets Sublingual As Directed as needed for chest pain. takeif SBP is greater than 110. Refills: 0. Last Dose: Next Dose: pravastatin (pravastatin 40 mg Tab) 1 Tablets By Mouth once a day (at bedtime). Refills: 0. Last Dose: Next Dose: sacubitril-valsartan (Entresto 97 mg-103 mg oral tablet) 1 Tablets By Mouth 2 times a day. hold if systolic is less than 100. Last Dose: Next Dose: ticagrelor (Brilinta (ticagrelor) 90 mg oral tablet) 1 Tablets By Mouth 2 times a day. Refills: 0. Last Dose: Next Dose: tramadol (traMADOL 50 mg Tab) 1-2 tabs By Mouth every 8 hours as needed Pain. Refills: 0. Last Dose: Next Dose: Comment: MEDICATION LIST PROVIDED FOR YOU IS A LIST OF YOUR CURRENT MEDICATIONS. PLEASE CARRY THIS WITH YOU AT ALL TIMES. aspirin 81 Milligram By Mouth at bedtime. carvedilol (carvedilol 12.5 mg Tab) 0.5 Tablets By Mouth 2 times a day. Refills: 0. cholecalciferol (Vitamin D3) 3,000 Units By Mouth every day. cyanocobalamin (Vitamin B12 1000 mcg Tab) 1 Tablets By Mouth every day. ezetimibe (Zetia 10 mg Tab) 0.5 Tablets By Mouth every day. Refills: 3. furosemide (Lasix 20 mg Tab) 2 Tablets By Mouth every day as needed Other (see comment). PRN for leg swelling (takes for >3 pound weight gain). levothyroxine (levothyroxine 175 mcg (0.175 mg) Tab) 0.5 Tablets By Mouth every day. metformin-sitagliptin (Janumet 50 mg/1000 mg oral tablet) 1 Tablets By Mouth every day. [facility] [place] (TwentyPeopleTOUCH ULTRA TEST STRIP) TEST ONCE DAILY. montelukast (Singulair 10 mg Tab) 1 Tablets By Mouth once a day (in the evening). Refills: 4. nitroglycerin (nitroglycerin 0.4 mg sublingual Tab) 1 Tablets Sublingual As Directed as needed for chest pain. takeif SBP is greater than 110. Refills: 0. pravastatin (pravastatin 40 mg Tab) 1 Tablets By Mouth once a day (at bedtime). Refills: 0. sacubitril-valsartan (Entresto 97 mg-103 mg oral tablet) 1 Tablets By Mouth 2 times a day. hold if systolic is less than 100. ticagrelor (Brilinta (ticagrelor) 90 mg oral tablet) 1 Tablets By Mouth 2 times a day. Refills: 0. tramadol (traMADOL 50 mg Tab) 1-2 tabs By Mouth every 8 hours as needed Pain. Refills: 0. Pharmacy Information: [facility] , Mail Order Comment: PATIENT EDUCATION INFORMATION Instructions: [place], [place] Cardiovascular PCI DISCHARGE INSTRUCTIONS Diet: ? Resume pre-procedure diet. ? Increase water intake the next 2 days to flush dye out of the body. Activity: ? If radial access: ? Limit your activity today. Do not operate a vehicle, machinery or power tools. ? NO LIFTING OVER 3 POUNDS for 3 days. ? Do not bend your wrist for 24 hours. ? May resume driving in 24 hours. ? Let pain/discomfort guide your activity. If you are having pain, stop. ? No sexual activity for 1 week. ? Return to the Emergency Room if you have trouble breathing, walking or nausea and vomiting. Medications: ? Resume pre-procedure medication, unless otherwise directed. ? Minimal pain, soreness and/or discomfort is expected. ? If you are prescribed an aspirin and/or antiplatelet (such as Plavix, Brilinta or Effient) do NOT stop taking these medications for any reason without talking to your parks recreation director Site Care: ? Do not remove dressing for 24 hours unless it becomes saturated, then replace. ? Keep site clean and dry; inspect site daily. ? Do not use any lotions, powders, or ointments at the groin or wrist site for 1 week. ? May shower 24 hours after the procedure. Clean site with soap and water. Pat dry and apply band aid. No tub baths, swimming or hot tubs for 3 days. Post Procedure: ? Soreness and tenderness to the site can last up to one week. ? Bruising may occur to site. ? A responsible adult should be with you for the first 24 hours after you arrive home. ? Keep follow-up appointment. ? Carry your stent card with you at all times. This provides information about your heart disease for any doctor who cares for you. ? No smoking for 24 hours as it increases the risk of developing blood clots. ? If you are interested in smoking cessation, contact [facility] at [phone], [phone]. [phone]. ? In the event you are unable to reach your physician, please call [facility] at [phone] and the corduroy cutter operator will assist you. Seek Medicare Care for: ? Bleeding: Apply continuous pressure to the site and Call 911. ? Should the arm or leg become cold, numb, blue or white call your physician immediately. ? Signs of infection are redness, warmth, swelling, getting more sore, colored drainage, fever or chills ? Chest pain ? Blood in your urine or stool ? Black tarry stools ? Medication Leaflets: You may receive a survey from [employer] asking you to rate your care experience. Your feedback is important and will help us understand what we do well and how we can improve the quality of care we provide to you, your loved ones and our community. It?s an honor to serve you. Thank you for choosing [facility] INPATIENT PATIENT SUMMARY Observed: 11/27 2:15 PM Status: C Source: [facility] Inpatient Patient Summary RAY SUAREZ :1945 Visit Date:12/23/2023 Inpatient Discharge Instructions Your Care Team Admitting Physician - Rea AUGUSTE, Antonietta Consulting Physician - Ibrahima AUGUSTE, Edd [facility] Cardio, XXXX Reason for Your Visit pt arrives for c/o chest pain at 0300 with radiation into his neck. pt spouse states pt had a IA december 11 with stents placed. Your Diagnosis Chest pain Non-ST elevation IA (NSTEMI) CAD (coronary artery disease) Chronic systolic heart failure HTN (hypertension) Dyslipidemia Type [address] elevation myocardial infarction (STEMI) Neck pain on left side Acute ST elevation myocardial infarction (STEMI) Chest pain Medical problem - minor Tests Performed CT Head or Brain w/o Contrast CV Cardiovascular -- Results Pending -- MRA Head w/o Contrast MRA Neck w/o Contrast MRI Brain w/o Contrast US Carotid Duplex Bilateral XR Chest Single View Please visit your patient portal for your results or contact your primary care physician. This Is Your Medications List [facility] [place] (servtag ULTRA TEST STRIP) aspirin carvedilol (carvedilol 12.5 mg Tab) cholecalciferol (Vitamin D3) cyanocobalamin (Vitamin B12 1000 mcg Tab) ezetimibe (Zetia 10 mg Tab) furosemide (Lasix 20 mg Tab) levothyroxine (levothyroxine 175 mcg (0.175 mg) Tab) metformin-sitagliptin (Janumet 50 mg/1000 mg oral tablet) montelukast (Singulair 10 mg Tab) nitroglycerin (nitroglycerin 0.4 mg sublingual Tab) pravastatin (pravastatin 40 mg Tab) sacubitril-valsartan (Entresto 97 mg-103 mg oral tablet) ticagrelor (Brilinta (ticagrelor) 90 mg oral tablet) tramadol (traMADOL 50 mg Tab) Procedure History Cardiac catheterization, left heart (12/24/2023), PCI - Percutaneous coronary intervention (12/24/2023), STEMI - ST elevation myocardial infarction (12/12/2023), Carpal tunnel (12/02/2023), right total hip arthroplasty (09/11/2016), left total hip arthroplasty (07/19/2015), Cardiac catheterization (08/27/2006), Colonoscopy (2006), Vasectomy (1975), attempted tendon repair right leg, back surgery, Radical prostatectomy, Rotator cuff repair, Thyroidectomy, Tonsillectomy. 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 Previously Scheduled Follow-Up Appointments Sunday 10:15 AM EDT With: Jonathan Hernandez PA-C Where[facility] 2023 10:00 AM EDT With: Todd Osman DO Where: [address] [place] [address]- Sunday 9:40 AM EDT With: Todd Osman DO Where: [address] [place] [address]- 2024 9:30 AM EDT With: Where: [address] [place] [address]- New Follow Up Appointments after Discharge Follow Up with Davion Nolen When: Comments: Call for followup appointment 2-3 weeks Where: [place] [address]- Business (1) Follow Up with Todd Osman When: Where: [address] [place] [address]- Business (1) Follow Up with Ibrahima AUGUSTE, MANUEL Puga When: Within 2 to 4 weeks Where: [facility] [address] [place] [address]- Medications What How Much When Instructions Next Dose Unchanged aspirin 81 Milligram By Mouth At bedtime 12/24 bedtime Unchanged carvedilol (carvedilol 12.5 mg Tab) 0.5 Tablets By Mouth 2 times a day 12/24 bedtime Unchanged cholecalciferol (Vitamin D3) 3,000 Units By Mouth Every day 12/25 AM Unchanged cyanocobalamin (Vitamin B12 1000 mcg Tab) 1 Tablets By Mouth Every day 12/25 AM Unchanged ezetimibe (Zetia 10 mg Tab) 0.5 Tablets By Mouth Every day 12/25 AM Unchanged furosemide (Lasix 20 mg Tab) 2 Tablets By Mouth Every day as needed for Other (see comment) PRN for leg swelling (takes for >3 pound weight gain) as needed Unchanged levothyroxine (levothyroxine 175 mcg (0.175 mg) Tab) 0.5 Tablets By Mouth Every day 12/25 AM Unchanged metformin-sitagliptin (Janumet 50 mg/ 1000 mg oral tablet) 1 Tablets By Mouth Every day 12/25 AM Unchanged Misc Prescription (ONETOUCH ULTRA TEST STRIP) TEST ONCE DAILY Unchanged montelukast (Singulair 10 mg Tab) 1 Tablets By Mouth Once a day (in the evening) 12/24 evening Unchanged nitroglycerin (nitroglycerin 0.4 mg sublingual Tab) 1 Tablets Sublingual As Directed as needed for for chest pain takeif SBP is greater than 110 Unchanged pravastatin (pravastatin 40 mg Tab) 1 Tablets By Mouth Once a day (at bedtime) 12/24 bedtime Unchanged sacubitril-valsartan (Entresto 97 mg-103 mg oral tablet) 1 Tablets By Mouth 2 times a day hold if systolic is less than 100 12/24 bedtime Unchanged ticagrelor (Brilinta (ticagrelor) 90 mg oral tablet) 1 Tablets By Mouth 2 times a day 12/24 bedtime Unchanged tramadol (traMADOL 50 mg Tab) 1-2 tabs By Mouth Every 8 hours as needed for Pain Test Results CBC BMP WBC: 9.1 E9/L (12/25/23 05:49:00) Glucose Lvl: 94 mg/dL (12/25/23 05:49:00) RBC: 5.1 E12/L (12/25/23 05:49:00) BUN: 20 mg/dL (12/25/23 05:49:00) HGB: 15.9 gm/dL (12/25/23 05:49:00) Creatinine: 1.2 mg/dL (12/25/23 05:49:00) Hct: 45.6 % (12/25/23 05:49:00) BUN/Creat Ratio: 17 (12/25/23 05:49:00) MCV: 89.7 fL (12/25/23 05:49:00) Sodium Lvl: 139 mmol/L (12/25/23 05:49:00) MCH: 31.3 pg (12/25/23 05:49:00) Potassium Lvl: 4 mmol/L (12/25/23 05:49:00) MCHC: 34.9 gm/dL (12/25/23 05:49:00) Chloride: 107 mmol/L (12/25/23 05:49:00) RDW: 14.2 % (12/25/23 05:49:00) CO2: 22 mmol/L (12/25/23 05:49:00) Platelet: 198 E9/L (12/25/23 05:49:00) AGAP: 14 mEq/L (12/25/23 05:49:00) MPV: 9.4 fL (12/25/23 05:49:00) Calcium Lvl: 10.1 mg/dL (12/25/23 05:49:00) Allergies Aldactone Contrast Dye (Flushing) Crestor Pollen (Hayfever) Toradol Problems Ongoing - Any problem that you are currently receiving treatment for. Asthma Benign essential hypertension CHF - Congestive heart failure COPD with asthma Dyslipidemia Former smoker GERD (gastroesophageal reflux disease) History of prostate cancer History of prostatectomy Hyperlipidemia, unspecified Hypothyroidism (acquired) SAMIRA (obstructive sleep apnea) Type 2 diabetes mellitus with hyperlipidemia Historical - Any problem that you are no longer receiving treatment for. Chronic back pain Smoker Devices Implanted/Removed This Visit Notice: You have devices implanted this visit that may not be MRI compatible. Implanted PCI Body Site Undefined Amos [place] Coronary Stent 12/24/2023, MR [employer] [place], [place] Cardiovascular PCI DISCHARGE INSTRUCTIONS Diet: ? Resume pre-procedure diet. ? Increase water intake the next 2 days to flush dye out of the body. Activity: ? If radial access: ? Limit your activity today. Do not operate a vehicle, machinery or power tools. ? NO LIFTING OVER 3 POUNDS for 3 days. ? Do not bend your wrist for 24 hours. ? May resume driving in 24 hours. ? Let pain/discomfort guide your activity. If you are having pain, stop. ? No sexual activity for 1 week. ? Return to the Emergency Room if you have trouble breathing, walking or nausea and vomiting. Medications: ? Resume pre-procedure medication, unless otherwise directed. ? Minimal pain, soreness and/or discomfort is expected. ? If you are prescribed an aspirin and/or antiplatelet (such as Plavix, Brilinta or Effient) do NOT stop taking these medications for any reason without talking to your parks recreation director Site Care: ? Do not remove dressing for 24 hours unless it becomes saturated, then replace. ? Keep site clean and dry; inspect site daily. ? Do not use any lotions, powders, or ointments at the groin or wrist site for 1 week. ? May shower 24 hours after the procedure. Clean site with soap and water. Pat dry and apply band aid. No tub baths, swimming or hot tubs for 3 days. Post Procedure: ? Soreness and tenderness to the site can last up to one week. ? Bruising may occur to site. ? A responsible adult should be with you for the first 24 hours after you arrive home. ? Keep follow-up appointment. ? Carry your stent card with you at all times. This provides information about your heart disease for any doctor who cares for you. ? No smoking for 24 hours as it increases the risk of developing blood clots. ? If you are interested in smoking cessation, contact [facility] at [phone], ext. [phone]. ? In the event you are unable to reach your physician, please call [facility] at [phone] and the corduroy cutter operator will assist you. Seek Medicare Care for: ? Bleeding: Apply continuous pressure to the site and Call 911. ? Should the arm or leg become cold, numb, blue or white call your physician immediately. ? Signs of infection are redness, warmth, swelling, getting more sore, colored drainage, fever or chills ? Chest pain ? Blood in your urine or stool ? Black tarry stools ? Common Emergency Awareness Tips IS IT A STROKE? Act FAST and Check for these signs: FACE Does the face look uneven? ARM Does one arm drift down? SPEECH Does their speech sound strange? TIME Call at any sign of stroke Heart Attack Signs Chest discomfort: Most heart attacks involve discomfort in the center of the chest and lasts more than a few minutes, or goes away and comes back. It can feel like uncomfortable pressure, squeezing, fullness or pain. Discomfort in upper body: Symptoms can include pain or discomfort in one or both arms, back, neck, jaw or stomach. Shortness of breath: With or without discomfort. Other signs: Breaking out in a cold sweat, nausea, or lightheaded. Remember, MINUTES DO MATTER. If you experience any of these heart attack warning signs, call to get immediate medical attention! Patient Survey You may receive a survey in the mail asking you about your stay with us. We want to hear from you, please share your experience with us by completing your survey. Thank you for choosing [facility]. Leonardo Award Nomination The LEONARDO (Diseases Attacking the Immune SYstem) Award is an international recognition program that honors and celebrates the skillful, compassionate care nurses provide every day. Anyone who experiences or observes amazing care being provided by a nurse is encouraged to submit a nomination. To nominate your nurse, use your smart phone to scan the QR code below. Patient Portal You may access all of your results and other medical record information on our secure patient portal. If you are not signed up for this yet, please contact [employer] at [phone] to get signed up today. Patient Name: RAY SUAREZ I have received this information and my questions have been answered. Patient/Washing Machine Mechanic Name: Patient/Washing Machine Mechanic Signature: Relationship to Patient: Witness Name/Signature: Date: DISCHARGE SUMMARY Observed: 12/25/2023 11:51 AM Status: F Source: [facility] Discharge Summary Admission and Discharge Information Admit Date/Time:12/23/2023 05:33 Admitting Physician - Rea AUGUSTE, Antonietta Consulting Physician - Ibrahima AUGUSTE, Edd [facility] Cardio, XXXX Admitting Diagnoses: Discharge Diagnoses 1. Chest pain, 12/23/2023 2. Non-ST elevation IA (NSTEMI), 12/23/2023 3. CAD (coronary artery disease), 12/23/2023 4. Chronic systolic heart failure, 12/23/2023 5. HTN (hypertension), 12/23/2023 6. Dyslipidemia, 12/23/2023 7. Type 2 diabetes mellitus, 12/23/[address] elevation myocardial infarction (STEMI), 12/23/2023 9. Neck pain on left side, 12/23/[address] elevation myocardial infarction (STEMI), 12/23/2023 Chest pain, 12/23/2023 Medical problem - minor, 12/23/2023 Procedure History Cardiac catheterization, left heart (12/24/2023), PCI - Percutaneous coronary intervention (12/24/2023), STEMI - ST elevation myocardial infarction (12/12/2023), Carpal tunnel (12/02/2023), right total hip arthroplasty (09/11/2016), left total hip arthroplasty (07/19/2015), Cardiac catheterization (08/27/2006), Colonoscopy (2006), Vasectomy (1975), attempted tendon repair right leg, back surgery, Radical prostatectomy, Rotator cuff repair, Thyroidectomy, Tonsillectomy. Hospital Course 78 year old male who presented to the hospital following a recent cardiac cath w/stent placement x 2 on 12/11 w/chest pain. Pt reports he was at home when he suddenly was unable to see the left side of the clock at home. Had two separate episodes of neck pain which quickly resolved. This was all associated with left arm weakness. Pt was brought to the hospital and was admitted with chest pain. Pt had elevated troponin level 873.70 which did trend up to 874.40 but then flattened to 784.80. Pt was monitored on telemetry A CT of the head was ordered and was negative for acute findings. A carotid US was then ordered which showed no significant stenosis and was <50% bilateral. Cardiology consultation was obtained and pt underwent a repeat cardiac cath on 12/23 with placement of 1 drug eluting stent to the right PDA bu Dr Davion Nolen. Today a MRI of the brain and MRA of the head and neck are all negative. Pt was seen by w/neurology. Recommendation to continue Ticagrelor, ASA, Statin, Ezetimibe as before. Pt was cleared by cardiology for discharge home w/ recommendation to continue DAPT for at least 1 year. Per neurology consideration of cause of left visual issues could have been left homonymous hemianopia noted shortly after cardiac catheterization vs Transient cortical blindness. Either way, symptoms have resolved and pt has full visual cowan today. Pt was cleared by both neurology and cardiology when medically stable. Case discussed with who is in agreement with current discharge plan. Pt will d/c home in stable condition. Services Consulted Consult to Cardiology (Cardiology Consult) - Ordered -- 12/23/23 6:03:00 EDT, Possible NSTEMI, Consult and Co-manage, [facility] Consult to Dietitian Adult - Ordered -- 12/23/23 11:48:24 EDT Consult to Neurology - Ordered -- 12/24/23 13:09:00 EDT, loss visual field ? stroke, Consult and Co-manage Physical Exam Vitals & Measurements T: 36.7 ?C(Axillary) TMIN: 36.3 ?C(Oral) TMAX: 36.7 ?C(Axillary) HR: 60(Monitored) RR: 18 BP: 118/76 SpO2: 98% WT: 95.1 kg General: NAD Skin: warm, dry, no rash Head: AT/NC Neck: Trachea midline, supple Eye: PERRLA 3mm. non icteric. Cardiovascular: regular rate and rhythm, S1S2, normal peripheral perfusion Respiratory: Lungs CTA anteriorly, respirations non labored, breath sounds equal, no w/r/r Chest wall: no deformity, no TTP Gastrointestinal: soft, NT, ND, no peritoneal signs Extremities: no deformity, no edema Neurological: oriented, LOC appropriate for age, no focal deficits, normal speech/ no weakness noted. Psychiatric: cooperative, affect appropriate for age, good eye contact Tests Performed CT Head or Brain w/o Contrast CV Cardiovascular -- Results Pending -- MRA Head w/o Contrast MRA Neck w/o Contrast MRI Brain w/o Contrast US Carotid Duplex Bilateral XR Chest Single View Please visit your patient portal for your results or contact your primary care physician. Discharge Plan Discharge Disposition Discharge To, Anticipated II - Home with home health Discharge Medication List Prescriptions Brilinta (ticagrelor) 90 mg oral tablet, 90 mg= 1 tab(s), Oral, BID carvedilol 12.5 mg Tab, 6.25 mg= 0.5 tab(s), Oral, BID nitroglycerin 0.4 mg sublingual Tab, 0.4 mg= 1 tab(s), SubLingual, As Directed, PRN pravastatin 40 mg Tab, 40 mg= 1 tab(s), Oral, Once a day (at bedtime) Singulair 10 mg Tab, 10 mg= 1 tab(s), Oral, qPM, 4 refills traMADOL 50 mg Tab, 1-2 tabs, Oral, q8hr, PRN Zetia 10 mg Tab, 5 mg= 0.5 tab(s), Oral, Daily, 3 refills Home aspirin, 81 mg, Oral, Bedtime Entresto 97 mg-103 mg oral tablet, 1 tab(s), Oral, BID Janumet 50 mg/1000 mg oral tablet, 1 tab(s), Oral, Daily Lasix 20 mg Tab, 40 mg= 2 tab(s), Oral, Daily, PRN, Self Directed levothyroxine 175 mcg (0.175 mg) Tab, 87.5 mcg= 0.5 tab(s), Oral, Daily ONETOUCH ULTRA TEST STRIP Vitamin B12 1000 mcg Tab, 1000 mcg= 1 tab(s), Oral, Daily Vitamin D3, 3000 unit(s), Oral, Daily Follow-up With When Contact Information Ibrahima AUGUSTE, MANUEL Puga Within 2 to 4 weeks [facility] [place] [address]- Additional Instructions: Patient Education CV - Cardiovascular PCI Discharge Instructions (CUSTOM) Result Comment: Electronical ly Signed By: Khloe VO\.br\Date and Time Signed: 12/25/23 11:51 EDT\.br\Electronically Co-Signed By: Jorge AUGUSTE, Leopoldo Horn\.br\Date and Time Co-Signed: 12/26/23 19:00 EDT PROGRESS NOTE-PHYSICIAN Observed: 2023 11:27 AM Status: F Source: [facility] Progress Note-Physician Subjective Doing well this morning. Reports no chest pain or shortness of breath. Denies any blindness, dizziness or lightheadedness. MRI brain showed no evidence of CVA Review of Systems ROS - Provider Constitutional: no fever, no chills, no sweats, no weakness Respiratory: no shortness of breath, no cough Cardiovascular: no chest pain Neuro: no dizziness. no loss of consciousness Objective Vitals & Measurements T: 36.7 ?C(Axillary) TMIN: 36.3 ?C(Oral) TMAX: 36.7 ?C(Axillary) HR: 60(Monitored) RR: 18 BP: 118/76 SpO2: 98% WT: 95.1 kg Intake & Output This visit (24 hour periods starting at 07:00 EDT) 12/25/23 * 12/24/23 12/23/23 Total Summary Intake mL -- -- -- Output mL -- -- -- Fluid Balance -- -- -- Intake (0) Output (0) Counts (2) Stool Count -- 1 -- Urine Count -- 2 2 * This column has not completed the indicated time period. Physical Exam General: alert, no acute distress Neck: Supple, noJVD nocarotid bruit Cardiovascular: regular rate and rhythm, no murmur normal peripheral perfusion Respiratory: Lungs CTAB, respirations non labored Extremities: no edema left lower extremity. no edema right lower extremity Neurological: oriented x 4, LOC appropriate for age, speech normal Skin: Warm, dry, intact- no rash or concerning lesions Lab Results WBC: 9.1 E9/L (12/25/23 05:49:00) RBC: 5.1 E12/L (12/25/23 05:49:00) HGB: 15.9 gm/dL (12/25/23 05:49:00) Hct: 45.6 % (12/25/23 05:49:00) MCV: 89.7 fL (12/25/23 05:49:00) MCH: 31.3 pg (12/25/23 05:49:00) MCHC: 34.9 gm/dL (12/25/23 05:49:00) RDW: 14.2 % (12/25/23 05:49:00) Platelet: 198 E9/L (12/25/23 05:49:00) MPV: 9.4 fL (12/25/23 05:49:00) RBC Morph: NORMAL (12/25/23 05:49:00) Glucose Lvl: 94 mg/dL (12/25/23 05:49:00) BUN: 20 mg/dL (12/25/23 05:49:00) Creatinine: 1.2 mg/dL (12/25/23 05:49:00) eGFR: 61 mL/min/1.73 m2 (12/25/23 05:49:00) BUN/Creat Ratio: 17 (12/25/23 05:49:00) Sodium Lvl: 139 mmol/L (12/25/23 05:49:00) Potassium Lvl: 4 mmol/L (12/25/23 05:49:00) Chloride: 107 mmol/L (12/25/23 05:49:00) CO2: 22 mmol/L (12/25/23 05:49:00) AGAP: 14 mEq/L (12/25/23 05:49:00) Calcium Lvl: 10.1 mg/dL (12/25/23 05:49:00) Magnesium: 1.6 mg/dL (12/25/23 05:49:00) Troponin HS: 721.1 pg/mL Critical (12/25/23 05:49:00) Glucose Cap: 106 mg/dL High (12/25/23 07:45:00) POC Device SN: [id number] (12/25/23 07:45:00) POC User ID: [id number] (12/25/23 07:45:00) POC Username: CHRISTIANNE GIBSON (12/25/23 07:45:00) Images (12/25/2023 10:48 EDT MRI Brain w/o Contrast) MPRESSION: MRI brain: NO ACUTE ISCHEMIA OR ACUTE INTRACRANIAL PROCESS. GENERALIZED PARENCHYMAL VOLUME LOSS AND NONSPECIFIC WHITE MATTER FINDINGS MOST COMPATIBLE WITH CHRONIC SMALL VESSEL ISCHEMIC CHANGES IN A PATIENT OF THIS AGE. MRA brain: NO ANEURYSM OR HIGH-GRADE STENOSIS OF THE VISUALIZED CEREBRAL VASCULATURE. [1] Assessment/Plan From the coronary artery disease standpoint, the patient is doing well. Continue DAPT for at least 1 year. Neurologically, no gross deficits. 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 No evidence of CVA. Neurology to see. 1. Chest pain (R07.9: Chest pain, unspecified) 2. Non-ST elevation IA (NSTEMI) (I21.4: Non-ST elevation (NSTEMI) myocardial infarction) 3. CAD (coronary artery disease) (I25.10: Atherosclerotic heart disease of [place] coronary artery without angina pectoris) 4. Chronic systolic heart failure (I50.22: Chronic systolic (congestive) heart failure) 5. HTN (hypertension) (I10: Essential (primary) hypertension) 6. Dyslipidemia (E78.5: Hyperlipidemia, unspecified) 7. Type 2 diabetes mellitus (E11.9: Type 2 diabetes mellitus without complications) 8. History of ST elevation myocardial infarction (STEMI) (I25.2: Old myocardial infarction) 9. Neck pain on left side (M54.2: Cervicalgia) Acute ST elevation myocardial infarction (STEMI) (I21.3: ST elevation (STEMI) myocardial infarction of unspecified site) Problem List/Past Medical History Ongoing Asthma Benign essential hypertension CHF - Congestive heart failure COPD with asthma Dyslipidemia Former smoker GERD (gastroesophageal reflux disease) History of prostate cancer History of prostatectomy Hyperlipidemia, unspecified Hypothyroidism (acquired) SAMIRA (obstructive sleep apnea) Type 2 diabetes mellitus with hyperlipidemia Historical Chronic back pain Smoker Medications Inpatient acetaminophen 325 mg Tab, 650 mg= 2 tab(s), Oral, q6hr, PRN aspirin 81 mg Oral EC Tab, 81 mg= 1 tab(s), Oral, Bedtime Benadryl 25 mg Cap, 25 mg= 1 cap(s), Oral, q6hr, PRN carvedilol 6.25 mg Tab, 6.25 mg= 1 tab(s), Oral, BID Dextrose 50% Soln-IV, 50 mL, IV Push, Once, PRN HumaLOG Sliding Scale, 0-10 Unit(s), SubCutaneous, QIDACHS levothyroxine 175 mcg (0.175 mg) Tab, 87.5 mcg= 0.5 tab(s), Oral, Daily pravastatin 40 mg Tab, 40 mg= 1 tab(s), Oral, Once a day (at bedtime) sacubitril-valsartan 24 mg-26 mg oral tablet, 4 tab(s), Oral, BID Senokot 8.6 mg Tab, 17.2 mg= 2 tab(s), Oral, BID, PRN Singulair 10 mg Tab, 10 mg= 1 tab(s), Oral, qPM Sodium Chloride 0.9% IV Gillian 1000 mL 1,000 mL, 1000 mL, IV ticagrelor, 90 mg= 1 tab(s), Oral, BID traMADOL 50 mg Tab, 50 mg= 1 tab(s), Oral, q8hr, PRN Vitamin B12 1000 mcg Tab, 1000 mcg= 1 tab(s), Oral, Daily Vitamin D3 1000 intl units (25 mcg) Tab, 25 mcg= 1 tab(s), Oral, Daily Zetia 10 mg Tab, 5 mg= 0.5 tab(s), Oral, Daily Zofran 4 mg/2 mL Injection, 4 mg= 2 mL, IV Push, q6hr, PRN Home aspirin, 81 mg, Oral, Bedtime Brilinta (ticagrelor) 90 mg oral tablet, 90 mg= 1 tab(s), Oral, BID carvedilol 12.5 mg Tab, 6.25 mg= 0.5 tab(s), Oral, BID Entresto 97 mg-103 mg oral tablet, 1 tab(s), Oral, BID Janumet 50 mg/1000 mg oral tablet, 1 tab(s), Oral, Daily Lasix 20 mg Tab, 40 mg= 2 tab(s), Oral, Daily, PRN, Self Directed levothyroxine 175 mcg (0.175 mg) Tab, 87.5 mcg= 0.5 tab(s), Oral, Daily nitroglycerin 0.4 mg sublingual Tab, 0.4 mg= 1 tab(s), SubLingual, As Directed, PRN ONETOUCH ULTRA TEST STRIP pravastatin 40 mg Tab, 40 mg= 1 tab(s), Oral, Once a day (at bedtime) Singulair 10 mg Tab, 10 mg= 1 tab(s), Oral, qPM, 4 refills traMADOL 50 mg Tab, 1-2 tabs, Oral, q8hr, PRN Vitamin B12 1000 mcg Tab, 1000 mcg= 1 tab(s), Oral, Daily Vitamin D3, 3000 unit(s), Oral, Daily Zetia 10 mg Tab, 5 mg= 0.5 tab(s), Oral, Daily, 3 refills [1] MRI Brain w/o Contrast; Kain Powers DO 12/25/2023 10:48 EDT Result Comment: Electronical ly Signed By: Rufus AUGUSTE, Wilner Mello\.br\Date and Time Signed: 12/25/23 11:27 EDT MRA NECK W/O CONTRAST Observed: 12/25/19 9:48 AM Status: F Source: [facility] Exam Date/Time: 12/25/2023 10:48 EDT Reason for Exam: Stroke Report IMPRESSION: NO DISSECTION, HIGH GRADE STENOSIS OR ANEURYSM. EXAM: MR angiogram of the neck without contrast HISTORY: CVA TECHNIQUE: Axial 2-D and 3-D [id number] images of the vasculature of the neck was obtained without contrast. 3-D volume rendered images were obtained. COMPARISON: None available FINDINGS: The visualized bilateral common carotid arteries are of normal course and caliber. The bilateral internal and external carotid arteries are of normal course and caliber. Vertebral arteries demonstrate normal caliber. No dissection, high grade stenosis or aneurysm. Ordering Provider: Khloe SALOMON FINAL REPORT Dictated: 12/25/2023 11:04 am Kain Powers DO Signed (Electronic Signature): 12/25/2023 11:04 am Signed by: Kain Powers DO Transcribed by: NII Technologist: PAULINE MRA HEAD W/O CONTRAST Observed: 12/25/19 24 9:48 AM Status: F Source: [facility] Exam Date/Time: 12/25/2023 10:48 EDT Reason for Exam: Stroke Report Please see MRI brain report. Ordering Provider: Khloe SALOMON FINAL REPORT Dictated: 12/25/2023 10:59 am Kain Powers DO Signed (Electronic Signature): 12/25/2023 10:59 am Signed by: Kain Powers DO Transcribed by: NII Technologist: PAULINE MRI BRAIN W/O CONTRAST Observed: 024 9:48 AM Status: F Source: [facility] Exam Date/Time: 12/25/2023 10:48 EDT Reason for Exam: CVA Report IMPRESSION: MRI brain: NO ACUTE ISCHEMIA OR ACUTE INTRACRANIAL PROCESS. GENERALIZED PARENCHYMAL VOLUME LOSS AND NONSPECIFIC WHITE MATTER FINDINGS MOST COMPATIBLE WITH CHRONIC SMALL VESSEL ISCHEMIC CHANGES IN A PATIENT OF THIS AGE. MRA brain: NO ANEURYSM OR HIGH-GRADE STENOSIS OF THE VISUALIZED CEREBRAL VASCULATURE. EXAM: MRI of the brain without contrast MRA of the brain without contrast History: Neck pain radiating into the neck. Cerebrovascular accident. Technique: Multiplanar multisequence MRI of the brain was performed without contrast. Axial 3-D ofsh-sv-swkfst images of the brain were obtained without contrast. 3-D volume rendered images were performed for evaluation of the cerebral vasculature. Comparison: CT brain 12/24/2023 Findings: MRI brain: Areas of hyperintense T2/FLAIR signal within the bilateral supratentorial white matter are nonspecific but are most likely due to chronic small vessel ischemic changes in a patient of this age. Prominence of the sulci and ventricles compatible with mild generalized parenchymal volume loss. No acute hemorrhage, mass, mass effect, midline shift, or abnormal extra-axial fluid collection. Midline structures are within normal limits. The posterior fossa is within normal limits. There is no diffusion restriction. There is a 5 mm focus of T2 shine through of the subcortical white matter of the left frontal lobe. No susceptibility artifact is identified on the gradient echo sequence. Report The major intracranial vascular flow voids are maintained. Cranial nerves 7/8 complexes appear grossly unremarkable. Mild paranasal sinus mucosal thickening. Bilateral mastoid air cells are clear. MRA brain: The bilateral distal cervical internal carotid arteries through the skull base are patent. The bilateral middle cerebral arteries through the trifurcation and opercular branches are patent. The vertebrobasilar system including the superior cerebellar and posterior cerebral arteries are patent. Posterior communicating arteries are patent. The bilateral anterior cerebral arteries and anterior communicating artery are patent. No aneurysm or high-grade stenosis of the visualized cerebral vasculature. Ordering Provider: Khloe SALOMON FINAL REPORT Dictated: 12/25/2023 10:59 am Kain Powers DO Signed (Electronic Signature): 12/25/2023 10:59 am Signed by: Kain Powers DO Transcribed by: NII Technologist: PAULINE INTERDISCIPLINARY NOTE - SHIV E EMERGENCY DISPATCH OPERATOR Observed: 12/25/2023 9:21 AM Status: C Source: [facility] Interdisciplinary Note - Shiv e Sales Project Manager CRM to room to discuss DC planning. Patient is awake, alert and oriented. He has family in room. Patient is from home with spouse. His family will transport at DC. Patient verified PCP, DME and insurance. reviewed medicare rights. Patient is here with CP. Patient had some PCI with [facility]. Patient is assigned to [facility], see notes. Patient is current with [facility] that is the DC plan. Patient has needed DME. Patient was provided CRM contact, suzi joyner updated. CRM following Will get updates from [facility] at 10 AM Patient will get MRI today DC depends on results Possible today or 12/25 if negative Result Comment: Electronical ly Signed By: Yari Silva\.br\Date and Time Signed: 12/25/23 10:44 EDT CAPILLARY GLUCOSE POC Collected: 2023 7:45 AM Status: F Source: [facility] TYPE CODE TESTS RESULT OUT OF RANGE REFERENCE UNITS LAB [id number](LOINC) Glucose Cap 106 High 55-99 mg/d L Result Comment: Notified RN/ MD Performed By: #### [id number] #### [facility] [address] [place] [address] CONSULTATION NOTE Observed: 12/25/2023 6:51 AM Status: F Source: [facility] Consultation Note Chief Complaint pt arrives for c/o chest pain at 0300 with radiation into his neck. pt spouse states pt had a IA december 11 with stents placed. Reason for Consultation loss of visual field, ? CVA History of Present Illness 78-year-old man with recent coronary issues requiring catheterization. Yesterday, shortly after getting done in the [employer], he remarked that while looking at a clock or looking at faces he was unable to see the left side of the clock or faces. These vision issues did resolve. His daughters and a lot of medical staff members evaluated the vision and I still do not have a sense for if this was a monocular left eye vision loss or a binocular left hemianopia. He clearly states that he had both eyes open and was looking at things and could not see the left half so I am thinking this was a binocular left hemianopia. It is also mentioned that they were waving things in front of the left eye and he was not detecting them. The cardiac catheterization was a second 1 in recent history, and was prompted by concerning symptoms that brought him in, including some left chest pain that seem to radiate up the neck on the left side. One of his daughter says she thinks during the vision episode his speech seems slightly slurred and they were concerned that he was having trouble with hpqesv-wmam-ppheig testing with the left upper extremity. Review of Systems GEN: No fevers or chills. CV/PULM: No chest pain today. No shortness of breath. No palpitations. NEURO: No headaches. No current loss of vision. No double vision. No dysphagia. No speech changes. No focal weakness. No sensory loss. Physical Exam Vitals & Measurements T: 36.3 ?C(Oral) TMIN: 36.2 ?C(Axillary) TMAX: 36.5 ?C(Axillary) HR: 58(Monitored) RR: 18 BP: 113/71 SpO2: 97% WT: 95.1 kg GEN: General appearance normal. Well-kempt. No distress. No visualized deformities or trauma. CARDIO/VASC: Limbs without significant edema and appear well-perfused. PULM: Normal work of breathing. SKIN: Visualized skin is intact and without lesions aside from age-related findings. MS: Affect is normal. Patient is alert. Normal attention. LANG: Speech is fluent and non-dysarthric. EYES: Pupils equal, small, fixed. Ocular motility full. No pathologic nystagmus. Visual cowan are full to finger counting bilaterally. Visual acuity acceptable. CN: Facial sensation normal. Hearing acuity very poor. Face without droop and with normal motor function. MOTOR: Muscle bulk normal. Muscle tone normal. Muscle strength normal. No tremors. REFLEXES: Reflexes hypoactive throughout. No pathologic reflexes. SENSORY: Light touch normal. CEREBELLAR: No limb ataxia. Date/Time:12/25/2023 @0913 Level of Consciousness: Alert = 0 Current month and age: Answers both correctly = 0 Open and close eyes/counter former release hand: Obeys both correctly = 0 Best gaze: Normal = 0 Visual field testing: No visual field loss = 0 Facial paresis: Normal symmetric movement = 0 Motor function left arm: Normal = 0 Motor function right arm: Normal = 0 Motor function left leg: Normal = 0 Motor function right leg: Normal = 0 Limb ataxia: No ataxia = 0 Sensory: Normal = 0 Best language: No aphasia = 0 Dysarthria: Normal articulation = 0 Extinction and inattention: Normal = 0 Total Score (severe deficit >22): 0 Notes: Assessment/Plan ASSESSMENT: What I presume was a left homonymous hemianopia noted shortly after cardiac catheterization; it has resolved. Possible associated subtle speech changes and left upper extremity ataxia/dysmetria were noted and have also resolved. Consider posterior circulation TIA or small ischemic stroke with rapidly resolving symptoms. Embolic stroke is a known complication of cardiac catheterization. Will consider vertebral artery dissection as a potential contributor to his radiating left chest up to the neck pains he presented with. PLAN: 1. The ticagrelor, aspirin, pravastatin, ezetimibe all seem appropriate. 2. MRI brain and MRA of head and neck are pending 3. No other recommendations at this time 1. Chest pain (R07.9: Chest pain, unspecified) 2. Non-ST elevation IA (NSTEMI) (I21.4: Non-ST elevation (NSTEMI) myocardial infarction) 3. CAD (coronary artery disease) (I25.10: Atherosclerotic heart disease of [place] coronary artery without angina pectoris) 4. Chronic systolic heart failure (I50.22: Chronic systolic (congestive) heart failure) 5. HTN (hypertension) (I10: Essential (primary) hypertension) 6. Dyslipidemia (E78.5: Hyperlipidemia, unspecified) 7. Type 2 diabetes mellitus (E11.9: Type 2 diabetes mellitus without complications) 8. History of ST elevation myocardial infarction (STEMI) (I25.2: Old myocardial infarction) 9. Neck pain on left side (M54.2: Cervicalgia) Acute ST elevation myocardial infarction (STEMI) (I21.3: ST elevation (STEMI) myocardial infarction of unspecified site) Problem List/Past Medical History Ongoing Asthma Benign essential hypertension CHF - Congestive heart failure COPD with asthma Dyslipidemia Former smoker GERD (gastroesophageal reflux disease) History of prostate cancer History of prostatectomy Hyperlipidemia, unspecified Hypothyroidism (acquired) SAMIRA (obstructive sleep apnea) Type 2 diabetes mellitus with hyperlipidemia Historical Chronic back pain Smoker Procedure/Surgical History Cardiac catheterization, left heart (12/24/2023), PCI - Percutaneous coronary intervention (12/24/2023), STEMI - ST elevation myocardial infarction (12/12/2023), Carpal tunnel (12/02/2023), right total hip arthroplasty (09/11/2016), left total hip arthroplasty (07/19/2015), Cardiac catheterization (08/27/2006), Colonoscopy (2006), Vasectomy (1975), attempted tendon repair right leg, back surgery, Radical prostatectomy, Rotator cuff repair, Thyroidectomy, Tonsillectomy. Medications Inpatient acetaminophen 325 mg Tab, 650 mg= 2 tab(s), Oral, q6hr, PRN aspirin 81 mg Oral EC Tab, 81 mg= 1 tab(s), Oral, Bedtime Benadryl 25 mg Cap, 25 mg= 1 cap(s), Oral, q6hr, PRN carvedilol 6.25 mg Tab, 6.25 mg= 1 tab(s), Oral, BID Dextrose 50% Soln-IV, 50 mL, IV Push, Once, PRN HumaLOG Sliding Scale, 0-10 Unit(s), SubCutaneous, QIDACHS levothyroxine 175 mcg (0.175 mg) Tab, 87.5 mcg= 0.5 tab(s), Oral, Daily pravastatin 40 mg Tab, 40 mg= 1 tab(s), Oral, Once a day (at bedtime) sacubitril-valsartan 24 mg-26 mg oral tablet, 4 tab(s), Oral, BID Senokot 8.6 mg Tab, 17.2 mg= 2 tab(s), Oral, BID, PRN Singulair 10 mg Tab, 10 mg= 1 tab(s), Oral, qPM Sodium Chloride 0.9% IV Gillian 1000 mL 1,000 mL, 1000 mL, IV ticagrelor, 90 mg= 1 tab(s), Oral, BID traMADOL 50 mg Tab, 50 mg= 1 tab(s), Oral, q8hr, PRN Vitamin B12 1000 mcg Tab, 1000 mcg= 1 tab(s), Oral, Daily Vitamin D3 1000 intl units (25 mcg) Tab, 25 mcg= 1 tab(s), Oral, Daily Zetia 10 mg Tab, 5 mg= 0.5 tab(s), Oral, Daily Zofran 4 mg/2 mL Injection, 4 mg= 2 mL, IV Push, q6hr, PRN Home aspirin, 81 mg, Oral, Bedtime Brilinta (ticagrelor) 90 mg oral tablet, 90 mg= 1 tab(s), Oral, BID carvedilol 12.5 mg Tab, 6.25 mg= 0.5 tab(s), Oral, BID Entresto 97 mg-103 mg oral tablet, 1 tab(s), Oral, BID Janumet 50 mg/1000 mg oral tablet, 1 tab(s), Oral, Daily Lasix 20 mg Tab, 40 mg= 2 tab(s), Oral, Daily, PRN, Self Directed levothyroxine 175 mcg (0.175 mg) Tab, 87.5 mcg= 0.5 tab(s), Oral, Daily nitroglycerin 0.4 mg sublingual Tab, 0.4 mg= 1 tab(s), SubLingual, As Directed, PRN ONETOUCH ULTRA TEST STRIP pravastatin 40 mg Tab, 40 mg= 1 tab(s), Oral, Once a day (at bedtime) Singulair 10 mg Tab, 10 mg= 1 tab(s), Oral, qPM, 4 refills traMADOL 50 mg Tab, 1-2 tabs, Oral, q8hr, PRN Vitamin B12 1000 mcg Tab, 1000 mcg= 1 tab(s), Oral, Daily Vitamin D3, 3000 unit(s), Oral, Daily Zetia 10 mg Tab, 5 mg= 0.5 tab(s), Oral, Daily, 3 refills Allergies Aldactone Contrast Dye (Flushing) Crestor Pollen (Hayfever) Toradol Social History Alcohol - No Risk, 10/05/2023 Current, 1-2 times per year, 1 drinks/episode average. 1.00 drinks/episode maximum., 10/05/2023 Substance Abuse - Denies Substance Abuse, 05/31/2015 Tobacco - Denies Tobacco Use, 10/05/2023 Former smoker, quit more than 30 days ago Tobacco Use:., 12/23/2023 Former smoker, quit more than 30 days ago Tobacco Use:. Former smokeless tobacco user, quit more than 30 days ago Smokeless Tobacco Use:. Cigarettes, Cigars, Oral, Started age 18.0 Years. Stopped age 33 Years. Household tobacco concerns: No., 12/20/2023 Family History Acute myocardial infarction: Grandparent. Alcoholism: Mother. Cardiac arrhythmia: Mother. Diabetes mellitus type 2: Mother and Father. Hypertension: Father. Hypotension: Brother. Primary malignant neoplasm of lung: Mother. Primary malignant neoplasm of prostate: Father. Stroke: Father. Immunizations Vaccine Date Status Comments influenza virus vaccine, inactivated 02/2023 Recorded SARS-CoV-2 (COVID-19) mRNAMUL.ORD![id number] 05/16/2022 Recorded SARSCoV2 mRNA(pkxsybxse-ppox-xfwugj) vac 09/17/2021 Recorded influenza virus vaccine, inactivated 02/21/2021 Recorded SARS-CoV-2 (COVID-19) mRNA BNT-162b2 vax 02/21/2021 Recorded 2023-07-09: [id number] SARS-CoV-2 (COVID-19) mRNA BNT-162b2 vax 08/11/2020 Recorded SARS-CoV-2 (COVID-19) mRNA BNT-162b2 vax 07/18/2020 Recorded 2023-07-09: [id number] SARS-CoV-2 (COVID-19) mRNA BNT-162b2 vax 07/14/2020 Recorded SARS-CoV-2 (COVID-19) mRNA BNT-162b2 vax 06/27/2020 Recorded 2023-07-09: TPV75 zoster vaccine live 04/23/2013 Recorded Lab Results WBC: 9.1 E9/L (12/25/23 05:49:00) RBC: 5.1 E12/L (12/25/23 05:49:00) HGB: 15.9 gm/dL (12/25/23 05:49:00) Hct: 45.6 % (12/25/23 05:49:00) MCV: 89.7 fL (12/25/23 05:49:00) MCH: 31.3 pg (12/25/23 05:49:00) MCHC: 34.9 gm/dL (12/25/23 05:49:00) RDW: 14.2 % (12/25/23 05:49:00) Platelet: 198 E9/L (12/25/23 05:49:00) MPV: 9.4 fL (12/25/23 05:49:00) RBC Morph: NORMAL (12/25/23 05:49:00) Glucose Lvl: 94 mg/dL (12/25/23 05:49:00) BUN: 20 mg/dL (12/25/23 05:49:00) Creatinine: 1.2 mg/dL (12/25/23 05:49:00) eGFR: 61 mL/min/1.73 m2 (12/25/23 05:49:00) BUN/Creat Ratio: 17 (12/25/23 05:49:00) Sodium Lvl: 139 mmol/L (12/25/23 05:49:00) Potassium Lvl: 4 mmol/L (12/25/23 05:49:00) Chloride: 107 mmol/L (12/25/23 05:49:00) CO2: 22 mmol/L (12/25/23 05:49:00) AGAP: 14 mEq/L (12/25/23 05:49:00) Calcium Lvl: 10.1 mg/dL (12/25/23 05:49:00) Magnesium: 1.6 mg/dL (12/25/23 05:49:00) Troponin HS: 721.1 pg/mL Critical (12/25/23 05:49:00) Glucose Cap: 106 mg/dL High (12/24/23 22:42:00) POC Device SN: [id number] (12/24/23 22:42:00) POC User ID: [id number] (12/24/23 22:42:00) POC Username: AUGUSTUS RAMÍREZ (12/24/23 22:42:00) Diagnostic Results (12/23/2023 12:[address] Head or Brain w/o Contrast) * Final Report * Reason For Exam TIA POWERSCRIBE REPORT IMPRESSION: NO ACUTE INTRACRANIAL PROCESS IDENTIFIED. EXAM: CT Head or Brain w/o Contrast DATE: 12/23/2023 11:52 AM CLINICAL HISTORY: TIA. COMPARISON: 05/29/2022. TECHNIQUE: Routine. All CT scans at this facility use dose modulation, iterative reconstruction, and/or weight based dosing when appropriate to reduce radiation dose to as low as reasonably achievable. FINDINGS: There is no intracranial hemorrhage, mass effect, midline shift, extra-axial collection, evidence of hydrocephalus, skull fracture, or a recent ischemic infarct identified. Mild age-related volume loss and chronic white matter changes are again noted. The mastoid air cells and visualized paranasal sinuses are essentially clear. Ordering Provider: Khloe SALOMON Signature Line FINAL REPORT Dictated: 12/23/2023 12:20 pm Kobe Barboza MD Signed (Electronic Signature): 12/23/2023 12:20 pm Signed by: Kobe Barboza MD Transcribed by: NII Technologist: MITA SILVA REPORT This document has an image Result type: CT Head or Brain w/o Contrast Result date: December 23, 2023 12:14 EDT Result status: Auth (Verified) Result title: CT Head or Brain w/o Contrast Performed by: Kobe Barboza MD on December 23, 2023 12:20 EDT Verified by: Kobe Barboza MD on December 23, 2023 12:20 EDT Encounter info: [id number], [facility], Inpatient, 12/23/2023 - [1] (12/24/2023 07:10 EDT US Carotid Duplex Bilateral) * Final Report * Reason For Exam Carotid stenosis POWERSCRIBE REPORT IMPRESSION: NO EVIDENCE OF FLOW-LIMITING CAROTID STENOSIS. EXAM: US Carotid Duplex Bilateral DATE: 12/24/2023 6:46 AM CLINICAL HISTORY: Carotid stenosis COMPARISON: Cervical spine CT 05/29/2022. TECHNIQUE: Grayscale, color and waveform Doppler analysis of the cervical carotid and vertebral arteries was performed. Optimization of duplex velocity criteria for diagnosis of internal carotid artery (ICA) stenosis: A report of the [employer]reditation Commission (IAC) Vascular Testing Division Carotid Diagnostic Criteria Committee. Vascular Medicine 2020; https://journals.Cydanpub.com/doi/full/10.1177/2263841H030794089 FINDINGS: Mild plaquing is noted of the carotid bulbs. There is antegrade blood flow in the right and left vertebral arteries in the neck. On Doppler images, the peak systolic and end diastolic velocity measurements in centimeters per second are as follows: Right proximal common carotid artery is 67.7 / 18.6 Right distal common carotid artery is 62.7 / 18.0 Right proximal internal carotid artery is 55.9 / 15.5 Right mid internal carotid artery is 73.9 / 25.5 Right distal internal carotid artery is 78.3 / 28.6 Right external carotid artery maximum systolic velocity is 64.6 cm/s, The peak systolic internal carotid to common carotid artery ratio on the right is 1.3 , which indicates less than 50% narrowing by velocity ratio criteria. Left proximal common carotid artery is 72.1 / 15.5 Left distal common carotid artery is 59.6 / 15.5 Left proximal internal carotid artery is 48.5 / 14.9 Left mid internal carotid artery is 66.5 / 22.4 Left distal internal carotid artery is 83.9 / 36.0 Left external carotid artery maximum systolic velocity is 62.1 cm/s. The peak systolic internal carotid to common carotid artery ratio on the left is 1.4, which indicates less than 50% narrowing by velocity ratio criteria. Stenosis PSV EDV ICA/CCA Ratio <50% <180 cm/s <40 <2 50-69% 180-230 cm/s 40-100 2-4 > 70%, but less than near occlusion >230 cm/s >100 >4 Ordering Provider: Khloe SALOMON Signature Line FINAL REPORT Dictated: 12/24/2023 11:47 am Kobe Barboza MD Signed (Electronic Signature): 12/24/2023 11:47 am Signed by: Kobe Barboza MD Transcribed by: NII Technologist: LIZZIE Technical Comments Velocities Right Vert. Antegrade Yes Velocities Left Vert. Antegrade Yes RAD REPORT This document has an image Result type: US Carotid Duplex Bilateral Result date: December 24, 2023 7:10 EDT Result status: Auth (Verified) Result title: US Carotid Duplex Bilateral Performed by: Kobe Barboza MD on December 24, 2023 11:47 EDT Verified by: Kobe Barboza MD on December 24, 2023 11:47 EDT Encounter info: [id number], [facility], Inpatient, 12/23/2023 - [2] (12/24/2023 12:[address] Head or Brain w/o Contrast) * Final Report * Reason For Exam CVA POWERSCRIBE REPORT IMPRESSION: NO ACUTE INTRACRANIAL PROCESS. EXAMINATION: CT of the brain without contrast HISTORY: Vision changes. COMPARISON: CT brain 12/23/2023 TECHNIQUE: Multiple axial images were obtained of the brain from the skull base through the vertex. Multiplanar reformats were obtained. FINDINGS: Prominence of the sulci and ventricles compatible with mild generalized parenchymal volume loss. [place]-white matter differentiation is preserved. Areas of bilateral supratentorial white matter hypoattenuation are nonspecific but most likely due to chronic small vessel ischemic changes in a patient of this age. No acute hemorrhage or abnormal extra-axial fluid collection. Basal cisterns are patent. No mass effect or midline shift. Minimal mucosal thickening of the paranasal sinuses. The mastoid air cells are clear. Calvarium is intact. All CT scans at this facility use dose modulation, iterative reconstruction, and/or weight based dosing when appropriate to reduce radiation dose to as low as reasonably achievable. Ordering Provider: Khloe SALOMON Signature Line FINAL REPORT Dictated: 12/24/2023 12:46 pm Kain Powers DO Signed (Electronic Signature): 12/24/2023 12:46 pm Signed by: Kain Powers DO Transcribed by: NII Technologist: FARHAN RAD REPORT This document has an image Result type: CT Head or Brain w/o Contrast Result date: December 24, 2023 12:37 EDT Result status: Auth (Verified) Result title: CT Head or Brain w/o Contrast Performed by: Kain Powers DO on December 24, 2023 12:46 EDT Verified by: Kain Powers DO on December 24, 2023 12:46 EDT Encounter info: [id number], [facility], Inpatient, 12/23/2023 - [3] [1] CT Head or Brain w/o Contrast; Kobe Barboza MD 12/23/2023 12:14 EDT [2] US Carotid Duplex Bilateral; Kobe Barboza MD 12/24/2023 07:10 EDT [3] CT Head or Brain w/o Contrast; Kain Powers DO 12/24/2023 12:37 EDT Result Comment: Electronical ly Signed By: Prerna Paz RN\.br\Date and Time Signed: 12/25/23 06:55 EDT\.br\Electronically Co-Signed By: Todd Varma DO\.br\Date and Time Co-Signed: 12/25/23 10:12 EDT BMP Collected: 5:49 AM Status: F Source: [facility] TYPE CODE TESTS RESULT OUT OF RANGE REFERENCE UNITS LAB 2345-7([facility]) GLUCOSE:MCNC :PT:SER/PLAS :QN: 94 Normal 55-199 mg/dL LAB 3094-0([facility]) UREA NITROGEN:MCN C:PT:SER/GILBERT S:QN: 20 Normal 5-21 mg/dL LAB 2160-0([facility]) CREATININE:M CNC:PT:SER/P LAS:QN: 1.2 Normal 0.5-1.3 mg/dL LAB 3097-3([facility]) UREA NITROGEN/CRE ATININE:MRTO :PT:SER/PLAS :QN: 17 Normal 10-20 No Units LAB 13108-4([facility]) CALCIUM:MCNC :PT:SER/PLAS :QN: 10.1 Normal 8.9-11.1 mg/dL LAB 2951-2([facility]) SODIUM:SCNC: PT:SER/PLAS: QN: 139 Normal 135-145 mmol/L LAB 2823-3([facility]) POTASSIUM:SC NC:PT:SER/PL :QN: 4.0 Normal 3.5-5.3 mmol/L LAB 2075-0([facility]) CHLORIDE:SCN C:PT:SER/GILBERT S:QN: 107 Normal 101-111 mmol/L LAB 8-9([facility]) CARBON DIOXIDE:SCNC :PT:SER/PLAS :QN: 22 Normal 21-31 mmol/L LAB 62691-3([facility]) ANION GAP:SCNC:PT: SER/PLAS:QN: 14 Normal 6-16 mEq/L Performed By: #### [id number] # ### [facility] [address] [place] [address] EGFR Collected: 5:49 AM Status: F Source: [facility] Order Comment: Order added b y Discern Expert. TYPE CODE TESTS RESULT OUT OF RANGE REFERENCE UNITS LAB [id number]([facility]) eGFR 61 Normal >=59 mL/min/1 .7 3 m2 Performed By: #### [id number] #### [facility] [address] [place] [address] CBC W/INDICES Collected: 12/25/2023 5:49 AM Status: F Source: [facility] TYPE CODE TESTS RESULT OUT OF RANGE REFERENCE UNITS LAB 25971-1([facility]) LEUKOCYTES^^RANDI ECTED FOR NUCLEATED ERYTHROCYTES:NCN C:PT:BLD:QN:AUTO MATED COUNT 9.1 Normal 4.0-11.0 E9/L LAB 789-8([facility]) ERYTHROCYTES:NCN C:PT:BLD:QN:AUTO MATED COUNT 5.1 Normal 4.3-5.9 E12/L LAB 718-7([facility]) HEMOGLOBIN:MCNC: PT:BLD:QN: 15.9 Normal 13.5-17.5 gm/dL LAB 4544-3([facility]) HEMATOCRIT:VFR:P T:BLD:QN:AUTOMAT ED COUNT 45.6 Normal 37.7-49.0 % LAB 788-0([facility]) ERYTHROCYTE DISTRIBUTION WIDTH:RATIO:PT:R BC:QN:AUTOMATED COUNT 14.2 Normal 10.9-14.2 % LAB 785-6([facility]) ERYTHROCYTE MEAN CORPUSCULAR HEMOGLOBIN:ENTMA SS:PT:RBC:QN:AUT OMATED COUNT 31.3 Normal 27.0-34.0 pg LAB 786-4([facility]) ERYTHROCYTE MEAN CORPUSCULAR HEMOGLOBIN CONCENTRATION:MC NC:PT:RBC:QN:AUT OMATED COUNT 34.9 Normal 31.4-36.0 gm/dL LAB 787-2([facility]) ERYTHROCYTE MEAN CORPUSCULAR VOLUME:ENTVOL:PT :RBC:QN:AUTOMATE D COUNT 89.7 Normal 80.0-100.0 fL LAB 74737-9([facility]) PLATELET MEAN VOLUME:ENTVOL:PT :BLD:QN:AUTOMATE D COUNT 9.4 Normal 6.4-10.8 fL LAB [id number]([facility] ) Platelet 198.0 Normal 150.0-500.0 E9/L LAB 96803-2([facility]) ERYTHROCYTE SIZE:MORPH:PT:BL D:NOM: NORMAL Unknown Performed By: #### [id number] # ### [facility] [address] [place] [address] MAGNESIUM Collected: 12/25/2023 5:49 AM Status: F Source: [facility] TYPE CODE TESTS RESULT OUT OF RANGE REFERENCE UNITS LAB 66221-0([facility]) MAGNESIUM:MCN C:PT:SER/PLAS :QN: 1.6 Normal 1.3-2.4 mg/dL Performed By: #### [id number] # ### [facility] [facility] [address] [place] [id number] TROPONIN Collected: 5:49 AM Status: F Source: [facility] TYPE CODE TESTS RESULT OUT OF RANGE REFERENCE UNITS LAB [id number]([facility]) Troponin HS 721.10 Abnormal 15.90-38.40 pg/mL Result Comment: Critical Res ult Verified by Previous Result Critical Result I_TnIHS:721.1 Called to and read back by: JENNIFER SIMMONS at: 12/25/2023 06:45:42 by:ALINA The 95% CI (Confidence Interval) PPV (Positive Predictive Value) for myocardial infarction in females is 38 pg/mL, in males 51 pg/mL. The results should be used in conjunction with clinical conditions of myocardial infarction. (Access High Sensitivity Troponin I Instructions For Use, Zeke Nemo, December 2017) Performed By: #### [id number] # ### [facility] [address] [place] [id number] CAPILLARY GLUCOSE POC Collected: 2023 10:42 PM Status: F Source: [facility] TYPE CODE TESTS RESULT OUT OF RANGE REFERENCE UNITS LAB [id number]([facility]) Glucose Cap 106 High 55-99 mg/d L Result Comment: Notified RN/ MD Performed By: #### [id number] #### [facility] [address] [place] [id number] CAPILLARY GLUCOSE POC Collected: 2023 8:12 PM Status: F Source: [facility] TYPE CODE TESTS RESULT OUT OF RANGE REFERENCE UNITS LAB [id number]([facility]) Glucose Cap 78 Normal 55-99 mg/d L Result Comment: Notified RN/ MD Performed By: #### [id number] #### [facility] [address] [place] [id number] CAPILLARY GLUCOSE POC Collected: 2023 3:15 PM Status: F Source: [facility] TYPE CODE TESTS RESULT OUT OF RANGE REFERENCE UNITS LAB [id number]([facility]) Glucose Cap 82 Normal 55-99 mg/d L Result Comment: Notified RN/ MD Performed By: #### [id number] #### [facility] [address] [place] [address] PROGRESS NOTE-NURSE Observed: 12/24/2023 12:30 PM Status: F Source: [facility] Progress Note-Nurse 11:53- Daughter calls this nurse in room and states pt is unable to see anything. This nurse enters room, pt states his vision is different and there are things he can see and not see and only see half of certain objects on wall. This nurse performed assessment of pupils, arm strength, no new changes noted. PERRL. This nurse asked pt if any difficulty with vision before this AM, pt stated I have cataracts but I can't remember . Daughter stated no he did not and said the same exact episode happened while pt had heart attack December 12 2023. This nurse urgently paged Ashley Salomon and she called back. Nurse explained situation, Ashley stated she was ordering STAT CT and would come right up to room. 11:58 Ashley at bedside stated we did not need rapid response stroke unless unable to get STAT CT. This nurse called CT and tech stated table was available to bring pt down, this nurse took pt down and pt was put on table VIJAY. Ashley Salomon updated when pt back to room. CT HEAD OR BRAIN W/O CONTRAST Observed: 12/24/2023 12:26 PM Status: F Source: [facility] Exam Date/Time: 12/24/2023 12:37 EDT Reason for Exam: CVA Report IMPRESSION: NO ACUTE INTRACRANIAL PROCESS. EXAMINATION: CT of the brain without contrast HISTORY: Vision changes. COMPARISON: CT brain 12/23/2023 TECHNIQUE: Multiple axial images were obtained of the brain from the skull base through the vertex. Multiplanar reformats were obtained. FINDINGS: Prominence of the sulci and ventricles compatible with mild generalized parenchymal volume loss. Duvall-white matter differentiation is preserved. Areas of bilateral supratentorial white matter hypoattenuation are nonspecific but most likely due to chronic small vessel ischemic changes in a patient of this age. No acute hemorrhage or abnormal extra-axial fluid collection. Basal cisterns are patent. No mass effect or midline shift. Minimal mucosal thickening of the paranasal sinuses. The mastoid air cells are clear. Calvarium is intact. All CT scans at this facility use dose modulation, iterative reconstruction, and/or weight based dosing when appropriate to reduce radiation dose to as low as reasonably achievable. Ordering Provider: Khloe SALOMON FINAL REPORT Dictated: 12/24/2023 12:46 pm Kain Powers DO Signed (Electronic Signature): 12/24/2023 12:46 pm Signed by: Kain Powers DO Transcribed by: NII Technologist: FARHAN PROGRESS NOTE-PHYSICIAN Observed: 2023 12:16 PM Status: F Source: [facility] Progress Note-Physician Pt reported to Paco Lloyd RN that he has loss of vision to his left eye. I immediately responded to call and upon entering daughters, , son are all at bedside. Neuro exam completed which reveals that pt is having visual loss to outer left of left eyes but able to see inner left eye. Reports that visual field is coming and going to right outer eye but can currently see. No other issues noted to neuro exam. Denies head, dizziness, lightheadedness. Pt's left arm is slightly weak as he just underwent a carpal tunnel surgery. Pt sent for stat CT of the head. I did call and speak to who recommends pt undergo a MRI of the brain, MRA of the head and neck. Pt is already on blood thinners as he just underwent a repeat cardiac cath. Family updated in re: to all testing and agreeable to current POC. Result Comment: Electronical ly Signed By: Khloe VO\.br\Date and Time Signed: 12/24/23 12:20 EDT\.br\Electronically Co-Signed By: Leopoldo Patel MD.br\Date and Time Co-Signed: 12/26/23 19:00 EDT OPERATIVE REPORT Observed: 12/24/2023 12:00 PM Status: F Source: [facility] Operative Report Indication for Surgery Chest pain, unstable angina Preoperative Diagnosis Known PCI recent STEMI, nonculprit lesions untreated Postoperative Diagnosis Recent PCI for STEMI, no problems with recent stent PCI performed of the PDA on the right none culprit lesion Operation Coronary angiography Left ventriculography Hemodynamic measurements of the left ventricle PCI of the right PDA with ARLETTE x 1 This note is completed immediately following the procedure the date and time of this procedure are the same as this note. Surgeon(s) Davion Nolen MD Anesthesia conscious sedation Estimated Blood Loss Trivial Findings LMT: Normal left main trunk with trifurcation LAD: Normal caliber with patent proximal to mid stents and mild diffuse disease less than 30% stenosis, reaches the apex. LCx: Normal caliber with mild-moderate disease less than 30% stenosis, reaches the lateral wall. Ramus intermedius present RCA: Normal caliber with mild irregularity and 99% stenosis of ostial PDA stenosis, dominant, reaches the inferior wall. Hemodynamics: Normal LVEDP at 11 mmHg with no gradient across the aortic valve. Left ventriculography: Not performed PCI note: Success PCI right PDA 99% stenosed SYMONE-3 flow reduced to 0% residual SYMONE-3 flow after implantation of a Xience 2.5/28 postdilated stent balloon at multiple inflations. Conclusions: Patent previously placed stents, no new narrowings. Nonculprit lesion was stented. CAD: DAPT, beta-shawn, statin, risk factor modification., Importance of antiplatelet compliance was emphasized including risk of stent thrombosis or . The patient understands as well as his accompanying family member/friend that the patient may have stent thrombosis or heart attack and the patient agrees. I myself have specifically counseled the patient regarding stent thrombosis risk including and the patient will additionally be counseled by the [employer] team and in follow-up. Complications None Technique Following full and informed consent the patient was brought to the [facility] where sterile prep and drape were administered in usual fashion. Anesthesia was obtained in the right wrist with lidocaine after administration of conscious sedation. A 5/6 slender Terumo sheath was placed in the right radial artery without complication. Nitroglycerin and nicardipine were given via the sheath and heparin was given intravenously. A 5 [place] JACKE catheter was advanced and selectively engaged in the left main coronary artery and right coronary artery each, where selective injections were performed. A pigtail catheter was placed in the left ventricle where hemodynamic measurements the left ventricle were made. A pullback gradient was obtained. A 6 [place] 3DRC catheter was advanced and selectively engaged in the right coronary artery. A wire was advanced across the lesion of the right PDA. The lesion was dilated with a compliant balloon, stented with a drug-eluting stent X 1, and postdilated with a noncompliant balloon at high pressure. Completion angiography was performed in orthogonal projections with the wire and balloon removed. The guide catheter was removed without event. The sheath was removed with hemostasis obtained by D-Stat radial device at the end of the procedure without complication. Result Comment: Electronical ly Signed By: Cyril AUGUSTE, Davion Veliz\.br\Date and Time Signed: 12/24/23 21:12 EDT OPERATIVE REPORT Observed: 12/24/2023 12:00 PM Status: F Source: [facility] Operative Report Indication for Surgery Chest pain, unstable angina Preoperative Diagnosis Known PCI recent STEMI, nonculprit lesions untreated Postoperative Diagnosis Recent PCI for STEMI, no problems with recent stent PCI performed of the PDA on the right none culprit lesion Operation Coronary angiography Left ventriculography Hemodynamic measurements of the left ventricle PCI of the right PDA with ARLETTE x 1 This note is completed immediately following the procedure the date and time of this procedure are the same as this note. Surgeon(s) Davion Nolen MD Anesthesia conscious sedation Estimated Blood Loss Trivial Findings LMT: Normal left main trunk with trifurcation LAD: Normal caliber with patent proximal to mid stents and mild diffuse disease less than 30% stenosis, reaches the apex. LCx: Normal caliber with mild-moderate disease less than 30% stenosis, reaches the lateral wall. Ramus intermedius present RCA: Normal caliber with mild irregularity and 99% stenosis of ostial PDA stenosis, dominant, reaches the inferior wall. Hemodynamics: Normal LVEDP at 11 mmHg with no gradient across the aortic valve. Left ventriculography: Not performed PCI note: Success PCI right PDA 99% stenosed SYMONE-3 flow reduced to 0% residual SYMONE-3 flow after implantation of a Xience 2.5/28 postdilated stent balloon at multiple inflations. Conclusions: Patent previously placed stents, no new narrowings. Nonculprit lesion was stented. CAD: DAPT, beta-shawn, statin, risk factor modification., Importance of antiplatelet compliance was emphasized including risk of stent thrombosis or . The patient understands as well as his accompanying family member/friend that the patient may have stent thrombosis or heart attack and the patient agrees. I myself have specifically counseled the patient regarding stent thrombosis risk including and the patient will additionally be counseled by the [employer] team and in follow-up. Complications None Technique Following full and informed consent the patient was brought to the [facility] [employer] [facility] where sterile prep and drape were administered in usual fashion. Anesthesia was obtained in the right wrist with lidocaine after administration of conscious sedation. A 5/6 slender Terumo sheath was placed in the right radial artery without complication. Nitroglycerin and nicardipine were given via the sheath and heparin was given intravenously. A 5 [place] JACKE catheter was advanced and selectively engaged in the left main coronary artery and right coronary artery each, where selective injections were performed. A pigtail catheter was placed in the left ventricle where hemodynamic measurements the left ventricle were made. A pullback gradient was obtained. A 6 [place] 3DRC catheter was advanced and selectively engaged in the right coronary artery. A wire was advanced across the lesion of the right PDA. The lesion was dilated with a compliant balloon, stented with a drug-eluting stent X 1, and postdilated with a noncompliant balloon at high pressure. Completion angiography was performed in orthogonal projections with the wire and balloon removed. The guide catheter was removed without event. The sheath was removed with hemostasis obtained by D-Stat radial device at the end of the procedure without complication. Result Comment: Electronical ly Signed By: Cyril AUGUSTE, Davion Veliz\.br\Date and Time Signed: 12/24/23 21:12 EDT CAPILLARY GLUCOSE POC Collected: 2023 11:15 AM Status: F Source: [facility] TYPE CODE TESTS RESULT OUT OF RANGE REFERENCE UNITS LAB [id number]([facility]) Glucose Cap 86 Normal 55-99 mg/d L Result Comment: Notified RN/ Performed By: #### [id number] #### [facility] [address] [place] [id number] INPATIENT PATIENT SUMMARY Observed: 11/26 10:57 AM Status: C Source: [facility] Inpatient Patient Summary [address] [address] Patient Discharge Instructions PERSON INFORMATION Name: RAY SUAREZ Date of : 1945 Current Date: 12/24/2023 10:57:13 PHYSICIANS Admitting Physician: Antonietta Lucia MD Primary Care Physician: Todd Osman DO PCP Comment: Discharge Diagnosis: 1:Chest pain; 2:Non-ST elevation IA (NSTEMI); 3:CAD (coronary artery disease); 4:Chronic systolic heart failure; 5:HTN (hypertension); 6:Dyslipidemia; 7:Type 2 diabetes mellitus; 8:History of ST elevation myocardial infarction (STEMI); 9:Neck pain on left side Condition at Discharge: RAY SUAREZ has been given the following list of follow-up instructions, prescriptions, and patient education materials: PATIENT FOLLOW-UP INFORMATION Diet: Discharge Activity: Discharge Restrictions: Wound Care Instructions: Remove Your Dressing In Days Call Your Doctor For: IF UNABLE TO CONTACT YOUR PHYSICIAN AND YOU FEEL IT IS AN EMERGENCY, GO TO THE NEAREST EMERGENCY ROOM OR CALL 911 Home Treatment: Devices/Equipment: Blood glucose monitor, Cane, Other: hearing aids, bp machine Special Services: Additional Instructions: Primary Care Physician to provide the following pending test results: Follow up: In the event that this physician does not participate in your insurance network, please consult with your insurance company to find a nearby participating provider. Type Location [facility] ([facility]) [facility] 12/28/2023 10:15 AM 12/28/2023 10:30 AM Confirmed FM Open [facility] 01/24/2024 10:00 AM 01/24/2024 10:20 AM Confirmed FM Open [facility] 03/24/2024 9:40 AM 03/24/2024 10:00 AM Confirmed FM Medicare Wellness Subsequent [facility] 10/09/2024 9:30 AM 10/09/2024 10:30 AM Confirmed Comment: DANIELA España JOE M, have received the attached patient education materials/instructions and have verbalized understanding: Patient Signature Date Clinican/Nurse Signature Date HERE ARE THE MEDICATION CHANGES THAT OCCURRED DURING YOUR HOSPITAL STAY Medications to Continue with No Changes Other Medications aspirin 81 Milligram By Mouth at bedtime. Last Dose: Next Dose: carvedilol (carvedilol 12.5 mg Tab) 0.5 Tablets By Mouth 2 times a day. Refills: 0. Last Dose: Next Dose: cholecalciferol (Vitamin D3) 3,000 Units By Mouth every day. Last Dose: Next Dose: cyanocobalamin (Vitamin B12 1000 mcg Tab) 1 Tablets By Mouth every day. Last Dose: Next Dose: ezetimibe (Zetia 10 mg Tab) 0.5 Tablets By Mouth every day. Refills: 3. Last Dose: Next Dose: furosemide (Lasix 20 mg Tab) 2 Tablets By Mouth every day as needed Other (see comment). PRN for leg swelling (takes for >3 pound weight gain)., PRN for leg swelling. (Takes for >3 pound weight gain) Last Dose: Next Dose: levothyroxine (levothyroxine 175 mcg (0.175 mg) Tab) 0.5 Tablets By Mouth every day. Last Dose: Next Dose: metformin-sitagliptin (Janumet 50 mg/1000 mg oral tablet) 1 Tablets By Mouth every day. Last Dose: Next Dose: Misc Prescription (ONETOUCH ULTRA TEST STRIP) TEST ONCE DAILY. Last Dose: Next Dose: montelukast (Singulair 10 mg Tab) 1 Tablets By Mouth once a day (in the evening). Refills: 4., for breathing Last Dose: Next Dose: nitroglycerin (nitroglycerin 0.4 mg sublingual Tab) 1 Tablets Sublingual As Directed as needed for chest pain. takeif SBP is greater than 110. Refills: 0. Last Dose: Next Dose: pravastatin (pravastatin 40 mg Tab) 1 Tablets By Mouth once a day (at bedtime). Refills: 0. Last Dose: Next Dose: sacubitril-valsartan (Entresto 97 mg-103 mg oral tablet) 1 Tablets By Mouth 2 times a day. hold if systolic is less than 100. Last Dose: Next Dose: ticagrelor (Brilinta (ticagrelor) 90 mg oral tablet) 1 Tablets By Mouth 2 times a day. Refills: 0. Last Dose: Next Dose: tramadol (traMADOL 50 mg Tab) 1-2 tabs By Mouth every 8 hours as needed Pain. Refills: 0. Last Dose: Next Dose: Comment: MEDICATION LIST PROVIDED FOR YOU IS A LIST OF YOUR CURRENT MEDICATIONS. PLEASE CARRY THIS WITH YOU AT ALL TIMES. aspirin 81 Milligram By Mouth at bedtime. carvedilol (carvedilol 12.5 mg Tab) 0.5 Tablets By Mouth 2 times a day. Refills: 0. cholecalciferol (Vitamin D3) 3,000 Units By Mouth every day. cyanocobalamin (Vitamin B12 1000 mcg Tab) 1 Tablets By Mouth every day. ezetimibe (Zetia 10 mg Tab) 0.5 Tablets By Mouth every day. Refills: 3. furosemide (Lasix 20 mg Tab) 2 Tablets By Mouth every day as needed Other (see comment). PRN for leg swelling (takes for >3 pound weight gain). levothyroxine (levothyroxine 175 mcg (0.175 mg) Tab) 0.5 Tablets By Mouth every day. metformin-sitagliptin (Janumet 50 mg/1000 mg oral tablet) 1 Tablets By Mouth every day. Misc Prescription (TwentyPeopleTOUCH ULTRA TEST STRIP) TEST ONCE DAILY. montelukast (Singulair 10 mg Tab) 1 Tablets By Mouth once a day (in the evening). Refills: 4. nitroglycerin (nitroglycerin 0.4 mg sublingual Tab) 1 Tablets Sublingual As Directed as needed for chest pain. takeif SBP is greater than 110. Refills: 0. pravastatin (pravastatin 40 mg Tab) 1 Tablets By Mouth once a day (at bedtime). Refills: 0. sacubitril-valsartan (Entresto 97 mg-103 mg oral tablet) 1 Tablets By Mouth 2 times a day. hold if systolic is less than 100. ticagrelor (Brilinta (ticagrelor) 90 mg oral tablet) 1 Tablets By Mouth 2 times a day. Refills: 0. tramadol (traMADOL 50 mg Tab) 1-2 tabs By Mouth every 8 hours as needed Pain. Refills: 0. Pharmacy Information: Comment: PATIENT EDUCATION INFORMATION Instructions: [place], [place] Cardiovascular PCI DISCHARGE INSTRUCTIONS Diet: ? Resume pre-procedure diet. ? Increase water intake the next 2 days to flush dye out of the body. Activity: ? If radial access: ? Limit your activity today. Do not operate a vehicle, machinery or power tools. ? NO LIFTING OVER 3 POUNDS for 3 days. ? Do not bend your wrist for 24 hours. ? May resume driving in 24 hours. ? Let pain/discomfort guide your activity. If you are having pain, stop. ? No sexual activity for 1 week. ? Return to the Emergency Room if you have trouble breathing, walking or nausea and vomiting. Medications: ? Resume pre-procedure medication, unless otherwise directed. ? Minimal pain, soreness and/or discomfort is expected. ? If you are prescribed an aspirin and/or antiplatelet (such as Plavix, Brilinta or Effient) do NOT stop taking these medications for any reason without talking to your parks recreation director Site Care: ? Do not remove dressing for 24 hours unless it becomes saturated, then replace. ? Keep site clean and dry; inspect site daily. ? Do not use any lotions, powders, or ointments at the groin or wrist site for 1 week. ? May shower 24 hours after the procedure. Clean site with soap and water. Pat dry and apply band aid. No tub baths, swimming or hot tubs for 3 days. Post Procedure: ? Soreness and tenderness to the site can last up to one week. ? Bruising may occur to site. ? A responsible adult should be with you for the first 24 hours after you arrive home. ? Keep follow-up appointment. ? Carry your stent card with you at all times. This provides information about your heart disease for any doctor who cares for you. ? No smoking for 24 hours as it increases the risk of developing blood clots. ? If you are interested in smoking cessation, contact [facility] at [phone], ext. [phone]. ? In the event you are unable to reach your physician, please call [facility] at [phone] and the corduroy cutter operator will assist you. Seek Medicare Care for: ? Bleeding: Apply continuous pressure to the site and Call 911. ? Should the arm or leg become cold, numb, blue or white call your physician immediately. ? Signs of infection are redness, warmth, swelling, getting more sore, colored drainage, fever or chills ? Chest pain ? Blood in your urine or stool ? Black tarry stools ? Medication Leaflets: You may receive a survey from [employer] asking you to rate your care experience. Your feedback is important and will help us understand what we do well and how we can improve the quality of care we provide to you, your loved ones and our community. It?s an honor to serve you. Thank you for choosing [facility] INPATIENT CLINICAL SUMMARY Observed: 10:57 AM Status: C Source: [facility] Inpatient Clinical Summary [address] [address] Clinical Summary Person Information: Name: RAY SUAREZ Age: 78 Years : 1945 Sex: Male PCP: Todd Osman DO Marital Status: Race: White Ethnicity: Non- or Language: Sudanese Visit Id: Visit Reason: Medical problem - minor; Chest pain; CHEST PAIN Speciality: Acuity: Enc Type: Inpatient Med Service: Medical Arrival: 12/23/2023 04:00:03 Discharge: Dispo Type: Admitted as IP to this Hosp Address: [address] [place] [id number] Provider Notes: Diagnosis: 1:Chest pain; 2:Non-ST elevation IA (NSTEMI); 3:CAD (coronary artery disease); 4:Chronic systolic heart failure; 5:HTN (hypertension); 6:Dyslipidemia; 7:Type 2 diabetes mellitus; 8:History of ST elevation myocardial infarction (STEMI); 9:Neck pain on left side Problems Active CHF - Congestive heart failure Former smoker Hyperlipidemia, unspecified Type 2 diabetes mellitus with hyperlipidemia Benign essential hypertension Dyslipidemia SAMIRA (obstructive sleep apnea) History of prostate cancer History of prostatectomy Hypothyroidism (acquired) GERD (gastroesophageal reflux disease) COPD with asthma Asthma Smoking Status: Former Smoker Functional Status: Sensory Deficits: Hearing deficit, left ear, Hearing deficit, right ear History of Falls: Mobility Assistance Prior to Admission: Partial assistance ADLs: Minimal assistance Current Level of Assistance for Self-Care/Mobility: Cognitive Status: Oriented x 3 Allergies Pollen (Hayfever) Contrast Dye (Flushing) Crestor Toradol Aldactone Measurements: Height: 177 cm Weight: 94.7 kg Blood Pressure: 146 mmHg / 90 mmHg BMI: 30.39 kg/m2 Procedures Cardiac catheterization, left heart (12/24/2023) PCI - Percutaneous coronary intervention (12/24/2023) Immunizations No Immunizations Documented This Visit Final Med List: aspirin 81 Milligram By Mouth at bedtime. carvedilol (carvedilol 12.5 mg Tab) 0.5 Tablets By Mouth 2 times a day. Refills: 0. cholecalciferol (Vitamin D3) 3,000 Units By Mouth every day. cyanocobalamin (Vitamin B12 1000 mcg Tab) 1 Tablets By Mouth every day. ezetimibe (Zetia 10 mg Tab) 0.5 Tablets By Mouth every day. Refills: 3. furosemide (Lasix 20 mg Tab) 2 Tablets By Mouth every day as needed Other (see comment). PRN for leg swelling (takes for >3 pound weight gain). levothyroxine (levothyroxine 175 mcg (0.175 mg) Tab) 0.5 Tablets By Mouth every day. metformin-sitagliptin (Janumet 50 mg/1000 mg oral tablet) 1 Tablets By Mouth every day. Misc Prescription (ONETOUCH ULTRA TEST STRIP) TEST ONCE DAILY. montelukast (Singulair 10 mg Tab) 1 Tablets By Mouth once a day (in the evening). Refills: 4. nitroglycerin (nitroglycerin 0.4 mg sublingual Tab) 1 Tablets Sublingual As Directed as needed for chest pain. takeif SBP is greater than 110. Refills: 0. pravastatin (pravastatin 40 mg Tab) 1 Tablets By Mouth once a day (at bedtime). Refills: 0. sacubitril-valsartan (Entresto 97 mg-103 mg oral tablet) 1 Tablets By Mouth 2 times a day. hold if systolic is less than 100. ticagrelor (Brilinta (ticagrelor) 90 mg oral tablet) 1 Tablets By Mouth 2 times a day. Refills: 0. tramadol (traMADOL 50 mg Tab) 1-2 tabs By Mouth every 8 hours as needed Pain. Refills: 0. Care Team Members: Attending Physician: Antonietta Lucia MD Consulting Physician: [facility] Cardio, XXXX Referring Physician: Follow up: Type Location Start [facility] Cardiology Inpatient Follow Up (FT) FT.Cardiology Clinic 12/28/2023 10:15 AM 12/28/2023 10:30 AM Confirmed FM Open [facility] 01/24/2024 10:00 AM 01/24/2024 10:20 AM Confirmed FM Open [facility] 03/24/2024 9:40 AM 03/24/2024 10:00 AM Confirmed FM Medicare Wellness Subsequent [facility] 10/09/2024 9:30 AM 10/09/2024 10:30 AM Confirmed Patient Education Information: CV - Cardiovascular PCI Discharge Instructions (CUSTOM) PATIENT EDUCATION - TEXT Observed: 12/23 10:57 AM Status: C Source: [facility] Patient Education - Text Custom [place], [place] Cardiovascular PCI DISCHARGE INSTRUCTIONS Diet: ? Resume pre-procedure diet. ? Increase water intake the next 2 days to flush dye out of the body. Activity: ? If radial access: ? Limit your activity today. Do not operate a vehicle, machinery or power tools. ? NO LIFTING OVER 3 POUNDS for 3 days. ? Do not bend your wrist for 24 hours. ? May resume driving in 24 hours. ? Let pain/discomfort guide your activity. If you are having pain, stop. ? No sexual activity for 1 week. ? Return to the Emergency Room if you have trouble breathing, walking or nausea and vomiting. Medications: ? Resume pre-procedure medication, unless otherwise directed. ? Minimal pain, soreness and/or discomfort is expected. ? If you are prescribed an aspirin and/or antiplatelet (such as Plavix, Brilinta or Effient) do NOT stop taking these medications for any reason without talking to your parks recreation director Site Care: ? Do not remove dressing for 24 hours unless it becomes saturated, then replace. ? Keep site clean and dry; inspect site daily. ? Do not use any lotions, powders, or ointments at the groin or wrist site for 1 week. ? May shower 24 hours after the procedure. Clean site with soap and water. Pat dry and apply band aid. No tub baths, swimming or hot tubs for 3 days. Post Procedure: ? Soreness and tenderness to the site can last up to one week. ? Bruising may occur to site. ? A responsible adult should be with you for the first 24 hours after you arrive home. ? Keep follow-up appointment. ? Carry your stent card with you at all times. This provides information about your heart disease for any doctor who cares for you. ? No smoking for 24 hours as it increases the risk of developing blood clots. ? If you are interested in smoking cessation, contact [facility] at [phone], ext. [phone]. ? In the event you are unable to reach your physician, please call [facility] at [phone] and the corduroy cutter operator will assist you. Seek Medicare Care for: ? Bleeding: Apply continuous pressure to the site and Call 911. ? Should the arm or leg become cold, numb, blue or white call your physician immediately. ? Signs of infection are redness, warmth, swelling, getting more sore, colored drainage, fever or chills ? Chest pain ? Blood in your urine or stool ? Black tarry stools ? CARDIOLOGY PROGRESS NOTE Observed: 12/23 10:52 AM Status: F Source: [facility] Cardiology Progress Note Post PCI GDMT: Patient should be prescribed DAPT - aspirin 81 mg daily and Brilinta 90 mg twice daily. Suggest pt change prescribed statin from pravastatin to atorvastatin 40 mg daily. Patient is already prescribed beta shawn - carvedilol 12.5mg BID. Cardiac rehab as outpatient. Result Comment: Electronical ly Signed By: Jonathan Hernandez PA-Cbr\Date and Time Signed: 12/24/23 10:53 EDT INTERDISCIPLINARY NOTE - SHIV E EMERGENCY DISPATCH OPERATOR Observed: 12/24/2023 9:44 AM Status: C Source: [facility] Interdisciplinary Note - Shiv e Sales Project Manager Patient off unit for heart cath. no family in room. CRM will see later today. Patient may be Current with [facility]. 1505- CRM spoke with patient in room. Patient states his family is in the lobby. Patient had a heart cath with stent today. Patient is current with [facility] and will continue at la. Patient states he declined the Hospital bed from last stay as does not need and an extra expense. He ask CRM to go to lobby and talk with his and children. CRM to lobby and spoke with family. The only concerns they have at this time is getting medications for patient and his and they are working with PCP office for assistance for meds. Patient is on Brilinta and CRM used 30 day free card 2 weeks ago. They state he has appt with cardiology on Sunday and encouraged them to discuss concern for med cost. Result Comment: Electronical ly Signed By: Estella Lopez RN\.br\Date and Time Signed: 12/24/23 15:39 EDT INTERDISCIPLINARY NOTE - SHIV E EMERGENCY DISPATCH OPERATOR Observed: 12/24/2023 9:44 AM Status: F Source: [facility] Interdisciplinary Note - Shiv e Sales Project Manager Patient off unit for heart cath. no family in room. CRM will see later today. Patient may be Current with [facility]/H. Result Comment: Electronical ly Signed By: Estella Lopez RN\.br\Date and Time Signed: 12/24/23 09:45 EDT PROGRESS NOTE-PHYSICIAN Observed: 2023 9:00 AM Status: F Source: [facility] Progress Note-Physician Procedure [facility] poss PCI via right radial for unstable angina Patient seen and examined. The risk/benefits of the procedure were thoroughly discussed with patient including specific attention to lack of onsite surgical backup and risk of cora covid, and the patient agrees to proceed. Airway Assessment: Class I: Visualization of the soft palate, fauces, uvula, anterior and posterior pillars Airway Abnormalities: none ASA Classification: ASA 2: Mild systemic disease Risks/Benefits of IV Sedation: Have been explained IV Sedation Plan: Patient agrees to IV sedation plan Assessment/Plan 1. Chest pain (R07.9: Chest pain, unspecified) 2. Non-ST elevation IA (NSTEMI) (I21.4: Non-ST elevation (NSTEMI) myocardial infarction) 3. CAD (coronary artery disease) (I25.10: Atherosclerotic heart disease of [place] coronary artery without angina pectoris) 4. Chronic systolic heart failure (I50.22: Chronic systolic (congestive) heart failure) 5. HTN (hypertension) (I10: Essential (primary) hypertension) 6. Dyslipidemia (E78.5: Hyperlipidemia, unspecified) 7. Type 2 diabetes mellitus (E11.9: Type 2 diabetes mellitus without complications) 8. History of ST elevation myocardial infarction (STEMI) (I25.2: Old myocardial infarction) 9. Neck pain on left side (M54.2: Cervicalgia) Acute ST elevation myocardial infarction (STEMI) (I21.3: ST elevation (STEMI) myocardial infarction of unspecified site) Orders: CV Cardiovascular Result Comment: Electronical ly Signed By: Cyril AUGUSTE, Davion Veliz\.br\Date and Time Signed: 12/24/23 21:08 EDT PROGRESS NOTE-PHYSICIAN Observed: 2023 8:26 AM Status: F Source: [facility] Progress Note-Physician Assessment/Plan PLAN: 1. Chest pain (R07.9: Chest pain, unspecified)Neck pain on left side (M54.2: Cervicalgia) See below #2. Currently pain free. Reports that he had left sided neck pain twice w/event. ? spasms ? plaque no neurological deficits CT head, Carotid US -both negative. Consult neuro if needed Cardiology appreciated. Pending cardiac cath today 2. Non-ST elevation IA (NSTEMI) (I21.4: Non-ST elevation (NSTEMI) myocardial infarction) Possible diagnosis, rule out. Troponin elevation may be residual from recent STEMI. [facility] Cardiology consult-pending No need for Heparin presently per Cardiology Telemetry 3. CAD (coronary artery disease) (I25.10: Atherosclerotic heart disease of [place] coronary artery without angina pectoris) recent STEMI 7/17 w/ stents x 2 Patient with known disease of his PDA and needs staged PCI. Homar, Dariana 4. Chronic systolic heart failure (I50.22: Chronic systolic (congestive) heart failure) Due to ischemic cardiomyopathy. Currently euvolemic Echo 12/13/23: E 35-40%, severe LVH, impaired diastolic relaxation Entresto in AM. 5. HTN (hypertension) (I10: Essential (primary) hypertension) Normotensive Entresto in AM Lasix prn 6. Dyslipidemia (E78.5: Hyperlipidemia, unspecified) Pravastatin 7. Type 2 diabetes mellitus (E11.9: Type 2 diabetes mellitus without complications) Controlled, A1C 5.2 AccuChecks AC/HS w/ ss insulin Hold Metformin/Janumet 8. History of ST elevation myocardial infarction (STEMI) (I25.2: Old myocardial infarction) On 12/12/23 had proximal LAD occlusion and is status post primary PCI with ARLETTE x 2 Subjective Pt doing well this AM. No issues last night. Pending cardiac cath this AM. Denies headache, dizziness, lightheaded, visual effects, CP or SOB. States he is just tired this morning . Pending cardiac cath this AM Objective Vitals & Measurements T: 36.2 ?C(Axillary) TMIN: 36.2 ?C(Axillary) TMAX: 36.7 ?C(Axillary) HR: 63(Monitored) RR: 20 BP: 117/76 SpO2: 100% HT: 177 cm WT: 94.7 kg Intake & Output This visit (24 hour periods starting at 07:00 EDT) 12/24/23 * 12/23/23 12/22/23 Total Summary Intake mL -- -- -- Output mL -- -- -- Fluid Balance -- -- -- Intake (0) Output (0) Counts (1) Urine Count 1 2 -- * This column has not completed the indicated time period. Physical Exam General: NAD Skin: warm, dry, no rash Head: AT/NC Neck: Trachea midline, supple Eye: PERRLA 3mm. non icteric. Cardiovascular: regular rate and rhythm, S1S2, normal peripheral perfusion Respiratory: Lungs CTA anteriorly, respirations non labored, breath sounds equal, no w/r/r Chest wall: no deformity, no TTP Gastrointestinal: soft, NT, ND, no peritoneal signs Extremities: no deformity, no edema Neurological: oriented, LOC appropriate for age, no focal deficits, normal speech/ no weakness noted. Psychiatric: cooperative, affect appropriate for age, good eye contact Lab Results Glucose Lvl: 89 mg/dL (12/24/23 06:02:00) BUN: 23 mg/dL High (12/24/23 06:02:00) Creatinine: 1.2 mg/dL (12/24/23 06:02:00) eGFR: 61 mL/min/1.73 m2 (12/24/23 06:02:00) BUN/Creat Ratio: 19 (12/24/23 06:02:00) Sodium Lvl: 138 mmol/L (12/24/23 06:02:00) Potassium Lvl: 4.2 mmol/L (12/24/23 06:02:00) Chloride: 108 mmol/L (12/24/23 06:02:00) CO2: 22 mmol/L (12/24/23 06:02:00) AGAP: 12 mEq/L (12/24/23 06:02:00) Calcium Lvl: 10.2 mg/dL (12/24/23 06:02:00) Glucose Cap: 86 mg/dL (12/24/23 11:15:00) POC Device SN: [id number] (12/24/23 11:15:00) POC User ID: [id number] (12/24/23 11:15:00) POC Username: [email or web address] Username (12/24/23 11:15:00) Problem List/Past Medical History Ongoing Asthma Benign essential hypertension CHF - Congestive heart failure COPD with asthma Dyslipidemia Former smoker GERD (gastroesophageal reflux disease) History of prostate cancer History of prostatectomy Hyperlipidemia, unspecified Hypothyroidism (acquired) SAMIRA (obstructive sleep apnea) Type 2 diabetes mellitus with hyperlipidemia Historical Chronic back pain Smoker Medications Inpatient acetaminophen 325 mg Tab, 650 mg= 2 tab(s), Oral, q6hr, PRN aspirin 81 mg Oral EC Tab, 81 mg= 1 tab(s), Oral, Bedtime Benadryl 25 mg Cap, 25 mg= 1 cap(s), Oral, q6hr, PRN carvedilol 6.25 mg Tab, 6.25 mg= 1 tab(s), Oral, BID Dextrose 50% Soln-IV, 50 mL, IV Push, Once, PRN HumaLOG Sliding Scale, 0-10 Unit(s), SubCutaneous, QIDACHS levothyroxine 175 mcg (0.175 mg) Tab, 87.5 mcg= 0.5 tab(s), Oral, Daily pravastatin 40 mg Tab, 40 mg= 1 tab(s), Oral, Once a day (at bedtime) sacubitril-valsartan 24 mg-26 mg oral tablet, 4 tab(s), Oral, BID Senokot 8.6 mg Tab, 17.2 mg= 2 tab(s), Oral, BID, PRN Singulair 10 mg Tab, 10 mg= 1 tab(s), Oral, qPM Sodium Chloride 0.9% IV Gillian 1000 mL 1,000 mL, 1000 mL, IV ticagrelor, 90 mg= 1 tab(s), Oral, BID traMADOL 50 mg Tab, 50 mg= 1 tab(s), Oral, q8hr, PRN Vitamin B12 1000 mcg Tab, 1000 mcg= 1 tab(s), Oral, Daily Vitamin D3 1000 intl units (25 mcg) Tab, 25 mcg= 1 tab(s), Oral, Daily Zetia 10 mg Tab, 5 mg= 0.5 tab(s), Oral, Daily Zofran 4 mg/2 mL Injection, 4 mg= 2 mL, IV Push, q6hr, PRN Home aspirin, 81 mg, Oral, Bedtime Brilinta (ticagrelor) 90 mg oral tablet, 90 mg= 1 tab(s), Oral, BID carvedilol 12.5 mg Tab, 6.25 mg= 0.5 tab(s), Oral, BID Entresto 97 mg-103 mg oral tablet, 1 tab(s), Oral, BID Janumet 50 mg/1000 mg oral tablet, 1 tab(s), Oral, Daily Lasix 20 mg Tab, 40 mg= 2 tab(s), Oral, Daily, PRN, Self Directed levothyroxine 175 mcg (0.175 mg) Tab, 87.5 mcg= 0.5 tab(s), Oral, Daily nitroglycerin 0.4 mg sublingual Tab, 0.4 mg= 1 tab(s), SubLingual, As Directed, PRN ONETOUCH ULTRA TEST STRIP pravastatin 40 mg Tab, 40 mg= 1 tab(s), Oral, Once a day (at bedtime) Singulair 10 mg Tab, 10 mg= 1 tab(s), Oral, qPM, 4 refills traMADOL 50 mg Tab, 1-2 tabs, Oral, q8hr, PRN Vitamin B12 1000 mcg Tab, 1000 mcg= 1 tab(s), Oral, Daily Vitamin D3, 3000 unit(s), Oral, Daily Zetia 10 mg Tab, 5 mg= 0.5 tab(s), Oral, Daily, 3 refills Result Comment: Electronical ly Signed By: Khloe VO\.br\Date and Time Signed: 12/24/23 12:26 EDT\.br\Electronically Co-Signed By: Leopoldo Patel MD\.br\Date and Time Co-Signed: 12/26/23 19:00 EDT CAPILLARY GLUCOSE POC Collected: 2023 7:49 AM Status: F Source: [facility] TYPE CODE TESTS RESULT OUT OF RANGE REFERENCE UNITS LAB [id number](LOINC) Glucose Cap 82 Normal 55-99 mg/d L Result Comment: Notified RN/ MD Performed By: #### [id number] #### [facility] [address] [place] [address] US CAROTID DUPLEX BILATERAL Observed: 6:46 AM Status: F Source: [facility] Exam Date/Time: 12/24/2023 07:10 EDT Reason for Exam: Carotid stenosis Report IMPRESSION: NO EVIDENCE OF FLOW-LIMITING CAROTID STENOSIS. EXAM: US Carotid Duplex Bilateral DATE: 12/24/2023 6:46 AM CLINICAL HISTORY: Carotid stenosis COMPARISON: Cervical spine CT 05/29/2022. TECHNIQUE: Grayscale, color and waveform Doppler analysis of the cervical carotid and vertebral arteries was performed. Optimization of duplex velocity criteria for diagnosis of internal carotid artery (ICA) stenosis: A report of the Inters[employer]reditation Commission (IAC) Vascular Testing Division Carotid Diagnostic Criteria Committee. Vascular Medicine 2020; https://journals.Cydanpub.com/doi/full/10.1177/3226658S306829210 FINDINGS: Mild plaquing is noted of the carotid bulbs. There is antegrade blood flow in the right and left vertebral arteries in the neck. On Doppler images, the peak systolic and end diastolic velocity measurements in centimeters per second are as follows: Right proximal common carotid artery is 67.7 / 18.6 Right distal common carotid artery is 62.7 / 18.0 Right proximal internal carotid artery is 55.9 / 15.5 Right mid internal carotid artery is 73.9 / 25.5 Right distal internal carotid artery is 78.3 / 28.6 Right external carotid artery maximum systolic velocity is 64.6 cm/s, The peak systolic internal carotid to common carotid artery ratio on the right is 1.3 , which indicates less than 50% narrowing by velocity ratio criteria. Left proximal common carotid artery is 72.1 / 15.5 Left distal common carotid artery is 59.6 / 15.5 Left proximal internal carotid artery is 48.5 / 14.9 Left mid internal carotid artery is 66.5 / 22.4 Left distal internal carotid artery is 83.9 / 36.0 Left external carotid artery maximum systolic velocity is 62.1 cm/s. The peak systolic internal carotid to common carotid artery ratio on the left is 1.4, Report which indicates less than 50% narrowing by velocity ratio criteria. Stenosis PSV EDV ICA/CCA Ratio <50% <180 cm/s <40 <2 50-69% 180-230 cm/s 40-100 2-4 > 70%, but less than near occlusion >230 cm/s >100 >4 Ordering Provider: Khloe SALOMON FINAL REPORT Dictated: 12/24/2023 11:47 am Kobe Barboza MD Signed (Electronic Signature): 12/24/2023 11:47 am Signed by: Kobe Barboza MD Transcribed by: NII Technologist: LIZZIE Technical Comments Velocities Right Vert. Antegrade Yes Velocities Left Vert. Antegrade Yes EGFR Collected: 6:02 AM Status: F Source: [facility] Order Comment: Order added b y Discern Expert. TYPE CODE TESTS RESULT OUT OF RANGE REFERENCE UNITS LAB [id number](INC) eGFR 61 Normal >=59 mL/min/1 .7 3 m2 Performed By: #### [id number] #### [facility] [address] [place] [address] BMP Collected: 6:02 AM Status: F Source: [facility] TYPE CODE TESTS RESULT OUT OF RANGE REFERENCE UNITS LAB 2345-7([facility]) GLUCOSE:MCNC :PT:SER/PLAS :QN: 89 Normal 55-199 mg/dL LAB 3094-0([facility]) UREA NITROGEN:MCN C:PT:SER/GILBERT S:QN: 23 High 5-21 mg/dL LAB 2160-0([facility]) CREATININE:M CNC:PT:SER/P LAS:QN: 1.2 Normal 0.5-1.3 mg/dL LAB 3097-3([facility]) UREA NITROGEN/CRE ATININE:MRTO :PT:SER/PLAS :QN: 19 Normal 10-20 No Units LAB 36972-1([facility]) CALCIUM:MCNC :PT:SER/PLAS :QN: 10.2 Normal 8.9-11.1 mg/dL LAB 2951-2([facility]) SODIUM:SCNC: PT:SER/PLAS: QN: 138 Normal 135-145 mmol/L LAB 2823-3([facility]) POTASSIUM:SC NC:PT:SER/PL :QN: 4.2 Normal 3.5-5.3 mmol/L LAB 2075-0([facility]) CHLORIDE:SCN C:PT:SER/GILBERT S:QN: 108 Normal 101-111 mmol/L LAB 8-9([facility]) CARBON DIOXIDE:SCNC :PT:SER/PLAS :QN: 22 Normal 21-31 mmol/L LAB 44891-2([facility]) ANION GAP:SCNC:PT: SER/PLAS:QN: 12 Normal 6-16 mEq/L Performed By: #### [id number] # ### [facility] [address] [place] [address] CAPILLARY GLUCOSE POC Collected: 2023 7:40 PM Status: F Source: [facility] TYPE CODE TESTS RESULT OUT OF RANGE REFERENCE UNITS LAB [id number]([facility]) Glucose Cap 100 High 55-99 mg/d L Result Comment: Notified RN/ MD Performed By: #### [id number] #### [facility] [address] [place] [address] CONSULTATION NOTE Observed: 12/23/2023 7:35 PM Status: F Source: [facility] Consultation Note Chief Complaint pt arrives for c/o chest pain at 0300 with radiation into his neck. pt spouse states pt had a IA december 11 with stents placed. Reason for Consultation Chest pain History of Present Illness 78-year-old male with history of CAD and recent STEMI of the LAD. Resulting ischemic cardiomyopathy. Was plan for eventual staged PCI of the PDA. Workup. Chest discomfort and tightness as well as some shortness of breath last night. Had a sensation of radiating couple of times up into his neck like a whooshing sensation. Decided to come in and troponin was elevated although recent STEMI. Since admission his troponin essentially is in flat pattern. No orthopnea or nocturnal dyspnea. No lower extremity edema. Review of Systems Difficult ROS due to elderly patient Physical Exam Vitals & Measurements T: 36.3 ?C(Axillary) TMIN: 36.3 ?C(Axillary) TMAX: 36.6 ?C(Oral) HR: 59(Monitored) RR: 15 BP: 110/70 SpO2: 98% HT: 177 cm WT: 95.2 kg General: alert, no acute distress Skin: warm, dry intact Head: atraumatic, normocephalic Neck: Trachea midline, no JVD, no bruit Eye: normal conjunctiva, sclera clear ENMT: oral mucosa moist Cardiovascular: regular rate and rhythm, nomurmur normal peripheral perfusion Respiratory: Lungs CTA, respirations non labored Chest wall: no deformity. Gastrointestinal: soft, non distended, no tenderness, no guarding. Back: No tenderness, Normal ROM, Normal alignment. Extremities: no edema, no deformity, no trauma Neurological: oriented x 4, LOC appropriate for agesensation equal & normal bilaterally, speech normal Psychiatric: cooperative, affect appropriate for age, normal judgement, normal psychiatric thoughts. Images EKG: Sinus bradycardia with very long first-degree AV block and IVCD/incomplete left bundle branch block Assessment/Plan 78-year-old with recent STEMI and ischemic cardiomyopathy, CAD, primary PCI of the LAD. Comes in with chest discomfort possibly representing angina. Not clearly angina however could be arrhythmia. Doubt CHF due to patient and mild renal insufficiency which appears to be dry. I will recommend another heart catheterization and PCI of the PDA if there are no problems with previous LAD stent. Will also measure end-diastolic pressure. Continue DAPT. N.p.o. past midnight tonight. 1. Chest pain (R07.9: Chest pain, unspecified) 2. Non-ST elevation IA (NSTEMI) (I21.4: Non-ST elevation (NSTEMI) myocardial infarction) 3. CAD (coronary artery disease) (I25.10: Atherosclerotic heart disease of [place] coronary artery without angina pectoris) 4. Chronic systolic heart failure (I50.22: Chronic systolic (congestive) heart failure) 5. HTN (hypertension) (I10: Essential (primary) hypertension) 6. Dyslipidemia (E78.5: Hyperlipidemia, unspecified) 7. Type 2 diabetes mellitus (E11.9: Type 2 diabetes mellitus without complications) 8. History of ST elevation myocardial infarction (STEMI) (I25.2: Old myocardial infarction) 9. Neck pain on left side (M54.2: Cervicalgia) Acute ST elevation myocardial infarction (STEMI) (I21.3: ST elevation (STEMI) myocardial infarction of unspecified site) Problem List/Past Medical History Ongoing Asthma Benign essential hypertension CHF - Congestive heart failure COPD with asthma Dyslipidemia Former smoker GERD (gastroesophageal reflux disease) History of prostate cancer History of prostatectomy Hyperlipidemia, unspecified Hypothyroidism (acquired) SAMIRA (obstructive sleep apnea) Type 2 diabetes mellitus with hyperlipidemia Historical Chronic back pain Smoker Procedure/Surgical History STEMI - ST elevation myocardial infarction (12/12/2023), Carpal tunnel (12/02/2023), right total hip arthroplasty (09/11/2016), left total hip arthroplasty (07/19/2015), Cardiac catheterization (08/27/2006), Colonoscopy (2006), Vasectomy (1975), attempted tendon repair right leg, back surgery, Radical prostatectomy, Rotator cuff repair, Thyroidectomy, Tonsillectomy. Medications Inpatient acetaminophen 325 mg Tab, 650 mg= 2 tab(s), Oral, q6hr, PRN aspirin 81 mg Oral EC Tab, 81 mg= 1 tab(s), Oral, Bedtime Benadryl 25 mg Cap, 25 mg= 1 cap(s), Oral, q6hr, PRN carvedilol 6.25 mg Tab, 6.25 mg= 1 tab(s), Oral, BID Dextrose 50% Soln-IV, 50 mL, IV Push, Once, PRN HumaLOG Sliding Scale, 0-10 Unit(s), SubCutaneous, QIDACHS levothyroxine 175 mcg (0.175 mg) Tab, 87.5 mcg= 0.5 tab(s), Oral, Daily pravastatin 40 mg Tab, 40 mg= 1 tab(s), Oral, Once a day (at bedtime) sacubitril-valsartan 24 mg-26 mg oral tablet, 4 tab(s), Oral, BID Senokot 8.6 mg Tab, 17.2 mg= 2 tab(s), Oral, BID, PRN Singulair 10 mg Tab, 10 mg= 1 tab(s), Oral, qPM ticagrelor, 90 mg= 1 tab(s), Oral, BID traMADOL 50 mg Tab, 50 mg= 1 tab(s), Oral, q8hr, PRN Vitamin B12 1000 mcg Tab, 1000 mcg= 1 tab(s), Oral, Daily Vitamin D3 1000 intl units (25 mcg) Tab, 25 mcg= 1 tab(s), Oral, Daily Zetia 10 mg Tab, 5 mg= 0.5 tab(s), Oral, Daily Zofran 4 mg/2 mL Injection, 4 mg= 2 mL, IV Push, q6hr, PRN Home aspirin, 81 mg, Oral, Bedtime Brilinta (ticagrelor) 90 mg oral tablet, 90 mg= 1 tab(s), Oral, BID carvedilol 12.5 mg Tab, 6.25 mg= 0.5 tab(s), Oral, BID Entresto 97 mg-103 mg oral tablet, 1 tab(s), Oral, BID Janumet 50 mg/1000 mg oral tablet, 1 tab(s), Oral, Daily Lasix 20 mg Tab, 40 mg= 2 tab(s), Oral, Daily, PRN, Self Directed levothyroxine 175 mcg (0.175 mg) Tab, 87.5 mcg= 0.5 tab(s), Oral, Daily nitroglycerin 0.4 mg sublingual Tab, 0.4 mg= 1 tab(s), SubLingual, As Directed, PRN ONETOUCH ULTRA TEST STRIP pravastatin 40 mg Tab, 40 mg= 1 tab(s), Oral, Once a day (at bedtime) Singulair 10 mg Tab, 10 mg= 1 tab(s), Oral, qPM, 4 refills traMADOL 50 mg Tab, 1-2 tabs, Oral, q8hr, PRN Vitamin B12 1000 mcg Tab, 1000 mcg= 1 tab(s), Oral, Daily Vitamin D3, 3000 unit(s), Oral, Daily Zetia 10 mg Tab, 5 mg= 0.5 tab(s), Oral, Daily, 3 refills Allergies Aldactone Contrast Dye (Flushing) Crestor Pollen (Hayfever) Toradol Social History Alcohol - No Risk, 10/05/2023 Current, 1-2 times per year, 1 drinks/episode average. 1.00 drinks/episode maximum., 10/05/2023 Substance Abuse - Denies Substance Abuse, 05/31/2015 Tobacco - Denies Tobacco Use, 10/05/2023 Former smoker, quit more than 30 days ago Tobacco Use:., 12/23/2023 Former smoker, quit more than 30 days ago Tobacco Use:. Former smokeless tobacco user, quit more than 30 days ago Smokeless Tobacco Use:. Cigarettes, Cigars, Oral, Started age 18.0 Years. Stopped age 33 Years. Household tobacco concerns: No., 12/20/2023 Family History Acute myocardial infarction: Grandparent. Alcoholism: Mother. Cardiac arrhythmia: Mother. Diabetes mellitus type 2: Mother and Father. Hypertension: Father. Hypotension: Brother. Primary malignant neoplasm of lung: Mother. Primary malignant neoplasm of prostate: Father. Stroke: Father. Immunizations Vaccine Date Status Comments influenza virus vaccine, inactivated 02/2023 Recorded SARS-CoV-2 (COVID-19) [id number].[id number] 05/16/2022 Recorded SARSCoV2 mRNA(qfvxxvhij-vnbb-fwufjq) vac 09/17/2021 Recorded influenza virus vaccine, inactivated 02/21/2021 Recorded SARS-CoV-2 (COVID-19) mRNA BNT-162b2 vax 02/21/2021 Recorded 2023-07-09: [id number] SARS-CoV-2 (COVID-19) mRNA BNT-162b2 vax 08/11/2020 Recorded SARS-CoV-2 (COVID-19) mRNA BNT-162b2 vax 07/18/2020 Recorded 2023-07-09: [id number] SARS-CoV-2 (COVID-19) mRNA BNT-162b2 vax 07/14/2020 Recorded SARS-CoV-2 (COVID-19) mRNA BNT-162b2 vax 06/27/2020 Recorded 2023-07-09: [id number] zoster vaccine live 04/23/2013 Recorded Result Comment: Electronical ly Signed By: Cyril AUGUSTE, Davion Veliz\.br\Date and Time Signed: 12/23/23 19:39 EDT CONSULTATION NOTE Observed: 12/23/2023 7:35 PM Status: F Source: [facility] Consultation Note Chief Complaint pt arrives for c/o chest pain at 0300 with radiation into his neck. pt spouse states pt had a IA december 11 with stents placed. Reason for Consultation Chest pain History of Present Illness 78-year-old male with history of CAD and recent STEMI of the LAD. Resulting ischemic cardiomyopathy. Was plan for eventual staged PCI of the PDA. Workup. Chest discomfort and tightness as well as some shortness of breath last night. Had a sensation of radiating couple of times up into his neck like a whooshing sensation. Decided to come in and troponin was elevated although recent STEMI. Since admission his troponin essentially is in flat pattern. No orthopnea or nocturnal dyspnea. No lower extremity edema. Review of Systems Difficult ROS due to elderly patient Physical Exam Vitals & Measurements T: 36.3 ?C(Axillary) TMIN: 36.3 ?C(Axillary) TMAX: 36.6 ?C(Oral) HR: 59(Monitored) RR: 15 BP: 110/70 SpO2: 98% HT: 177 cm WT: 95.2 kg General: alert, no acute distress Skin: warm, dry intact Head: atraumatic, normocephalic Neck: Trachea midline, no JVD, no bruit Eye: normal conjunctiva, sclera clear ENMT: oral mucosa moist Cardiovascular: regular rate and rhythm, nomurmur normal peripheral perfusion Respiratory: Lungs CTA, respirations non labored Chest wall: no deformity. Gastrointestinal: soft, non distended, no tenderness, no guarding. Back: No tenderness, Normal ROM, Normal alignment. Extremities: no edema, no deformity, no trauma Neurological: oriented x 4, LOC appropriate for agesensation equal & normal bilaterally, speech normal Psychiatric: cooperative, affect appropriate for age, normal judgement, normal psychiatric thoughts. Images EKG: Sinus bradycardia with very long first-degree AV block and IVCD/incomplete left bundle branch block Assessment/Plan 78-year-old with recent STEMI and ischemic cardiomyopathy, CAD, primary PCI of the LAD. Comes in with chest discomfort possibly representing angina. Not clearly angina however could be arrhythmia. Doubt CHF due to patient and mild renal insufficiency which appears to be dry. I will recommend another heart catheterization and PCI of the PDA if there are no problems with previous LAD stent. Will also measure end-diastolic pressure. Continue DAPT. N.p.o. past midnight tonight. 1. Chest pain (R07.9: Chest pain, unspecified) 2. Non-ST elevation IA (NSTEMI) (I21.4: Non-ST elevation (NSTEMI) myocardial infarction) 3. CAD (coronary artery disease) (I25.10: Atherosclerotic heart disease of [place] coronary artery without angina pectoris) 4. Chronic systolic heart failure (I50.22: Chronic systolic (congestive) heart failure) 5. HTN (hypertension) (I10: Essential (primary) hypertension) 6. Dyslipidemia (E78.5: Hyperlipidemia, unspecified) 7. Type 2 diabetes mellitus (E11.9: Type 2 diabetes mellitus without complications) 8. History of ST elevation myocardial infarction (STEMI) (I25.2: Old myocardial infarction) 9. Neck pain on left side (M54.2: Cervicalgia) Acute ST elevation myocardial infarction (STEMI) (I21.3: ST elevation (STEMI) myocardial infarction of unspecified site) Problem List/Past Medical History Ongoing Asthma Benign essential hypertension CHF - Congestive heart failure COPD with asthma Dyslipidemia Former smoker GERD (gastroesophageal reflux disease) History of prostate cancer History of prostatectomy Hyperlipidemia, unspecified Hypothyroidism (acquired) SAMIRA (obstructive sleep apnea) Type 2 diabetes mellitus with hyperlipidemia Historical Chronic back pain Smoker Procedure/Surgical History STEMI - ST elevation myocardial infarction (12/12/2023), Carpal tunnel (12/02/2023), right total hip arthroplasty (09/11/2016), left total hip arthroplasty (07/19/2015), Cardiac catheterization (08/27/2006), Colonoscopy (2006), Vasectomy (1975), attempted tendon repair right leg, back surgery, Radical prostatectomy, Rotator cuff repair, Thyroidectomy, Tonsillectomy. Medications Inpatient acetaminophen 325 mg Tab, 650 mg= 2 tab(s), Oral, q6hr, PRN aspirin 81 mg Oral EC Tab, 81 mg= 1 tab(s), Oral, Bedtime Benadryl 25 mg Cap, 25 mg= 1 cap(s), Oral, q6hr, PRN carvedilol 6.25 mg Tab, 6.25 mg= 1 tab(s), Oral, BID Dextrose 50% Soln-IV, 50 mL, IV Push, Once, PRN HumaLOG Sliding Scale, 0-10 Unit(s), SubCutaneous, QIDACHS levothyroxine 175 mcg (0.175 mg) Tab, 87.5 mcg= 0.5 tab(s), Oral, Daily pravastatin 40 mg Tab, 40 mg= 1 tab(s), Oral, Once a day (at bedtime) sacubitril-valsartan 24 mg-26 mg oral tablet, 4 tab(s), Oral, BID Senokot 8.6 mg Tab, 17.2 mg= 2 tab(s), Oral, BID, PRN Singulair 10 mg Tab, 10 mg= 1 tab(s), Oral, qPM ticagrelor, 90 mg= 1 tab(s), Oral, BID traMADOL 50 mg Tab, 50 mg= 1 tab(s), Oral, q8hr, PRN Vitamin B12 1000 mcg Tab, 1000 mcg= 1 tab(s), Oral, Daily Vitamin D3 1000 intl units (25 mcg) Tab, 25 mcg= 1 tab(s), Oral, Daily Zetia 10 mg Tab, 5 mg= 0.5 tab(s), Oral, Daily Zofran 4 mg/2 mL Injection, 4 mg= 2 mL, IV Push, q6hr, PRN Home aspirin, 81 mg, Oral, Bedtime Brilinta (ticagrelor) 90 mg oral tablet, 90 mg= 1 tab(s), Oral, BID carvedilol 12.5 mg Tab, 6.25 mg= 0.5 tab(s), Oral, BID Entresto 97 mg-103 mg oral tablet, 1 tab(s), Oral, BID Janumet 50 mg/1000 mg oral tablet, 1 tab(s), Oral, Daily Lasix 20 mg Tab, 40 mg= 2 tab(s), Oral, Daily, PRN, Self Directed levothyroxine 175 mcg (0.175 mg) Tab, 87.5 mcg= 0.5 tab(s), Oral, Daily nitroglycerin 0.4 mg sublingual Tab, 0.4 mg= 1 tab(s), SubLingual, As Directed, PRN ONETOUCH ULTRA TEST STRIP pravastatin 40 mg Tab, 40 mg= 1 tab(s), Oral, Once a day (at bedtime) Singulair 10 mg Tab, 10 mg= 1 tab(s), Oral, qPM, 4 refills traMADOL 50 mg Tab, 1-2 tabs, Oral, q8hr, PRN Vitamin B12 1000 mcg Tab, 1000 mcg= 1 tab(s), Oral, Daily Vitamin D3, 3000 unit(s), Oral, Daily Zetia 10 mg Tab, 5 mg= 0.5 tab(s), Oral, Daily, 3 refills Allergies Aldactone Contrast Dye (Flushing) Crestor Pollen (Hayfever) Toradol Social History Alcohol - No Risk, 10/05/2023 Current, 1-2 times per year, 1 drinks/episode average. 1.00 drinks/episode maximum., 10/05/2023 Substance Abuse - Denies Substance Abuse, 05/31/2015 Tobacco - Denies Tobacco Use, 10/05/2023 Former smoker, quit more than 30 days ago Tobacco Use:., 12/23/2023 Former smoker, quit more than 30 days ago Tobacco Use:. Former smokeless tobacco user, quit more than 30 days ago Smokeless Tobacco Use:. Cigarettes, Cigars, Oral, Started age 18.0 Years. Stopped age 33 Years. Household tobacco concerns: No., 12/20/2023 Family History Acute myocardial infarction: Grandparent. Alcoholism: Mother. Cardiac arrhythmia: Mother. Diabetes mellitus type 2: Mother and Father. Hypertension: Father. Hypotension: Brother. Primary malignant neoplasm of lung: Mother. Primary malignant neoplasm of prostate: Father. Stroke: Father. Immunizations Vaccine Date Status Comments influenza virus vaccine, inactivated 02/2023 Recorded SARS-CoV-2 (COVID-19) mRNAMUL.[id number] 05/16/2022 Recorded SARSCoV2 mRNA(xtdbigxni-enyt-rgdobs) vac 09/17/2021 Recorded influenza virus vaccine, inactivated 02/21/2021 Recorded SARS-CoV-2 (COVID-19) mRNA BNT-162b2 vax 02/21/2021 Recorded 2023-07-09: TPV75 SARS-CoV-2 (COVID-19) mRNA BNT-162b2 vax 08/11/2020 Recorded SARS-CoV-2 (COVID-19) mRNA BNT-162b2 vax 07/18/2020 Recorded 2023-07-09: TPV75 SARS-CoV-2 (COVID-19) mRNA BNT-162b2 vax 07/14/2020 Recorded SARS-CoV-2 (COVID-19) mRNA BNT-162b2 vax 06/27/2020 Recorded 2023-07-09: TPV75 zoster vaccine live 04/23/2013 Recorded Result Comment: Electronical ly Signed By: Cyril AUGUSTE, Davion Veliz\.br\Date and Time Signed: 12/23/23 19:39 EDT CAPILLARY GLUCOSE POC Collected: 2023 3:29 PM Status: F Source: [facility] TYPE CODE TESTS RESULT OUT OF RANGE REFERENCE UNITS LAB 78715212(INC) Glucose Cap 130 High 55-99 mg/d L Result Comment: Notified RN/ Performed By: #### [id number] #### [facility] [address] [place] [address] PROGRESS NOTE-PHYSICIAN Observed: 2023 12:01 PM Status: F Source: [facility] Progress Note-Physician Assessment/Plan PLAN: 1. Chest pain (R07.9: Chest pain, unspecified)Neck pain on left side (M54.2: Cervicalgia) See below #2. Currently pain free. Reports that he had left sided neck pain twice w/event. ? spasms ? plaque no neurological deficits CT head, Carotid US -pending. Consult neuro if needed Cardiology pending 2. Non-ST elevation IA (NSTEMI) (I21.4: Non-ST elevation (NSTEMI) myocardial infarction) Possible diagnosis, rule out. Troponin elevation may be residual from recent STEMI. [facility] Cardiology consult-pending No need for Heparin presently per Cardiology Telemetry 3. CAD (coronary artery disease) (I25.10: Atherosclerotic heart disease of [place] coronary artery without angina pectoris) recent STEMI 12/11 w/ stents x 2 Patient with known disease of his PDA and needs staged PCI. Dariana Graf 4. Chronic systolic heart failure (I50.22: Chronic systolic (congestive) heart failure) Due to ischemic cardiomyopathy. Currently euvolemic Echo 12/13/23: E 35-40%, severe LVH, impaired diastolic relaxation Entresto in AM. 5. HTN (hypertension) (I10: Essential (primary) hypertension) Normotensive Entresto in AM Lasix prn 6. Dyslipidemia (E78.5: Hyperlipidemia, unspecified) Pravastatin 7. Type 2 diabetes mellitus (E11.9: Type 2 diabetes mellitus without complications) Controlled, A1C 5.2 Hold Metformin/Janumet 8. History of ST elevation myocardial infarction (STEMI) (I25.2: Old myocardial infarction) On 12/12/23 had proximal LAD occlusion and is status post primary PCI with ARLETTE x 2 Subjective pt seen at bedside this AM. States that he feels better than he did. No CP, SOB this AM. Explains during his episode last night he felt as though 2 cans of paint were sitting on my chest states i couldn't take a deep breath and reports having pain twice extending into my left side of my neck . Denied any slurry speech, head, visual disturbance, weakness to extremities. Large amt of family in the waiting room. present reports that she did not witness any neurological deficits last night. Two daughters are ?nurses asking about work up in re: to neck complaints and if possible plaque. Objective Vitals & Measurements T: 36.4 ?C(Axillary) TMIN: 36.3 ?C(Axillary) TMAX: 36.6 ?C(Oral) HR: 56(Monitored) RR: 15 BP: 124/81 SpO2: 98% HT: 177 cm WT: 95.2 kg Intake & Output No qualifying data available. Physical Exam General: NAD Skin: warm, dry, no rash Head: AT/NC Neck: Trachea midline, supple Eye: PERRLA 3mm. non icteric. Cardiovascular: regular rate and rhythm, S1S2, normal peripheral perfusion Respiratory: Lungs CTA anteriorly, respirations non labored, breath sounds equal, no w/r/r Chest wall: no deformity, no TTP Gastrointestinal: soft, NT, ND, no peritoneal signs Extremities: no deformity, no edema Neurological: oriented, LOC appropriate for age, no focal deficits, normal speech/ no weakness noted. Psychiatric: cooperative, affect appropriate for age, good eye contact Lab Results WBC: 7.8 E9/L (12/23/23 04:10:00) RBC: 5.1 E12/L (12/23/23 04:10:00) HGB: 15.7 gm/dL (12/23/23 04:10:00) Hct: 45.4 % (12/23/23 04:10:00) MCV: 89.8 fL (12/23/23 04:10:00) MCH: 31 pg (12/23/23 04:10:00) MCHC: 34.5 gm/dL (12/23/23 04:10:00) RDW: 14.6 % High (12/23/23 04:10:00) Platelet: 199 E9/L (12/23/23 04:10:00) MPV: 9.7 fL (12/23/23 04:10:00) Neutro Auto: 62.7 % (12/23/23 04:10:00) Lymph Auto: 25.7 % (12/23/23 04:10:00) Benson Auto: 7.8 % (12/23/23 04:10:00) Eos Auto: 2.7 % (12/23/23 04:10:00) Basophil Auto: 1.1 % (12/23/23 04:10:00) Neutro Absolute: 4.9 E9/L (12/23/23 04:10:00) Lymph Absolute: 2 E9/L (12/23/23 04:10:00) Benson Absolute: 0.6 E9/L (12/23/23 04:10:00) Eos Absolute: 0.2 E9/L (12/23/23 04:10:00) Basophil Absolute: 0.1 E9/L (12/23/23 04:10:00) PT: 13.1 second(s) High (12/23/23 04:10:00) INR: 1.17 (12/23/23 04:10:00) PTT: 36.2 second(s) (12/23/23 04:10:00) Glucose Lvl: 87 mg/dL (12/23/23 04:10:00) BUN: 27 mg/dL High (12/23/23 04:10:00) Creatinine: 1.4 mg/dL High (12/23/23 04:10:00) eGFR: 51 mL/min/1.73 m2 Low (12/23/23 04:10:00) BUN/Creat Ratio: 19 (12/23/23 04:10:00) Sodium Lvl: 138 mmol/L (12/23/23 04:10:00) Potassium Lvl: 4 mmol/L (12/23/23 04:10:00) Chloride: 109 mmol/L (12/23/23 04:10:00) CO2: 22 mmol/L (12/23/23 04:10:00) AGAP: 11 mEq/L (12/23/23 04:10:00) Calcium Lvl: 10 mg/dL (12/23/23 04:10:00) Magnesium: 1.8 mg/dL (12/23/23 04:10:00) Troponin HS: 784.8 pg/mL Critical (12/23/23 10:15:00) Problem List/Past Medical History Ongoing Asthma Benign essential hypertension CHF - Congestive heart failure COPD with asthma Dyslipidemia Former smoker GERD (gastroesophageal reflux disease) History of prostate cancer History of prostatectomy Hyperlipidemia, unspecified Hypothyroidism (acquired) SAMIRA (obstructive sleep apnea) Type 2 diabetes mellitus with hyperlipidemia Historical Chronic back pain Smoker Medications Inpatient acetaminophen 325 mg Tab, 650 mg= 2 tab(s), Oral, q6hr, PRN aspirin 81 mg Oral EC Tab, 81 mg= 1 tab(s), Oral, Bedtime Benadryl 25 mg Cap, 25 mg= 1 cap(s), Oral, q6hr, PRN carvedilol 6.25 mg Tab, 6.25 mg= 1 tab(s), Oral, BID Dextrose 50% Soln-IV, 50 mL, IV Push, Once, PRN HumaLOG Sliding Scale, 0-10 Unit(s), SubCutaneous, QIDACHS levothyroxine 175 mcg (0.175 mg) Tab, 87.5 mcg= 0.5 tab(s), Oral, Daily pravastatin 40 mg Tab, 40 mg= 1 tab(s), Oral, Once a day (at bedtime) sacubitril-valsartan 24 mg-26 mg oral tablet, 4 tab(s), Oral, BID Senokot 8.6 mg Tab, 17.2 mg= 2 tab(s), Oral, BID, PRN Singulair 10 mg Tab, 10 mg= 1 tab(s), Oral, qPM ticagrelor, 90 mg= 1 tab(s), Oral, BID traMADOL 50 mg Tab, 50 mg= 1 tab(s), Oral, q8hr, PRN Vitamin B12 1000 mcg Tab, 1000 mcg= 1 tab(s), Oral, Daily Vitamin D3 1000 intl units (25 mcg) Tab, 25 mcg= 1 tab(s), Oral, Daily Zetia 10 mg Tab, 5 mg= 0.5 tab(s), Oral, Daily Zofran 4 mg/2 mL Injection, 4 mg= 2 mL, IV Push, q6hr, PRN Home aspirin, 81 mg, Oral, Bedtime Brilinta (ticagrelor) 90 mg oral tablet, 90 mg= 1 tab(s), Oral, BID carvedilol 12.5 mg Tab, 6.25 mg= 0.5 tab(s), Oral, BID Entresto 97 mg-103 mg oral tablet, 1 tab(s), Oral, BID Janumet 50 mg/1000 mg oral tablet, 1 tab(s), Oral, Daily Lasix 20 mg Tab, 40 mg= 2 tab(s), Oral, Daily, PRN, Self Directed levothyroxine 175 mcg (0.175 mg) Tab, 87.5 mcg= 0.5 tab(s), Oral, Daily nitroglycerin 0.4 mg sublingual Tab, 0.4 mg= 1 tab(s), SubLingual, As Directed, PRN ONETOUCH ULTRA TEST STRIP pravastatin 40 mg Tab, 40 mg= 1 tab(s), Oral, Once a day (at bedtime) Singulair 10 mg Tab, 10 mg= 1 tab(s), Oral, qPM, 4 refills traMADOL 50 mg Tab, 1-2 tabs, Oral, q8hr, PRN Vitamin B12 1000 mcg Tab, 1000 mcg= 1 tab(s), Oral, Daily Vitamin D3, 3000 unit(s), Oral, Daily Zetia 10 mg Tab, 5 mg= 0.5 tab(s), Oral, Daily, 3 refills Result Comment: Electronical ly Signed By: AIME YIP, Khloe\.br\Date and Time Signed: 12/23/23 12:02 EDT\.br\Electronically Co-Signed By: Robert Navarro DO\.br\Date and Time Co-Signed: 12/23/23 12:[address] HEAD OR BRAIN W/O CONTRAST Observed: 12/23/2023 11:52 AM Status: F Source: [facility] Exam Date/Time: 12/23/2023 12:14 EDT Reason for Exam: TIA Report IMPRESSION: NO ACUTE INTRACRANIAL PROCESS IDENTIFIED. EXAM: CT Head or Brain w/o Contrast DATE: 12/23/2023 11:52 AM CLINICAL HISTORY: TIA. COMPARISON: 05/29/2022. TECHNIQUE: Routine. All CT scans at this facility use dose modulation, iterative reconstruction, and/or weight based dosing when appropriate to reduce radiation dose to as low as reasonably achievable. FINDINGS: There is no intracranial hemorrhage, mass effect, midline shift, extra-axial collection, evidence of hydrocephalus, skull fracture, or a recent ischemic infarct identified. Mild age-related volume loss and chronic white matter changes are again noted. The mastoid air cells and visualized paranasal sinuses are essentially clear. Ordering Provider: Khloe SALOMON FINAL REPORT Dictated: 12/23/2023 12:20 pm Kobe Barboza MD Signed (Electronic Signature): 12/23/2023 12:20 pm Signed by: Kobe Barboza MD Transcribed by: NII Technologist: MITA TROPONIN 6 HR. Collected: 10:15 AM Status: F Source: [facility] TYPE CODE TESTS RESULT OUT OF RANGE REFERENCE UNITS LAB [id number](LOINC) Troponin HS 784.80 Abnormal 15.90-38.40 pg/mL Result Comment: Critical Res ult Verified by Previous Result Critical Result I_TnIHS:784.8 Called to and read back by: JACQUELINE GUTHRIE at: 12/23/2023 10:52:45 by:[id number] The 95% CI (Confidence Interval) PPV (Positive Predictive Value) for myocardial infarction in females is 38 pg/mL, in males 51 pg/mL. The results should be used in conjunction with clinical conditions of myocardial infarction. (Access High Sensitivity Troponin I Instructions For Use, Zeke Nemo, December 2017) Performed By: #### [id number] #### [facility] [address] [place] [address] ED PATIENT SUMMARY Observed: 12/23/2023 7:22 AM Status: F Source: [facility] ED Patient Summary [address] [address] Patient Discharge Instructions Person Information Name: RAY SUAREZ Age: 78 Years Arrival Date: 12/23/2023 04:00:03 Discharge Diagnosis: 1:Chest pain; 2:Non-ST elevation IA (NSTEMI); 3:CAD (coronary artery disease); 4:Chronic systolic heart failure; 5:HTN (hypertension); 6:Dyslipidemia; 7:Type 2 diabetes mellitus; 8:History of ST elevation myocardial infarction (STEMI) Primary Care Physician: Todd Osman DO Provider Information Primary Provider: Carol Underwood DO Advanced Resort Manager:None The exam and treatment you received in the Emergency Department were for an urgent problem and are not intended as complete care. It is important that you follow up with a doctor, nurse practitioner, or physician?s restaurant assistant for ongoing care. If your symptoms become worse or you do not improve as expected and you are unable to reach your usual health care provider, you should return to the Emergency Department. We are available 24 hours a day. RAY SUAREZ has been given the following list of patient education materials, prescriptions and follow-up instructions: Follow-up Instructions: In the event that this physician does not participate in your insurance network, please consult with your insurance company to find a nearby participating provider. Patient Education Materials: A MESSAGE TO ALL PATIENTS REGARDING OPIOIDS PRESCRIPTION OPIOIDS: WHAT YOU NEED TO KNOW Prescription opioids can be used to help relieve mnxavowz-aa-upiqnj pain and are often prescribed following a surgery or injury, or for certain health conditions. These medications can be an important part of the treatment but also come with serious risks. It is important to work with your healthcare provider to make sure you are getting the safest, most effective care. WHAT ARE THE RISKS AND SIDE EFFECTS OF OPIOID USE? Prescription opioids carry serious risks of addiction and overdose, especially with prolonged use. An opioid overdose, often marked by slowed breathing, can cause sudden . The use of prescription opioids can have a number of side effects as well, even when taken as directed: ? Tolerance?meaning you might need to take more of the medication for the same pain relief ? Physical dependence?meaning you have symptoms of withdrawal when a medication is stopped ? Increased sensitivity to pain ? Constipation ? Nausea, vomiting, and dry mouth ? Sleepiness and dizziness ? Confusion ? Depression ? Low levels of testosterone that can result in lower sex drive, energy, and strength ? Itching and sweating RISKS ARE GREATER WITH: ? History of drug misuse, substance use disorder, or overdose ? Mental health conditions (such as depression or anxiety) ? Sleep apnea ? Older age (65 years and older) ? Avoid alcohol while taking prescription opioids. Also, unless specifically advised by your health care provider, medications to avoid include: ? Benzodiazepines (such as Xanax or Valium) ? Muscle relaxants (such as Soma or Flexeril) ? Hypnotics (such as Ambien or Lunesta) ? Other prescription opioids KNOW YOUR OPTIONS Talk to your health care provider about ways to manage your pain that don?t involve prescription opioids. Some of these options may actually work better and have fewer risks and side effects. Options may include: ? Pain relievers such as acetaminophen, ibuprofen, and naproxen ? Some medication that are also used for depression or seizures ? Physical therapy and exercise ? Cognitive behavioral therapy, a psychological, goal-directed approach, in which patients learn how to modify physical, behavioral, and emotional triggers of pain and stress. IF YOU ARE PRESCRIBED OPIOIDS FOR PAIN: ? Never take opioids in greater amounts or more often than prescribed. ? Follow up with your primary health care provider. o Work together to create a plan on how to manage your pain. o Talk about ways to help manage your pain that don?t involve prescription opioids. o Talk about any and all concerns and side effects. ? Help prevent misuse and abuse o Never sell or share prescription opioids. o Never use another person?s prescription opioids. ? Store prescription opioids in a secure place and out of reach of others (this may include visitors, children, friends, and family). ? Safely dispose of unused prescription opioids: Find your community drug take- back program or your pharmacy mail-back program, or flush them down the toilet, following guidance from the Food and Drug Administration (www.fda.gov/Drugs/ResourcesForYou). ? Visit www.cdc.gov/drugoverdose to learn about the risks of opioids abuse and overdose. ? If you believe you may be struggling with addiction, tell your health home health care social worker and ask for guidance or call [facility]?S National Helpline at 2-657-973-PYEQ. v Source: [place] Department of Health and Human Services/Center for Disease Control & Prevention [facility] Medications Given: Medication Dose Route aspirin 162.00 mg Oral Medication Information: Medications to Continue with No Changes Other Medications albuterol (Albuterol (Eqv-Ventolin HFA) 90 mcg/inh inhalation aerosol) INHALE 2 PUFFS BY MOUTH EVERY 4 HOURS NEEDED. aspirin 81 Milligram By Mouth at bedtime. azelastine nasal (azelastine nasal 0.15% spray) 2 Sprays Nasal Inhalation 2 times a day as needed Allergy symptoms. baclofen (baclofen 10 mg Tab) 1 tab(s) Oral q4hr PRN. carvedilol (carvedilol 12.5 mg Tab) 0.5 Tablets By Mouth 2 times a day. Refills: 0. cholecalciferol (Vitamin D3) 3,000 Units By Mouth every day. cyanocobalamin (Vitamin B12 1000 mcg Tab) 1 Tablets By Mouth every day. ezetimibe (Zetia 10 mg Tab) 0.5 Tablets By Mouth every day. Refills: 3. furosemide (Lasix 20 mg Tab) 2 Tablets By Mouth every day as needed Other (see comment). PRN for leg swelling (takes for >3 pound weight gain). levothyroxine (levothyroxine 175 mcg (0.175 mg) Tab) 0.5 Tablets By Mouth every day. metformin-sitagliptin (Janumet 50 mg/1000 mg oral tablet) 1 Tablets By Mouth every day. [facility] [place]FanMobUCH ULTRA TEST STRIP) TEST ONCE DAILY. montelukast (Singulair 10 mg Tab) 1 Tablets By Mouth once a day (in the evening). Refills: 4. nitroglycerin (nitroglycerin 0.4 mg sublingual Tab) 1 Tablets Sublingual As Directed as needed for chest pain. takeif SBP is greater than 110. Refills: 0. pravastatin (pravastatin 40 mg Tab) 1 Tablets By Mouth once a day (at bedtime). Refills: 0. sacubitril-valsartan (Entresto 97 mg-103 mg oral tablet) 1 Tablets By Mouth 2 times a day. hold if systolic is less than 100. ticagrelor (Brilinta (ticagrelor) 90 mg oral tablet) 1 Tablets By Mouth 2 times a day. Refills: 0. tramadol (traMADOL 50 mg Tab) 1-2 tabs By Mouth every 8 hours as needed Pain. Refills: 0. Comment: Pharmacy Information: Patient Portal You may access all of your results and other medical record information on our secure patient portal. If you are not signed up for this yet, please contact [employer] at [phone] to get signed up today. LEONARDO Award Nomination The LEONARDO (Diseases Attacking the Immune SYstem) Award is an international recognition program that honors and celebrates the skillful, compassionate care nurses provide every day. Anyone who experiences or observes amazing care being provided by a nurse is encouraged to submit a nomination. To nominate your nurse, use your smart phone to scan the QR code below. You may receive a survey from [employer] asking you to rate your care experience. Your feedback is important and will help us understand what we do well and how we can improve the quality of care we provide to you, your loved ones and our community. It?s an honor to serve you. Thank you for choosing [facility] Patient Education Materials: DANIELA España JOE M , have received the following patient education materials/instructions and have verbalized understanding: Patient Education Materials: Follow-up Instructions: Patient Signature Date Clinician/Nurse Signature Date 12/23/2023 07:22:45 ED PATIENT EDUCATION NOTE Observed: 11/26 7:22 AM Status: F Source: [facility] ED Patient Education Note ED CLINICAL SUMMARY Observed: 12/23/2023 7:22 AM Status: F Source: [facility] ED Clinical Summary [place] [id number] ED Clinical Summary Person Information Name: HUANJONO RAY Jarrell Roman/[facility] Age: 78 Years : 1945 Sex: Male Language: Sudanese PCP: Todd Osman DO Marital Status: Visit Id: Visit Reason: Medical problem - minor; Chest pain; CHEST PAIN Speciality: Acuity: 2 Enc Type: Inpatient Med Service: Emergency Arrival: 12/23/2023 04:00:03 Discharge: LOS: 000 03:22 Checkin: 12/23/2023 04:00:03 Checkout: 12/23/2023 07:22:43 Dispo Type: Admitted as IP to this [facility] EVENTS: Event Name Event Status Request Date/Time Start Date/Time Complete Date/Time Arrive Complete 12/23/2023 04:00:03 12/23/2023 04:00:03 12/23/2023 04:00:03 Document Home Meds Request 12/23/2023 04:00:03 Triage Complete 12/23/2023 04:00:03 12/23/2023 04:06:41 12/23/2023 04:06:41 EKG Complete 12/23/2023 04:01:54 12/23/2023 04:06:01 Dr Exam Complete 12/23/2023 04:01:54 12/23/2023 04:01:54 12/23/2023 04:01:54 Registration Complete 12/23/2023 04:01:54 12/23/2023 04:02:14 12/23/2023 04:08:33 Bed Assign Complete 12/23/2023 04:02:14 12/23/2023 04:02:14 12/23/2023 04:02:14 RN Exam Complete 12/23/2023 04:02:14 12/23/2023 04:13:22 12/23/2023 04:13:22 30 Day Return Request 12/23/2023 04:06:42 Reg Complete Request 12/23/2023 04:08:33 Reg Bed Request Complete 12/23/2023 04:08:33 12/23/2023 04:08:33 12/23/2023 04:08:33 Pending Labs Request 12/23/2023 04:10:25 Lab Complete 12/23/2023 04:10:25 12/23/2023 04:52:46 Meds Admin Complete 12/23/2023 04:10:25 12/23/2023 04:12:18 Patient Care Complete 12/23/2023 04:10:25 12/23/2023 06:01:44 RT Cancel 12/23/2023 04:10:25 12/23/2023 06:01:44 X-Ray Complete 12/23/2023 04:10:25 12/23/2023 04:23:07 12/23/2023 04:31:42 Pending Labs Complete 12/23/2023 04:16:06 12/23/2023 04:16:06 12/23/2023 04:52:46 Lab Complete 12/23/2023 04:16:06 12/23/2023 04:16:06 12/23/2023 04:52:46 Wet Read Request 12/23/2023 04:31:42 Bed Request Request 12/23/2023 05:33:44 Reg Bed Request Complete 12/23/2023 05:33:44 12/23/2023 05:37:35 12/23/2023 05:37:35 Admit Request 12/23/2023 05:33:44 Consult Request 12/23/2023 05:34:05 Hospitalist Consult Request 12/23/2023 05:34:06 Patient Care Request 12/23/2023 05:37:35 Patient Care Request 12/23/2023 05:37:35 Patient Care Request 12/23/2023 05:37:35 Patient Care Request 12/23/2023 05:37:36 Medicare Form Complete 12/23/2023 05:37:36 12/23/2023 05:51:09 Patient Care Request 12/23/2023 05:37:36 Patient Care Request 12/23/2023 05:37:36 Patient Care Request 12/23/2023 06:03:18 Meds Admin Request 12/23/2023 06:03:18 Consult Request 12/23/2023 06:03:18 Pending Labs Complete 12/23/2023 07:19:55 12/23/2023 07:19:55 12/23/2023 07:19:55 ADDRESS: [address] [place] [id number] PHYS DOC NOTES: MEDICAL INFORMATION: Prescriptions Given: Medications to Continue with No Changes Other Medications albuterol (Albuterol (Eqv-Ventolin HFA) 90 mcg/inh inhalation aerosol) INHALE 2 PUFFS BY MOUTH EVERY 4 HOURS NEEDED. aspirin 81 Milligram By Mouth at bedtime. azelastine nasal (azelastine nasal 0.15% spray) 2 Sprays Nasal Inhalation 2 times a day as needed Allergy symptoms. baclofen (baclofen 10 mg Tab) 1 tab(s) Oral q4hr PRN. carvedilol (carvedilol 12.5 mg Tab) 0.5 Tablets By Mouth 2 times a day. Refills: 0. cholecalciferol (Vitamin D3) 3,000 Units By Mouth every day. cyanocobalamin (Vitamin B12 1000 mcg Tab) 1 Tablets By Mouth every day. ezetimibe (Zetia 10 mg Tab) 0.5 Tablets By Mouth every day. Refills: 3. furosemide (Lasix 20 mg Tab) 2 Tablets By Mouth every day as needed Other (see comment). PRN for leg swelling (takes for >3 pound weight gain). levothyroxine (levothyroxine 175 mcg (0.175 mg) Tab) 0.5 Tablets By Mouth every day. metformin-sitagliptin (Janumet 50 mg/1000 mg oral tablet) 1 Tablets By Mouth every day. Misc Prescription (ONETOUCH ULTRA TEST STRIP) TEST ONCE DAILY. montelukast (Singulair 10 mg Tab) 1 Tablets By Mouth once a day (in the evening). Refills: 4. nitroglycerin (nitroglycerin 0.4 mg sublingual Tab) 1 Tablets Sublingual As Directed as needed for chest pain. takeif SBP is greater than 110. Refills: 0. pravastatin (pravastatin 40 mg Tab) 1 Tablets By Mouth once a day (at bedtime). Refills: 0. sacubitril-valsartan (Entresto 97 mg-103 mg oral tablet) 1 Tablets By Mouth 2 times a day. hold if systolic is less than 100. ticagrelor (Brilinta (ticagrelor) 90 mg oral tablet) 1 Tablets By Mouth 2 times a day. Refills: 0. tramadol (traMADOL 50 mg Tab) 1-2 tabs By Mouth every 8 hours as needed Pain. Refills: 0. PATIENT EDUCATION INFORMATION: Instructions: Follow up: DIAGNOSIS: 1:Chest pain; 2:Non-ST elevation IA (NSTEMI); 3:CAD (coronary artery disease); 4:Chronic systolic heart failure; 5:HTN (hypertension); 6:Dyslipidemia; 7:Type 2 diabetes mellitus; 8:History of ST elevation myocardial infarction (STEMI) TROPONIN 3 HR. Collected: 6:59 AM Status: F Source: [facility] TYPE CODE TESTS RESULT OUT OF RANGE REFERENCE UNITS LAB [id number](INC) Troponin HS 874.40 Abnormal 15.90-38.40 pg/mL Result Comment: Critical Res ult Verified by Previous Result Critical Result I_TnIHS:[id number] Called to and read back by: Justin FERRARA at: 12/23/2023 08:05:34 by:[email or web address] The 95% CI (Confidence Interval) PPV (Positive Predictive Value) for myocardial infarction in females is 38 pg/mL, in males 51 pg/mL. The results should be used in conjunction with clinical conditions of myocardial infarction. (Access High Sensitivity Troponin I Instructions For Use, Zeke Nemo, December 2017) Performed By: #### [id number] #### [facility] [address] [place] [address] HISTORY AND PHYSICAL Observed: 6:14 AM Status: F Source: [facility] History and Physical Basic Information Admit Date/Time:12/23/2023 05:37 Chief Complaint pt arrives for c/o chest pain at 0300 with radiation into his neck. pt spouse states pt had a IA december 11 with stents placed. History of Present Illness 78-year-old male with known CAD, ischemic cardiomyopathy EF 35-40%, chronic kidney disease, hypertension, diabetes, dyslipidemia, and recent STEMI with stent placement on 12/12/2023. He presented to the emergency room with chest pain. States that he was sleeping and the pain awoke him around 3 AM. He described it as a weight sitting on his chest. He had a couple sharp pains radiate into his neck. No diaphoresis or shortness of breath. The discomfort lasted about 5 to 10 minutes then resolved. Of note patient was a transfer from [place] for a STEMI on 12/12/2023. He was found to have proximal LAD occlusion and is status post primary PCI with ARLETTE x 2. Also has disease of his PDA and will need staged PCI at a later date as this was deemed not as urgent. In the ED his troponin was found to be elevated at 873. There are no prior troponin levels for comparison. Cardiology was contacted who felt this could be residual elevation from his recent STEMI, but wanted him admitted for observation. No need for Heparin drip at this time. Currently the patient is pain free. Review of Systems Constitutional: no fever, no chills, no sweats, no weakness Skin: no jaundice, no rash, no lesions, no petechiae ENMT: no ear pain, no sore throat, no congestion, no hoarseness Respiratory: no shortness of breath, no cough, no orthopnea, no wheezing Cardiovascular: + chest pain, no palpitations, no edema Gastrointestinal: no nausea, no vomiting, no diarrhea, no abdominal pain Genitourinary: no dysuria, no hematuria Musculoskeletal: no trauma, no joint or muscle pain Neurologic: no headache, no dizziness Psychiatric: no depression, no anxiety Heme/Lymph: no bleeding tendency, no bruising tendency Additional ROS info: Except as noted in the above Review of Systems and in the History of Present Illness all other systems have been reviewed and are negative or noncontributory. Scoring Hussein Fall Risk Score: 35 (12/23/23) Physical Exam Vitals & Measurements T: 36.6 ?C(Oral) HR: 51(Monitored) RR: 16 BP: 121/75 SpO2: 99% HT: 177 cm WT: 95.2 kg General: NAD Skin: warm, dry, no rash Head: AT/NC Neck: Trachea midline, supple Eye: normal conjunctiva, sclera clear Cardiovascular: regular rate and rhythm, S1S2, normal peripheral perfusion Respiratory: Lungs CTA anteriorly, respirations non labored, breath sounds equal, no w/r/r Chest wall: no deformity, no TTP Gastrointestinal: soft, NT, ND, no peritoneal signs Extremities: no deformity, no edema Neurological: oriented, LOC appropriate for age, no focal deficits, normal speech Psychiatric: cooperative, affect appropriate for age, good eye contact Lab Results WBC: 7.8 E9/L (12/23/23 04:10:00) RBC: 5.1 E12/L (12/23/23 04:10:00) HGB: 15.7 gm/dL (12/23/23 04:10:00) Hct: 45.4 % (12/23/23 04:10:00) MCV: 89.8 fL (12/23/23 04:10:00) MCH: 31 pg (12/23/23 04:10:00) MCHC: 34.5 gm/dL (12/23/23 04:10:00) RDW: 14.6 % High (12/23/23 04:10:00) Platelet: 199 E9/L (12/23/23 04:10:00) MPV: 9.7 fL (12/23/23 04:10:00) Neutro Auto: 62.7 % (12/23/23 04:10:00) Lymph Auto: 25.7 % (12/23/23 04:10:00) Benson Auto: 7.8 % (12/23/23 04:10:00) Eos Auto: 2.7 % (12/23/23 04:10:00) Basophil Auto: 1.1 % (12/23/23 04:10:00) Neutro Absolute: 4.9 E9/L (12/23/23 04:10:00) Lymph Absolute: 2 E9/L (12/23/23 04:10:00) Benson Absolute: 0.6 E9/L (12/23/23 04:10:00) Eos Absolute: 0.2 E9/L (12/23/23 04:10:00) Basophil Absolute: 0.1 E9/L (12/23/23 04:10:00) PT: 13.1 second(s) High (12/23/23 04:10:00) INR: 1.17 (12/23/23 04:10:00) PTT: 36.2 second(s) (12/23/23 04:10:00) Glucose Lvl: 87 mg/dL (12/23/23 04:10:00) BUN: 27 mg/dL High (12/23/23 04:10:00) Creatinine: 1.4 mg/dL High (12/23/23 04:10:00) eGFR: 51 mL/min/1.73 m2 Low (12/23/23 04:10:00) BUN/Creat Ratio: 19 (12/23/23 04:10:00) Sodium Lvl: 138 mmol/L (12/23/23 04:10:00) Potassium Lvl: 4 mmol/L (12/23/23 04:10:00) Chloride: 109 mmol/L (12/23/23 04:10:00) CO2: 22 mmol/L (12/23/23 04:10:00) AGAP: 11 mEq/L (12/23/23 04:10:00) Calcium Lvl: 10 mg/dL (12/23/23 04:10:00) Magnesium: 1.8 mg/dL (12/23/23 04:10:00) Troponin HS: 873.7 pg/mL Critical (12/23/23 04:10:00) Assessment/Plan 1. Chest pain (R07.9: Chest pain, unspecified) See below #2. Currently pain free. 2. Non-ST elevation IA (NSTEMI) (I21.4: Non-ST elevation (NSTEMI) myocardial infarction) Possible diagnosis, rule out. Troponin elevation may be residual from recent STEMI. Cardiology consulted for input. No need for Heparin presently per Cardiology 3. CAD (coronary artery disease) (I25.10: Atherosclerotic heart disease of [place] coronary artery without angina pectoris) Patient with known disease of his PDA and needs staged PCI. Dariana Graf 4. Chronic systolic heart failure (I50.22: Chronic systolic (congestive) heart failure) Due to ischemic cardiomyopathy. Currently euvolemic Echo 12/13/23: E 35-40%, severe LVH, impaired diastolic relaxation 5. HTN (hypertension) (I10: Essential (primary) hypertension) Normotensive 6. Dyslipidemia (E78.5: Hyperlipidemia, unspecified) Pravastatin 7. Type 2 diabetes mellitus (E11.9: Type 2 diabetes mellitus without complications) Controlled, A1C 5.[address]. [address] elevation myocardial infarction (STEMI) (I25.2: Old myocardial infarction) On 12/12/23 had proximal LAD occlusion and is status post primary PCI with ARLETTE x 2 Attestation Anticipate >2MN length of stay. Patient with active chest pain and possible NSTEMI based on troponin elevation. History complicated by recent STEMI with stenting just 10 days ago. Problem List/Past Medical History Ongoing Asthma Benign essential hypertension CHF - Congestive heart failure COPD with asthma Dyslipidemia Former smoker GERD (gastroesophageal reflux disease) History of prostate cancer History of prostatectomy Hyperlipidemia, unspecified Hypothyroidism (acquired) SAMIRA (obstructive sleep apnea) Type 2 diabetes mellitus with hyperlipidemia Historical Chronic back pain Smoker Procedure/Surgical History STEMI - ST elevation myocardial infarction (12/12/2023), Carpal tunnel (12/02/2023), right total hip arthroplasty (09/11/2016), left total hip arthroplasty (07/19/2015), Cardiac catheterization (08/27/2006), Colonoscopy (2006), Vasectomy (1975), attempted tendon repair right leg, back surgery, Radical prostatectomy, Rotator cuff repair, Thyroidectomy, Tonsillectomy. Medications Inpatient acetaminophen 325 mg Tab, 650 mg= 2 tab(s), Oral, q6hr, PRN Benadryl 25 mg Cap, 25 mg= 1 cap(s), Oral, q6hr, PRN Senokot 8.6 mg Tab, 17.2 mg= 2 tab(s), Oral, BID, PRN Zofran 4 mg/2 mL Injection, 4 mg= 2 mL, IV Push, q6hr, PRN Home Albuterol (Eqv-Ventolin HFA) 90 mcg/inh inhalation aerosol aspirin, 81 mg, Oral, Bedtime azelastine nasal 0.15% spray, 2 spray(s), Nasal, BID, PRN baclofen 10 mg Tab, See Instructions Brilinta (ticagrelor) 90 mg oral tablet, 90 mg= 1 tab(s), Oral, BID carvedilol 12.5 mg Tab, 6.25 mg= 0.5 tab(s), Oral, BID Entresto 97 mg-103 mg oral tablet, 1 tab(s), Oral, BID Janumet 50 mg/1000 mg oral tablet, 1 tab(s), Oral, Daily Lasix 20 mg Tab, 40 mg= 2 tab(s), Oral, Daily, PRN levothyroxine 175 mcg (0.175 mg) Tab, 87.5 mcg= 0.5 tab(s), Oral, Daily nitroglycerin 0.4 mg sublingual Tab, 0.4 mg= 1 tab(s), SubLingual, As Directed, PRN ONETOUCH ULTRA TEST STRIP pravastatin 40 mg Tab, 40 mg= 1 tab(s), Oral, Once a day (at bedtime) Singulair 10 mg Tab, 10 mg= 1 tab(s), Oral, qPM, 4 refills traMADOL 50 mg Tab, 1-2 tabs, Oral, q8hr, PRN Vitamin B12 1000 mcg Tab, 1000 mcg= 1 tab(s), Oral, Daily Vitamin D3, 3000 unit(s), Oral, Daily Zetia 10 mg Tab, 5 mg= 0.5 tab(s), Oral, Daily, 3 refills Allergies Aldactone Contrast Dye ([place]) Crestor Pollen ([place]) Toradol Social History Alcohol - No Risk, 10/05/2023 Current, 1-2 times per year, 1 drinks/episode average. 1.00 drinks/episode maximum., 10/05/2023 Substance Abuse - Denies Substance Abuse, 05/31/2015 Tobacco - Denies Tobacco Use, 10/05/2023 Former smoker, quit more than 30 days ago Tobacco Use:. Former smokeless tobacco user, quit more than 30 days ago Smokeless Tobacco Use:. Cigarettes, Cigars, Oral, Started age 18.0 Years. Stopped age 33 Years. Household tobacco concerns: No., 12/20/2023 Family History Acute myocardial infarction: Grandparent. Alcoholism: Mother. Cardiac arrhythmia: Mother. Diabetes mellitus type 2: Mother and Father. Hypertension: Father. Hypotension: Brother. Primary malignant neoplasm of lung: Mother. Primary malignant neoplasm of prostate: Father. Stroke: Father. Immunizations Vaccine Date Status Comments influenza virus vaccine, inactivated 02/2023 Recorded SARS-CoV-2 (COVID-19) [id number] 05/16/2022 Recorded SARSCoV2 mRNA(uqzadiqhd-ifvj-shrxno) vac 09/17/2021 Recorded influenza virus vaccine, inactivated 02/21/2021 Recorded SARS-CoV-2 (COVID-19) mRNA BNT-162b2 vax 02/21/2021 Recorded 2023-07-09: [id number] SARS-CoV-2 (COVID-19) mRNA BNT-162b2 vax 08/11/2020 Recorded SARS-CoV-2 (COVID-19) mRNA BNT-162b2 vax 07/18/2020 Recorded 2023-07-09: [id number] SARS-CoV-2 (COVID-19) mRNA BNT-162b2 vax 07/14/2020 Recorded SARS-CoV-2 (COVID-19) mRNA BNT-162b2 vax 06/27/2020 Recorded 2023-07-09: [id number] zoster vaccine live 04/23/2013 Recorded Result Comment: Electronical ly Signed By: Rea AUGUSTE, Antonietta\.br\Date and Time Signed: 12/23/23 06:15 EDT HISTORY AND PHYSICAL Observed: 6:14 AM Status: F Source: [facility] History and Physical Basic Information Admit Date/Time:12/23/2023 05:37 Chief Complaint pt arrives for c/o chest pain at 0300 with radiation into his neck. pt spouse states pt had a IA december 11 with stents placed. History of Present Illness 78-year-old male with known CAD, ischemic cardiomyopathy EF 35-40%, chronic kidney disease, hypertension, diabetes, dyslipidemia, and recent STEMI with stent placement on 12/12/2023. He presented to the emergency room with chest pain. States that he was sleeping and the pain awoke him around 3 AM. He described it as a weight sitting on his chest. He had a couple sharp pains radiate into his neck. No diaphoresis or shortness of breath. The discomfort lasted about 5 to 10 minutes then resolved. Of note patient was a transfer from [place] for a STEMI on 12/12/2023. He was found to have proximal LAD occlusion and is status post primary PCI with ARLETTE x 2. Also has disease of his PDA and will need staged PCI at a later date as this was deemed not as urgent. In the ED his troponin was found to be elevated at 873. There are no prior troponin levels for comparison. Cardiology was contacted who felt this could be residual elevation from his recent STEMI, but wanted him admitted for observation. No need for Heparin drip at this time. Currently the patient is pain free. Review of Systems Constitutional: no fever, no chills, no sweats, no weakness Skin: no jaundice, no rash, no lesions, no petechiae ENMT: no ear pain, no sore throat, no congestion, no hoarseness Respiratory: no shortness of breath, no cough, no orthopnea, no wheezing Cardiovascular: + chest pain, no palpitations, no edema Gastrointestinal: no nausea, no vomiting, no diarrhea, no abdominal pain Genitourinary: no dysuria, no hematuria Musculoskeletal: no trauma, no joint or muscle pain Neurologic: no headache, no dizziness Psychiatric: no depression, no anxiety Heme/Lymph: no bleeding tendency, no bruising tendency Additional ROS info: Except as noted in the above Review of Systems and in the History of Present Illness all other systems have been reviewed and are negative or noncontributory. Scoring Hussein Fall Risk Score: 35 (12/23/23) Physical Exam Vitals & Measurements T: 36.6 ?C(Oral) HR: 51(Monitored) RR: 16 BP: 121/75 SpO2: 99% HT: 177 cm WT: 95.2 kg General: NAD Skin: warm, dry, no rash Head: AT/NC Neck: Trachea midline, supple Eye: normal conjunctiva, sclera clear Cardiovascular: regular rate and rhythm, S1S2, normal peripheral perfusion Respiratory: Lungs CTA anteriorly, respirations non labored, breath sounds equal, no w/r/r Chest wall: no deformity, no TTP Gastrointestinal: soft, NT, ND, no peritoneal signs Extremities: no deformity, no edema Neurological: oriented, LOC appropriate for age, no focal deficits, normal speech Psychiatric: cooperative, affect appropriate for age, good eye contact Lab Results WBC: 7.8 E9/L (12/23/23 04:10:00) RBC: 5.1 E12/L (12/23/23 04:10:00) HGB: 15.7 gm/dL (12/23/23 04:10:00) Hct: 45.4 % (12/23/23 04:10:00) MCV: 89.8 fL (12/23/23 04:10:00) MCH: 31 pg (12/23/23 04:10:00) MCHC: 34.5 gm/dL (12/23/23 04:10:00) RDW: 14.6 % High (12/23/23 04:10:00) Platelet: 199 E9/L (12/23/23 04:10:00) MPV: 9.7 fL (12/23/23 04:10:00) Neutro Auto: 62.7 % (12/23/23 04:10:00) Lymph Auto: 25.7 % (12/23/23 04:10:00) Benson Auto: 7.8 % (12/23/23 04:10:00) Eos Auto: 2.7 % (12/23/23 04:10:00) Basophil Auto: 1.1 % (12/23/23 04:10:00) Neutro Absolute: 4.9 E9/L (12/23/23 04:10:00) Lymph Absolute: 2 E9/L (12/23/23 04:10:00) Benson Absolute: 0.6 E9/L (12/23/23 04:10:00) Eos Absolute: 0.2 E9/L (12/23/23 04:10:00) Basophil Absolute: 0.1 E9/L (12/23/23 04:10:00) PT: 13.1 second(s) High (12/23/23 04:10:00) INR: 1.17 (12/23/23 04:10:00) PTT: 36.2 second(s) (12/23/23 04:10:00) Glucose Lvl: 87 mg/dL (12/23/23 04:10:00) BUN: 27 mg/dL High (12/23/23 04:10:00) Creatinine: 1.4 mg/dL High (12/23/23 04:10:00) eGFR: 51 mL/min/1.73 m2 Low (12/23/23 04:10:00) BUN/Creat Ratio: 19 (12/23/23 04:10:00) Sodium Lvl: 138 mmol/L (12/23/23 04:10:00) Potassium Lvl: 4 mmol/L (12/23/23 04:10:00) Chloride: 109 mmol/L (12/23/23 04:10:00) CO2: 22 mmol/L (12/23/23 04:10:00) AGAP: 11 mEq/L (12/23/23 04:10:00) Calcium Lvl: 10 mg/dL (12/23/23 04:10:00) Magnesium: 1.8 mg/dL (12/23/23 04:10:00) Troponin HS: 873.7 pg/mL Critical (12/23/23 04:10:00) Assessment/Plan 1. Chest pain (R07.9: Chest pain, unspecified) See below #2. Currently pain free. 2. Non-ST elevation IA (NSTEMI) (I21.4: Non-ST elevation (NSTEMI) myocardial infarction) Possible diagnosis, rule out. Troponin elevation may be residual from recent STEMI. Cardiology consulted for input. No need for Heparin presently per Cardiology 3. CAD (coronary artery disease) (I25.10: Atherosclerotic heart disease of [place] coronary artery without angina pectoris) Patient with known disease of his PDA and needs staged PCI. Dariana Graf 4. Chronic systolic heart failure (I50.22: Chronic systolic (congestive) heart failure) Due to ischemic cardiomyopathy. Currently euvolemic Echo 12/13/23: E 35-40%, severe LVH, impaired diastolic relaxation 5. HTN (hypertension) (I10: Essential (primary) hypertension) Normotensive 6. Dyslipidemia (E78.5: Hyperlipidemia, unspecified) Pravastatin 7. Type 2 diabetes mellitus (E11.9: Type 2 diabetes mellitus without complications) Controlled, A1C 5.[address]. [address] elevation myocardial infarction (STEMI) (I25.2: Old myocardial infarction) On 12/12/23 had proximal LAD occlusion and is status post primary PCI with ARLETTE x 2 Attestation Anticipate >2MN length of stay. Patient with active chest pain and possible NSTEMI based on troponin elevation. History complicated by recent STEMI with stenting just 10 days ago. Problem List/Past Medical History Ongoing Asthma Benign essential hypertension CHF - Congestive heart failure COPD with asthma Dyslipidemia Former smoker GERD (gastroesophageal reflux disease) History of prostate cancer History of prostatectomy Hyperlipidemia, unspecified Hypothyroidism (acquired) SAMIRA (obstructive sleep apnea) Type 2 diabetes mellitus with hyperlipidemia Historical Chronic back pain Smoker Procedure/Surgical History STEMI - ST elevation myocardial infarction (12/12/2023), Carpal tunnel (12/02/2023), right total hip arthroplasty (09/11/2016), left total hip arthroplasty (07/19/2015), Cardiac catheterization (08/27/2006), Colonoscopy (2006), Vasectomy (1975), attempted tendon repair right leg, back surgery, Radical prostatectomy, Rotator cuff repair, Thyroidectomy, Tonsillectomy. Medications Inpatient acetaminophen 325 mg Tab, 650 mg= 2 tab(s), Oral, q6hr, PRN Benadryl 25 mg Cap, 25 mg= 1 cap(s), Oral, q6hr, PRN Senokot 8.6 mg Tab, 17.2 mg= 2 tab(s), Oral, BID, PRN Zofran 4 mg/2 mL Injection, 4 mg= 2 mL, IV Push, q6hr, PRN Home Albuterol (Eqv-Ventolin HFA) 90 mcg/inh inhalation aerosol aspirin, 81 mg, Oral, Bedtime azelastine nasal 0.15% spray, 2 spray(s), Nasal, BID, PRN baclofen 10 mg Tab, See Instructions Brilinta (ticagrelor) 90 mg oral tablet, 90 mg= 1 tab(s), Oral, BID carvedilol 12.5 mg Tab, 6.25 mg= 0.5 tab(s), Oral, BID Entresto 97 mg-103 mg oral tablet, 1 tab(s), Oral, BID Janumet 50 mg/1000 mg oral tablet, 1 tab(s), Oral, Daily Lasix 20 mg Tab, 40 mg= 2 tab(s), Oral, Daily, PRN levothyroxine 175 mcg (0.175 mg) Tab, 87.5 mcg= 0.5 tab(s), Oral, Daily nitroglycerin 0.4 mg sublingual Tab, 0.4 mg= 1 tab(s), SubLingual, As Directed, PRN ONETOUCH ULTRA TEST STRIP pravastatin 40 mg Tab, 40 mg= 1 tab(s), Oral, Once a day (at bedtime) Singulair 10 mg Tab, 10 mg= 1 tab(s), Oral, qPM, 4 refills traMADOL 50 mg Tab, 1-2 tabs, Oral, q8hr, PRN Vitamin B12 1000 mcg Tab, 1000 mcg= 1 tab(s), Oral, Daily Vitamin D3, 3000 unit(s), Oral, Daily Zetia 10 mg Tab, 5 mg= 0.5 tab(s), Oral, Daily, 3 refills Allergies Aldactone Contrast Dye ([place]) Crestor Pollen (Hayfever) Toradol Social History Alcohol - No Risk, 10/05/2023 Current, 1-2 times per year, 1 drinks/episode average. 1.00 drinks/episode maximum., 10/05/2023 Substance Abuse - Denies Substance Abuse, 05/31/2015 Tobacco - Denies Tobacco Use, 10/05/2023 Former smoker, quit more than 30 days ago Tobacco Use:. Former smokeless tobacco user, quit more than 30 days ago Smokeless Tobacco Use:. Cigarettes, Cigars, Oral, Started age 18.0 Years. Stopped age 33 Years. Household tobacco concerns: No., 12/20/2023 Family History Acute myocardial infarction: Grandparent. Alcoholism: Mother. Cardiac arrhythmia: Mother. Diabetes mellitus type 2: Mother and Father. Hypertension: Father. Hypotension: Brother. Primary malignant neoplasm of lung: Mother. Primary malignant neoplasm of prostate: Father. Stroke: Father. Immunizations Vaccine Date Status Comments influenza virus vaccine, inactivated 02/2023 Recorded SARS-CoV-2 (COVID-19) [id number] 05/16/2022 Recorded SARSCoV2 mRNA([id number]-iagijf) vac 09/17/2021 Recorded influenza virus vaccine, inactivated 02/21/2021 Recorded SARS-CoV-2 (COVID-19) mRNA BNT-162b2 vax 02/21/2021 Recorded 2023-07-09: [id number] SARS-CoV-2 (COVID-19) mRNA BNT-162b2 vax 08/11/2020 Recorded SARS-CoV-2 (COVID-19) mRNA BNT-162b2 vax 07/18/2020 Recorded 2023-07-09: [id number] SARS-CoV-2 (COVID-19) mRNA BNT-162b2 vax 07/14/2020 Recorded SARS-CoV-2 (COVID-19) mRNA BNT-162b2 vax 06/27/2020 Recorded 2023-07-09: [id number] zoster vaccine live 04/23/2013 Recorded Result Comment: Electronical ly Signed By: Rea AUGUSTE, Antonietta\.br\Date and Time Signed: 12/23/23 06:15 EDT TROPONIN 1 HR. Collected: 5:17 AM Status: F Source: [facility] TYPE CODE TESTS RESULT OUT OF RANGE REFERENCE UNITS LAB [id number](LOINC) Troponin HS 811.10 Abnormal 15.90-38.40 pg/mL Result Comment: Critical Res ult [id number]:811.1 Called to and read back by: ROBBIN FELICIANO at: 12/23/2023 06:30:30 by:[id number] The 95% CI (Confidence Interval) PPV (Positive Predictive Value) for myocardial infarction in females is 38 pg/mL, in males 51 pg/mL. The results should be used in conjunction with clinical conditions of myocardial infarction. (Access High Sensitivity Troponin I Instructions For Use, [place], December 2017) Performed By: #### [id number] #### [facility] [address] [place] [id number] XR CHEST SINGLE VIEW Observed: 4 4:23 AM Status: F Source: [facility] Exam Date/Time: 12/23/2023 04:31 EDT Reason for Exam: Chest pain Report IMPRESSION: NO EVIDENCE OF ACTIVE CARDIOPULMONARY DISEASE, BY PORTABLE CHEST RADIOGRAPHY. EXAM: XR Chest Single View DATE: 12/23/2023 4:23 AM CLINICAL HISTORY: Chest pain. COMPARISON: 12/12/2023. TECHNIQUE: A portable upright AP radiograph of the chest was obtained. FINDINGS: There is no significant pulmonary infiltrate, cardiomegaly, vascular congestion, sizable pleural effusion, pneumothorax, or displaced fractures identified. Ordering Provider: Carol Underwood FINAL REPORT Dictated: 12/23/2023 9:57 am Kobe Barboza MD Signed (Electronic Signature): 12/23/2023 9:57 am Signed by: Kobe Barboza MD Transcribed by: NII Technologist: NILAM Technical Comments Radiation Dose: Ka,r in mGy = n/a DAP = n/a ED NOTE-PHYSICIAN Observed: 12/23/2023 4:21 AM Status: F Source: [facility] ED Note-Physician Basic Information Time Seen: Carol Underwood DO 12/23/2023 04:01 Chief Complaint pt arrives for c/o chest pain at 0300 with radiation into his neck. pt spouse states pt had a IA december 11 with stents placed. History of Present Illness Patient is an 78-year-old male with past medical history of hypertension, hyperlipidemia, diabetes, CAD with recent stent placement presenting to the ED for evaluation of chest pain. Patient states he woke up at 3 AM with chest pressure with radiation to his back and his neck. Patient states is lasted for 5 to 10 minutes and then resolved. Patient states he had a recent cardiac catheterization with stent placement was a STEMI transfer from [place]. Patient states symptoms have since resolved. Denies any fevers, chills, nausea, vomiting, dizziness or lightheadedness. Review of Systems A 10 point review of systems is negative except as noted above. Medical and Surgical History: Reviewed and noted Social history: Lives at home Tobacco: Denies Physical Exam Vitals & Measurements T: 36.6 ?C(Oral) HR: 57(Peripheral) RR: 19 BP: 139/79 SpO2: 96% HT: 177 cm WT: 95.2 kg BMI: 30.39 General: Well developed, non toxic appearing, no acute distress HEENT: Head atraumatic, Mucosa moist, hearing grossly normal Neck: No JVD, tracheal deviation Cardiac: Regular rate, rhythm, no murmurs, or gallops, 2+ radial pulses Respiratory: Lungs clear to auscultation B/L, normal respiratory effort Abdomen: Soft non tender, no rebound or guarding, no peritoneal signs Extremities: No edema noted in the LE B/L, no tenderness to palpation Neurologic: Alert and oriented, speech clear Skin: No rashes or lesions Psych: Appropriate mood and behavior Medical Decision Making MEDICAL DECISION MAKING Number and Complexity of Problems Differential Diagnosis: [] [facility] Data External documents reviewed: [] My EKG interpretation: [] My CT interpretation: [] My X-ray interpretation: [] My Ultrasound interpretation: [] Decision rules/scores evaluated: Heart Score for Major Cardiac Event History: Example factors for history - pattern of chest pain, onset, duration, relation with exercise, stress or cold, localization, concominant symptoms. reaction to sublingual nitrates, [X] Highly suspicious +2 [] Moderately suspicious +1 [] Slightly suspicious 0 EKG: [] Significant ST-Depression +2 [X] Non specific repolarization disturbance +1 [] Normal 0 Age: [X] >= 65 +2 [] 45-65 + 1 [] <45 0 Risk Factors: (HLD, HTN, DM, Cigarette Smoking, Pos Family Hx, Obesity) [X] >3 risk factors or hx of atheroslerotic disease + 2 [] 1-2 risk factors + 1 [] No risk factors known 0 Troponin: [] >= 3X normal + 2 [] 1-3X normal + 1 [x] <= Normal 0 [] 0-3 Points 0.9 - 1.7% risk of major adverse cardiac event in 6 weeks [X] 4-6 Points 12-16.6% risk of major adverse cardiac event in 6 weeks [] 7-10 Points 50-65% risk of major adverse cardiac event in 6 weeks [] 0-3 Points with 2 sets of negative cardiac markers <1% risk of major adverse cardiac event in 30 days. Discussed with: [] Treatment and Disposition ED Course: Patient is an 78-year-old male presenting to the ED for evaluation of chest pain. Patient is on oxygen on arrival, no acute distress. EKG without any acute abnormalities. Cardiac workup is obtained patient is pain-free on arrival was given aspirin in the ED patient's laboratory evaluation shows slight bump of creatinine of 1.4, troponins elevated 873 otherwise laboratory evaluation is unremarkable. I did reach out to Dr. Haynes due to the elevated troponin no previous for comparison he believes this is likely still residual from his recent STEMI. Does not want heparin drip at this time. Is in agreement with admission to the hospital due to residual that were planned for delayed stenting. Patient remains pain-free in the ED. Discussed case with the hospitalist accepts the patient for admission. Shared decision making: [] Code status: [] Assessment/Plan Chest pain (R07.9: Chest pain, unspecified) Non-ST elevation IA (NSTEMI) (I21.4: Non-ST elevation (NSTEMI) myocardial infarction) Orders: aspirin, 162 mg = 2 tab(s), Tab-Chew, Oral, Once, Stop date 12/23/23 4:10:00 EDT, STAT, Start date 12/23/23 4:10:00 EDT, 12/23/23 4:10:00 EDT Basic Metabolic Panel CBC w/ Auto Diff ECG 12 Lead Adult ED Cardiac Monitoring ED Physician consult Hospitalist for continued care eGFR Magnesium Level Oxygen Saturation Oxygen Therapy PT & PTT Saline Lock Insert Troponin 0 Hr. Troponin 1 Hr. Troponin 3 Hr. Troponin 6 Hr. XR Chest Single View Medications Administered Given aspirin 81 mg Chew Tab, 162 mg, Oral Disposition Plan Patient Discharge Condition Fair Discharge Disposition Admitted Discharge Prescription List Prescriptions No active prescription medications Follow-up No qualifying data available Problem List/Past Medical History Ongoing Asthma Benign essential hypertension CHF - Congestive heart failure COPD with asthma Dyslipidemia Former smoker GERD (gastroesophageal reflux disease) History of prostate cancer History of prostatectomy Hyperlipidemia, unspecified Hypothyroidism (acquired) SAMIRA (obstructive sleep apnea) Type 2 diabetes mellitus with hyperlipidemia Historical Chronic back pain Smoker Procedure/Surgical History STEMI - ST elevation myocardial infarction (12/12/2023), Carpal tunnel (12/02/2023), right total hip arthroplasty (09/11/2016), left total hip arthroplasty (07/19/2015), Cardiac catheterization (08/27/2006), Colonoscopy (2006), Vasectomy (1975), attempted tendon repair right leg, back surgery, Radical prostatectomy, Rotator cuff repair, Thyroidectomy, Tonsillectomy. Medications Inpatient No active inpatient medications Home Albuterol (Eqv-Ventolin HFA) 90 mcg/inh inhalation aerosol aspirin, 81 mg, Oral, Bedtime azelastine nasal 0.15% spray, 2 spray(s), Nasal, BID, PRN baclofen 10 mg Tab, See Instructions Brilinta (ticagrelor) 90 mg oral tablet, 90 mg= 1 tab(s), Oral, BID carvedilol 12.5 mg Tab, 6.25 mg= 0.5 tab(s), Oral, BID Entresto 97 mg-103 mg oral tablet, 1 tab(s), Oral, BID Janumet 50 mg/1000 mg oral tablet, 1 tab(s), Oral, Daily Lasix 20 mg Tab, 40 mg= 2 tab(s), Oral, Daily, PRN levothyroxine 175 mcg (0.175 mg) Tab, 87.5 mcg= 0.5 tab(s), Oral, Daily nitroglycerin 0.4 mg sublingual Tab, 0.4 mg= 1 tab(s), SubLingual, As Directed, PRN ONETOUCH ULTRA TEST STRIP pravastatin 40 mg Tab, 40 mg= 1 tab(s), Oral, Once a day (at bedtime) Singulair 10 mg Tab, 10 mg= 1 tab(s), Oral, qPM, 4 refills traMADOL 50 mg Tab, 1-2 tabs, Oral, q8hr, PRN Vitamin B12 1000 mcg Tab, 1000 mcg= 1 tab(s), Oral, Daily Vitamin D3, 3000 unit(s), Oral, Daily Zetia 10 mg Tab, 5 mg= 0.5 tab(s), Oral, Daily, 3 refills Allergies Aldactone Contrast Dye ([place]) Crestor Pollen (Hayfever) Toradol Social History Alcohol - No Risk, 10/05/2023 Current, 1-2 times per year, 1 drinks/episode average. 1.00 drinks/episode maximum., 10/05/2023 Substance Abuse - Denies Substance Abuse, 05/31/2015 Tobacco - Denies Tobacco Use, 10/05/2023 Former smoker, quit more than 30 days ago Tobacco Use:. Former smokeless tobacco user, quit more than 30 days ago Smokeless Tobacco Use:. Cigarettes, Cigars, Oral, Started age 18.0 Years. Stopped age 33 Years. Household tobacco concerns: No., 12/20/2023 Family History Acute myocardial infarction: Grandparent. Alcoholism: Mother. Cardiac arrhythmia: Mother. Diabetes mellitus type 2: Mother and Father. Hypertension: Father. Hypotension: Brother. Primary malignant neoplasm of lung: Mother. Primary malignant neoplasm of prostate: Father. Stroke: Father. Lab Results WBC: 7.8 E9/L (12/23/23 04:10:00) RBC: 5.1 E12/L (12/23/23 04:10:00) HGB: 15.7 gm/dL (12/23/23 04:10:00) Hct: 45.4 % (12/23/23 04:10:00) MCV: 89.8 fL (12/23/23 04:10:00) MCH: 31 pg (12/23/23 04:10:00) MCHC: 34.5 gm/dL (12/23/23 04:10:00) RDW: 14.6 % High (12/23/23 04:10:00) Platelet: 199 E9/L (12/23/23 04:10:00) MPV: 9.7 fL (12/23/23 04:10:00) Neutro Auto: 62.7 % (12/23/23 04:10:00) Lymph Auto: 25.7 % (12/23/23 04:10:00) Benson Auto: 7.8 % (12/23/23 04:10:00) Eos Auto: 2.7 % (12/23/23 04:10:00) Basophil Auto: 1.1 % (12/23/23 04:10:00) Neutro Absolute: 4.9 E9/L (12/23/23 04:10:00) Lymph Absolute: 2 E9/L (12/23/23 04:10:00) Benson Absolute: 0.6 E9/L (12/23/23 04:10:00) Eos Absolute: 0.2 E9/L (12/23/23 04:10:00) Basophil Absolute: 0.1 E9/L (12/23/23 04:10:00) PT: 13.1 second(s) High (12/23/23 04:10:00) INR: 1.17 (12/23/23 04:10:00) PTT: 36.2 second(s) (12/23/23 04:10:00) Glucose Lvl: 87 mg/dL (12/23/23 04:10:00) BUN: 27 mg/dL High (12/23/23 04:10:00) Creatinine: 1.4 mg/dL High (12/23/23 04:10:00) eGFR: 51 mL/min/1.73 m2 Low (12/23/23 04:10:00) BUN/Creat Ratio: 19 (12/23/23 04:10:00) Sodium Lvl: 138 mmol/L (12/23/23 04:10:00) Potassium Lvl: 4 mmol/L (12/23/23 04:10:00) Chloride: 109 mmol/L (12/23/23 04:10:00) CO2: 22 mmol/L (12/23/23 04:10:00) AGAP: 11 mEq/L (12/23/23 04:10:00) Calcium Lvl: 10 mg/dL (12/23/23 04:10:00) Magnesium: 1.8 mg/dL (12/23/23 04:10:00) Troponin HS: 873.7 pg/mL Critical (12/23/23 04:10:00) Diagnostic Results XR Chest Single View * Preliminary * 12/23/23 04:36:42 NEGATIVE: No infiltrate, mass or other acute cardiopulmonary abnormality Read By: Carol Underwood DO EKG Results EC12/23/23: SINUS BRADYCARDIA WITH FIRST DEGREE AV BLOCK MARKED LEFT AXIS DEVIATION [QRS AXIS < -30] INTRAVENTRICULAR CONDUCTION DELAY [130+ ms QRS DURATION] NO ST ELEVATIONS ABNORMAL ECG Signed By: Carol Underwood DO 12/23/2023 04:08:05 Result Comment: Electronical ly Signed By: Carol Underwood DO\.br\Date and Time Signed: 12/23/23 05:38 EDT ED NOTE-PHYSICIAN Observed: 12/23/2023 4:21 AM Status: F Source: [facility] ED Note-Physician Basic Information Time Seen: Carol Underwood DO 12/23/2023 04:01 Chief Complaint pt arrives for c/o chest pain at 0300 with radiation into his neck. pt spouse states pt had a IA december 11 with stents placed. History of Present Illness Patient is an 78-year-old male with past medical history of hypertension, hyperlipidemia, diabetes, CAD with recent stent placement presenting to the ED for evaluation of chest pain. Patient states he woke up at 3 AM with chest pressure with radiation to his back and his neck. Patient states is lasted for 5 to 10 minutes and then resolved. Patient states he had a recent cardiac catheterization with stent placement was a STEMI transfer from [place]. Patient states symptoms have since resolved. Denies any fevers, chills, nausea, vomiting, dizziness or lightheadedness. Review of Systems A 10 point review of systems is negative except as noted above. Medical and Surgical History: Reviewed and noted Social history: Lives at home Tobacco: Denies Physical Exam Vitals & Measurements T: 36.6 ?C(Oral) HR: 57(Peripheral) RR: 19 BP: 139/79 SpO2: 96% HT: 177 cm WT: 95.2 kg BMI: 30.39 General: Well developed, non toxic appearing, no acute distress HEENT: Head atraumatic, Mucosa moist, hearing grossly normal Neck: No JVD, tracheal deviation Cardiac: Regular rate, rhythm, no murmurs, or gallops, 2+ radial pulses Respiratory: Lungs clear to auscultation B/L, normal respiratory effort Abdomen: Soft non tender, no rebound or guarding, no peritoneal signs Extremities: No edema noted in the LE B/L, no tenderness to palpation Neurologic: Alert and oriented, speech clear Skin: No rashes or lesions Psych: Appropriate mood and behavior Medical Decision Making MEDICAL DECISION MAKING Number and Complexity of Problems Differential Diagnosis: [] [facility] Data External documents reviewed: [] My EKG interpretation: [] My CT interpretation: [] My X-ray interpretation: [] My Ultrasound interpretation: [] Decision rules/scores evaluated: Heart Score for Major Cardiac Event History: Example factors for history - pattern of chest pain, onset, duration, relation with exercise, stress or cold, localization, concominant symptoms. reaction to sublingual nitrates, [X] Highly suspicious +2 [] Moderately suspicious +1 [] Slightly suspicious 0 EKG: [] Significant ST-Depression +2 [X] Non specific repolarization disturbance +1 [] Normal 0 Age: [X] >= 65 +2 [] 45-65 + 1 [] <45 0 Risk Factors: (HLD, HTN, DM, Cigarette Smoking, Pos Family Hx, Obesity) [X] >3 risk factors or hx of atheroslerotic disease + 2 [] 1-2 risk factors + 1 [] No risk factors known 0 Troponin: [] >= 3X normal + 2 [] 1-3X normal + 1 [x] <= Normal 0 [] 0-3 Points 0.9 - 1.7% risk of major adverse cardiac event in 6 weeks [X] 4-6 Points 12-16.6% risk of major adverse cardiac event in 6 weeks [] 7-10 Points 50-65% risk of major adverse cardiac event in 6 weeks [] 0-3 Points with 2 sets of negative cardiac markers <1% risk of major adverse cardiac event in 30 days. Discussed with: [] Treatment and Disposition ED Course: Patient is an 78-year-old male presenting to the ED for evaluation of chest pain. Patient is on oxygen on arrival, no acute distress. EKG without any acute abnormalities. Cardiac workup is obtained patient is pain-free on arrival was given aspirin in the ED patient's laboratory evaluation shows slight bump of creatinine of 1.4, troponins elevated 873 otherwise laboratory evaluation is unremarkable. I did reach out to Dr. Haynes due to the elevated troponin no previous for comparison he believes this is likely still residual from his recent STEMI. Does not want heparin drip at this time. Is in agreement with admission to the hospital due to residual that were planned for delayed stenting. Patient remains pain-free in the ED. Discussed case with the hospitalist accepts the patient for admission. Shared decision making: [] Code status: [] Assessment/Plan Chest pain (R07.9: Chest pain, unspecified) Non-ST elevation IA (NSTEMI) (I21.4: Non-ST elevation (NSTEMI) myocardial infarction) Orders: aspirin, 162 mg = 2 tab(s), Tab-Chew, Oral, Once, Stop date 12/23/23 4:10:00 EDT, STAT, Start date 12/23/23 4:10:00 EDT, 12/23/23 4:10:00 EDT Basic Metabolic Panel CBC w/ Auto Diff ECG 12 Lead Adult ED Cardiac Monitoring ED Physician consult Hospitalist for continued care eGFR Magnesium Level Oxygen Saturation Oxygen Therapy PT & PTT Saline Lock Insert Troponin 0 Hr. Troponin 1 Hr. Troponin 3 Hr. Troponin 6 Hr. XR Chest Single View Medications Administered Given aspirin 81 mg Chew Tab, 162 mg, Oral Disposition Plan Patient Discharge Condition Fair Discharge Disposition Admitted Discharge Prescription List Prescriptions No active prescription medications Follow-up No qualifying data available Problem List/Past Medical History Ongoing Asthma Benign essential hypertension CHF - Congestive heart failure COPD with asthma Dyslipidemia Former smoker GERD (gastroesophageal reflux disease) History of prostate cancer History of prostatectomy Hyperlipidemia, unspecified Hypothyroidism (acquired) SAMIRA (obstructive sleep apnea) Type 2 diabetes mellitus with hyperlipidemia Historical Chronic back pain Smoker Procedure/Surgical History STEMI - ST elevation myocardial infarction (12/12/2023), Carpal tunnel (12/02/2023), right total hip arthroplasty (09/11/2016), left total hip arthroplasty (07/19/2015), Cardiac catheterization (08/27/2006), Colonoscopy (2006), Vasectomy (1975), attempted tendon repair right leg, back surgery, Radical prostatectomy, Rotator cuff repair, Thyroidectomy, Tonsillectomy. Medications Inpatient No active inpatient medications Home Albuterol (Eqv-Ventolin HFA) 90 mcg/inh inhalation aerosol aspirin, 81 mg, Oral, Bedtime azelastine nasal 0.15% spray, 2 spray(s), Nasal, BID, PRN baclofen 10 mg Tab, See Instructions Brilinta (ticagrelor) 90 mg oral tablet, 90 mg= 1 tab(s), Oral, BID carvedilol 12.5 mg Tab, 6.25 mg= 0.5 tab(s), Oral, BID Entresto 97 mg-103 mg oral tablet, 1 tab(s), Oral, BID Janumet 50 mg/1000 mg oral tablet, 1 tab(s), Oral, Daily Lasix 20 mg Tab, 40 mg= 2 tab(s), Oral, Daily, PRN levothyroxine 175 mcg (0.175 mg) Tab, 87.5 mcg= 0.5 tab(s), Oral, Daily nitroglycerin 0.4 mg sublingual Tab, 0.4 mg= 1 tab(s), SubLingual, As Directed, PRN ONETOUCH ULTRA TEST STRIP pravastatin 40 mg Tab, 40 mg= 1 tab(s), Oral, Once a day (at bedtime) Singulair 10 mg Tab, 10 mg= 1 tab(s), Oral, qPM, 4 refills traMADOL 50 mg Tab, 1-2 tabs, Oral, q8hr, PRN Vitamin B12 1000 mcg Tab, 1000 mcg= 1 tab(s), Oral, Daily Vitamin D3, 3000 unit(s), Oral, Daily Zetia 10 mg Tab, 5 mg= 0.5 tab(s), Oral, Daily, 3 refills Allergies Aldactone Contrast Dye ([place]) Crestor Pollen (Hayfever) Toradol Social History Alcohol - No Risk, 10/05/2023 Current, 1-2 times per year, 1 drinks/episode average. 1.00 drinks/episode maximum., 10/05/2023 Substance Abuse - Denies Substance Abuse, 05/31/2015 Tobacco - Denies Tobacco Use, 10/05/2023 Former smoker, quit more than 30 days ago Tobacco Use:. Former smokeless tobacco user, quit more than 30 days ago Smokeless Tobacco Use:. Cigarettes, Cigars, Oral, Started age 18.0 Years. Stopped age 33 Years. Household tobacco concerns: No., 12/20/2023 Family History Acute myocardial infarction: Grandparent. Alcoholism: Mother. Cardiac arrhythmia: Mother. Diabetes mellitus type 2: Mother and Father. Hypertension: Father. Hypotension: Brother. Primary malignant neoplasm of lung: Mother. Primary malignant neoplasm of prostate: Father. Stroke: Father. Lab Results WBC: 7.8 E9/L (12/23/23 04:10:00) RBC: 5.1 E12/L (12/23/23 04:10:00) HGB: 15.7 gm/dL (12/23/23 04:10:00) Hct: 45.4 % (12/23/23 04:10:00) MCV: 89.8 fL (12/23/23 04:10:00) MCH: 31 pg (12/23/23 04:10:00) MCHC: 34.5 gm/dL (12/23/23 04:10:00) RDW: 14.6 % High (12/23/23 04:10:00) Platelet: 199 E9/L (12/23/23 04:10:00) MPV: 9.7 fL (12/23/23 04:10:00) Neutro Auto: 62.7 % (12/23/23 04:10:00) Lymph Auto: 25.7 % (12/23/23 04:10:00) Benson Auto: 7.8 % (12/23/23 04:10:00) Eos Auto: 2.7 % (12/23/23 04:10:00) Basophil Auto: 1.1 % (12/23/23 04:10:00) Neutro Absolute: 4.9 E9/L (12/23/23 04:10:00) Lymph Absolute: 2 E9/L (12/23/23 04:10:00) Benson Absolute: 0.6 E9/L (12/23/23 04:10:00) Eos Absolute: 0.2 E9/L (12/23/23 04:10:00) Basophil Absolute: 0.1 E9/L (12/23/23 04:10:00) PT: 13.1 second(s) High (12/23/23 04:10:00) INR: 1.17 (12/23/23 04:10:00) PTT: 36.2 second(s) (12/23/23 04:10:00) Glucose Lvl: 87 mg/dL (12/23/23 04:10:00) BUN: 27 mg/dL High (12/23/23 04:10:00) Creatinine: 1.4 mg/dL High (12/23/23 04:10:00) eGFR: 51 mL/min/1.73 m2 Low (12/23/23 04:10:00) BUN/Creat Ratio: 19 (12/23/23 04:10:00) Sodium Lvl: 138 mmol/L (12/23/23 04:10:00) Potassium Lvl: 4 mmol/L (12/23/23 04:10:00) Chloride: 109 mmol/L (12/23/23 04:10:00) CO2: 22 mmol/L (12/23/23 04:10:00) AGAP: 11 mEq/L (12/23/23 04:10:00) Calcium Lvl: 10 mg/dL (12/23/23 04:10:00) Magnesium: 1.8 mg/dL (12/23/23 04:10:00) Troponin HS: 873.7 pg/mL Critical (12/23/23 04:10:00) Diagnostic Results XR Chest Single View * Preliminary * 12/23/23 04:36:42 NEGATIVE: No infiltrate, mass or other acute cardiopulmonary abnormality Read By: Carol Underwood DO EKG Results EC12/23/23: SINUS BRADYCARDIA WITH FIRST DEGREE AV BLOCK MARKED LEFT AXIS DEVIATION [QRS AXIS < -30] INTRAVENTRICULAR CONDUCTION DELAY [130+ ms QRS DURATION] NO ST ELEVATIONS ABNORMAL ECG Signed By: Carol Underwood DO 12/23/2023 04:08:05 Result Comment: Electronical ly Signed By: Carol Underwood DO\.br\Date and Time Signed: 12/23/23 05:38 EDT CBC W/ AUTO DIFF Collected: 12/23/2023 4:10 AM Statu s: F Source: [facility] TYPE CODE TESTS RESULT OUT OF RANGE REFERENCE UNITS LAB 92017-4([facility]) LEUKOCYTES^^RANDI ECTED FOR NUCLEATED ERYTHROCYTES:NCN C:PT:BLD:QN:AUTO MATED COUNT 7.8 Normal 4.0-11.0 E9/L LAB 789-8([facility]) ERYTHROCYTES:NCN C:PT:BLD:QN:AUTO MATED COUNT 5.1 Normal 4.3-5.9 E12/L LAB 718-7([facility]) HEMOGLOBIN:MCNC: PT:BLD:QN: 15.7 Normal 13.5-17.5 gm/dL LAB 4544-3([facility]) HEMATOCRIT:VFR:P T:BLD:QN:AUTOMAT ED COUNT 45.4 Normal 37.7-49.0 % LAB 788-0([facility]) ERYTHROCYTE DISTRIBUTION WIDTH:RATIO:PT:R BC:QN:AUTOMATED COUNT 14.6 High 10.9-14.2 % LAB 785-6([facility]) ERYTHROCYTE MEAN CORPUSCULAR HEMOGLOBIN:ENTMA SS:PT:RBC:QN:AUT OMATED COUNT 31.0 Normal 27.0-34.0 pg LAB 786-4([facility]) ERYTHROCYTE MEAN CORPUSCULAR HEMOGLOBIN CONCENTRATION:MC NC:PT:RBC:QN:AUT OMATED COUNT 34.5 Normal 31.4-36.0 gm/dL LAB 787-2([facility]) ERYTHROCYTE MEAN CORPUSCULAR VOLUME:ENTVOL:PT :RBC:QN:AUTOMATE D COUNT 89.8 Normal 80.0-100.0 fL LAB 60439-5([facility]) PLATELET MEAN VOLUME:ENTVOL:PT :BLD:QN:AUTOMATE D COUNT 9.7 Normal 6.4-10.8 fL LAB 777-3([facility]) PLATELETS:NCNC:P T:BLD:QN:AUTOMAT ED COUNT 199.0 Normal 150.0-500.0 E9/L LAB 28645-5([facility]) NEUTROPHILS/100 LEUKOCYTES:NFR:P T:BLD:QN: 62.7 Normal 36.0-75.0 % LAB 731-0([facility]) LYMPHOCYTES:NCNC :PT:BLD:QN:AUTOM ATED COUNT 25.7 Normal 14.0-50.0 % LAB 742-7([facility]) MONOCYTES:NCNC:P T:BLD:QN:AUTOMAT ED COUNT 0.6 Normal 0.2-1.0 E9/L LAB 713-8([facility]) EOSINOPHILS/100 LEUKOCYTES:NFR:P T:BLD:QN:AUTOMAT ED COUNT 2.7 Normal 0.0-8.0 % LAB 704-7([facility]) BASOPHILS:NCNC:P T:BLD:QN:AUTOMAT ED COUNT 1.1 Normal 0.0-2.0 % LAB 751-8([facility]) NEUTROPHILS:NCNC :PT:BLD:QN:AUTOM ATED COUNT 4.9 Normal 2.0-7.5 E9/L LAB 88782-4([facility]) LYMPHOCYTES:NCNC :PT:BLD:QN: 2.0 Normal 1.0-4.0 E9/L LAB 08660-0([facility]) EOSINOPHILS:NCNC :PT:BLD:QN: 0.2 Normal 0.0-0.5 E9/L LAB 66644-6([facility]) BASOPHILS/LEUKOC YTES:NFR.DF:PT:B LD:QN:AUTOMATED COUNT 0.1 Normal 0.0-0.2 E9/L Performed By: #### [id number] # ### [facility] [address] [place] [address] PT & PTT Collected: 4 4:10 AM Status: F Source: [facility] TYPE CODE TESTS RESULT OUT OF RANGE REFERENCE UNITS LAB 5902-2([facility]) COAGULATION TISSUE FACTOR INDUCED:TIME:P T:PPP:QN:COAG 13.1 High 9.4-12.5 second(s ) Result Comment: 15 days - 4 weeks 1 - 5 months 6 -11 months 1 ? 5 years 6 ? 10 years 11 -17 years Mean: 11.2 (9.5 ? 12.6) Mean: 11.0 (9.7 ? 12.8) Mean: 11.0 (9.8 ? 13.0) Mean: 11.3 (9.9 ? 13.4) Mean: 11.7 (10.0 ? 14.6) Mean: 11.8 (10.0 - 14.1) Pediatric Reference ranges were obtained from a study by Felix Sanon et al. prepared from 1437 samples obtained at 7 different centers using the same coagulation reagent and instrumentation as [facility]. Currently there are no coagulation studies available worldwide for children to 14 days, and no normal ranges. LAB 38426-8(LOINC) COAGULATION SURFACE INDUCED:TIME:P T:PPP:QN:COAG 36.2 Normal 25.1-36.5 second(s ) Result Comment: Parameter 15 days - 4 weeks 1 - 5 months 6 - 11 months 1 - 5 years 6 - 10 years 11 - 17 years PTT Mean: 35.4 (27.6-45.6) Mean: 33.5 (24.8-40.7) Mean: 32.4 (25.1-40.7) Mean: 31.6 (24.0-39.2) Mean: 31.6 (26.9-38.7) Mean: 31.0 (24.6-38.4) Pediatric Reference ranges were obtained from a study by Felix Sanon et al. prepared from 1437 samples obtained at 7 different centers using the same coagulation reagent and instrumentation as [facility]. Currently there are no coagulation studies available worldwide for children to 14 days, and no normal ranges. Heparin therapeutic range (represented by Anti-Factor Xa activity of 0.2 - 0.4 U/mL) corresponds to PTT of 56.6 - 109.0 sec. LAB 6301-6(INC) COAGULATION TISSUE FACTOR INDUCED.INR:RE LTIME:PT:PPP:Q N:COAG 1.17 Unknown Result Comment: INR results are specifically intended to assess patients stabilized on long-term Anticoagulation therapy suggested INR?s ?Less Intensive Anticoagulation? 2.0 ? 3.0 Conventional Range 3.0 ? 4.5 Performed By: #### [id number] #### [facility] [address] [place] [address] EGFR Collected: 4 4:10 AM Status: F Source: [facility] Order Comment: Order added b y Discern Expert. TYPE CODE TESTS RESULT OUT OF RANGE REFERENCE UNITS LAB 68556340(LOINC) eGFR 51 Low >=59 mL/min/1 .7 3 m2 Performed By: #### [id number] #### [facility] [address] [place] [address] TROPONIN 0 HR. Collected: 4 4:10 AM Status: F Source: [facility] TYPE CODE TESTS RESULT OUT OF RANGE REFERENCE UNITS LAB 39879504([facility]) Troponin HS 873.70 Abnormal 15.90-38.40 pg/mL Result Comment: Critical Res ult I_TnIHS:873.7 Called to and read back by: RACIEL SALVADOR RN at: 12/23/2023 05:02:56 by:PHYLICIA Critical Result Verified by Repeat Analysis The 95% CI (Confidence Interval) PPV (Positive Predictive Value) for myocardial infarction in females is 38 pg/mL, in males 51 pg/mL. The results should be used in conjunction with clinical conditions of myocardial infarction. (Access High Sensitivity Troponin I Instructions For Use, [employer], December 2017) Performed By: #### [id number] #### [facility] [address] [place] [address] BMP Collected: 4 4:10 AM Status: F Source: [facility] TYPE CODE TESTS RESULT OUT OF RANGE REFERENCE UNITS LAB 2345-7([facility]) GLUCOSE:MCNC :PT:SER/PLAS :QN: 87 Normal 55-199 mg/dL LAB 3094-0([facility]) UREA NITROGEN:MCN C:PT:SER/GILBERT S:QN: 27 High 5-21 mg/dL LAB 2160-0([facility]) CREATININE:M CNC:PT:SER/P LAS:QN: 1.4 High 0.5-1.3 mg/dL LAB 3097-3([facility]) UREA NITROGEN/CRE ATININE:MRTO :PT:SER/PLAS :QN: 19 Normal 10-20 No Units LAB 25286-7([facility]) CALCIUM:MCNC :PT:SER/PLAS :QN: 10.0 Normal 8.9-11.1 mg/dL LAB 2951-2([facility]) SODIUM:SCNC: PT:SER/PLAS: QN: 138 Normal 135-145 mmol/L LAB 2823-3([facility]) POTASSIUM:SC NC:PT:SER/PL :QN: 4.0 Normal 3.5-5.3 mmol/L LAB 5-0([facility]) CHLORIDE:SCN C:PT:SER/GILBERT S:QN: 109 Normal 101-111 mmol/L LAB 2027-([facility]) CARBON DIOXIDE:SCNC :PT:SER/PLAS :QN: 22 Normal 21-31 mmol/L LAB 76782-3([facility]) ANION GAP:SCNC:PT: SER/PLAS:QN: 11 Normal 6-16 mEq/L Performed By: #### [id number] # ### [facility] [address] [place] [address] MAGNESIUM Collected: 12/23/2023 4:10 AM Status: F Source: [facility] TYPE CODE TESTS RESULT OUT OF RANGE REFERENCE UNITS LAB 61107-9([facility]) MAGNESIUM:MCN C:PT:SER/PLAS :QN: 1.8 Normal 1.3-2.4 mg/dL Performed By: #### [id number] # ### [facility] [address] [place] [address] FAMILY MEDICINE OFFICE/CLINI C NOTE Observed: 12/20/2023 9:52 AM Status: F Source: [facility] Family Medicine Office/Clini c Note Chief Complaint TCM HPI Staff Patient here for hospitalization f/u with TCM ([id number], Marimar, and Son, Raoul) TCM: Hospital: [facility] Admission date: 12/11 Discharge date: 12/15 Symptoms the patient presented with: chest pain Patient prescribed two new medications, Nitro and Brilinta. Coreg dosage was adjusted from 12.5mg to 6.25mg BID. Pravastatin was increased to 40mg. Patient found to have STEMI, cardiac cath and stent placement completed. Admitted. Scheduled follow up with Cardiology 12/27. Current concerns: Patient was advised to stopped Janumet after contrast dye and would like to know if he can restart. - Refill request Hue GUERRERO: DARLEEN History of Present Illness Patient presents today for hospital followup. Hospital location: [facility] Admission Date: 12/12/2023 Discharge Date: 12/16/2023 Reviewed Records: ER summary, history and physical, consultation notes, discharge summary, home call notes Summary: Patient presented on 12/11 with chest pain to the [facility] ER. He had initial evaluation and was found to have an ongoing STEMI. He was taken emergently to the [facility], and had successful stent placement by Dr. Nolen. He was admitted for stabilization period and initiation of medications. He was started on Plavix, and Brilinta, continued on Entresto, his Coreg was increased to 12.5mg BID, and increased on pravastatin to 40mg. He had PT/OT evaluation and was discharged home on date above. Since discharge home, patient states that he needs a refill of Zetia. He would like to know who will address his Brilinta. He asks if he can have coffee following his stenting. He denies any new falls or injuries. He has had some increase in dizziness with the changes to medications. Review of Systems PHQ Score Initial Depression Screen Score: 0 SCORE ROS - Provider Constitutional: no fever, no chills Skin: no rash, no lesions ENMT: no ear pain, no sore throat, no congestion, no hoarseness. Respiratory: yes shortness of breath, no cough, no wheezing. Cardiovascular: yes chest pain, no palpitations, no edema. Gastrointestinal: no nausea, no vomiting, no diarrhea, Musculoskeletal: no back pain, no trauma. Neurologic: no headache, yes dizziness, no numbness, no weakness. Psychiatric: no sleeping problems, no irritability, no mood swings/depression. Physical Exam Vitals & Measurements HR: 60(Peripheral) BP: 112/64 SpO2: 100% HT: 70 in HT: 177.8 cm WT: 94.6 kg WT: 208.12 lb BMI: 29.92 General: Well developed, well nourished, in no acute distress Head: Normocephalic/atraumatic Eyes: Pupils equal, round, and reactive to light. Sclerae normal, and extraocular movements intact Lungs: Normal respiratory effort and clear to auscultation Cardio: Regular rate and rhythm, normal S1 and S2, no murmur, no rub Musculoskeletal: No deformity or scoliosis noted. Normal range of motion. Joints normal. No erythema, edema, effusion, or ecchymosis Extremity: No clubbing, cyanosis, edema, or deformity, with normal ROM in both upper and lower bilateral extremities Neurologic: Grossly normal, healing carpal tunnel surgery site is doing well on left wrist, no signs of infection or dehiscence Skin: No rash, petechiae, suspicious lesions Mental Status: Alert and oriented x3. Normal mood and affect Assessment/Plan 1. ST elevation (STEMI) myocardial infarction (I21.3: ST elevation (STEMI) myocardial infarction of unspecified site) Resolved with stenting. Defer to cardiology, it sounds like he is due for another cath with stenting of his remaining artery structures for ongoing CAD. Continue with current medications. Discussed dizziness coming from Coreg, fatigue is from the IA and his hospital stay. Recheck patient in 1 month. 2. Benign essential hypertension (I10: Essential (primary) hypertension) Controlled on intake, defer to cardiology. 3. CHF - Congestive heart failure (I50.9: Heart failure, unspecified) Stable, continue with current medications at this time. 4. CAD in [place] artery (I25.10: Atherosclerotic heart disease of [place] coronary artery without angina pectoris) Stable with stenting, manage as per #1. 5. 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 Ordered: Current tobacco non-user 1036F 6. Dyslipidemia (E78.5: Hyperlipidemia, unspecified) Refilled Zetia today. 7. SAMIRA (obstructive sleep apnea) (G47.33: Obstructive sleep apnea (adult) (pediatric)) Patient continues to use CPAP nightly, and continues to gain benefit from use. Recommended patient continue with nightly use to retain benefit. Recommend patient continue to receive all supplies necessary for patient's good functioning and maintenance of CPAP machine. 8. BMI 29.0-29.9,adult (Z68.29: Body mass index [BMI] 29.0-29.9, adult) The standard range for ages 18 and older is >=18.5 and < 25 kg/m2. Your BMI today was above this range, this falls in the overweight to obese category and there are medical benefits to weight loss. We can offer counselling, referral, and/or medical support in addressing this problem. Your BMI and weight management will be followed at subsequent visits. Ordered: Body Mass Index (BMI) documented 3008F Depression Screening Negative 3352F Influenza immunization status assessed 1030F Most recent diastolic blood pressure <80 mm Hg 3078F Patient screen for fall risk: no falls in last year or 1 fall with no injury in last year 1101F Systolic BP <130 mm Hg (Most Recent) 3074F Orders: ezetimibe, 5 mg = 0.5 tab(s), Oral, Daily, # 90 tab(s), Refills(s) 3, Pharmacy: [facility]/pharmacy #[id number], 177.8, cm, 12/20/23 9:14:00 EDT, Height/Length Dosing, 94.6, kg, 12/20/23 9:14:00 EDT, Weight Dosing Follow-up With When Contact Information Link Todd GARCÍA FAM Within 4 weeks [address] [place] [address]- Additional Instructions: 4 WEEKS FOLLOWUP Problem List/Past Medical History Ongoing Asthma Benign essential hypertension CHF - Congestive heart failure COPD with asthma Dyslipidemia Former smoker GERD (gastroesophageal reflux disease) History of prostate cancer History of prostatectomy Hyperlipidemia, unspecified Hypothyroidism (acquired) SAMIRA (obstructive sleep apnea) Type 2 diabetes mellitus with hyperlipidemia Historical Chronic back pain Smoker Procedure/Surgical History STEMI - ST elevation myocardial infarction (12/12/2023), Carpal tunnel (12/02/2023), right total hip arthroplasty (09/11/2016), left total hip arthroplasty (07/19/2015), Cardiac catheterization (08/27/2006), Colonoscopy (2006), Vasectomy (1975), attempted tendon repair right leg, back surgery, Radical prostatectomy, Rotator cuff repair, Thyroidectomy, Tonsillectomy. Medications Albuterol (Eqv-Ventolin HFA) 90 mcg/inh inhalation aerosol aspirin, 81 mg, Oral, Bedtime azelastine nasal 0.15% spray, 2 spray(s), Nasal, BID, PRN baclofen 10 mg Tab, See Instructions Brilinta (ticagrelor) 90 mg oral tablet, 90 mg= 1 tab(s), Oral, BID carvedilol 12.5 mg Tab, 6.25 mg= 0.5 tab(s), Oral, BID Entresto 97 mg-103 mg oral tablet, 1 tab(s), Oral, BID Janumet 50 mg/1000 mg oral tablet, 1 tab(s), Oral, Daily Lasix 20 mg Tab, 40 mg= 2 tab(s), Oral, Daily, PRN levothyroxine 175 mcg (0.175 mg) Tab, 87.5 mcg= 0.5 tab(s), Oral, Daily nitroglycerin 0.4 mg sublingual Tab, 0.4 mg= 1 tab(s), SubLingual, As Directed, PRN ONETOUCH ULTRA TEST STRIP pravastatin 40 mg Tab, 40 mg= 1 tab(s), Oral, Once a day (at bedtime) Singulair 10 mg Tab, 10 mg= 1 tab(s), Oral, qPM, 4 refills traMADOL 50 mg Tab, 1-2 tabs, Oral, q8hr, PRN Vitamin B12 1000 mcg Tab, 1000 mcg= 1 tab(s), Oral, Daily Vitamin D3, 3000 unit(s), Oral, Daily Zetia 10 mg Tab, 5 mg= 0.5 tab(s), Oral, Daily, 3 refills Allergies Aldactone Contrast Dye (Flushing) Crestor Pollen (Hayfever) Toradol Social History Alcohol - No Risk, 10/05/2023 Current, 1-2 times per year, 1 drinks/episode average. 1.00 drinks/episode maximum., 10/05/2023 Substance Abuse - Denies Substance Abuse, 05/31/2015 Tobacco - Denies Tobacco Use, 10/05/2023 Former smoker, quit more than 30 days ago Tobacco Use:. Former smokeless tobacco user, quit more than 30 days ago Smokeless Tobacco Use:. Cigarettes, Cigars, Oral, Started age 18.0 Years. Stopped age 33 Years. Household tobacco concerns: No., 12/20/2023 Family History Acute myocardial infarction: Grandparent. Alcoholism: Mother. Cardiac arrhythmia: Mother. Diabetes mellitus type 2: Mother and Father. Hypertension: Father. Hypotension: Brother. Primary malignant neoplasm of lung: Mother. Primary malignant neoplasm of prostate: Father. Stroke: Father. Immunizations Vaccine Date Status Comments influenza virus vaccine, inactivated 02/2023 Recorded SARS-CoV-2 (COVID-19) mRNAMUL.[id number] 05/16/2022 Recorded SARSCoV2 mRNA(ujrpywovc-emye-bfgyxx) vac 09/17/2021 Recorded influenza virus vaccine, inactivated 02/21/2021 Recorded SARS-CoV-2 (COVID-19) mRNA BNT-162b2 vax 02/21/2021 Recorded 2023-07-09: [id number] SARS-CoV-2 (COVID-19) mRNA BNT-162b2 vax 08/11/2020 Recorded SARS-CoV-2 (COVID-19) mRNA BNT-162b2 vax 07/18/2020 Recorded 2023-07-09: [id number] SARS-CoV-2 (COVID-19) mRNA BNT-162b2 vax 07/14/2020 Recorded SARS-CoV-2 (COVID-19) mRNA BNT-162b2 vax 06/27/2020 Recorded 2023-07-09: TPV75 zoster vaccine live 04/23/2013 Recorded Result Comment: Electronical ly Signed By: Todd Osman DO\.br\Date and Time Signed: 12/20/23 09:52 EDT AMBULATORY VISIT SUMMARY Observed: 12/19 9:48 AM Status: F Source: [facility] Ambulatory Visit Summary RAY SUAREZ :1945 Visit Date:12/20/2023 Ambulatory Visit Instructions Your Diagnosis ST elevation (STEMI) myocardial infarction Benign essential hypertension CHF - Congestive heart failure CAD in [place] artery Former smoker Dyslipidemia SAMIRA (obstructive sleep apnea) BMI 29.0-29.9,adult Your Care Team Attending Physician - Todd Osman DO Primary Care Physician - Todd sOman DO This Is Your Medications List [facility] Prescription (TwentyPeopleTOUCH ULTRA TEST STRIP) albuterol (Albuterol (Eqv-Ventolin HFA) 90 mcg/inh inhalation aerosol) aspirin azelastine nasal (azelastine nasal 0.15% spray) baclofen (baclofen 10 mg Tab) carvedilol (carvedilol 12.5 mg Tab) cholecalciferol (Vitamin D3) cyanocobalamin (Vitamin B12 1000 mcg Tab) ezetimibe (Zetia 10 mg Tab) furosemide (Lasix 20 mg Tab) levothyroxine (levothyroxine 175 mcg (0.175 mg) Tab) metformin-sitagliptin (Janumet 50 mg/1000 mg oral tablet) montelukast (Singulair 10 mg Tab) nitroglycerin (nitroglycerin 0.4 mg sublingual Tab) pravastatin (pravastatin 40 mg Tab) sacubitril-valsartan (Entresto 97 mg-103 mg oral tablet) ticagrelor (Brilinta (ticagrelor) 90 mg oral tablet) tramadol (traMADOL 50 mg Tab) Procedures Performed STEMI - ST elevation myocardial infarction (12/12/2023), Carpal tunnel (12/02/2023), right total hip arthroplasty (09/11/2016), left total hip arthroplasty (07/19/2015), Cardiac catheterization (08/27/2006), Colonoscopy (2006), Vasectomy (1975), attempted tendon repair right leg, back surgery, Radical prostatectomy, Rotator cuff repair, Thyroidectomy, Tonsillectomy. Discharge Vitals Heart Rate (Peripheral) 60 Blood Pressure 112/64 Height 177.8 cm Height 70 in Weight 94.6 kg Weight 208.12 lb BMI 29.92 What to do next Scheduled Follow-Up Appointments Sunday 10:15 AM EDT With: Jonathan Hernandez PA-C Where: Cardiology Clinic Sunday 9:40 AM EDT With: Todd Osman DO Where: [facility] [address] [place] [address]- 2024 9:30 AM EDT With: Where: [facility] [address] [place] [address]- Medications What How Much When Instructions Changed ezetimibe (Zetia 10 mg Tab) 0.5 Tablets By Mouth Every day Pickup at [facility]/pharmacy #[id number] Unchanged albuterol (Albuterol (Eqv-Ventolin HFA) 90 mcg/ inh inhalation aerosol) INHALE 2 PUFFS BY MOUTH EVERY 4 HOURS NEEDED Unchanged aspirin 81 Milligram By Mouth At bedtime Unchanged azelastine nasal (azelastine nasal 0.15% spray) 2 Sprays Nasal Inhalation 2 times a day as needed for Allergy symptoms Unchanged baclofen (baclofen 10 mg Tab) See instructions 1 tab(s) Oral q4hr PRN Unchanged carvedilol (carvedilol 12.5 mg Tab) 0.5 Tablets By Mouth 2 times a day Unchanged cholecalciferol (Vitamin D3) 3,000 Units By Mouth Every day Unchanged cyanocobalamin (Vitamin B12 1000 mcg Tab) 1 Tablets By Mouth Every day Unchanged furosemide (Lasix 20 mg Tab) 2 Tablets By Mouth Every day as needed for Other (see comment) PRN for leg swelling (takes for >3 pound weight gain) Unchanged levothyroxine (levothyroxine 175 mcg (0.175 mg) Tab) 0.5 Tablets By Mouth Every day Unchanged metformin-sitagliptin (Janumet 50 mg/ 1000 mg oral tablet) 1 Tablets By Mouth Every day Unchanged Misc Prescription (ONETOUCH ULTRA TEST STRIP) TEST ONCE DAILY Unchanged montelukast (Singulair 10 mg Tab) 1 Tablets By Mouth Once a day (in the evening) Unchanged nitroglycerin (nitroglycerin 0.4 mg sublingual Tab) 1 Tablets Sublingual As Directed as needed for for chest pain takeif SBP is greater than 110 Unchanged pravastatin (pravastatin 40 mg Tab) 1 Tablets By Mouth Once a day (at bedtime) Unchanged sacubitril-valsartan (Entresto 97 mg-103 mg oral tablet) 1 Tablets By Mouth 2 times a day hold if systolic is less than 100 Unchanged ticagrelor (Brilinta (ticagrelor) 90 mg oral tablet) 1 Tablets By Mouth 2 times a day Unchanged tramadol (traMADOL 50 mg Tab) 1-2 tabs By Mouth Every 8 hours as needed for Pain Pharmacy Information [facility]/pharmacy #[id number]: [address] [place], [place] [phone] Allergies Aldactone Contrast Dye (Flushing) Crestor Pollen (Hayfever) Toradol Problems Ongoing - Any problem that you are currently receiving treatment for. Asthma Benign essential hypertension CHF - Congestive heart failure COPD with asthma Dyslipidemia Former smoker GERD (gastroesophageal reflux disease) History of prostate cancer History of prostatectomy Hyperlipidemia, unspecified Hypothyroidism (acquired) SAMIRA (obstructive sleep apnea) Type 2 diabetes mellitus with hyperlipidemia Historical - Any problem that you are no longer receiving treatment for. Chronic back pain Smoker Patient Survey You may receive a survey via text or e-mail asking about your office visit. Please share your experience with us by completing your survey. We appreciate your feedback and thank you for choosing us for your care. POPULATION HEALTH Observed: 12/17/2023 2:30 PM Status: F Source: [facility] Population Health Case Information Case Priority: None Programs: Behavioral Health CCM Transition Care Management Chronic Care/Condition Management Referral Source: System Identified Referral Reason: System identified Case Type: Transition Care Management Risk Score: 5.92 Case Status: Enrolled (December 17, 2023) Date Assigned: December 17, 2023 Assigned By: Bibi Kovacs RN Date Enrolled: December 17, 2023 Assigned Primary Personnel: Bibi Kovacs RN Assigned Secondary Personnel: -- Case Physician: Todd Osman DO Problems Ongoing Asthma Benign essential hypertension CHF - Congestive heart failure COPD with asthma Dyslipidemia Former smoker GERD (gastroesophageal reflux disease) History of prostate cancer History of prostatectomy Hyperlipidemia, unspecified Hypothyroidism (acquired) SAMIRA (obstructive sleep apnea) Type 2 diabetes mellitus with hyperlipidemia Historical Chronic back pain Smoker Procedure/Surgical History STEMI - ST elevation myocardial infarction (12/12/2023), right total hip arthroplasty (09/11/2016), left total hip arthroplasty (07/19/2015), Cardiac catheterization (08/27/2006), Colonoscopy (2006), Vasectomy (1975), attempted tendon repair right leg, back surgery, Radical prostatectomy, Rotator cuff repair, Thyroidectomy, Tonsillectomy. Home Medications Albuterol (Eqv-Ventolin HFA) 90 mcg/inh inhalation aerosol aspirin, 81 mg, Oral, Bedtime azelastine nasal 0.15% spray, 2 spray(s), Nasal, BID, PRN baclofen 10 mg Tab, See Instructions Brilinta (ticagrelor) 90 mg oral tablet, 90 mg= 1 tab(s), Oral, BID carvedilol 12.5 mg Tab, 6.25 mg= 0.5 tab(s), Oral, BID Entresto 97 mg-103 mg oral tablet, 1 tab(s), Oral, BID Janumet 50 mg/1000 mg oral tablet, 1 tab(s), Oral, Daily Lasix 20 mg Tab, 40 mg= 2 tab(s), Oral, Daily, PRN levothyroxine 175 mcg (0.175 mg) Tab, 87.5 mcg= 0.5 tab(s), Oral, Daily nitroglycerin 0.4 mg sublingual Tab, 0.4 mg= 1 tab(s), SubLingual, As Directed, PRN ONETOUCH ULTRA TEST STRIP pravastatin 40 mg Tab, 40 mg= 1 tab(s), Oral, Once a day (at bedtime) Singulair 10 mg Tab, 10 mg= 1 tab(s), Oral, qPM, 4 refills traMADOL 50 mg Tab, 1-2 tabs, Oral, q8hr, PRN Vitamin B12 1000 mcg Tab, 1000 mcg= 1 tab(s), Oral, Daily Vitamin D3, 3000 unit(s), Oral, Daily Zetia 10 mg Tab, 5 mg= 0.5 tab(s), Oral, Daily Allergies Aldactone Contrast Dye (Flushing) Crestor Pollen (Hayfever) Toradol Social History Alcohol - No Risk, 10/05/2023 Current, 1-2 times per year, 1 drinks/episode average. 1.00 drinks/episode maximum., 10/05/2023 Substance Abuse - Denies Substance Abuse, 05/31/2015 Tobacco - Denies Tobacco Use, 10/05/2023 Former smoker, quit more than 30 days ago Tobacco Use:. Former smokeless tobacco user, quit more than 30 days ago Smokeless Tobacco Use:. Cigarettes, Cigars, Oral, Started age 18.0 Years. Stopped age 33 Years. Household tobacco concerns: No., 10/05/2023 Family History Acute myocardial infarction: Grandparent. Alcoholism: Mother. Cardiac arrhythmia: Mother. Diabetes mellitus type 2: Mother and Father. Hypertension: Father. Hypotension: Brother. Primary malignant neoplasm of lung: Mother. Primary malignant neoplasm of prostate: Father. Stroke: Father. Screenings and Assessments No screenings and assessments have been documented. Goals and Interventions Care Plan Progress Note Admit Date: 12/12/2023 Date of Discharge: 12/16/2023 Follow-up appointment scheduled? yes with PCP Dr Osman 12/20/2023 at 0900. Did you understand your discharge instructions? yes Are you able to follow them? yes Did you receive new medications? yes nitroglycern 0.4 mg- prn chest pain or sbp greater than 110 and Brilinta 90mgBID Have you filled the Rx's? no Are you taking them as prescribed? no Are you having difficulty eating or swallowing pills? no Are you having any stomach upset, diarrhea or constipation? no How are you sleeping? yes Are you having any pain? left hand - see orthopedic surgeon today 12/17/2023 Do you have everything you need at home to care for yourself? yes Do you have Home Health? no Called patient for initial Transitional Care Management Program. Patient is a low risk for readmission. Review discharge instructions and diagnosis of STEMI. Medications to be reconciled at office visit; patient will bring medication list. Review new medications (nitroglycerin and Brilinta) purpose and side effects. Patient requesting refill on Zetia and needs preauthorization for Brilinta; communication sent to Dr Osman PCP. Patient reports he is doing all right. Patient reports he is not having any chest pain. Patient reports his dressing (band aid) to his right wrist is clean, dry and intact. Patient reports the only pain he is having is to his left hand from carpal tunnel surgery; he is seeing the orthopedic surgeon today to have the stitches removed. Patient reports he is sleeping well. Patient reports he is not having any issues with his bowels. Patient reports he is drinking well but does not have much of an appetite; reminded patient of the importance of eating a healthy diet while he is healing. Reviewed scheduled appointment with PCP Dr Osman 12/20/2023 at 0900. Patient denies further needs or question. Explained TCM Program and gave CN contact information. Communication Events Date: December 17, 2023 Method: Phone call Type: Outbound Duration (min): 10 Outcome: Case discussion Contact Type: Patient Contact Name: RAY SUAREZ Notes: TCM #1 - called patient for intital tcm program call - see case summary Created By: Bibi Kovacs RN Date: December 17, 2023 Method: Phone call Type: Outbound Duration (min): 1 Outcome: Left message-voicemail Contact Type: Patient Contact Name: RAY SUAREZ Notes: TCM #1 attempted to call patient for intial tcm program call - home number vm not set up not able to leave message - called mobile phone also - left vm with cn contact info. Created By: Bibi Kovacs RN DISCHARGE NOTE-NURSING Observed: 024 1:08 PM Status: F Source: [facility] Discharge Note-Nursing RAY SUAREZ :1945 Visit Date:12/12/2023 Inpatient Discharge Instructions Your Care Team Admitting Physician - Alfreda WASHINGTON MD Consulting Physician - Cyril AUGUSTE, Davion Veliz Reason for Your Visit chest pain Your Diagnosis STEMI (ST elevation myocardial infarction) Benign essential hypertension CHF - Congestive heart failure Dyslipidemia, Hyperlipidemia, unspecified Hypothyroidism (acquired) Type 2 diabetes mellitus with hyperlipidemia Low back pain Tests Performed Echo Transthoracic w/ Contrast XR Chest Single View This Is Your Medications List [facility] [place]servtag ULTRA TEST STRIP) albuterol (Albuterol (Eqv-Ventolin HFA) 90 mcg/inh inhalation aerosol) aspirin azelastine nasal (azelastine nasal 0.15% spray) baclofen (baclofen 10 mg Tab) carvedilol (carvedilol 12.5 mg Tab) cholecalciferol (Vitamin D3) cyanocobalamin (Vitamin B12 1000 mcg Tab) ezetimibe (Zetia 10 mg Tab) furosemide (Lasix 20 mg Tab) levothyroxine (levothyroxine 175 mcg (0.175 mg) Tab) metformin-sitagliptin (Janumet 50 mg/1000 mg oral tablet) montelukast (Singulair 10 mg Tab) nitroglycerin (nitroglycerin 0.4 mg sublingual Tab) pravastatin (pravastatin 40 mg Tab) sacubitril-valsartan (Entresto 97 mg-103 mg oral tablet) ticagrelor (Brilinta (ticagrelor) 90 mg oral tablet) tramadol (traMADOL 50 mg Tab) [Image Removed: STOP]Stop taking these medications azithromycin (azithromycin 250 mg Tab) Procedure History STEMI - ST elevation myocardial infarction (12/12/2023), right total hip arthroplasty (09/11/2016), left total hip arthroplasty (07/19/2015), Cardiac catheterization (08/27/2006), Colonoscopy (2006), Vasectomy (1975), attempted tendon repair right leg, back surgery, Radical prostatectomy, Rotator cuff repair, Thyroidectomy, Tonsillectomy. Discharge Vitals Temperature (Axillary) 36.3 ?C Heart Rate (Monitored) 61 Respiratory Rate 18 Blood Pressure 95/62 Weight 97.2 kg What to do next Instructions From Your Doctor Event Name Event Result Discharge Restrictions No driving for 24 hrs, Do not operate machinery or tools, Do not make important decisions for 24 hours, Do not drink alcoholic beverages for 24 hours Wound Care Remove dressing as instructed Pending Diagnostic Test Results None Previously Scheduled Follow-Up Appointments 2023 9:00 AM EDT With: Todd Osman DO Where: [facility] [place] INPATIENT PATIENT SUMMARY Observed: 11/26 1:07 PM Status: C Source: [facility] Inpatient Patient Summary [address] [address] Patient Discharge Instructions PERSON INFORMATION Name: RAY SUAREZ Date of : 1945 Current Date: 12/15/2023 13:07:07 PHYSICIANS Admitting Physician: Alfreda WASHINGTON MD Primary Care Physician: Todd Osman DO PCP Comment: Discharge Diagnosis: 1:STEMI (ST elevation myocardial infarction); 2:Benign essential hypertension; 3:CHF - Congestive heart failure; 4:Dyslipidemia; 5:Hypothyroidism (acquired); 6:Type 2 diabetes mellitus with hyperlipidemia; Hyperlipidemia, unspecified; Low back pain Condition at Discharge: Stable RAY SUAREZ has been given the following list of follow-up instructions, prescriptions, and patient education materials: PATIENT FOLLOW-UP INFORMATION Diet: Discharge Activity: Discharge Restrictions: No driving for 24 hrs, Do not operate machinery or tools, Do not make important decisions for 24 hours, Do not drink alcoholic beverages for 24 hours Wound Care Instructions: Remove dressing as instructed Remove Your Dressing In Days Call Your Doctor For: IF UNABLE TO CONTACT YOUR PHYSICIAN AND YOU FEEL IT IS AN EMERGENCY, GO TO THE NEAREST EMERGENCY ROOM OR CALL 911 Home Treatment: Devices/Equipment: Cane Special Services: Additional Instructions: Primary Care Physician to provide the following pending test results: None Follow up: With: Address: When: Davion Nolen 12/28/2023 10:15 AM Comments: Will be seeing Jonathan ORELLANA at this appointment, With: Address: When: Todd Osman [address] [address] Business (1) 12/20/2023 9:00 AM In the event that this physician does not participate in your insurance network, please consult with your insurance company to find a nearby participating provider. Type Location Start [facility] ER/Hospital Follow Up [facility] 12/20/2023 9:00 AM 12/20/2023 9:40 AM Confirmed Cardiology Inpatient Follow Up (FT) [facility] 12/28/2023 10:15 AM 12/28/2023 10:30 AM Confirmed FM Open [facility] 03/24/2024 9:40 AM 03/24/2024 10:00 AM Confirmed FM Medicare Wellness Subsequent [facility] 10/09/2024 9:30 AM 10/09/2024 10:30 AM Confirmed Comment: DANIELA España JOE M, have received the attached patient education materials/instructions and have verbalized understanding: Patient Signature Date Clinican/Nurse Signature Date HERE ARE THE MEDICATION CHANGES THAT OCCURRED DURING YOUR HOSPITAL STAY New Medications [facility]/pharmacy #[id number], [address], [place] [id number], [phone] nitroglycerin (nitroglycerin 0.4 mg sublingual Tab) 1 Tablets Sublingual As Directed as needed for chest pain. takeif SBP is greater than 110. Refills: 0. Last Dose: Next Dose: ticagrelor (Brilinta (ticagrelor) 90 mg oral tablet) 1 Tablets By Mouth 2 times a day. Refills: 0. Last Dose: Next Dose: Medications to Continue Taking That Have Changed [id number], [address], [place] [id number], [phone] START: carvedilol (carvedilol 12.5 mg Tab) 0.5 Tablets By Mouth 2 times a day. Refills: 0. Last Dose: Next Dose: STOP: carvedilol (carvedilol 12.5 mg Tab) 1 Tablets By Mouth 2 times a day. START: pravastatin (pravastatin 40 mg Tab) 1 Tablets By Mouth once a day (at bedtime). Refills: 0. Last Dose: Next Dose: STOP: pravastatin (pravastatin 20 mg Tab) 1 Tablets By Mouth once a day (at bedtime). START: tramadol (traMADOL 50 mg Tab) 1-2 tabs By Mouth every 8 hours as needed Pain. Refills: 0. Last Dose: Next Dose: STOP: tramadol (Ultram 50 mg Tab) 1 Tablets By Mouth every 6 hours as needed Pain. Refills: 0. Other Medications START: levothyroxine (levothyroxine 175 mcg (0.175 mg) Tab) 0.5 Tablets By Mouth every day. Last Dose: Next Dose: STOP: levothyroxine (levothyroxine 175 mcg (0.175 mg) Tab) 0.5 tab(s) Oral 5 out of 7 days. Medications to Continue with No Changes Other Medications albuterol (Albuterol (Eqv-Ventolin HFA) 90 mcg/inh inhalation aerosol) INHALE 2 PUFFS BY MOUTH EVERY 4 HOURS NEEDED. Last Dose: Next Dose: aspirin 81 Milligram By Mouth at bedtime. Last Dose: Next Dose: azelastine nasal (azelastine nasal 0.15% spray) 2 Sprays Nasal Inhalation 2 times a day as needed Allergy symptoms. Last Dose: Next Dose: baclofen (baclofen 10 mg Tab) 1 tab(s) Oral q4hr PRN. Last Dose: Next Dose: cholecalciferol (Vitamin D3) 3,000 Units By Mouth every day. Last Dose: Next Dose: cyanocobalamin (Vitamin B12 1000 mcg Tab) 1 Tablets By Mouth every day. Last Dose: Next Dose: ezetimibe (Zetia 10 mg Tab) 0.5 Tablets By Mouth every day. Last Dose: Next Dose: furosemide (Lasix 20 mg Tab) 2 Tablets By Mouth every day as needed Other (see comment). PRN for leg swelling (takes for >3 pound weight gain)., PRN for leg swelling. (Takes for >3 pound weight gain) Last Dose: Next Dose: metformin-sitagliptin (Janumet 50 mg/1000 mg oral tablet) 1 Tablets By Mouth every day. Last Dose: Next Dose: Misc Prescription (FanMobUCH ULTRA TEST STRIP) TEST ONCE DAILY. Last Dose: Next Dose: montelukast (Singulair 10 mg Tab) 1 Tablets By Mouth once a day (in the evening). Refills: 4., for breathing Last Dose: Next Dose: sacubitril-valsartan (Entresto 97 mg-103 mg oral tablet) 1 Tablets By Mouth 2 times a day. hold if systolic is less than 100. Last Dose: Next Dose: No Longer Take the Following Medications azithromycin (azithromycin 250 mg Tab) 250 Milligram By Mouth As Directed. Refills: 0. Comment: MEDICATION LIST PROVIDED FOR YOU IS A LIST OF YOUR CURRENT MEDICATIONS. PLEASE CARRY THIS WITH YOU AT ALL TIMES. albuterol (Albuterol (Eqv-Ventolin HFA) 90 mcg/inh inhalation aerosol) INHALE 2 PUFFS BY MOUTH EVERY 4 HOURS NEEDED. aspirin 81 Milligram By Mouth at bedtime. azelastine nasal (azelastine nasal 0.15% spray) 2 Sprays Nasal Inhalation 2 times a day as needed Allergy symptoms. baclofen (baclofen 10 mg Tab) 1 tab(s) Oral q4hr PRN. carvedilol (carvedilol 12.5 mg Tab) 0.5 Tablets By Mouth 2 times a day. Refills: 0. cholecalciferol (Vitamin D3) 3,000 Units By Mouth every day. cyanocobalamin (Vitamin B12 1000 mcg Tab) 1 Tablets By Mouth every day. ezetimibe (Zetia 10 mg Tab) 0.5 Tablets By Mouth every day. furosemide (Lasix 20 mg Tab) 2 Tablets By Mouth every day as needed Other (see comment). PRN for leg swelling (takes for >3 pound weight gain). levothyroxine (levothyroxine 175 mcg (0.175 mg) Tab) 0.5 Tablets By Mouth every day. metformin-sitagliptin (Janumet 50 mg/1000 mg oral tablet) 1 Tablets By Mouth every day. [facility] [place] (ONETOUCH ULTRA TEST STRIP) TEST ONCE DAILY. montelukast (Singulair 10 mg Tab) 1 Tablets By Mouth once a day (in the evening). Refills: 4. nitroglycerin (nitroglycerin 0.4 mg sublingual Tab) 1 Tablets Sublingual As Directed as needed for chest pain. takeif SBP is greater than 110. Refills: 0. pravastatin (pravastatin 40 mg Tab) 1 Tablets By Mouth once a day (at bedtime). Refills: 0. sacubitril-valsartan (Entresto 97 mg-103 mg oral tablet) 1 Tablets By Mouth 2 times a day. hold if systolic is less than 100. ticagrelor (Brilinta (ticagrelor) 90 mg oral tablet) 1 Tablets By Mouth 2 times a day. Refills: 0. tramadol (traMADOL 50 mg Tab) 1-2 tabs By Mouth every 8 hours as needed Pain. Refills: 0. Pharmacy Information: [facility] Comment: PATIENT EDUCATION INFORMATION Instructions: [place], [place] Cardiovascular PCI DISCHARGE INSTRUCTIONS Diet: ? Resume pre-procedure diet. ? Increase water intake the next 2 days to flush dye out of the body. Activity: If radial access: ? Limit your activity today. Do not operate a vehicle, machinery or power tools. ? NO LIFTING OVER 3 POUNDS for 3 days. ? Do not bend your wrist for 24 hours. ? May resume driving in 24 hours. ? Let pain/discomfort guide your activity. If you are having pain, stop. ? No sexual activity for 1 week. ? Return to the Emergency Room if you have trouble breathing, walking or nausea and vomiting. Medications: ? Resume pre-procedure medication, unless otherwise directed. ? Hold the following medications for 48 hours post procedure: Actoplus Met Glucophage Glucophage XR Glucovance Avandamet Fortamet Apo-metformin Glycon Carlos Eduardo-metformin Glumetza Janumet Metaglip Riomet Glycomet ? Minimal pain, soreness and/or discomfort is expected. ? If you are prescribed an aspirin and/or antiplatelet (such as Plavix, Brilinta or Effient) do NOT stop taking these medications for any reason without talking to your parks recreation director Site Care: ? Do not remove dressing for 24 hours unless it becomes saturated, then replace. ? Keep site clean and dry; inspect site daily. ? Do not use any lotions, powders, or ointments at the groin or wrist site for 1 week. ? May shower 24 hours after the procedure. Clean site with soap and water. Pat dry and apply band aid. No tub baths, swimming or hot tubs for 3 days. Post Procedure: ? Soreness and tenderness to the site can last up to one week. ? Bruising may occur to site. ? A responsible adult should be with you for the first 24 hours after you arrive home. ? Keep follow-up appointment. ? Carry your stent card with you at all times. This provides information about your heart disease for any doctor who cares for you. ? No smoking for 24 hours as it increases the risk of developing blood clots. ? If you are interested in smoking cessation, contact [facility] at [phone], ext. [phone]. ? In the event you are unable to reach your physician, please call [facility] at [phone] and the corduroy cutter operator will assist you. Seek Medicare Care for: ? Bleeding: Apply continuous pressure to the site and Call 911. ? Should the arm or leg become cold, numb, blue or white call your physician immediately. ? Signs of infection are redness, warmth, swelling, getting more sore, colored drainage, fever or chills ? Chest pain ? Blood in your urine or stool ? Black tarry stools ? Medication Leaflets: You may receive a survey from [employer] asking you to rate your care experience. Your feedback is important and will help us understand what we do well and how we can improve the quality of care we provide to you, your loved ones and our community. It?s an honor to serve you. Thank you for choosing [facility] INPATIENT CLINICAL SUMMARY Observed: 1:07 PM Status: C Source: [facility] Inpatient Clinical Summary [address] [address] Clinical Summary Person Information: Name: RAY SUAREZ Age: 78 Years : 1945 Sex: Male PCP: Todd Osman DO Marital Status: Race: White Ethnicity: Non- or Language: Sudanese Visit Id: Visit Reason: STEMI Speciality: Acuity: Enc Type: Inpatient Med Service: Medical Arrival: 12/12/2023 07:22:38 Discharge: Dispo Type: Address: [address] [place] [id number] Provider Notes: Diagnosis: 1:STEMI (ST elevation myocardial infarction); 2:Benign essential hypertension; 3:CHF - Congestive heart failure; 4:Dyslipidemia; 5:Hypothyroidism (acquired); 6:Type 2 diabetes mellitus with hyperlipidemia; Hyperlipidemia, unspecified; Low back pain Problems Active CHF - Congestive heart failure Former smoker Hyperlipidemia, unspecified Type 2 diabetes mellitus with hyperlipidemia Benign essential hypertension Dyslipidemia SAMIRA (obstructive sleep apnea) History of prostate cancer History of prostatectomy Hypothyroidism (acquired) GERD (gastroesophageal reflux disease) COPD with asthma Asthma Smoking Status: Never Smoker Functional Status: Sensory Deficits: Hearing deficit, left ear, Hearing deficit, right ear History of Falls: Mobility Assistance Prior to Admission: Independent ADLs: Independent Current Level of Assistance for Self-Care/Mobility: Cognitive Status: Allergies Pollen (Hayfever) Contrast Dye (Flushing) Crestor Toradol Aldactone Measurements: Height: 177 cm Weight: 97.2 kg Blood Pressure: 95 mmHg / 62 mmHg BMI: 32.56 kg/m2 Procedures STEMI - ST elevation myocardial infarction (12/12/2023) Immunizations No Immunizations Documented This Visit Final Med List: albuterol (Albuterol (Eqv-Ventolin HFA) 90 mcg/inh inhalation aerosol) INHALE 2 PUFFS BY MOUTH EVERY 4 HOURS NEEDED. aspirin 81 Milligram By Mouth at bedtime. azelastine nasal (azelastine nasal 0.15% spray) 2 Sprays Nasal Inhalation 2 times a day as needed Allergy symptoms. baclofen (baclofen 10 mg Tab) 1 tab(s) Oral q4hr PRN. carvedilol (carvedilol 12.5 mg Tab) 0.5 Tablets By Mouth 2 times a day. Refills: 0. cholecalciferol (Vitamin D3) 3,000 Units By Mouth every day. cyanocobalamin (Vitamin B12 1000 mcg Tab) 1 Tablets By Mouth every day. ezetimibe (Zetia 10 mg Tab) 0.5 Tablets By Mouth every day. furosemide (Lasix 20 mg Tab) 2 Tablets By Mouth every day as needed Other (see comment). PRN for leg swelling (takes for >3 pound weight gain). levothyroxine (levothyroxine 175 mcg (0.175 mg) Tab) 0.5 Tablets By Mouth every day. metformin-sitagliptin (Janumet 50 mg/1000 mg oral tablet) 1 Tablets By Mouth every day. [facility] [place] (FanMobUCH ULTRA TEST STRIP) TEST ONCE DAILY. montelukast (Singulair 10 mg Tab) 1 Tablets By Mouth once a day (in the evening). Refills: 4. nitroglycerin (nitroglycerin 0.4 mg sublingual Tab) 1 Tablets Sublingual As Directed as needed for chest pain. takeif SBP is greater than 110. Refills: 0. pravastatin (pravastatin 40 mg Tab) 1 Tablets By Mouth once a day (at bedtime). Refills: 0. sacubitril-valsartan (Entresto 97 mg-103 mg oral tablet) 1 Tablets By Mouth 2 times a day. hold if systolic is less than 100. ticagrelor (Brilinta (ticagrelor) 90 mg oral tablet) 1 Tablets By Mouth 2 times a day. Refills: 0. tramadol (traMADOL 50 mg Tab) 1-2 tabs By Mouth every 8 hours as needed Pain. Refills: 0. Care Team Members: Attending Physician: Jorge AUGUSTE, Leopoldo Horn Consulting Physician: Davion Nolen MD Referring Physician: Follow up: With: Address: When: Davion Nolen 12/28/2023 10:15 AM Comments: Will be seeing Jonathan ORELLANA at this appointment, With: Address: When: Todd Osman [address] [place] [address] [employer] ([email or web address] 12/20/2023 9:00 AM Type Location Start [facility] ER/Hospital Follow Up [facility] 12/20/2023 9:00 AM 12/20/2023 9:40 AM Confirmed Cardiology Inpatient Follow Up (FT) FT.Cardiology Clinic 12/28/2023 10:15 AM 12/28/2023 10:30 AM Confirmed FM Open [facility] 03/24/2024 9:40 AM 03/24/2024 10:00 AM Confirmed FM Medicare Wellness Subsequent [facility] 10/09/2024 9:30 AM 10/09/2024 10:30 AM Confirmed Patient Education Information: CV - Cardiovascular PCI Discharge Instructions (Custom) DISCHARGE SUMMARY Observed: 12/15/2023 12:34 PM Status: F Source: [facility] Discharge Summary Admission and Discharge Information Admit Date/Time:12/12/2023 07:22 Admitting Physician - Alfreda WASHINGTON MD Consulting Physician - Davion Nolen MD Admitting Diagnoses: Discharge Order Date Discharge Patient - Ordered -- 12/15/23 12:24:00 EDT Discharge Diagnoses 1. STEMI (ST elevation myocardial infarction), 12/12/2023 2. Benign essential hypertension, 12/12/2023 3. CHF - Congestive heart failure, 12/12/2023 4. Dyslipidemia, Hyperlipidemia, unspecified 5. Hypothyroidism (acquired), 12/12/2023 6. Type 2 diabetes mellitus with hyperlipidemia, 12/12/2023 Low back pain, 12/12/2023 Procedure History STEMI - ST elevation myocardial infarction (12/12/2023), right total hip arthroplasty (09/11/2016), left total hip arthroplasty (07/19/2015), Cardiac catheterization (08/27/2006), Colonoscopy (2006), Vasectomy (1975), attempted tendon repair right leg, back surgery, Radical prostatectomy, Rotator cuff repair, Thyroidectomy, Tonsillectomy. Hospital Course Significant Findings Patient was scheduled to be discharged on 12/13, but patient's family were concerned about patient going home and not being able to perform activities of daily life since patient is elderly and living alone with his . PT/OT consulted and patient did well with minimal assist. he was observed overnight and noted to be doing well. Due to patient's medical condition ( CHF) it was determined that patient will benefit from having a hospital bed at home patient has carpal tunnel surgery and is still complaining of pain at the surgical site. He reported running out of his tramadol. he has appointment coming up on Sunday next week. Few more days of tramadol was sent to his pharmacy. His coreg dose was adjusted from 12.5 mg to 6.25 mg BID, He was started on brilinta and prvastatin dose was increased to 40 mg. His zetia still remains at current dose so is his Entresto. Physical Exam Vitals & Measurements T: 36.3 ?C(Axillary) TMIN: 36.2 ?C(Axillary) TMAX: 36.7 ?C(Oral) HR: 61(Monitored) RR: 16 BP: 95/62 SpO2: 94% WT: 97.2 kg General: alert, no acute distress Skin: warm, dry Head: no trauma, normocephalic Neck: Trachea midline, no adenopathy, no tenderness Eye: normal conjunctiva, sclera clear ENMT: TM's clear, oral mucosa moist, no pharyngeal erythema or exudate Cardiovascular: regular rate and rhythm, normal peripheral perfusion Respiratory: Lungs CTA, respirations non labored Chest wall: no deformity. Gastrointestinal: soft, non distended, no tenderness, no guarding. Back: No tenderness, Normal ROM, Normal alignment. Extremities: no deformity, no trauma Neurological: oriented x 4, LOC appropriate for age, CN II-XII intact, motor strength equal & normal bilaterally, sensation equal & normal bilaterally, speech normal Psychiatric: cooperative, affect appropriate for age, normal judgement, normal psychiatric thoughts. Tests Performed Echo Transthoracic w/ Contrast XR Chest Single View Discharge Plan Discharge Disposition Discharge To, Anticipated II - Home with home health Transported by, Anticipated - Family Discharge Medication List Prescriptions Brilinta (ticagrelor) 90 mg oral tablet, 90 mg= 1 tab(s), Oral, BID carvedilol 12.5 mg Tab, 6.25 mg= 0.5 tab(s), Oral, BID nitroglycerin 0.4 mg sublingual Tab, 0.4 mg= 1 tab(s), SubLingual, As Directed, PRN pravastatin 40 mg Tab, 40 mg= 1 tab(s), Oral, Once a day (at bedtime) Singulair 10 mg Tab, 10 mg= 1 tab(s), Oral, qPM, 4 refills traMADOL 50 mg Tab, 1-2 tabs, Oral, q8hr, PRN Home Albuterol (Eqv-Ventolin HFA) 90 mcg/inh inhalation aerosol aspirin, 81 mg, Oral, Bedtime azelastine nasal 0.15% spray, 2 spray(s), Nasal, BID, PRN baclofen 10 mg Tab, See Instructions Entresto 97 mg-103 mg oral tablet, 1 tab(s), Oral, BID Janumet 50 mg/1000 mg oral tablet, 1 tab(s), Oral, Daily Lasix 20 mg Tab, 40 mg= 2 tab(s), Oral, Daily, PRN levothyroxine 175 mcg (0.175 mg) Tab, 87.5 mcg= 0.5 tab(s), Oral, Daily ONETOUCH ULTRA TEST STRIP Vitamin B12 1000 mcg Tab, 1000 mcg= 1 tab(s), Oral, Daily Vitamin D3, 3000 unit(s), Oral, Daily Zetia 10 mg Tab, 5 mg= 0.5 tab(s), Oral, Daily Follow-up With When Contact Information Davion Nolen 12/28/2023 10:15 AM EDT Additional Instructions: Will be seeing Jonathan ORELLANA at this appointment, Todd Osman 12/20/2023 09:00 AM EDT [address] [id number] [facility] (1) Additional Instructions: Patient Education CV - Cardiovascular PCI Discharge Instructions (Custom) Attestation Time spent in disharge of patient is greater than 30 minutes Result Comment: Electronical ly Signed By: Jorge AUGUSTE, Leopoldo De Paz\Date and Time Signed: 12/15/23 12:45 EDT CAPILLARY GLUCOSE POC Collected: 2023 12:04 PM Status: F Source: [facility] TYPE CODE TESTS RESULT OUT OF RANGE REFERENCE UNITS LAB 60030934(INC) Glucose Cap 106 High 55-99 mg/d L Result Comment: Notified RN/ MD Performed By: #### [id number] #### [facility] [address] [place] [address] CAPILLARY GLUCOSE POC Collected: 2023 7:49 AM Status: F Source: [facility] TYPE CODE TESTS RESULT OUT OF RANGE REFERENCE UNITS LAB 14769850(LOINC) Glucose Cap 113 High 55-99 mg/d L Result Comment: Notified RN/ MD Performed By: #### [id number] #### [facility] [address] [place] [address] CAPILLARY GLUCOSE POC Collected: 2023 8:12 PM Status: F Source: [facility] TYPE CODE TESTS RESULT OUT OF RANGE REFERENCE UNITS LAB 44317334(LOINC) Glucose Cap 103 High 55-99 mg/d L Result Comment: Notified RN/ MD Performed By: #### [id number] #### [facility] [address] [place] [id number] CAPILLARY GLUCOSE POC Collected: 2023 3:57 PM Status: F Source: [facility] TYPE CODE TESTS RESULT OUT OF RANGE REFERENCE UNITS LAB 64029188(LOINC) Glucose Cap 103 High 55-99 mg/d L Result Comment: Notified RN/ MD Performed By: #### [id number] #### [facility] [address] [place] [address] INTERDISCIPLINARY NOTE - PT Observed: 12:48 PM Status: F Source: [facility] Interdisciplinary Note - PT PT Evaluation completed with an [facility] score of 20/24. Pt was able to perform bed mobility with Mod I and transfers with Supervision A. Pt was able to ambulate, but recommend pt to use a quad cane for more stability. Would also recommend PT HH services for further strengthening and improve balance to PLOF INTERDISCIPLINARY NOTE - OT Observed: 11:45 AM Status: F Source: [facility] Interdisciplinary Note - OT OT AM-PAC six clicks score: 18/24=HH services. Pt completes ADL functional transfers supervision using cane. Pt educated on energy conservation techniques for safety including seated ADL tasks, rest breaks, and use of AE/DME. Pt and Pt's family demonstrate verbal understanding. Pt also given HEP for L hand ROM and edema management. Pt lives with his and has family support for safety. No further inpatient OT needs. CAPILLARY GLUCOSE POC Collected: 2023 11:14 AM Status: F Source: [facility] TYPE CODE TESTS RESULT OUT OF RANGE REFERENCE UNITS LAB 84082743(LOINC) Glucose Cap 110 High 55-99 mg/d L Result Comment: Notified RN/ MD Performed By: #### [id number] #### [facility] [address] [place] [address] INTERDISCIPLINARY NOTE - SHIV E EMERGENCY DISPATCH OPERATOR Observed: 12/14/2023 10:57 AM Status: F Source: [facility] Interdisciplinary Note - Shiv e Sales Project Manager CRM spoke with patient and daughter Paula in room. Patient is alert and oriented and participates in discharge planning. Patient white board updated, and CRM contact information provided. Discussed CRM spoke with Dr Patel who saw patient earlier today and plan to dc today and will be on Brilinta, CRM will have cost checked and may use a 30 day free card if cost is high. Daughter states she spoke with the Dr and does not feel he is ready to dc today. She states he has not been out of bed, PT/OT to see today. Patient is form home with and she states is weak herself. Discussed H/H and she ask if can get help at home to shower. Discussed H/H agencies and okay to [facility] or [facility]. Will make referral for RN/Aide and if needed will add PT/OT. Family will transport at dc. Dtr also states she called Dr Ortiz as he recently had carpal tunnel sx and having pain and he is to [facility] staff and talk to them. Reviewed Medicare rights, they deny any questions. Gave daughter copy of signed form. Result Comment: Electronical ly Signed By: John GARLAND, Estella\.br\Date and Time Signed: 12/14/23 11:16 EDT INTERDISCIPLINARY NOTE - SHIV E EMERGENCY DISPATCH OPERATOR Observed: 12/14/2023 10:57 AM Status: C Source: [facility] Interdisciplinary Note - Shiv e Sales Project Manager CRM spoke with patient and daughter Paula in room. Patient is alert and oriented and participates in discharge planning. Patient white board updated, and CRM contact information provided. Discussed CRM spoke with Dr Patel who saw patient earlier today and plan to dc today and will be on Brilinta, CRM will have cost checked and may use a 30 day free card if cost is high. Daughter states she spoke with the Dr and does not feel he is ready to dc today. She states he has not been out of bed, PT/OT to see today. Patient is form home with and she states is weak herself. Discussed H/H and she ask if can get help at home to shower. Discussed H/H agencies and okay to [facility] or [facility]. Will make referral for RN/Aide and if needed will add PT/OT. Family will transport at [place]. Dtr also states she called Dr Ortiz as he recently had carpal tunnel sx and having pain and he is to [facility] staff and talk to them. Reviewed Medicare rights, they deny any questions. Gave daughter copy of signed form. 1514- Patient and family members in room updated [facility] no openings until Sunday next week and referral was sent to [facility]/H. 1539- [facility] H/H accepts and RN updated to update patient. Result Comment: Electronical ly Signed By: John GARLAND, Estella\.br\Date and Time Signed: 12/14/23 15:39 EDT DISCHARGE SUMMARY Observed: 12/14/2023 10:19 AM Status: F Source: [facility] Discharge Summary Admission and Discharge Information Admit Date/Time:12/12/2023 07:22 Admitting Physician - PADMINI AUGUSTE, Alfreda Consulting Physician - Cyril AUGUSTE, Davion Veliz Admitting Diagnoses: Discharge Order Date Discharge Patient - Ordered -- 12/14/23 10:06:00 EDT Discharge Diagnoses 1. STEMI (ST elevation myocardial infarction), 12/12/2023 2. Benign essential hypertension, 12/12/2023 3. CHF - Congestive heart failure, 12/12/2023 4. Dyslipidemia, Hyperlipidemia, unspecified 5. Hypothyroidism (acquired), 12/12/2023 6. Type 2 diabetes mellitus with hyperlipidemia, 12/12/2023 Low back pain, 12/12/2023 Chronic Congestive heart failure with Systolic dysfunction ( compensateed) Procedure History STEMI - ST elevation myocardial infarction (12/12/2023), right total hip arthroplasty (09/11/2016), left total hip arthroplasty (07/19/2015), Cardiac catheterization (08/27/2006), Colonoscopy (2006), Vasectomy (1975), attempted tendon repair right leg, back surgery, Radical prostatectomy, Rotator cuff repair, Thyroidectomy, Tonsillectomy. Hospital Course Significant Findings Mr. Suarez was admitted with chest pain. He as found to have STEMI requiring PCI. He had stent placed and was monitored. He complained of dyspnea after PCI. CXR obtained was negative for any acute process. His ECHO showed systolic EF of 35- 40%. He remained stable and was discharged in stable condition. He is already on Coreg at admission. He had episodes of bradycardia. His Coreg was decreased from 12.5 mg BID to 6.25mg BID. His renal function remains stable Physical Exam Vitals & Measurements T: 36.4 ?C(Oral) TMIN: 36.4 ?C(Oral) TMAX: 36.8 ?C(Oral) HR: 68(Peripheral) RR: 18 BP: 103/65 SpO2: 97% General: alert, no acute distress Skin: warm, dry Head: no trauma, normocephalic Neck: Trachea midline, no adenopathy, no tenderness Eye: normal conjunctiva, sclera clear ENMT: TM's clear, oral mucosa moist, no pharyngeal erythema or exudate Cardiovascular: regular rate and rhythm, normal peripheral perfusion Respiratory: Lungs CTA, respirations non labored Chest wall: no deformity. Gastrointestinal: soft, non distended, no tenderness, no guarding. Back: No tenderness, Normal ROM, Normal alignment. Extremities: no deformity, no trauma Neurological: oriented x 4, LOC appropriate for age, CN II-XII intact, motor strength equal & normal bilaterally, sensation equal & normal bilaterally, speech normal Psychiatric: cooperative, affect appropriate for age, normal judgement, normal psychiatric thoughts. Tests Performed CV Cardiovascular -- Results Pending -- Echo Transthoracic w/ Contrast XR Chest Single View Please visit your patient portal for your results or contact your primary care physician. Discharge Plan Patient Discharge Condition Stable Discharge Disposition Discharge To, Anticipated II - Home with responsible caregiver Discharge Medication List Prescriptions Brilinta (ticagrelor) 90 mg oral tablet, 90 mg= 1 tab(s), Oral, BID carvedilol 12.5 mg Tab, 6.25 mg= 0.5 tab(s), Oral, BID pravastatin 40 mg Tab, 40 mg= 1 tab(s), Oral, Once a day (at bedtime) Singulair 10 mg Tab, 10 mg= 1 tab(s), Oral, qPM, 4 refills Ultram 50 mg Tab, 50 mg= 1 tab(s), Oral, q6hr, PRN Home Albuterol (Eqv-Ventolin HFA) 90 mcg/inh inhalation aerosol aspirin, 81 mg, Oral, Bedtime azelastine nasal 0.15% spray, 2 spray(s), Nasal, BID, PRN baclofen 10 mg Tab, See Instructions Entresto 97 mg-103 mg oral tablet, 1 tab(s), Oral, BID Janumet 50 mg/1000 mg oral tablet, 1 tab(s), Oral, Daily Lasix 20 mg Tab, 40 mg= 2 tab(s), Oral, Daily, PRN levothyroxine 175 mcg (0.175 mg) Tab, 87.5 mcg= 0.5 tab(s), Oral, Daily ONETOUCH ULTRA TEST STRIP Vitamin B12 1000 mcg Tab, 1000 mcg= 1 tab(s), Oral, Daily Vitamin D3, 3000 unit(s), Oral, Daily Zetia 10 mg Tab, 5 mg= 0.5 tab(s), Oral, Daily Follow-up With When Contact Information Davion Nolen Within 1 to 2 weeks Additional Instructions: Todd Link In [address] [place] [address] [facility] (1) Additional Instructions: Patient Education CV - Cardiovascular PCI Discharge Instructions (Custom) Attestation Time spent in discharge of patient is greater than 30 minutes Result Comment: Electronical ly Signed By: Jorge AUGUSTE, Leopoldo De Paz\Date and Time Signed: 12/28/23 11:51 EDT CAPILLARY GLUCOSE POC Collected: 2023 8:39 AM Status: F Source: [facility] TYPE CODE TESTS RESULT OUT OF RANGE REFERENCE UNITS LAB 81244854(LOINC) Glucose Cap 121 High 55-99 mg/d L Result Comment: Notified RN/ Performed By: #### [id number] #### [facility] [address] [place] [address] EGFR Collected: 4 6:04 AM Status: F Source: [facility] Order Comment: Order added b y Discern Expert. TYPE CODE TESTS RESULT OUT OF RANGE REFERENCE UNITS LAB 08074970(INC) eGFR 55 Low >=59 mL/min/1 .7 3 m2 Performed By: #### [id number] #### [facility] [address] [place] [address] CBC W/ AUTO DIFF Collected: 12/14/2023 6:04 AM Statu s: F Source: [facility] TYPE CODE TESTS RESULT OUT OF RANGE REFERENCE UNITS LAB 08178-6([facility]) LEUKOCYTES 10.2 Normal 4.0-11.0 E9/L LAB 789-8(INC) ERYTHROCYTES:NCN C:PT:BLD:QN:AUTO MATED COUNT 5.3 Normal 4.3-5.9 E12/L LAB 718-7(INC) HEMOGLOBIN:MCNC: PT:BLD:QN: 16.3 Normal 13.5-17.5 gm/dL LAB 4544-3([facility]) HEMATOCRIT:VFR:P T:BLD:QN:AUTOMAT ED COUNT 47.2 Normal 37.7-49.0 % LAB 788-0(INC) ERYTHROCYTE DISTRIBUTION WIDTH:RATIO:PT:R BC:QN:AUTOMATED COUNT 14.9 High 10.9-14.2 % LAB 785-6(INC) ERYTHROCYTE MEAN CORPUSCULAR HEMOGLOBIN:ENTMA SS:PT:RBC:QN:AUT OMATED COUNT 31.1 Normal 27.0-34.0 pg LAB 786-4(INC) ERYTHROCYTE MEAN CORPUSCULAR HEMOGLOBIN CONCENTRATION:MC NC:PT:RBC:QN:AUT OMATED COUNT 34.6 Normal 31.4-36.0 gm/dL LAB 787-2(INC) ERYTHROCYTE MEAN CORPUSCULAR VOLUME:ENTVOL:PT :RBC:QN:AUTOMATE D COUNT 89.8 Normal 80.0-100.0 fL LAB 97079-1(LOINC) PLATELET MEAN VOLUME:ENTVOL:PT :BLD:QN:AUTOMATE D COUNT 9.7 Normal 6.4-10.8 fL LAB 76730199(LOINC) Platelet 150.0 Normal 150.0-500.0 E9/ L LAB 09034-4(LOINC) NEUTROPHILS/100 LEUKOCYTES:NFR:P T:BLD:QN: 73.7 Normal 36.0-75.0 % LAB 731-0([facility]) LYMPHOCYTES:NCNC :PT:BLD:QN:AUTOM ATED COUNT 14.6 Normal 14.0-50.0 % LAB 742-7([facility]) MONOCYTES:NCNC:P T:BLD:QN:AUTOMAT ED COUNT 1.0 Normal 0.2-1.0 E9/L LAB 713-8([facility]) EOSINOPHILS/100 LEUKOCYTES:NFR:P T:BLD:QN:AUTOMAT ED COUNT 1.5 Normal 0.0-8.0 % LAB 704-7([facility]) BASOPHILS:NCNC:P T:BLD:QN:AUTOMAT ED COUNT 0.7 Normal 0.0-2.0 % LAB 751-8([facility]) NEUTROPHILS:NCNC :PT:BLD:QN:AUTOM ATED COUNT 7.6 High 2.0-7.5 E9/L LAB 61402-3([facility]) LYMPHOCYTES:NCNC :PT:BLD:QN: 1.5 Normal 1.0-4.0 E9/L LAB 70878-7([facility]) EOSINOPHILS:NCNC :PT:BLD:QN: 0.1 Normal 0.0-0.5 E9/L LAB 48373-3([facility]) BASOPHILS/LEUKOC YTES:NFR.DF:PT:B LD:QN:AUTOMATED COUNT 0.1 Normal 0.0-0.2 E9/L Performed By: #### [id number] # ### [facility] [address] [place] [address] CMP Collected: 12/14/2023 6:04 AM Status: F Source: [facility] TYPE CODE TESTS RESULT OUT OF RANGE REFERENCE UNITS LAB 2345-7([facility]) GLUCOSE:MCNC:P T:SER/PLAS:QN: 114 Normal 55-199 mg/dL LAB 3094-0([facility]) UREA NITROGEN:MCNC: PT:SER/PLAS:QN : 24 High 5-21 mg/dL LAB 2160-0([facility]) CREATININE:MCN C:PT:SER/PLAS: QN: 1.3 Normal 0.5-1.3 mg/dL LAB 51213-7([facility]) CALCIUM:MCNC:P T:SER/PLAS:QN: 9.8 Normal 8.9-11.1 mg/dL LAB 2951-2([facility]) SODIUM:SCNC:PT :SER/PLAS:QN: 137 Normal 135-145 mmol/L LAB 2823-3([facility]) POTASSIUM:SCNC :PT:SER/PLAS:Q N: 4.4 Normal 3.5-5.3 mmol/L LAB 2075-0([facility]) CHLORIDE:SCNC: PT:SER/PLAS:QN : 106 Normal 101-111 mmol/L LAB 2028-9([facility]) CARBON DIOXIDE:SCNC:P T:SER/PLAS:QN: 26 Normal 21-31 mmol/L LAB 6768-6([facility]) ALKALINE PHOSPHATASE:CC NC:PT:SER/PLAS :QN: 45 Normal 21-98 Int._Unit /L LAB 1975-2([facility]) BILIRUBIN:MCNC :PT:SER/PLAS:Q N: 0.8 Normal 0.0-1.1 mg/dL LAB 1751-7([facility]) ALBUMIN:MCNC:P T:SER/PLAS:QN: 3.7 Normal 3.3-5.0 gm/dL LAB 2885-2([facility]) PROTEIN:MCNC:P T:SER/PLAS:QN: 6.3 Normal 6.0-7.8 gm/dL LAB 1744-2([facility]) ALANINE AMINOTRANSFERA SE:CCNC:PT:SER /PLAS:QN:NO ADDITION OF P-5'-P 42 Normal 6-46 Int._Unit /L LAB 1920-8([facility]) ASPARTATE AMINOTRANSFERA SE:CCNC:PT:SER /PLAS:QN: 92 High 5-43 Int._Unit /L LAB 3097-3([facility]) UREA NITROGEN/CREAT ININE:MRTO:PT: SER/PLAS:QN: 18 Normal 10-20 No Units LAB 10897-2([facility]) ANION GAP:SCNC:PT:SE R/PLAS:QN: 9 Normal 6-16 mEq/L LAB 85321-6([facility]) GLOBULIN:MCNC: PT:SER:QN:CALC ULATED 2.6 Normal 1.4-4.0 gm/dL LAB 34814-2(LOINC) ALBUMIN/GLOBUL IN:MCRTO:PT:SE R:QN: 1.4 Normal 1.1-2.2 Performed By: #### [id number] # ### [facility] [address] [place] [address] PROGRESS NOTE-PHYSICIAN Observed: 2023 9:35 PM Status: F Source: [facility] Progress Note-Physician Basic Information 78-year-old male with history of CAD and remote IA, comes in with anterolateral STEMI from LAD occlusion. Resulting ischemic cardiomyopathy. Does have hypertension, hyperlipidemia, sleep apnea, diabetes. Underwent primary PCI of the LAD with ARLETTE. Subjective Doing well today. His chest pain and discomfort has gone away. Objective Vitals & Measurements T: 36.7 ?C(Oral) TMIN: 36.5 ?C(Axillary) TMAX: 36.7 ?C(Oral) HR: 66(Peripheral) RR: 18 BP: 138/79 SpO2: 97% Intake & Output This visit (24 hour periods starting at 07:00 EDT) 12/13/23 * 12/12/23 12/11/23 Total Summary Intake mL 1.3 400 -- Output mL -- 450 -- Fluid Balance 1.3 -50 -- Intake (2) Oral Intake mL -- 400 -- perflutren mL 1.3 -- -- Total 1.3 400 -- Output (1) Urine Voided mL -- 450 -- Total -- 450 -- Counts (1) Stool Count -- -- -- * This column has not completed the indicated time period. Physical Exam General: alert, no acute distress Neck: Supple, noJVD nocarotid bruit Cardiovascular: regular rate and rhythm, no murmur normal peripheral perfusion Respiratory: Lungs CTA, respirations non labored Extremities: no edema Neurological: oriented x 4, LOC appropriate for age, sensation equal & normal bilaterally, speech normal Skin: Warm, dry, intact- no rash or concerning lesions Lab Results WBC: 14.6 E9/L High (12/13/23 05:54:00) RBC: 5.7 E12/L (12/13/23 05:54:00) HGB: 17.3 gm/dL (12/13/23 05:54:00) Hct: 51.4 % High (12/13/23 05:54:00) MCV: 90.4 fL (12/13/23 05:54:00) MCH: 30.4 pg (12/13/23 05:54:00) MCHC: 33.6 gm/dL (12/13/23 05:54:00) RDW: 14.8 % High (12/13/23 05:54:00) Platelet: 173 E9/L (12/13/23 05:54:00) MPV: 10.3 fL (12/13/23 05:54:00) Neutro Auto: 86.6 % High (12/13/23 05:54:00) Lymph Auto: 5.7 % Low (12/13/23 05:54:00) Benson Auto: 7.5 % (12/13/23 05:54:00) Eos Auto: 0 % (12/13/23 05:54:00) Basophil Auto: 0.2 % (12/13/23 05:54:00) Neutro Absolute: 12.6 E9/L High (12/13/23 05:54:00) Lymph Absolute: 0.8 E9/L Low (12/13/23 05:54:00) Benson Absolute: 1.1 E9/L High (12/13/23 05:54:00) Eos Absolute: 0 E9/L (12/13/23 05:54:00) Basophil Absolute: 0 E9/L (12/13/23 05:54:00) Glucose Lvl: 138 mg/dL (12/13/23 05:54:00) BUN: 23 mg/dL High (12/13/23 05:54:00) Creatinine: 1.2 mg/dL (12/13/23 05:54:00) eGFR: 61 mL/min/1.73 m2 (12/13/23 05:54:00) BUN/Creat Ratio: 19 (12/13/23 05:54:00) Sodium Lvl: 134 mmol/L Low (12/13/23 05:54:00) Potassium Lvl: 4.6 mmol/L (12/13/23 05:54:00) Chloride: 104 mmol/L (12/13/23 05:54:00) CO2: 20 mmol/L Low (12/13/23 05:54:00) AGAP: 15 mEq/L (12/13/23 05:54:00) Calcium Lvl: 9.7 mg/dL (12/13/23 05:54:00) Alk Phos: 49 Int._Unit/L (12/13/23 05:54:00) ALT: 53 Int._Unit/L High (12/13/23 05:54:00) AST: 221 Int._Unit/L High (12/13/23 05:54:00) Total Protein: 6.4 gm/dL (12/13/23 05:54:00) Albumin Lvl: 3.8 gm/dL (12/13/23 05:54:00) Globulin: 2.6 gm/dL (12/13/23 05:54:00) A/G Ratio: 1.5 (12/13/23 05:54:00) Bili Total: 0.7 mg/dL (12/13/23 05:54:00) Magnesium: 1.8 mg/dL (12/13/23 05:54:00) Hgb A1C %: 5.2 % (12/13/23 05:54:00) Chol: 159 mg/dL (12/13/23 05:54:00) Tri mg/dL (12/13/23 05:54:00) HDL: 44 mg/dL (12/13/23 05:54:00) LDL Direct: 99 mg/dL (12/13/23 05:54:00) VLDL: 23 mg/dL (12/13/23 05:54:00) TSH: 1.05 mcIU/mL (12/13/23 05:54:00) BNP: 437 pg/mL High (12/13/23 05:54:00) Glucose Cap: 124 mg/dL High (12/13/23 21:04:00) POC Device SN: [id number] (12/13/23 21:04:00) POC User ID: [id number] (12/13/23 21:04:00) POC Username: GUILLAUME BARBA (12/13/23 21:04:00) Assessment/Plan Echo shows EF is 35 to 40%. He will need a statin to be on GDMT. Also recommend resume his home carvedilol. Eventually we will start him on Farxiga or Jardiance. He will also need spironolactone. Most this can be done as an outpatient. Keep him tonight and discharge tomorrow in the morning for follow-up with me in the office. 1. STEMI (ST elevation myocardial infarction) (I21.3: ST elevation (STEMI) myocardial infarction of unspecified site) 2. Benign essential hypertension (I10: Essential (primary) hypertension) 3. CHF - Congestive heart failure (I50.9: Heart failure, unspecified) 4. Dyslipidemia, (E78.5: Hyperlipidemia, unspecified)Hyperlipidemia, unspecified 5. Hypothyroidism (acquired) (E03.9: Hypothyroidism, unspecified) 6. Type 2 diabetes mellitus with hyperlipidemia (E11.69: Type 2 diabetes mellitus with other specified complication) Low back pain (M54.5: Low back pain) Orders: aspirin, 324 mg = 4 tab(s), Tab-Chew, Oral, Once, Stop date 12/12/23 7:56:00 EDT, STAT, Start date 12/12/23 7:56:00 EDT, 12/12/23 7:56:00 EDT heparin, 5,000 unit(s) = 1 mL, Injection, IV Push, Once, Stop date 12/12/23 7:56:00 EDT, STAT, Start date 12/12/23 7:56:00 EDT ECG 12 Lead Adult Problem List/Past Medical History Ongoing Asthma Benign essential hypertension CHF - Congestive heart failure COPD with asthma Dyslipidemia Former smoker GERD (gastroesophageal reflux disease) History of prostate cancer History of prostatectomy Hyperlipidemia, unspecified Hypothyroidism (acquired) SAMIRA (obstructive sleep apnea) Type 2 diabetes mellitus with hyperlipidemia Historical Chronic back pain Smoker Medications Inpatient aspirin 81 mg Chew Tab, 81 mg= 1 tab(s), Chewed, Daily Lasix 20 mg Tab, 40 mg= 2 tab(s), Oral, Daily, PRN levothyroxine, 87.5 mcg= 0.5 tab(s), Oral, Daily nitroglycerin 0.4 mg sublingual Tab, 0.4 mg= 1 tab(s), SubLingual, q5min, PRN Plavix 75 mg Tab, 75 mg= 1 tab(s), Oral, Daily sacubitril-valsartan 24 mg-26 mg oral tablet, 4 tab(s), Oral, BID Singulair 10 mg Tab, 10 mg= 1 tab(s), Oral, qPM Sodium Chloride 0.9% IV Gillian 1000 mL 1,000 mL, 1000 mL, IV Ultram 50 mg Tab, 50 mg= 1 tab(s), Oral, q6hr, PRN Zetia 10 mg Tab, 5 mg= 0.5 tab(s), Oral, DailyHome Albuterol (Eqv-Ventolin HFA) 90 mcg/inh inhalation aerosol aspirin, 81 mg, Oral, Bedtime azelastine nasal 0.15% spray, 2 spray(s), Nasal, BID, PRN azithromycin 250 mg Tab, 250 mg, Oral, As Directed baclofen 10 mg Tab, See Instructions carvedilol 12.5 mg Tab, 12.5 mg= 1 tab(s), Oral, BID Entresto 97 mg-103 mg oral tablet, 1 tab(s), Oral, BID Janumet 50 mg/1000 mg oral tablet, 1 tab(s), Oral, Daily Lasix 20 mg Tab, 40 mg= 2 tab(s), Oral, Daily, PRN levothyroxine 175 mcg (0.175 mg) Tab, 87.5 mcg= 0.5 tab(s), Oral, Daily ONETOUCH ULTRA TEST STRIP pravastatin 20 mg Tab, 20 mg= 1 tab(s), Oral, Once a day (at bedtime) Singulair 10 mg Tab, 10 mg= 1 tab(s), Oral, qPM, 4 refills Ultram 50 mg Tab, 50 mg= 1 tab(s), Oral, q6hr, PRN Vitamin B12 1000 mcg Tab, 1000 mcg= 1 tab(s), Oral, Daily Vitamin D3, 3000 unit(s), Oral, Daily Zetia 10 mg Tab, 5 mg= 0.5 tab(s), Oral, Daily Result Comment: Electronical ly Signed By: Cyril AUGUSTE, Davion Veliz\.br\Date and Time Signed: 12/13/23 21:37 EDT CAPILLARY GLUCOSE POC Collected: 2023 9:04 PM Status: F Source: [facility] TYPE CODE TESTS RESULT OUT OF RANGE REFERENCE UNITS LAB 31532476(INC) Glucose Cap 124 High 55-99 mg/d L Result Comment: Notified RN/ MD Performed By: #### [id number] #### [facility] [address] [place] [address] ECHO TRANSTHORACIC W/ CONTRAST Observed: 12/13/2023 5:05 PM Status: F Source: [facility] Echocardiology Procedure Exam Date/Time Accession # Ordering DrBeata Echo Transthoracic w/ 12/13/2023 17:05 EDT [id number] Jorge AUGUSTE, Leopoldo Horn Contrast CPT code 58612 C8929 Reason for Exam (Echo Transthoracic w/ Contrast) CAD Coronary artery disease Report Version: 1 Study ID: [id number] [address] Adult Echocardiogram Report Name: RAY SUAREZ Study Date: 12/13/2023, 3: 17 PM Patient Location: [address] [place] [address] : 1945 (MM/DD/YYYY) Gender: Male Age: 78 Years Height: 177 cm BP: 108 / 70 mmHg Weight: 102 kg HR: 57 bpm BSA: 2.19 m? Ordering Physician: Leopoldo Patel Performed By: Karla Garcia RDCS Reason For Study: CAD Coronary artery disease History: High Cholesterol, HTN, CHF, Obesity Interpretation Summary Ejection Fraction = 35-40%. Ischemic cardiomyopathy. Normal LV size with moderate LV systolic dysfunction. Akinetic septum/dyskinetic apex. No LV apical thrombus. No significant valve disease. No estimated PA pressure. Impaired diastolic relaxation. Severe LVH. Procedure A complete two-dimensional transthoracic echocardiogram was performed using contrast (2D, M-mode, spectral and color flow Doppler). A complete two-dimensional transthoracic echocardiogram was performed (2D, M-mode, spectral and color flow Doppler). Study quality is good. Left Ventricle Echocardiology Report The left ventricle is normal in size. severe left ventricular hypertrophy. Ejection Fraction = 35-40%. Septal wall motion consistent with bundle branch block. Dyskinetic apex. Akinetic distal septum. Grade I diastolic dysfunction, (abnormal relaxation pattern). Left Atrium The left atrial size is normal. Right Atrium Right atrial size is normal. Right Ventricle The right ventricular systolic function is normal. The right ventricle is normal size. The right ventricular wall motion is normal. Aortic Valve The aortic valve is trileaflet. No aortic regurgitation. There is aortic sclerosis without stenosis. Mitral Valve The mitral valve is normal in structure and function. There is no mitral regurgitation noted. No mitral valve stenosis. Tricuspid Valve Structurally normal tricuspid valve. No evidence of tricuspid regurgitation. No estimate for RVSP. Pulmonic Valve No evidence of stenosis. There is no pulmonic valve regurgitation. Arteries The aortic root is normal in size. Normal ascending aorta. Pulmonary artery diameter is normal. Venous The inferior vena cava is normal in size, and collapses normally with respiration. Effusion There is no pericardial effusion. Left Ventricle IVSd: 1.75 cm LVIDd: 4.3 cm LVPWd: 1.43 cm LVIDs: 1.94 cm EDV(MOD-sp4): 141.0 ml LVLd ap4: 9.3 cm ESV(MOD-sp4): 78.1 ml LVLs ap4: 9.2 cm EDV(MOD-sp2): 122.0 ml LVLd ap2: 9.0 cm ESV(MOD-sp2): 77.8 ml LVLs ap2: 8.6 cm Right Ventricle TAPSE: 3.4 cm Aortic Valve LVOT diam: 2.41 cm LV V1 mean P.00 mmHg LV V1 mean: 39.8 cm/sec LV V1 VTI: 13.3 cm Ao V2 VTI: 42.7 cm Ao mean P.0 mmHg Ao V2 mean: 134.0 cm/sec LV V1 max: 63.8 cm/sec LV V1 max P.63 mmHg Ao max P.5 mmHg Ao V2 max: 203.0 cm/sec Aorta Ao root diam: 4.0 cm asc Aorta Diam: 3.8 cm Atria LA dimension: 3.8 cm Diastolic funtion Med Peak E' Jaison: 4.0 cm/sec Lat Peak E' Jaison: 5.2 cm/sec Echocardiology Report MV dec time: 0.23 sec MV E max jaison: 62.1 cm/sec MV A max jaison: 62.1 cm/sec Ao max P.5 mmHg Ao mean P.0 mmHg Ao root area: 12.7 cm? Ao root diam: 4.0 cm Ao V2 max: 203.0 cm/sec Ao V2 mean: 134.0 cm/sec Ao V2 VTI: 42.7 cm AV VR: 0.31 KYRIE(I,D): 1.42 cm? KYRIE(V,D): 1.44 cm? KYRIE(VTI)/BSA_phl: 0.64 EDV(MOD-sp4): 141.0 ml EDV(Teich): 81.7 ml EF(MOD-sp4): 44.6 % EF(Teich): 85.6 % ESV(MOD-sp4): 78.1 ml ESV(Teich): 11.8 ml FS: 54.6 % IVSd: 1.75 cm LA dimension: 3.8 cm LV V1 max: 63.8 cm/sec LV V1 max P.63 mmHg LV V1 mean: 39.8 cm/sec LV V1 mean P.00 mmHg LV V1 VTI: 13.3 cm LVIDd: 4.3 cm LVIDs: 1.94 cm LVLd ap4: 9.3 cm LVLs ap4: 9.2 cm LVOT area: 4.6 cm? LVOT diam: 2.41 cm LVPWd: 1.43 cm MV A max jaison: 62.1 cm/sec MV dec time: 0.23 sec MV E max jaison: 62.1 cm/sec MV E/A: 1.00 RVDd: 3.3 cm RVIDd/LVIDd: 0.79 SV(LVOT): 60.7 ml SV(MOD-sp4): 62.9 ml TAPSE: 3.4 cm asc Aorta Diam: 3.8 cm E/E' Lat: 11.9 E/E' Med: 15.4 EDV(MOD-sp2): 122.0 ml EF (MOD-bp): 39.6 % EF(MOD-sp2): 36.2 % ESV(MOD-sp2): 77.8 ml LA Vol Index: 26.8 ml/m? Lat Peak E' Jaison: 5.2 cm/sec LVLd ap2: 9.0 cm LVLs ap2: 8.6 cm Med Peak E' Jaison: 4.0 cm/sec Echocardiology Report Electronically signed by: Davion Nolen MD 12/13/2023, 6: 24 PM FINAL REPORT Dictated: 12/13/2023 3:17 pm Davion Nolen MD Signed (Electronic Signature): 12/13/2023 6:24 pm Signed by: Davion Nolen MD Transcribed by: [facility] Technologist: LL CAPILLARY GLUCOSE POC Collected: 2023 3:50 PM Status: F Source: [facility] TYPE CODE TESTS RESULT OUT OF RANGE REFERENCE UNITS LAB 31300282([facility]) Glucose Cap 116 High 55-99 mg/d L Result Comment: Notified RN/ MD Performed By: #### [id number] #### [facility] [address] [place] [address] PROGRESS NOTE-PHYSICIAN Observed: 2023 2:12 PM Status: F Source: [facility] Progress Note-Physician Assessment/Plan 1. STEMI (ST elevation myocardial infarction) (I21.3: ST elevation (STEMI) myocardial infarction of unspecified site) s/p PCI with stent placement continue ASA and plavix and statin continue to monitor Ordered: [facility] Hospital Care/Day Moderate 35 Minutes 80658 2. Benign essential hypertension (I10: Essential (primary) hypertension) BP is well controlled on Coreg Ordered: [facility] Hospital Care/Day Moderate 35 Minutes 70971 3. CHF - Congestive heart failure (I50.9: Heart failure, unspecified) Not in overt exacerbation lasix as ordered cautious with lasix to avoid intravascular depletion Ordered: [facility] Hospital Care/Day Moderate 35 Minutes 60034 4. Dyslipidemia, (E78.5: Hyperlipidemia, unspecified)Hyperlipidemia, unspecified zetia for now since liver enzyme is elevated repeat LFT before discharge Ordered: [facility] Hospital Care/Day Moderate 35 Minutes 14108 5. Hypothyroidism (acquired) (E03.9: Hypothyroidism, unspecified) On synthroid Ordered: [facility] Hospital Care/Day Moderate 35 Minutes 09802 6. Type 2 diabetes mellitus with hyperlipidemia (E11.69: Type 2 diabetes mellitus with other specified complication) Unsure when this diagnosis was made. Last A1C is 5.4 possible repeat A1C Ordered: [facility] Hospital Care/Day Moderate 35 Minutes 95668 Low back pain (M54.5: Low back pain) Orders: clopidogrel, 75 mg = 1 tab(s), Tab, Oral, Daily, Routine, Start date 12/13/23 14:08:00 EDT levothyroxine, 87.5 mcg = 0.5 tab(s), Tab, Oral, Daily, Start date 12/14/23 6:30:00 EDT B-Type Natriuretic Peptide Capillary Glucose POC CBC w/ Auto Diff CBC w/ Auto Diff Comprehensive Metabolic Panel Comprehensive Metabolic Panel Echo Transthoracic Complete eGFR Lipid Panel Magnesium Level Thyroid Stimulating Hormone Transfer Patient to XR Chest Single View Subjective Mr. Suarez reports that he is feeling better today. he denied nausea and vomiting. No chest pain. No diarrhea. He is aware of plans to get an Echo while in patient Objective Vitals & Measurements T: 36.6 ?C(Oral) TMIN: 36.5 ?C(Oral) TMAX: 36.6 ?C(Oral) HR: 61(Monitored) RR: 19 BP: 108/70 SpO2: 100% Intake & Output This visit (24 hour periods starting at 07:00 EDT) 12/13/23 * 12/12/23 12/11/23 Total Summary Intake mL -- 400 -- Output mL -- 450 -- Fluid Balance -- -50 -- Intake (1) Oral Intake mL -- 400 -- Total -- 400 -- Output (1) Urine Voided mL -- 450 -- Total -- 450 -- Counts (1) Stool Count -- -- -- * This column has not completed the indicated time period. Physical Exam General: alert, no acute distress Skin: warm, dry Head: no trauma, normocephalic Neck: Trachea midline, no adenopathy, no tenderness Eye: normal conjunctiva, sclera clear ENMT: TM's clear, oral mucosa moist, no pharyngeal erythema or exudate Cardiovascular: regular rate and rhythm, normal peripheral perfusion Respiratory: Lungs CTA, respirations non labored Chest wall: no deformity. Gastrointestinal: soft, non distended, no tenderness, no guarding. Back: No tenderness, Normal ROM, Normal alignment. Extremities: no deformity, no trauma Neurological: oriented x 4, LOC appropriate for age, CN II-XII intact, motor strength equal & normal bilaterally, sensation equal & normal bilaterally, speech normal Psychiatric: cooperative, affect appropriate for age, normal judgement, normal psychiatric thoughts. Lab Results WBC: 14.6 E9/L High (12/13/23 05:54:00) RBC: 5.7 E12/L (12/13/23 05:54:00) HGB: 17.3 gm/dL (12/13/23 05:54:00) Hct: 51.4 % High (12/13/23 05:54:00) MCV: 90.4 fL (12/13/23 05:54:00) MCH: 30.4 pg (12/13/23 05:54:00) MCHC: 33.6 gm/dL (12/13/23 05:54:00) RDW: 14.8 % High (12/13/23 05:54:00) Platelet: 173 E9/L (12/13/23 05:54:00) MPV: 10.3 fL (12/13/23 05:54:00) Neutro Auto: 86.6 % High (12/13/23 05:54:00) Lymph Auto: 5.7 % Low (12/13/23 05:54:00) Benson Auto: 7.5 % (12/13/23 05:54:00) Eos Auto: 0 % (12/13/23 05:54:00) Basophil Auto: 0.2 % (12/13/23 05:54:00) Neutro Absolute: 12.6 E9/L High (12/13/23 05:54:00) Lymph Absolute: 0.8 E9/L Low (12/13/23 05:54:00) Benson Absolute: 1.1 E9/L High (12/13/23 05:54:00) Eos Absolute: 0 E9/L (12/13/23 05:54:00) Basophil Absolute: 0 E9/L (12/13/23 05:54:00) Glucose Lvl: 138 mg/dL (12/13/23 05:54:00) BUN: 23 mg/dL High (12/13/23 05:54:00) Creatinine: 1.2 mg/dL (12/13/23 05:54:00) eGFR: 61 mL/min/1.73 m2 (12/13/23 05:54:00) BUN/Creat Ratio: 19 (12/13/23 05:54:00) Sodium Lvl: 134 mmol/L Low (12/13/23 05:54:00) Potassium Lvl: 4.6 mmol/L (12/13/23 05:54:00) Chloride: 104 mmol/L (12/13/23 05:54:00) CO2: 20 mmol/L Low (12/13/23 05:54:00) AGAP: 15 mEq/L (12/13/23 05:54:00) Calcium Lvl: 9.7 mg/dL (12/13/23 05:54:00) Alk Phos: 49 Int._Unit/L (12/13/23 05:54:00) ALT: 53 Int._Unit/L High (12/13/23 05:54:00) AST: 221 Int._Unit/L High (12/13/23 05:54:00) Total Protein: 6.4 gm/dL (12/13/23 05:54:00) Albumin Lvl: 3.8 gm/dL (12/13/23 05:54:00) Globulin: 2.6 gm/dL (12/13/23 05:54:00) A/G Ratio: 1.5 (12/13/23 05:54:00) Bili Total: 0.7 mg/dL (12/13/23 05:54:00) Magnesium: 1.8 mg/dL (12/13/23 05:54:00) Chol: 159 mg/dL (12/13/23 05:54:00) Tri mg/dL (12/13/23 05:54:00) HDL: 44 mg/dL (12/13/23 05:54:00) LDL Direct: 99 mg/dL (12/13/23 05:54:00) VLDL: 23 mg/dL (12/13/23 05:54:00) TSH: 1.05 mcIU/mL (12/13/23 05:54:00) BNP: 437 pg/mL High (12/13/23 05:54:00) Glucose Cap: 170 mg/dL High (12/12/23 16:16:00) POC Device SN: [id number] (12/12/23 16:16:00) POC User ID: [id number] (12/12/23 16:16:00) POC Username: ZAK HERNÁNDEZ (12/12/23 16:16:00) Images (12/12/2023 13:41 EDT XR Chest Single View) Reason For Exam Shortness of breath (SOB) POWERSCRIBE REPORT IMPRESSION: NO EVIDENCE OF ACTIVE CARDIOPULMONARY DISEASE, BY PORTABLE CHEST RADIOGRAPHY. [1] Problem List/Past Medical History Ongoing Asthma Benign essential hypertension CHF - Congestive heart failure COPD with asthma Dyslipidemia Former smoker GERD (gastroesophageal reflux disease) History of prostate cancer History of prostatectomy Hyperlipidemia, unspecified Hypothyroidism (acquired) SAMIRA (obstructive sleep apnea) Type 2 diabetes mellitus with hyperlipidemia Historical Chronic back pain Smoker Medications Inpatient aspirin 81 mg Chew Tab, 81 mg= 1 tab(s), Chewed, Daily carvedilol 12.5 mg Tab, 12.5 mg= 1 tab(s), Oral, BID Lasix 20 mg Tab, 40 mg= 2 tab(s), Oral, Daily, PRN levothyroxine, 87.5 mcg= 0.5 tab(s), Oral, Daily nitroglycerin 0.4 mg sublingual Tab, 0.4 mg= 1 tab(s), SubLingual, q5min, PRN Plavix 75 mg Tab, 75 mg= 1 tab(s), Oral, Daily sacubitril-valsartan 24 mg-26 mg oral tablet, 4 tab(s), Oral, BID Singulair 10 mg Tab, 10 mg= 1 tab(s), Oral, qPM Sodium Chloride 0.9% IV Gillian 1000 mL 1,000 mL, 1000 mL, IV Ultram 50 mg Tab, 50 mg= 1 tab(s), Oral, q6hr, PRN Zetia 10 mg Tab, 5 mg= 0.5 tab(s), Oral, Daily Home Albuterol (Eqv-Ventolin HFA) 90 mcg/inh inhalation aerosol aspirin, 81 mg, Oral, Bedtime azelastine nasal 0.15% spray, 2 spray(s), Nasal, BID, PRN azithromycin 250 mg Tab, 250 mg, Oral, As Directed baclofen 10 mg Tab, See Instructions carvedilol 12.5 mg Tab, 12.5 mg= 1 tab(s), Oral, BID Entresto 97 mg-103 mg oral tablet, 1 tab(s), Oral, BID Janumet 50 mg/1000 mg oral tablet, 1 tab(s), Oral, Daily Lasix 20 mg Tab, 40 mg= 2 tab(s), Oral, Daily, PRN levothyroxine 175 mcg (0.175 mg) Tab, 87.5 mcg= 0.5 tab(s), Oral, Daily ONETOUCH ULTRA TEST STRIP pravastatin 20 mg Tab, 20 mg= 1 tab(s), Oral, Once a day (at bedtime) Singulair 10 mg Tab, 10 mg= 1 tab(s), Oral, qPM, 4 refills Ultram 50 mg Tab, 50 mg= 1 tab(s), Oral, q6hr, PRN Vitamin B12 1000 mcg Tab, 1000 mcg= 1 tab(s), Oral, Daily Vitamin D3, 3000 unit(s), Oral, Daily Zetia 10 mg Tab, 5 mg= 0.5 tab(s), Oral, Daily [1] XR Chest Single View; Kobe Barboza MD 12/12/2023 13:41 EDT Result Comment: Electronical ly Signed By: Jorge AUGUSTE, Leopoldo Horn\.br\Date and Time Signed: 12/13/23 14:13 EDT INTERDISCIPLINARY NOTE - SHIV E EMERGENCY DISPATCH OPERATOR Observed: 12/13/2023 9:56 AM Status: F Source: [facility] Interdisciplinary Note - Shiv e Sales Project Manager CRM to room to discuss DC planning. Patient is awake, alert and oriented. Patient is from home with his spouse. She is present in room. Patient verified PCP, DME and insurance. Patient came in with CP/ STEMI. HE had PCI of proximal LAC with ARLETTE x2. Patient is assigned to Dr Patel, see notes. Patient has cardiology on case. Patient declines DC needs for DME, HH or PM. His spouse is a RN. Patient signed medicare form. Patient was provided CRM contact, white board updated. CRM following Result Comment: Electronical ly Signed By: Yari Silva\.br\Date and Time Signed: 12/13/23 10:50 EDT INTERDISCIPLINARY NOTE - SHIV E EMERGENCY DISPATCH OPERATOR Observed: 12/13/2023 9:56 AM Status: C Source: [facility] Interdisciplinary Note - Shiv e Sales Project Manager CRM to room to discuss DC planning. Patient is awake, alert and oriented. Patient is from home with his spouse. She is present in room. Patient verified PCP, DME and insurance. Patient came in with CP/ STEMI. HE had PCI of proximal LAC with ARLETTE x2. Patient is assigned to Dr Patel, see notes. Patient has cardiology on case. Patient declines DC needs for DME, HH or PM. His spouse is a RN. Patient signed medicare form. Patient was provided CRM contact, white board updated. CRM following Patient moved from ICU to 318 Result Comment: Electronical ly Signed By: Yari Silva\.br\Date and Time Signed: 12/13/23 13:33 EDT CODING QUERY Observed: 12/13/2023 9:16 AM Status: F Source: [facility] Coding Query From: Olga Faustin RN To: Leopoldo Patel MD; Sent: 12/13/2023 09:16:18 EDT ! Subject: Coding Query Due Date/Time: 12/14/2023 09:15:00 EDT Caller Name: RAY SUAREZ; Caller Number: H Documentation in the medical record indicates this patient has been admitted with or treated for Heart Failure. The following is also documented in the medical record: Ejection fraction of: 35-40% Systolic dysfunction Other: 12/11 H&P 3. CHF Unspecified - Congestive heart failure Unspecified continue entresto Based on your medical judgment, can you further clarify the precise nature and severity of the patient's heart failure for this admission? [___]Chronic Systolic (Reduced EF) Heart Failure [___]Other: In responding to this request, please exercise your independent professional judgement. The fact that a question is asked does not imply that any particular answer is desired or expected. Thank you![email or web address] [id number] CODING QUERY Observed: 12/13/2023 9:16 AM Status: C Source: [facility] Coding Query From: Olga Faustin RN To: Leopoldo Patel MD; Sent: 12/13/2023 09:16:18 EDT ! Subject: Coding Query Due Date/Time: 12/14/2023 09:15:00 EDT Caller Name: RAY SUAREZ; Caller Number: H Documentation in the medical record indicates this patient has been admitted with or treated for Heart Failure. The following is also documented in the medical record: Ejection fraction of: 35-40% Systolic dysfunction Other: 12/11 H&P 3. CHF Unspecified - Congestive heart failure Unspecified continue entresto Based on your medical judgment, can you further clarify the precise nature and severity of the patient's heart failure for this admission? [___]Chronic Systolic (Reduced EF) Heart Failure [___]Other: In responding to this request, please exercise your independent professional judgement. The fact that a question is asked does not imply that any particular answer is desired or expected. Thank you!olga [phone] From: Jorge AUGUSTE, Leopoldo Horn To: Olga Faustin RN; Sent: 12/16/2023 15:31:39 EDT Subject: RE: Coding Query Caller Name: RAY SUAREZ; Caller Number: H Dx: Congestive heart failure with systolic dysfunction ( EF 35%-40%) MAGNESIUM Collected: 12/13/2023 5:54 AM Status: F Source: [facility] TYPE CODE TESTS RESULT OUT OF RANGE REFERENCE UNITS LAB 18547-1(LOINC) MAGNESIUM:MCN C:PT:SER/PLAS :QN: 1.8 Normal 1.3-2.4 mg/dL Performed By: #### [id number] # ### [facility] [address] [place] [address] CMP Collected: 12/13/2023 5:54 AM Status: F Source: [facility] TYPE CODE TESTS RESULT OUT OF RANGE REFERENCE UNITS LAB 2345-7(LOINC) GLUCOSE:MCNC:P T:SER/PLAS:QN: 138 Normal 55-199 mg/dL LAB 3094-0(LOINC) UREA NITROGEN:MCNC: PT:SER/PLAS:QN : 23 High 5-21 mg/dL LAB 2160-0(LOINC) CREATININE:MCN C:PT:SER/PLAS: QN: 1.2 Normal 0.5-1.3 mg/dL LAB 02466-1([facility]) CALCIUM:MCNC:P T:SER/PLAS:QN: 9.7 Normal 8.9-11.1 mg/dL LAB 2951-2([facility]) SODIUM:SCNC:PT :SER/PLAS:QN: 134 Low 135-145 mmol/L LAB 2823-3([facility]) POTASSIUM:SCNC :PT:SER/PLAS:Q N: 4.6 Normal 3.5-5.3 mmol/L LAB 2075-0([facility]) CHLORIDE:SCNC: PT:SER/PLAS:QN : 104 Normal 101-111 mmol/L LAB 2028-9([facility]) CARBON DIOXIDE:SCNC:P T:SER/PLAS:QN: 20 Low 21-31 mmol/L LAB 6768-6([facility]) ALKALINE PHOSPHATASE:CC NC:PT:SER/PLAS :QN: 49 Normal 21-98 Int._Unit /L LAB 1975-2([facility]) BILIRUBIN:MCNC :PT:SER/PLAS:Q N: 0.7 Normal 0.0-1.1 mg/dL LAB 1751-7([facility]) ALBUMIN:MCNC:P T:SER/PLAS:QN: 3.8 Normal 3.3-5.0 gm/dL LAB 2885-2([facility]) PROTEIN:MCNC:P T:SER/PLAS:QN: 6.4 Normal 6.0-7.8 gm/dL LAB 1744-2([facility]) ALANINE AMINOTRANSFERA SE:CCNC:PT:SER /PLAS:QN:NO ADDITION OF P-5'-P 53 High 6-46 Int._Unit /L LAB 1920-8([facility]) ASPARTATE AMINOTRANSFERA SE:CCNC:PT:SER /PLAS:QN: 221 High 5-43 Int._Unit /L LAB 3097-3([facility]) UREA NITROGEN/CREAT ININE:MRTO:PT: SER/PLAS:QN: 19 Normal 10-20 No Units LAB 53640-5([facility]) ANION GAP:SCNC:PT:SE R/PLAS:QN: 15 Normal 6-16 mEq/L LAB 21402-6([facility]) GLOBULIN:MCNC: PT:SER:QN:CALC ULATED 2.6 Normal 1.4-4.0 gm/dL LAB 83882-6([facility]) ALBUMIN/GLOBUL IN:MCRTO:PT:SE R:QN: 1.5 Normal 1.1-2.2 Performed By: #### [id number] # ### [facility] [address] [place] [address] TSH Collected: 5:54 AM Status: F Source: [facility] TYPE CODE TESTS RESULT OUT OF RANGE REFERENCE UNITS LAB 3016-3([facility]) THYROTROPIN: ACNC:PT:SER/ PLAS:QN: 1.05 Normal 0.34-5.60 mcIU/mL Performed By: #### [id number] # ### [facility] [address] [place] [address] BNP Collected: 12/13/2023 5:54 AM Status: F Source: [facility] TYPE CODE TESTS RESULT OUT OF RANGE REFERENCE UNITS LAB 90368-4([facility]) NATRIURETIC PEPTIDE.B:MCNC:P T:SER/PLAS:QN: 437 High 5-80 pg/mL Performed By: #### [id number] #### [facility] [address] [place] [address] LIPID PANEL Collected: 12/13/2023 5:54 AM Status: F Source: [facility] TYPE CODE TESTS RESULT OUT OF RANGE REFERENCE UNITS LAB 2092-07([facility]) CHOLESTEROL:M CNC:PT:SER/PL :QN: 159 Normal 120-200 mg/dL LAB 2085-01([facility]) CHOLESTEROL.I N HDL:MCNC:PT:S ER/PLAS:QN: 44 Unknown mg/dL Result Comment: '>= 60 LOW R ISK' '<= 40 HIGH RISK' LAB 2088-05([facility]) CHOLESTEROL.I N LDL:MCNC:PT:S ER/PLAS:QN: 99 Normal <=129 mg/dL LAB 2571-8([facility]) TRIGLYCERIDE: MCNC:PT:SER/P LAS:QN: 116 Normal <=149 mg/dL LAB 69433-8(LOINC) CHOLESTEROL.I N VLDL:MCNC:PT: SER/PLAS:QN:C ALCULATED 23 Normal 7-40 mg/dL Performed By: #### [id number] # ### [facility] [address] [place] [address] CBC W/ AUTO DIFF Collected: 12/13/2023 5:54 AM Statu s: F Source: [facility] TYPE CODE TESTS RESULT OUT OF RANGE REFERENCE UNITS LAB 34581-4([facility]) LEUKOCYTES 14.6 High 4.0-11.0 E9/L LAB 789-8(INC) ERYTHROCYTES:NCN C:PT:BLD:QN:AUTO MATED COUNT 5.7 Normal 4.3-5.9 E12/L LAB 718-7([facility]) HEMOGLOBIN:MCNC: PT:BLD:QN: 17.3 Normal 13.5-17.5 gm/dL LAB 4544-3([facility]) HEMATOCRIT:VFR:P T:BLD:QN:AUTOMAT ED COUNT 51.4 High 37.7-49.0 % LAB 788-0([facility]) ERYTHROCYTE DISTRIBUTION WIDTH:RATIO:PT:R BC:QN:AUTOMATED COUNT 14.8 High 10.9-14.2 % LAB 785-6([facility]) ERYTHROCYTE MEAN CORPUSCULAR HEMOGLOBIN:ENTMA SS:PT:RBC:QN:AUT OMATED COUNT 30.4 Normal 27.0-34.0 pg LAB 786-4([facility]) ERYTHROCYTE MEAN CORPUSCULAR HEMOGLOBIN CONCENTRATION:MC NC:PT:RBC:QN:AUT OMATED COUNT 33.6 Normal 31.4-36.0 gm/dL LAB 787-2([facility]) ERYTHROCYTE MEAN CORPUSCULAR VOLUME:ENTVOL:PT :RBC:QN:AUTOMATE D COUNT 90.4 Normal 80.0-100.0 fL LAB 09143-3([facility]) PLATELET MEAN VOLUME:ENTVOL:PT :BLD:QN:AUTOMATE D COUNT 10.3 Normal 6.4-10.8 fL LAB 777-3([facility]) PLATELETS:NCNC:P T:BLD:QN:AUTOMAT ED COUNT 173.0 Normal 150.0-500.0 E9/L LAB 38175-6([facility]) NEUTROPHILS/100 LEUKOCYTES:NFR:P T:BLD:QN: 86.6 High 36.0-75.0 % LAB 731-0([facility]) LYMPHOCYTES:NCNC :PT:BLD:QN:AUTOM ATED COUNT 5.7 Low 14.0-50.0 % LAB 742-7([facility]) MONOCYTES:NCNC:P T:BLD:QN:AUTOMAT ED COUNT 1.1 High 0.2-1.0 E9/L LAB 713-8([facility]) EOSINOPHILS/100 LEUKOCYTES:NFR:P T:BLD:QN:AUTOMAT ED COUNT 0.0 Normal 0.0-8.0 % LAB 704-7([facility]) BASOPHILS:NCNC:P T:BLD:QN:AUTOMAT ED COUNT 0.2 Normal 0.0-2.0 % LAB 751-8([facility]) NEUTROPHILS:NCNC :PT:BLD:QN:AUTOM ATED COUNT 12.6 High 2.0-7.5 E9/L LAB 04612-8([facility]) LYMPHOCYTES:NCNC :PT:BLD:QN: 0.8 Low 1.0-4.0 E9/L LAB 89526-5([facility]) EOSINOPHILS:NCNC :PT:BLD:QN: 0.0 Normal 0.0-0.5 E9/L LAB 20370-9([facility]) BASOPHILS/LEUKOC YTES:NFR.DF:PT:B LD:QN:AUTOMATED COUNT 0.0 Normal 0.0-0.2 E9/L Performed By: #### [id number] # ### [facility] [address] [place] [address] HGBA1C Collected: 12/13/2023 5:54 AM Status: F Source: [facility] TYPE CODE TESTS RESULT OUT OF RANGE REFERENCE UNITS LAB 4548-4([facility]) HEMOGLOBIN A1C/HEMOGLOBIN. TOTAL:MFR:PT:BL D:QN: 5.2 Normal <=5.9 % Performed By: #### [id number] #### [facility] [address] [place] [address] EGFR Collected: 5:54 AM Status: F Source: [facility] Order Comment: Order added b y Discern Expert. TYPE CODE TESTS RESULT OUT OF RANGE REFERENCE UNITS LAB 58559709(LOINC) eGFR 61 Normal >=59 mL/min/1 .7 3 m2 Performed By: #### [id number] #### [facility] [address] [place] [address] CAPILLARY GLUCOSE POC Collected: 2023 4:16 PM Status: F Source: [facility] TYPE CODE TESTS RESULT OUT OF RANGE REFERENCE UNITS LAB [id number](INC) Glucose Cap 170 High 55-99 mg/d L Result Comment: Notified RN/ MD Performed By: #### [id number] #### [facility] [address] [place] [address] XR CHEST SINGLE VIEW Observed: 1:26 PM Status: F Source: [facility] Exam Date/Time: 12/12/2023 13:41 EDT Reason for Exam: Shortness of breath (SOB) Report IMPRESSION: NO EVIDENCE OF ACTIVE CARDIOPULMONARY DISEASE, BY PORTABLE CHEST RADIOGRAPHY. EXAM: XR Chest Single View DATE: 12/12/2023 1:26 PM CLINICAL HISTORY: Shortness of breath (SOB). COMPARISON: Portable chest 12/31/2018 and two-view chest 08/24/2016. TECHNIQUE: A portable upright AP radiograph of the chest was obtained. FINDINGS: There is no significant pulmonary infiltrate, cardiomegaly, vascular congestion, sizable pleural effusion, pneumothorax, or displaced fractures identified. Ordering Provider: Leopoldo Patel FINAL REPORT Dictated: 12/12/2023 3:13 pm Kobe Barboza MD Signed (Electronic Signature): 12/12/2023 3:13 pm Signed by: Kobe Barboza MD Transcribed by: NII Technologist: RY Technical Comments Radiation Dose: Ka,r in mGy = na DAP = na HISTORY AND PHYSICAL Observed: 12:58 PM Status: F Source: [facility] History and Physical Basic Information Admit Date/Time:12/12/2023 07:22 Chief Complaint chest pain History of Present Illness Mr. Suarez is an 78 year old male with PMH of Hypertension, CHF and Hyperlipidemia who presented to the hospital with chest pain. He reported sharp mid sternal pain earlier in the morning that radiated to his left shoulder. He also noted associated diaphoresis. He came to the ER and was found to have STEMI> He was take to the cardiac cath and with successful stent placement. Review of Systems Constitutional: no fever, no chills, no sweats, no weakness Skin: no Jaundice, no rash, no lesions, nopetechiae ENMT: no ear pain, no sore throat, no congestion, no hoarseness Respiratory: no shortness of breath, no cough, no orthopnea, no wheezing Cardiovascular: chest pain Gastrointestinal: no nausea, no vomiting, no diarrhea, no GI bleeding Genitourinary: no dysuria, no hematuria, no discharge, no pain Musculoskeletal: no back pain, no trauma Neurologic: no headache, no dizziness, no numbness, no weakness Psychiatric: no sleeping problems, no irritability, no mood swings/depression. Heme/Lymph: no bleeding tendency, no bruising tendency, no petechiae, no swollen nodes Allergy/Immunologic: no seasonal allergies, no food allergies, no recurrent infections, no impaired immunity Additional ROS info: Except as noted in the above Review of Systems and in the History of Present Illness all other systems have been reviewed and are negative or noncontributory. Scoring Hussein Fall Risk Score: 50 High (12/12/23) Physical Exam Vitals & Measurements T: 36.6 ?C(Oral) HR: 65(Monitored) BP: 115/77 SpO2: 100% General: alert, no acute distress Skin: warm, dry Head: no trauma, normocephalic Neck: Trachea midline, no adenopathy, no tenderness Eye: normal conjunctiva, sclera clear ENMT: TM's clear, oral mucosa moist, no pharyngeal erythema or exudate Cardiovascular: regular rate and rhythm, normal peripheral perfusion Respiratory: Lungs CTA, respirations non labored Chest wall: no deformity. Gastrointestinal: soft, non distended, no tenderness, no guarding. Back: No tenderness, Normal ROM, Normal alignment. Extremities: no deformity, no trauma Neurological: oriented x 4, LOC appropriate for age, CN II-XII intact, motor strength equal & normal bilaterally, sensation equal & normal bilaterally, speech normal Psychiatric: cooperative, affect appropriate for age, normal judgement, normal psychiatric thoughts. Lab Results No qualifying data available. Assessment/Plan 1. STEMI (ST elevation myocardial infarction) (I21.3: ST elevation (STEMI) myocardial infarction of unspecified site) s/p PCI with stent placement ASA/Brilinta check A1c, lipid profile monitor on tele cardiac diet cardiology following Ordered: Initial Hospital Care/Day High 75 Minutes 13652 2. Benign essential hypertension (I10: Essential (primary) hypertension) Good control continue home meds On Coreg and entresto Ordered: Initial Hospital Care/Day High 75 Minutes 46227 3. CHF - Congestive heart failure (I50.9: Heart failure, unspecified) continue entresto Ordered: Initial Hospital Care/Day High 75 Minutes 78105 4. Dyslipidemia, (E78.5: Hyperlipidemia, unspecified)Hyperlipidemia, unspecified Ordered: Initial Hospital Care/Day High 75 Minutes 80703 5. Hypothyroidism (acquired) (E03.9: Hypothyroidism, unspecified) continue synthroid Ordered: Initial Hospital Care/Day High 75 Minutes 88812 6. Type 2 diabetes mellitus with hyperlipidemia (E11.69: Type 2 diabetes mellitus with other specified complication) Hold Holden-met sliding scale with base line lantus coverage Ordered: Initial Hospital Care/Day High 75 Minutes 07120 Low back pain (M54.5: Low back pain) Ordered: tramadol, 50 mg = 1 tab(s), Tab, Oral, q6hr PRN Pain for 7 day(s), Stop date 12/19/23 12:50:00 EDT, Routine, Start date 12/12/23 12:51:00 EDT, 12/12/23 12:51:00 EDT Orders: aspirin, 81 mg = 1 tab(s), Tab-Chew, Chewed, Daily, Routine, Start date 12/13/23 9:00:00 EDT, 12/12/23 12:49:00 EDT carvedilol, 12.5 mg = 1 tab(s), Tab, Oral, BID, Routine, Start date 12/12/23 21:00:00 EDT, 12/12/23 12:50:00 EDT ezetimibe, 5 mg = 0.5 tab(s), Tab, Oral, Daily, Routine, Start date 12/13/23 9:00:00 EDT, 12/12/23 12:50:00 EDT furosemide, 40 mg = 2 tab(s), Tab, Oral, Daily PRN Other (see comment), Routine, Start date 12/12/23 12:50:00 EDT, 12/12/23 12:50:00 EDT levothyroxine, 175 mcg = 1 tab(s), Tab, Oral, Daily, Routine, Start date 12/13/23 6:30:00 EDT, 12/12/23 12:50:00 EDT montelukast, 10 mg = 1 tab(s), Tab, Oral, qPM, Routine, Start date 12/12/23 16:30:00 EDT, 12/12/23 12:51:00 EDT sacubitril-valsartan, 4 tab(s), Tab, Oral, BID, Routine, Start date 12/12/23 21:00:00 EDT Cardiac Diet CBC w/ Auto Diff Comprehensive Metabolic Panel ECG 12 Lead Adult HgbA1c Lipid Panel Magnesium Level Thyroid Stimulating Hormone Problem List/Past Medical History Ongoing Asthma Benign essential hypertension CHF - Congestive heart failure COPD with asthma Dyslipidemia Former smoker GERD (gastroesophageal reflux disease) History of prostate cancer History of prostatectomy Hyperlipidemia, unspecified Hypothyroidism (acquired) SAMIRA (obstructive sleep apnea) Type 2 diabetes mellitus with hyperlipidemia Historical Chronic back pain Smoker Procedure/Surgical History STEMI - ST elevation myocardial infarction (12/12/2023), right total hip arthroplasty (09/11/2016), left total hip arthroplasty (07/19/2015), Cardiac catheterization (08/27/2006), Colonoscopy (2006), Vasectomy (1975), attempted tendon repair right leg, back surgery, Radical prostatectomy, Rotator cuff repair, Thyroidectomy, Tonsillectomy. Medications Inpatient aspirin 81 mg Chew Tab, 324 mg= 4 tab(s), Oral, Once aspirin 81 mg Chew Tab, 81 mg= 1 tab(s), Chewed, Daily carvedilol 12.5 mg Tab, 12.5 mg= 1 tab(s), Oral, BID heparin 5000 units/mL Inj, 5000 unit(s)= 1 mL, IV Push, Once Lasix 20 mg Tab, 40 mg= 2 tab(s), Oral, Daily, PRN levothyroxine 175 mcg (0.175 mg) Tab, 175 mcg= 1 tab(s), Oral, Daily nitroglycerin 0.4 mg sublingual Tab, 0.4 mg= 1 tab(s), SubLingual, q5min, PRN sacubitril-valsartan 24 mg-26 mg oral tablet, 4 tab(s), Oral, BID Singulair 10 mg Tab, 10 mg= 1 tab(s), Oral, qPM Sodium Chloride 0.9% IV Gillian 1000 mL 1,000 mL, 1000 mL, IV Ultram 50 mg Tab, 50 mg= 1 tab(s), Oral, q6hr, PRN Zetia 10 mg Tab, 5 mg= 0.5 tab(s), Oral, Daily Home Albuterol (Eqv-Ventolin HFA) 90 mcg/inh inhalation aerosol aspirin, 81 mg, Oral, Bedtime azelastine nasal 0.15% spray, 2 spray(s), Nasal, BID, PRN azithromycin 250 mg Tab, 250 mg, Oral, As Directed baclofen 10 mg Tab, See Instructions carvedilol 12.5 mg Tab, 12.5 mg= 1 tab(s), Oral, BID Entresto 97 mg-103 mg oral tablet, 1 tab(s), Oral, BID Janumet 50 mg/1000 mg oral tablet, 1 tab(s), Oral, Daily Lasix 20 mg Tab, 40 mg= 2 tab(s), Oral, Daily, PRN levothyroxine 175 mcg (0.175 mg) Tab, See Instructions ONETOUCH ULTRA TEST STRIP pravastatin 20 mg Tab, 20 mg= 1 tab(s), Oral, Once a day (at bedtime) Singulair 10 mg Tab, 10 mg= 1 tab(s), Oral, qPM, 4 refills Ultram 50 mg Tab, 50 mg= 1 tab(s), Oral, q6hr, PRN Vitamin B12 1000 mcg Tab, 1000 mcg= 1 tab(s), Oral, Daily Vitamin D3, 3000 unit(s), Oral, Daily Zetia 10 mg Tab, 5 mg= 0.5 tab(s), Oral, Daily Allergies Aldactone Contrast Dye (Flushing) Crestor Pollen (Hayfever) Toradol Social History Alcohol - No Risk, 10/05/2023 Current, 1-2 times per year, 1 drinks/episode average. 1.00 drinks/episode maximum., 10/05/2023 Substance Abuse - Denies Substance Abuse, 05/31/2015 Tobacco - Denies Tobacco Use, 10/05/2023 Former smoker, quit more than 30 days ago Tobacco Use:. Former smokeless tobacco user, quit more than 30 days ago Smokeless Tobacco Use:. Cigarettes, Cigars, Oral, Started age 18.0 Years. Stopped age 33 Years. Household tobacco concerns: No., 10/05/2023 Family History Acute myocardial infarction: Grandparent. Alcoholism: Mother. Cardiac arrhythmia: Mother. Diabetes mellitus type 2: Mother and Father. Hypertension: Father. Hypotension: Brother. Primary malignant neoplasm of lung: Mother. Primary malignant neoplasm of prostate: Father. Stroke: Father. Immunizations Vaccine Date Status Comments influenza virus vaccine, inactivated 02/2023 Recorded SARS-CoV-2 (COVID-19) mRNAMUL.ORD![id number] 05/16/2022 Recorded SARSCoV2 mRNA([id number]-bpzpgw) vac 09/17/2021 Recorded influenza virus vaccine, inactivated 02/21/2021 Recorded SARS-CoV-2 (COVID-19) mRNA BNT-162b2 vax 02/21/2021 Recorded 2023-07-09: [id number] SARS-CoV-2 (COVID-19) mRNA BNT-162b2 vax 08/11/2020 Recorded SARS-CoV-2 (COVID-19) mRNA BNT-162b2 vax 07/18/2020 Recorded 2023-07-09: [id number] SARS-CoV-2 (COVID-19) mRNA BNT-162b2 vax 07/14/2020 Recorded SARS-CoV-2 (COVID-19) mRNA BNT-162b2 vax 06/27/2020 Recorded 2023-07-09: [id number] zoster vaccine live 04/23/2013 Recorded Result Comment: Electronical ly Signed By: Jorge AUGUSTE, Leopoldo Horton.br\Date and Time Signed: 12/12/23 12:58 EDT HISTORY AND PHYSICAL Observed: 12:58 PM Status: F Source: [facility] History and Physical Basic Information Admit Date/Time:12/12/2023 07:22 Chief Complaint chest pain History of Present Illness Mr. Suarez is an 78 year old male with PMH of Hypertension, CHF and Hyperlipidemia who presented to the hospital with chest pain. He reported sharp mid sternal pain earlier in the morning that radiated to his left shoulder. He also noted associated diaphoresis. He came to the ER and was found to have STEMI> He was take to the cardiac cath and with successful stent placement. Review of Systems Constitutional: no fever, no chills, no sweats, no weakness Skin: no Jaundice, no rash, no lesions, nopetechiae ENMT: no ear pain, no sore throat, no congestion, no hoarseness Respiratory: no shortness of breath, no cough, no orthopnea, no wheezing Cardiovascular: chest pain Gastrointestinal: no nausea, no vomiting, no diarrhea, no GI bleeding Genitourinary: no dysuria, no hematuria, no discharge, no pain Musculoskeletal: no back pain, no trauma Neurologic: no headache, no dizziness, no numbness, no weakness Psychiatric: no sleeping problems, no irritability, no mood swings/depression. Heme/Lymph: no bleeding tendency, no bruising tendency, no petechiae, no swollen nodes Allergy/Immunologic: no seasonal allergies, no food allergies, no recurrent infections, no impaired immunity Additional ROS info: Except as noted in the above Review of Systems and in the History of Present Illness all other systems have been reviewed and are negative or noncontributory. Scoring Hussein Fall Risk Score: 50 High (12/12/23) Physical Exam Vitals & Measurements T: 36.6 ?C(Oral) HR: 65(Monitored) BP: 115/77 SpO2: 100% General: alert, no acute distress Skin: warm, dry Head: no trauma, normocephalic Neck: Trachea midline, no adenopathy, no tenderness Eye: normal conjunctiva, sclera clear ENMT: TM's clear, oral mucosa moist, no pharyngeal erythema or exudate Cardiovascular: regular rate and rhythm, normal peripheral perfusion Respiratory: Lungs CTA, respirations non labored Chest wall: no deformity. Gastrointestinal: soft, non distended, no tenderness, no guarding. Back: No tenderness, Normal ROM, Normal alignment. Extremities: no deformity, no trauma Neurological: oriented x 4, LOC appropriate for age, CN II-XII intact, motor strength equal & normal bilaterally, sensation equal & normal bilaterally, speech normal Psychiatric: cooperative, affect appropriate for age, normal judgement, normal psychiatric thoughts. Lab Results No qualifying data available. Assessment/Plan 1. STEMI (ST elevation myocardial infarction) (I21.3: ST elevation (STEMI) myocardial infarction of unspecified site) s/p PCI with stent placement ASA/Brilinta check A1c, lipid profile monitor on tele cardiac diet cardiology following Ordered: Initial Hospital Care/Day High 75 Minutes 34208 2. Benign essential hypertension (I10: Essential (primary) hypertension) Good control continue home meds On Coreg and entresto Ordered: Initial Hospital Care/Day High 75 Minutes 94557 3. CHF - Congestive heart failure (I50.9: Heart failure, unspecified) continue entresto Ordered: Initial Hospital Care/Day High 75 Minutes 34050 4. Dyslipidemia, (E78.5: Hyperlipidemia, unspecified)Hyperlipidemia, unspecified Ordered: Initial Hospital Care/Day High 75 Minutes 01661 5. Hypothyroidism (acquired) (E03.9: Hypothyroidism, unspecified) continue synthroid Ordered: Initial Hospital Care/Day High 75 Minutes 81632 6. Type 2 diabetes mellitus with hyperlipidemia (E11.69: Type 2 diabetes mellitus with other specified complication) Hold Holden-met sliding scale with base line lantus coverage Ordered: Initial Hospital Care/Day High 75 Minutes 81359 Low back pain (M54.5: Low back pain) Ordered: tramadol, 50 mg = 1 tab(s), Tab, Oral, q6hr PRN Pain for 7 day(s), Stop date 12/19/23 12:50:00 EDT, Routine, Start date 12/12/23 12:51:00 EDT, 12/12/23 12:51:00 EDT Orders: aspirin, 81 mg = 1 tab(s), Tab-Chew, Chewed, Daily, Routine, Start date 12/13/23 9:00:00 EDT, 12/12/23 12:49:00 EDT carvedilol, 12.5 mg = 1 tab(s), Tab, Oral, BID, Routine, Start date 12/12/23 21:00:00 EDT, 12/12/23 12:50:00 EDT ezetimibe, 5 mg = 0.5 tab(s), Tab, Oral, Daily, Routine, Start date 12/13/23 9:00:00 EDT, 12/12/23 12:50:00 EDT furosemide, 40 mg = 2 tab(s), Tab, Oral, Daily PRN Other (see comment), Routine, Start date 12/12/23 12:50:00 EDT, 12/12/23 12:50:00 EDT levothyroxine, 175 mcg = 1 tab(s), Tab, Oral, Daily, Routine, Start date 12/13/23 6:30:00 EDT, 12/12/23 12:50:00 EDT montelukast, 10 mg = 1 tab(s), Tab, Oral, qPM, Routine, Start date 12/12/23 16:30:00 EDT, 12/12/23 12:51:00 EDT sacubitril-valsartan, 4 tab(s), Tab, Oral, BID, Routine, Start date 12/12/23 21:00:00 EDT Cardiac Diet CBC w/ Auto Diff Comprehensive Metabolic Panel ECG 12 Lead Adult HgbA1c Lipid Panel Magnesium Level Thyroid Stimulating Hormone Problem List/Past Medical History Ongoing Asthma Benign essential hypertension CHF - Congestive heart failure COPD with asthma Dyslipidemia Former smoker GERD (gastroesophageal reflux disease) History of prostate cancer History of prostatectomy Hyperlipidemia, unspecified Hypothyroidism (acquired) SAMIRA (obstructive sleep apnea) Type 2 diabetes mellitus with hyperlipidemia Historical Chronic back pain Smoker Procedure/Surgical History STEMI - ST elevation myocardial infarction (12/12/2023), right total hip arthroplasty (09/11/2016), left total hip arthroplasty (07/19/2015), Cardiac catheterization (08/27/2006), Colonoscopy (2006), Vasectomy (1975), attempted tendon repair right leg, back surgery, Radical prostatectomy, Rotator cuff repair, Thyroidectomy, Tonsillectomy. Medications Inpatient aspirin 81 mg Chew Tab, 324 mg= 4 tab(s), Oral, Once aspirin 81 mg Chew Tab, 81 mg= 1 tab(s), Chewed, Daily carvedilol 12.5 mg Tab, 12.5 mg= 1 tab(s), Oral, BID heparin 5000 units/mL Inj, 5000 unit(s)= 1 mL, IV Push, Once Lasix 20 mg Tab, 40 mg= 2 tab(s), Oral, Daily, PRN levothyroxine 175 mcg (0.175 mg) Tab, 175 mcg= 1 tab(s), Oral, Daily nitroglycerin 0.4 mg sublingual Tab, 0.4 mg= 1 tab(s), SubLingual, q5min, PRN sacubitril-valsartan 24 mg-26 mg oral tablet, 4 tab(s), Oral, BID Singulair 10 mg Tab, 10 mg= 1 tab(s), Oral, qPM Sodium Chloride 0.9% IV Gillian 1000 mL 1,000 mL, 1000 mL, IV Ultram 50 mg Tab, 50 mg= 1 tab(s), Oral, q6hr, PRN Zetia 10 mg Tab, 5 mg= 0.5 tab(s), Oral, Daily Home Albuterol (Eqv-Ventolin HFA) 90 mcg/inh inhalation aerosol aspirin, 81 mg, Oral, Bedtime azelastine nasal 0.15% spray, 2 spray(s), Nasal, BID, PRN azithromycin 250 mg Tab, 250 mg, Oral, As Directed baclofen 10 mg Tab, See Instructions carvedilol 12.5 mg Tab, 12.5 mg= 1 tab(s), Oral, BID Entresto 97 mg-103 mg oral tablet, 1 tab(s), Oral, BID Janumet 50 mg/1000 mg oral tablet, 1 tab(s), Oral, Daily Lasix 20 mg Tab, 40 mg= 2 tab(s), Oral, Daily, PRN levothyroxine 175 mcg (0.175 mg) Tab, See Instructions ONETOUCH ULTRA TEST STRIP pravastatin 20 mg Tab, 20 mg= 1 tab(s), Oral, Once a day (at bedtime) Singulair 10 mg Tab, 10 mg= 1 tab(s), Oral, qPM, 4 refills Ultram 50 mg Tab, 50 mg= 1 tab(s), Oral, q6hr, PRN Vitamin B12 1000 mcg Tab, 1000 mcg= 1 tab(s), Oral, Daily Vitamin D3, 3000 unit(s), Oral, Daily Zetia 10 mg Tab, 5 mg= 0.5 tab(s), Oral, Daily Allergies Aldactone Contrast Dye (Flushing) Crestor Pollen (Hayfever) Toradol Social History Alcohol - No Risk, 10/05/2023 Current, 1-2 times per year, 1 drinks/episode average. 1.00 drinks/episode maximum., 10/05/2023 Substance Abuse - Denies Substance Abuse, 05/31/2015 Tobacco - Denies Tobacco Use, 10/05/2023 Former smoker, quit more than 30 days ago Tobacco Use:. Former smokeless tobacco user, quit more than 30 days ago Smokeless Tobacco Use:. Cigarettes, Cigars, Oral, Started age 18.0 Years. Stopped age 33 Years. Household tobacco concerns: No., 10/05/2023 Family History Acute myocardial infarction: Grandparent. Alcoholism: Mother. Cardiac arrhythmia: Mother. Diabetes mellitus type 2: Mother and Father. Hypertension: Father. Hypotension: Brother. Primary malignant neoplasm of lung: Mother. Primary malignant neoplasm of prostate: Father. Stroke: Father. Immunizations Vaccine Date Status Comments influenza virus vaccine, inactivated 02/2023 Recorded SARS-CoV-2 (COVID-19) [id number].[id number] 05/16/2022 Recorded SARSCoV2 mRNA(fbyxecfwt-srlx-sfxsjx) vac 09/17/2021 Recorded influenza virus vaccine, inactivated 02/21/2021 Recorded SARS-CoV-2 (COVID-19) mRNA BNT-162b2 vax 02/21/2021 Recorded 2023-07-09: [id number] SARS-CoV-2 (COVID-19) mRNA BNT-162b2 vax 08/11/2020 Recorded SARS-CoV-2 (COVID-19) mRNA BNT-162b2 vax 07/18/2020 Recorded 2023-07-09: [id number] SARS-CoV-2 (COVID-19) mRNA BNT-162b2 vax 07/14/2020 Recorded SARS-CoV-2 (COVID-19) mRNA BNT-162b2 vax 06/27/2020 Recorded 2023-07-09: [id number] zoster vaccine live 04/23/2013 Recorded Result Comment: Electronical ly Signed By: Jorge AUGUSTE, Leopoldo Horton.br\Date and Time Signed: 12/12/23 12:58 EDT CARDIOLOGY PROGRESS NOTE Observed: 12/11 12:49 PM Status: F Source: [facility] Cardiology Progress Note Post PCI GDMT: Patient should be prescribed DAPT - aspirin 81 mg daily and Brilinta 90 mg twice daily. Suggest pt change prescribed statin from pravastatin to atorvastatin 40 mg daily. Patient is already prescribed beta shawn - carvedilol 12.5mg BID. Cardiac rehab as outpatient. Result Comment: Electronical ly Signed By: Jonathan Hernandez PA-C\.pratima\Date and Time Signed: 12/12/23 12:51 EDT INTERDISCIPLINARY NOTE - SOC IAL WORKER Observed: 12/12/2023 10:41 AM Status: F Source: [facility] Interdisciplinary Note - Soc ial Worker There was a positive SDOH screen for safety received in error. SW was informed that there where no concerns for this patient. PATIENT EDUCATION - TEXT Observed: 12/11 9:33 AM Status: F Source: [facility] Patient Education - Text [place], [place] Cardiovascular PCI DISCHARGE INSTRUCTIONS Diet: ? Resume pre-procedure diet. ? Increase water intake the next 2 days to flush dye out of the body. Activity: If radial access: ? Limit your activity today. Do not operate a vehicle, machinery or power tools. ? NO LIFTING OVER 3 POUNDS for 3 days. ? Do not bend your wrist for 24 hours. ? May resume driving in 24 hours. ? Let pain/discomfort guide your activity. If you are having pain, stop. ? No sexual activity for 1 week. ? Return to the Emergency Room if you have trouble breathing, walking or nausea and vomiting. Medications: ? Resume pre-procedure medication, unless otherwise directed. ? Hold the following medications for 48 hours post procedure: Actoplus Met Glucophage Glucophage XR Glucovance Avandamet Fortamet Apo-metformin Glycon Carlos Eduardo-metformin Glumetza Janumet Metaglip Riomet Glycomet ? Minimal pain, soreness and/or discomfort is expected. ? If you are prescribed an aspirin and/or antiplatelet (such as Plavix, Brilinta or Effient) do NOT stop taking these medications for any reason without talking to your parks recreation director Site Care: ? Do not remove dressing for 24 hours unless it becomes saturated, then replace. ? Keep site clean and dry; inspect site daily. ? Do not use any lotions, powders, or ointments at the groin or wrist site for 1 week. ? May shower 24 hours after the procedure. Clean site with soap and water. Pat dry and apply band aid. No tub baths, swimming or hot tubs for 3 days. Post Procedure: ? Soreness and tenderness to the site can last up to one week. ? Bruising may occur to site. ? A responsible adult should be with you for the first 24 hours after you arrive home. ? Keep follow-up appointment. ? Carry your stent card with you at all times. This provides information about your heart disease for any doctor who cares for you. ? No smoking for 24 hours as it increases the risk of developing blood clots. ? If you are interested in smoking cessation, contact [facility] at [phone], ext. [phone]. ? In the event you are unable to reach your physician, please call [facility] at [phone] and the corduroy cutter operator will assist you. Seek Medicare Care for: ? Bleeding: Apply continuous pressure to the site and Call 911. ? Should the arm or leg become cold, numb, blue or white call your physician immediately. ? Signs of infection are redness, warmth, swelling, getting more sore, colored drainage, fever or chills ? Chest pain ? Blood in your urine or stool ? Black tarry stools ? INPATIENT PATIENT SUMMARY Observed: 11/25 9:33 AM Status: F Source: [facility] Inpatient Patient Summary [place] [id number] Patient Discharge Instructions PERSON INFORMATION Name: RAY SUAREZ Date of : 1945 Current Date: 12/12/2023 09:33:40 PHYSICIANS Admitting Physician: Alfreda WASHINGTON MD Primary Care Physician: Todd Osman DO PCP Comment: Discharge Diagnosis: Condition at Discharge: Stable RAY SUAREZ has been given the following list of follow-up instructions, prescriptions, and patient education materials: PATIENT FOLLOW-UP INFORMATION Diet: Discharge Activity: Discharge Restrictions: No driving for 24 hrs, Do not operate machinery or tools, Do not make important decisions for 24 hours, Do not drink alcoholic beverages for 24 hours Wound Care Instructions: Remove dressing as instructed Remove Your Dressing In Days Call Your Doctor For: IF UNABLE TO CONTACT YOUR PHYSICIAN AND YOU FEEL IT IS AN EMERGENCY, GO TO THE NEAREST EMERGENCY ROOM OR CALL 911 Home Treatment: Devices/Equipment: Special Services: Additional Instructions: Primary Care Physician to provide the following pending test results: None Follow up: With: Address: When: Davion Nolen Within 1 to 2 weeks With: Address: When: Todd Link [address] [facility] [place] [id number] [facility] (1) In the event that this physician does not participate in your insurance network, please consult with your insurance company to find a nearby participating provider. Type Location Start Finish State FM Open [facility] 03/24/2024 9:40 AM 03/24/2024 10:00 AM Confirmed FM Medicare Wellness Subsequent [facility] 10/09/2024 9:30 AM 10/09/2024 10:30 AM Confirmed Comment: DANIELA España JOE M, have received the attached patient education materials/instructions and have verbalized understanding: Patient Signature Date Clinican/Nurse Signature Date HERE ARE THE MEDICATION CHANGES THAT OCCURRED DURING YOUR HOSPITAL STAY Medications to Continue with No Changes Other Medications albuterol (Albuterol (Eqv-Ventolin HFA) 90 mcg/inh inhalation aerosol) INHALE 2 PUFFS BY MOUTH EVERY 4 HOURS NEEDED. Last Dose: Next Dose: aspirin 81 Milligram By Mouth at bedtime. Last Dose: Next Dose: azelastine nasal (azelastine nasal 0.15% spray) 2 Sprays Nasal Inhalation 2 times a day as needed Allergy symptoms. Last Dose: Next Dose: azithromycin (azithromycin 250 mg Tab) 250 Milligram By Mouth As Directed. Refills: 0. Last Dose: Next Dose: baclofen (baclofen 10 mg Tab) 1 tab(s) Oral q4hr PRN. Last Dose: Next Dose: carvedilol (carvedilol 12.5 mg Tab) 1 Tablets By Mouth 2 times a day. Last Dose: Next Dose: cholecalciferol (Vitamin D3) 3,000 Units By Mouth every day. Last Dose: Next Dose: cyanocobalamin (Vitamin B12 1000 mcg Tab) 1 Tablets By Mouth every day. Last Dose: Next Dose: ezetimibe (Zetia 10 mg Tab) 0.5 Tablets By Mouth every day. Last Dose: Next Dose: furosemide (Lasix 20 mg Tab) 2 Tablets By Mouth every day as needed Other (see comment). PRN for leg swelling (takes for >3 pound weight gain)., PRN for leg swelling. (Takes for >3 pound weight gain) Last Dose: Next Dose: levothyroxine (levothyroxine 175 mcg (0.175 mg) Tab) 0.5 tab(s) Oral 5 out of 7 days. Last Dose: Next Dose: metformin-sitagliptin (Janumet 50 mg/1000 mg oral tablet) 1 Tablets By Mouth every day. Last Dose: Next Dose: Misc Prescription (ONETOUCH ULTRA TEST STRIP) TEST ONCE DAILY. Last Dose: Next Dose: montelukast (Singulair 10 mg Tab) 1 Tablets By Mouth once a day (in the evening). Refills: 4., for breathing Last Dose: Next Dose: pravastatin (pravastatin 20 mg Tab) 1 Tablets By Mouth once a day (at bedtime). Last Dose: Next Dose: sacubitril-valsartan (Entresto 97 mg-103 mg oral tablet) 1 Tablets By Mouth 2 times a day. hold if systolic is less than 100. Last Dose: Next Dose: tramadol (Ultram 50 mg Tab) 1 Tablets By Mouth every 6 hours as needed Pain. Refills: 0. Last Dose: Next Dose: Comment: MEDICATION LIST PROVIDED FOR YOU IS A LIST OF YOUR CURRENT MEDICATIONS. PLEASE CARRY THIS WITH YOU AT ALL TIMES. albuterol (Albuterol (Eqv-Ventolin HFA) 90 mcg/inh inhalation aerosol) INHALE 2 PUFFS BY MOUTH EVERY 4 HOURS NEEDED. aspirin 81 Milligram By Mouth at bedtime. azelastine nasal (azelastine nasal 0.15% spray) 2 Sprays Nasal Inhalation 2 times a day as needed Allergy symptoms. azithromycin (azithromycin 250 mg Tab) 250 Milligram By Mouth As Directed. Refills: 0. baclofen (baclofen 10 mg Tab) 1 tab(s) Oral q4hr PRN. carvedilol (carvedilol 12.5 mg Tab) 1 Tablets By Mouth 2 times a day. cholecalciferol (Vitamin D3) 3,000 Units By Mouth every day. cyanocobalamin (Vitamin B12 1000 mcg Tab) 1 Tablets By Mouth every day. ezetimibe (Zetia 10 mg Tab) 0.5 Tablets By Mouth every day. furosemide (Lasix 20 mg Tab) 2 Tablets By Mouth every day as needed Other (see comment). PRN for leg swelling (takes for >3 pound weight gain). levothyroxine (levothyroxine 175 mcg (0.175 mg) Tab) 0.5 tab(s) Oral 5 out of 7 days. metformin-sitagliptin (Janumet 50 mg/1000 mg oral tablet) 1 Tablets By Mouth every day. [facility] [place]ONETOUCH ULTRA TEST STRIP) TEST ONCE DAILY. montelukast (Singulair 10 mg Tab) 1 Tablets By Mouth once a day (in the evening). Refills: 4. pravastatin (pravastatin 20 mg Tab) 1 Tablets By Mouth once a day (at bedtime). sacubitril-valsartan (Entresto 97 mg-103 mg oral tablet) 1 Tablets By Mouth 2 times a day. hold if systolic is less than 100. tramadol (Ultram 50 mg Tab) 1 Tablets By Mouth every 6 hours as needed Pain. Refills: 0. Pharmacy Information: [facility] Comment: PATIENT EDUCATION INFORMATION Instructions: [place], [place] Cardiovascular PCI DISCHARGE INSTRUCTIONS Diet: ? Resume pre-procedure diet. ? Increase water intake the next 2 days to flush dye out of the body. Activity: If radial access: ? Limit your activity today. Do not operate a vehicle, machinery or power tools. ? NO LIFTING OVER 3 POUNDS for 3 days. ? Do not bend your wrist for 24 hours. ? May resume driving in 24 hours. ? Let pain/discomfort guide your activity. If you are having pain, stop. ? No sexual activity for 1 week. ? Return to the Emergency Room if you have trouble breathing, walking or nausea and vomiting. Medications: ? Resume pre-procedure medication, unless otherwise directed. ? Hold the following medications for 48 hours post procedure: Actoplus Met Glucophage Glucophage XR Glucovance Avandamet Fortamet Apo-metformin Glycon Carlos Eduardo-metformin Glumetza Janumet Metaglip Riomet Glycomet ? Minimal pain, soreness and/or discomfort is expected. ? If you are prescribed an aspirin and/or antiplatelet (such as Plavix, Brilinta or Effient) do NOT stop taking these medications for any reason without talking to your parks recreation director Site Care: ? Do not remove dressing for 24 hours unless it becomes saturated, then replace. ? Keep site clean and dry; inspect site daily. ? Do not use any lotions, powders, or ointments at the groin or wrist site for 1 week. ? May shower 24 hours after the procedure. Clean site with soap and water. Pat dry and apply band aid. No tub baths, swimming or hot tubs for 3 days. Post Procedure: ? Soreness and tenderness to the site can last up to one week. ? Bruising may occur to site. ? A responsible adult should be with you for the first 24 hours after you arrive home. ? Keep follow-up appointment. ? Carry your stent card with you at all times. This provides information about your heart disease for any doctor who cares for you. ? No smoking for 24 hours as it increases the risk of developing blood clots. ? If you are interested in smoking cessation, contact [facility] at [phone], ext. [phone]. ? In the event you are unable to reach your physician, please call [facility] at [phone] and the corduroy cutter operator will assist you. Seek Medicare Care for: ? Bleeding: Apply continuous pressure to the site and Call 911. ? Should the arm or leg become cold, numb, blue or white call your physician immediately. ? Signs of infection are redness, warmth, swelling, getting more sore, colored drainage, fever or chills ? Chest pain ? Blood in your urine or stool ? Black tarry stools ? Medication Leaflets: You may receive a survey from [employer] asking you to rate your care experience. Your feedback is important and will help us understand what we do well and how we can improve the quality of care we provide to you, your loved ones and our community. It?s an honor to serve you. Thank you for choosing [facility] INPATIENT CLINICAL SUMMARY Observed: 9:33 AM Status: F Source: [facility] Inpatient Clinical Summary [place] [id number] Clinical Summary Person Information: Name: RAY SUAREZ Age: 78 Years : 1945 Sex: Male PCP: Todd Osman DO Marital Status: Race: White Ethnicity: Non- or Language: Sudanese Visit Id: Visit Reason: STEMI Speciality: Acuity: Enc Type: Inpatient Med Service: Medical Arrival: 12/12/2023 07:22:38 Discharge: Dispo Type: Address: [address] [place] [id number] Provider Notes: Diagnosis: Problems Active CHF - Congestive heart failure Former smoker Hyperlipidemia, unspecified Type 2 diabetes mellitus with hyperlipidemia Benign essential hypertension Dyslipidemia SAMIRA (obstructive sleep apnea) History of prostate cancer History of prostatectomy Hypothyroidism (acquired) GERD (gastroesophageal reflux disease) COPD with asthma Asthma Smoking Status: Functional Status: Sensory Deficits: History of Falls: Mobility Assistance Prior to Admission: ADLs: Current Level of Assistance for Self-Care/Mobility: Cognitive Status: Allergies Pollen (Hayfever) Contrast Dye (Flushing) Crestor Toradol Aldactone Measurements: Height: Weight: Blood Pressure: Not Valued / Not Valued BMI: Procedures STEMI - ST elevation myocardial infarction (12/12/2023) Immunizations No Immunizations Documented This Visit Final Med List: albuterol (Albuterol (Eqv-Ventolin HFA) 90 mcg/inh inhalation aerosol) INHALE 2 PUFFS BY MOUTH EVERY 4 HOURS NEEDED. aspirin 81 Milligram By Mouth at bedtime. azelastine nasal (azelastine nasal 0.15% spray) 2 Sprays Nasal Inhalation 2 times a day as needed Allergy symptoms. azithromycin (azithromycin 250 mg Tab) 250 Milligram By Mouth As Directed. Refills: 0. baclofen (baclofen 10 mg Tab) 1 tab(s) Oral q4hr PRN. carvedilol (carvedilol 12.5 mg Tab) 1 Tablets By Mouth 2 times a day. cholecalciferol (Vitamin D3) 3,000 Units By Mouth every day. cyanocobalamin (Vitamin B12 1000 mcg Tab) 1 Tablets By Mouth every day. ezetimibe (Zetia 10 mg Tab) 0.5 Tablets By Mouth every day. furosemide (Lasix 20 mg Tab) 2 Tablets By Mouth every day as needed Other (see comment). PRN for leg swelling (takes for >3 pound weight gain). levothyroxine (levothyroxine 175 mcg (0.175 mg) Tab) 0.5 tab(s) Oral 5 out of 7 days. metformin-sitagliptin (Janumet 50 mg/1000 mg oral tablet) 1 Tablets By Mouth every day. Misc Prescription (TwentyPeopleTOUCH ULTRA TEST STRIP) TEST ONCE DAILY. montelukast (Singulair 10 mg Tab) 1 Tablets By Mouth once a day (in the evening). Refills: 4. pravastatin (pravastatin 20 mg Tab) 1 Tablets By Mouth once a day (at bedtime). sacubitril-valsartan (Entresto 97 mg-103 mg oral tablet) 1 Tablets By Mouth 2 times a day. hold if systolic is less than 100. tramadol (Ultram 50 mg Tab) 1 Tablets By Mouth every 6 hours as needed Pain. Refills: 0. Care Team Members: Attending Physician: Alfreda WASHINGTON MD Consulting Physician: Referring Physician: Follow up: With: Address: When: Davion Nolen Within 1 to 2 weeks With: Address: When: Todd Osman [address] [place] [address] Business (1) Type Location Start Finish State FM Open [facility] 03/24/2024 9:40 AM 03/24/2024 10:00 AM Confirmed Medicare Wellness Subsequent [facility] 10/09/2024 9:30 AM 10/09/2024 10:30 AM Confirmed Patient Education Information: CV - Cardiovascular PCI Discharge Instructions (Custom) OPERATIVE REPORT Observed: 12/12/2023 9:25 AM Status: F Source: [facility] Operative Report Indication for Surgery Anterolateral STEMI Preoperative Diagnosis Presumed CAD Postoperative Diagnosis Confirmed CAD with total occlusion of the proximal LAD Operation Coronary angiography Left ventriculography Hemodynamic measurements of the left ventricle Primary PCI of the proximal LAD with ARLETTE x 2 This note is completed immediately following the procedure the date and time of this procedure are the same as this note. Surgeon(s) Davion Nolen MD Anesthesia Conscious sedation Estimated Blood Loss Trivial Findings LMT: Normal left main trunk with trifurcation LAD: Normal caliber with 100% proximal stenosis, reaches the apex. Heavily calcified. 80% mid stenosis beyond the lesion after opening up the proximal LAD. LCx: Normal caliber with mild-moderate diffuse disease less than 50% stenosis, reaches the lateral wall. RCA: Normal caliber with mild-moderate diffuse disease less than 50% stenosis, dominant, reaches the inferior wall. The PDA has 95% ostial stenosis and 90% mid body stenosis. Hemodynamics: Borderline elevated LVEDP at 25 mmHg with no gradient across the aortic valve. Left ventriculography: Abnormal LV systolic function, EF 35-40 %, apical dyskinesis wall motion abnormalities and normal chamber size with no mitral regurgitation. PCI note: Success PCI proximal/mid LAD 100% stenosis SYMONE 0 flow reduced to 0% residual SYMONE-3 flow after implantation of a Xience 3.0/23 and 2.75/23 overlapping from proximal to mid. Postdilated with a 2.75 NC and a 3.25 NC high-pressure. Conclusions: Anterolateral STEMI secondary to proximal LAD occlusion, status post primary PCI with ARLETTE x 2. Probable staged PCI at a much later date of the PDA due to renal insufficiency contrast and urgency, nonculprit lesion. CAD: DAPT, beta- shawn, statin, risk factor modification. Importance of antiplatelet compliance was emphasized including risk of stent thrombosis or . The patient understands as well as his accompanying family member/friend that the patient may have stent thrombosis or heart attack and the patient agrees. I myself have specifically counseled the patient regarding stent thrombosis risk including and the patient will additionally be counseled by the [employer] team and in follow-up. Complications None Technique Following full and informed consent the patient was brought to the [facility] [employer] [facility] where sterile prep and drape were administered in usual fashion. Anesthesia was obtained in the right wrist with lidocaine after administration of conscious sedation. A 5/6 slender Terumo sheath was placed in the right radial artery without complication. Nitroglycerin and nicardipine were given via the sheath and heparin was given intravenously. A 6 [place] Islander XB3.5 catheter was advanced and selectively engaged in the left main coronary artery. A wire was advanced across the lesion of the proximal LAD. The lesion was dilated with a compliant balloon, stented with a drug-eluting stent X 2, and postdilated with a noncompliant balloon at high pressure. Completion angiography was performed in orthogonal projections with the wire and balloon removed. The guide catheter was removed without event. A 5 [place] JR4 in the right coronary artery each, where selective injections were performed. A pigtail catheter was placed in the left ventricle where hemodynamic measurements the left ventricle were made and a bolus was given for left ventriculography. A pullback gradient was obtained. The sheath was removed with hemostasis obtained by D-Stat radial device at the end of the procedure without complication. Result Comment: Electronical ly Signed By: Cyril AUGUSTE, Davion Veliz\.br\Date and Time Signed: 12/12/23 20:12 EDT OPERATIVE REPORT Observed: 12/12/2023 9:25 AM Status: F Source: [facility] Operative Report Indication for Surgery Anterolateral STEMI Preoperative Diagnosis Presumed CAD Postoperative Diagnosis Confirmed CAD with total occlusion of the proximal LAD Operation Coronary angiography Left ventriculography Hemodynamic measurements of the left ventricle Primary PCI of the proximal LAD with ARLETTE x 2 This note is completed immediately following the procedure the date and time of this procedure are the same as this note. Surgeon(s) Davion Nolen MD Anesthesia Conscious sedation Estimated Blood Loss Trivial Findings LMT: Normal left main trunk with trifurcation LAD: Normal caliber with 100% proximal stenosis, reaches the apex. Heavily calcified. 80% mid stenosis beyond the lesion after opening up the proximal LAD. LCx: Normal caliber with mild-moderate diffuse disease less than 50% stenosis, reaches the lateral wall. RCA: Normal caliber with mild-moderate diffuse disease less than 50% stenosis, dominant, reaches the inferior wall. The PDA has 95% ostial stenosis and 90% mid body stenosis. Hemodynamics: Borderline elevated LVEDP at 25 mmHg with no gradient across the aortic valve. Left ventriculography: Abnormal LV systolic function, EF 35-40 %, apical dyskinesis wall motion abnormalities and normal chamber size with no mitral regurgitation. PCI note: Success PCI proximal/mid LAD 100% stenosis YSMONE 0 flow reduced to 0% residual SYMONE-3 flow after implantation of a Xience 3.0/23 and 2.75/23 overlapping from proximal to mid. Postdilated with a 2.75 NC and a 3.25 NC high-pressure. Conclusions: Anterolateral STEMI secondary to proximal LAD occlusion, status post primary PCI with ARLETTE x 2. Probable staged PCI at a much later date of the PDA due to renal insufficiency contrast and urgency, nonculprit lesion. CAD: DAPT, beta- shawn, statin, risk factor modification. Importance of antiplatelet compliance was emphasized including risk of stent thrombosis or . The patient understands as well as his accompanying family member/friend that the patient may have stent thrombosis or heart attack and the patient agrees. I myself have specifically counseled the patient regarding stent thrombosis risk including and the patient will additionally be counseled by the [employer] team and in follow-up. Complications None Technique Following full and informed consent the patient was brought to the [facility] [employer] where sterile prep and drape were administered in usual fashion. Anesthesia was obtained in the right wrist with lidocaine after administration of conscious sedation. A 5/6 slender Terumo sheath was placed in the right radial artery without complication. Nitroglycerin and nicardipine were given via the sheath and heparin was given intravenously. A 6 [place] Island[place] XB3.5 catheter was advanced and selectively engaged in the left main coronary artery. A wire was advanced across the lesion of the proximal LAD. The lesion was dilated with a compliant balloon, stented with a drug-eluting stent X 2, and postdilated with a noncompliant balloon at high pressure. Completion angiography was performed in orthogonal projections with the wire and balloon removed. The guide catheter was removed without event. A 5 [place] JR4 in the right coronary artery each, where selective injections were performed. A pigtail catheter was placed in the left ventricle where hemodynamic measurements the left ventricle were made and a bolus was given for left ventriculography. A pullback gradient was obtained. The sheath was removed with hemostasis obtained by D-Stat radial device at the end of the procedure without complication. Result Comment: Electronical ly Signed By: Cyril AUGUSTE, Davion Veliz\.br\Date and Time Signed: 12/12/23 20:12 EDT CONSULTATION NOTE Observed: 12/12/2023 9:00 AM Status: F Source: [facility] Consultation Note Chief Complaint chest pain Reason for Consultation STEMI History of Present Illness 78-year-old male with history of remote IA and cardiomyopathy patient's family reports ejection fraction between 40 to 45%. No prior history of PCI. Followed with physician in [place] and eventually was lost to follow-up. Has been getting medications from primary care doctor. Recently switched medical care to Dr. Osman at [facility]. Was experiencing chest discomfort chest pressure heaviness which was severe as well as diaphoresis and shortness of breath. This occurred in the morning and immediately the patient went to [facility] following which is transferred to [facility] [employer] Review of Systems Difficult ROS due to emergency Physical Exam Vitals & Measurements T: 36.5 ?C(Oral) TMIN: 36.5 ?C(Oral) TMAX: 36.6 ?C(Oral) HR: 78(Monitored) RR: 17 BP: 127/76 SpO2: 99% HT: 177 cm WT: 102 kg General: alert, no acute distress Skin: warm, dry intact Head: atraumatic, normocephalic Neck: Trachea midline, no JVD, no bruit Eye: normal conjunctiva, sclera clear ENMT: oral mucosa moist Cardiovascular: regular rate and rhythm, nomurmur normal peripheral perfusion Respiratory: Lungs CTA, respirations non labored Chest wall: no deformity. Gastrointestinal: soft, non distended, no tenderness, no guarding. Back: No tenderness, Normal ROM, Normal alignment. Extremities: no edema, no deformity, no trauma Neurological: oriented x 4, LOC appropriate for agesensation equal & normal bilaterally, speech normal Psychiatric: cooperative, affect appropriate for age, normal judgement, normal psychiatric thoughts. Images EKG: Normal sinus rhythm with left bundle branch block and anterolateral STEMI Assessment/Plan Anterolateral STEMI secondary to proximal LAD occlusion, status post primary PCI of the proximal LAD with ARLETTE x 1. Ischemic cardiomyopathy. Acute systolic heart failure. Hypertension, hyperlipidemia. Status post PCI procedure, admit to ICU for observation echocardiogram. S CAD: DAPT, beta-shawn, statin, risk factor modification. 1. STEMI (ST elevation myocardial infarction) (I21.3: ST elevation (STEMI) myocardial infarction of unspecified site) 2. Benign essential hypertension (I10: Essential (primary) hypertension) 3. CHF - Congestive heart failure (I50.9: Heart failure, unspecified) 4. Dyslipidemia, (E78.5: Hyperlipidemia, unspecified)Hyperlipidemia, unspecified 5. Hypothyroidism (acquired) (E03.9: Hypothyroidism, unspecified) 6. Type 2 diabetes mellitus with hyperlipidemia (E11.69: Type 2 diabetes mellitus with other specified complication) Low back pain (M54.5: Low back pain) Orders: aspirin, 324 mg = 4 tab(s), Tab-Chew, Oral, Once, Stop date 12/12/23 7:56:00 EDT, STAT, Start date 12/12/23 7:56:00 EDT, 12/12/23 7:56:00 EDT heparin, 5,000 unit(s) = 1 mL, Injection, IV Push, Once, Stop date 12/12/23 7:56:00 EDT, STAT, Start date 12/12/23 7:56:00 EDT nitroglycerin, 0.4 mg = 1 tab(s), Tab, SubLingual, q5min PRN Chest pain for 3 dose(s), Stop date Limited # of times, Routine, Start date 12/12/23 12:20:00 EDT, 12/12/23 12:20:00 EDT Sodium Chloride 0.9% intravenous solution 1,000 mL, 1,000 mL, IV, KVO, STAT, Start date 12/12/23 7:56:00 EDT, Total volume (mL): 1,000 Communication Order Communication Order CV Cardiovascular ED Cardiac Monitoring Oxygen Therapy Place in Status Problem List/Past Medical History Ongoing Asthma Benign essential hypertension CHF - Congestive heart failure COPD with asthma Dyslipidemia Former smoker GERD (gastroesophageal reflux disease) History of prostate cancer History of prostatectomy Hyperlipidemia, unspecified Hypothyroidism (acquired) SAMIRA (obstructive sleep apnea) Type 2 diabetes mellitus with hyperlipidemia Historical Chronic back pain Smoker Procedure/Surgical History STEMI - ST elevation myocardial infarction (12/12/2023), right total hip arthroplasty (09/11/2016), left total hip arthroplasty (07/19/2015), Cardiac catheterization (08/27/2006), Colonoscopy (2006), Vasectomy (1975), attempted tendon repair right leg, back surgery, Radical prostatectomy, Rotator cuff repair, Thyroidectomy, Tonsillectomy. Medications Inpatient aspirin 81 mg Chew Tab, 324 mg= 4 tab(s), Oral, Once aspirin 81 mg Chew Tab, 81 mg= 1 tab(s), Chewed, Daily carvedilol 12.5 mg Tab, 12.5 mg= 1 tab(s), Oral, BID heparin 5000 units/mL Inj, 5000 unit(s)= 1 mL, IV Push, Once Lasix 20 mg Tab, 40 mg= 2 tab(s), Oral, Daily, PRN levothyroxine 175 mcg (0.175 mg) Tab, 175 mcg= 1 tab(s), Oral, Daily nitroglycerin 0.4 mg sublingual Tab, 0.4 mg= 1 tab(s), SubLingual, q5min, PRN sacubitril-valsartan 24 mg-26 mg oral tablet, 4 tab(s), Oral, BID Singulair 10 mg Tab, 10 mg= 1 tab(s), Oral, qPM Sodium Chloride 0.9% IV Gillian 1000 mL 1,000 mL, 1000 mL, IV Ultram 50 mg Tab, 50 mg= 1 tab(s), Oral, q6hr, PRN Zetia 10 mg Tab, 5 mg= 0.5 tab(s), Oral, Daily Home Albuterol (Eqv-Ventolin HFA) 90 mcg/inh inhalation aerosol aspirin, 81 mg, Oral, Bedtime azelastine nasal 0.15% spray, 2 spray(s), Nasal, BID, PRN azithromycin 250 mg Tab, 250 mg, Oral, As Directed baclofen 10 mg Tab, See Instructions carvedilol 12.5 mg Tab, 12.5 mg= 1 tab(s), Oral, BID Entresto 97 mg-103 mg oral tablet, 1 tab(s), Oral, BID Janumet 50 mg/1000 mg oral tablet, 1 tab(s), Oral, Daily Lasix 20 mg Tab, 40 mg= 2 tab(s), Oral, Daily, PRN levothyroxine 175 mcg (0.175 mg) Tab, See Instructions ONETOUCH ULTRA TEST STRIP pravastatin 20 mg Tab, 20 mg= 1 tab(s), Oral, Once a day (at bedtime) Singulair 10 mg Tab, 10 mg= 1 tab(s), Oral, qPM, 4 refills Ultram 50 mg Tab, 50 mg= 1 tab(s), Oral, q6hr, PRN Vitamin B12 1000 mcg Tab, 1000 mcg= 1 tab(s), Oral, Daily Vitamin D3, 3000 unit(s), Oral, Daily Zetia 10 mg Tab, 5 mg= 0.5 tab(s), Oral, Daily Allergies Aldactone Contrast Dye (Flushing) Crestor Pollen (Hayfever) Toradol Social History Alcohol - No Risk, 10/05/2023 Current, 1-2 times per year, 1 drinks/episode average. 1.00 drinks/episode maximum., 10/05/2023 Substance Abuse - Denies Substance Abuse, 05/31/2015 Tobacco - Denies Tobacco Use, 10/05/2023 Former smoker, quit more than 30 days ago Tobacco Use:. Former smokeless tobacco user, quit more than 30 days ago Smokeless Tobacco Use:. Cigarettes, Cigars, Oral, Started age 18.0 Years. Stopped age 33 Years. Household tobacco concerns: No., 10/05/2023 Family History Acute myocardial infarction: Grandparent. Alcoholism: Mother. Cardiac arrhythmia: Mother. Diabetes mellitus type 2: Mother and Father. Hypertension: Father. Hypotension: Brother. Primary malignant neoplasm of lung: Mother. Primary malignant neoplasm of prostate: Father. Stroke: Father. Immunizations Vaccine Date Status Comments influenza virus vaccine, inactivated 02/2023 Recorded SARS-CoV-2 (COVID-19) [id number] 05/16/2022 Recorded SARSCoV2 mRNA(ikiwdalkm-qifp-aezlen) vac 09/17/2021 Recorded influenza virus vaccine, inactivated 02/21/2021 Recorded SARS-CoV-2 (COVID-19) mRNA BNT-162b2 vax 02/21/2021 Recorded 2023-07-09: [id number] SARS-CoV-2 (COVID-19) mRNA BNT-162b2 vax 08/11/2020 Recorded SARS-CoV-2 (COVID-19) mRNA BNT-162b2 vax 07/18/2020 Recorded 2023-07-09: [id number] SARS-CoV-2 (COVID-19) mRNA BNT-162b2 vax 07/14/2020 Recorded SARS-CoV-2 (COVID-19) mRNA BNT-162b2 vax 06/27/2020 Recorded 2023-07-09: [id number] zoster vaccine live 04/23/2013 Recorded Result Comment: Electronical ly Signed By: Cyril AUGUSTE, Davion Veliz\.br\Date and Time Signed: 12/12/23 20:08 EDT PROGRESS NOTE-PHYSICIAN Observed: 2023 7:30 AM Status: F Source: [facility] Progress Note-Physician Procedure [facility] poss PCI via right radial for STEMI Patient seen and examined. The risk/benefits of the procedure were thoroughly discussed with patient including specific attention to lack of onsite surgical backup and risk of cora covid, and the patient agrees to proceed. Airway Assessment: Class I: Visualization of the soft palate, fauces, uvula, anterior and posterior pillars Airway Abnormalities: none ASA Classification: ASA 2: Mild systemic disease Risks/Benefits of IV Sedation: Have been explained IV Sedation Plan: Patient agrees to IV sedation plan Assessment/Plan 1. STEMI (ST elevation myocardial infarction) (I21.3: ST elevation (STEMI) myocardial infarction of unspecified site) 2. Benign essential hypertension (I10: Essential (primary) hypertension) 3. CHF - Congestive heart failure (I50.9: Heart failure, unspecified) 4. Dyslipidemia, (E78.5: Hyperlipidemia, unspecified)Hyperlipidemia, unspecified 5. Hypothyroidism (acquired) (E03.9: Hypothyroidism, unspecified) 6. Type 2 diabetes mellitus with hyperlipidemia (E11.69: Type 2 diabetes mellitus with other specified complication) Low back pain (M54.5: Low back pain) Orders: aspirin, 324 mg = 4 tab(s), Tab-Chew, Oral, Once, Stop date 12/12/23 7:56:00 EDT, STAT, Start date 12/12/23 7:56:00 EDT, 12/12/23 7:56:00 EDT heparin, 5,000 unit(s) = 1 mL, Injection, IV Push, Once, Stop date 12/12/23 7:56:00 EDT, STAT, Start date 12/12/23 7:56:00 EDT nitroglycerin, 0.4 mg = 1 tab(s), Tab, SubLingual, q5min PRN Chest pain for 3 dose(s), Stop date Limited # of times, Routine, Start date 12/12/23 12:20:00 EDT, 12/12/23 12:20:00 EDT Sodium Chloride 0.9% intravenous solution 1,000 mL, 1,000 mL, IV, KVO, STAT, Start date 12/12/23 7:56:00 EDT, Total volume (mL): 1,000 Communication Order Communication Order CV Cardiovascular ED Cardiac Monitoring Oxygen Therapy Place in Status Result Comment: Electronical ly Signed By: Cyril AUGUSTE, Davion Veliz\.br\Date and Time Signed: 12/12/23 20:08 EDT ALLERGIES DATE TYPE / CODE NAME / CODE REACTION SEVERITY [facility] SYSTEM[facility]/[id number] (SNOMED CT) NO KNOWN ALLERGIES [facility] /[id number](SNOME D CT) No Known Allergies [facility] /143016617(SNOME D CT) Contrast Dye [id number] [facility] [id number](SNOME D CT) Pollen 142219343 [facility] [id number](SNOME D CT) Aldactone [facility] /[id number](SNOME D CT) Toradol [facility] /500441211(SNOME D CT) Crestor [facility] ENCOUNTERS ADMIT/DISCHARGE ACCOUNT NUMBER ADMITTING ENCOUNTER CLASS LOCATION SOURCE 11/04/2024/11/05/19 [id number] [facility] 10/28/2024/10/29/19 25 [id number] Ambulatory [place]FM [facility] 09/25/2024/09/26/19 25 [id number] Ambulatory Building:DOA ao48SV7 [facility] 07/29/2024/07/30/19 25 [id number] Ambulatory [place]FM [facility] 07/29/2024/07/30/19 25 [id number] Ambulatory [place]FM [facility] 07/22/2024/07/22/19 25 [id number] Ambulatory [place]FM [facility] 07/07/2024/07/07/19 25 [id number] Ambulatory Building:[facility] 06/26/2024/06/26/19 [id number] Ambulatory Building:[address] Ambulatory 06/10/2024/06/10/19 [id number] Jonathan Hernandez Ambulatory [facility] :FT CAR [facility] 05/23/2024/05/23/20 24 [id number] Wilner Hooper Ambulatory [facility]Building :FT.Cardiolo gy ClinicRoom: CD:[id number] [address] [place] [address] 05/15/2024 [id number] [place]ulatory [place] [facility] 05/15/2024/05/15/20 24 [id number] ANDREAS MONCADA Ambulatory [facility] :FT.XRAY [facility] 05/15/2024/05/15/20 24 [id number] Ambulatory [place]CC Eduardo: Exam 1 [facility] 05/14/2024/05/14/20 24 [id number] Ambulatory [place]FM [facility] 05/06/2024/05/06/20 24 [id number] Todd Osman Ambulatory [facility] :FT LAB [facility] 05/06/2024/05/06/20 24 [id number] Todd Osman Ambulatory [facility] :FT LAB [facility] 05/06/2024 [id number] Todd Osman Ambulatory [facility] :FT LAB [facility] 05/06/2024/05/06/20 24 [id number] Ambulatory [place]FM [facility] 05/02/2024/05/02/20 24 [id number] Ambulatory FM [place]FM [facility] 05/02/2024/05/02/20 24 [id number] Jonathan Hernandez Ambulatory [facility] :FT.Cardiolo gy ClinicRoom: CD:[id number] [facility] 04/30/2024/04/30/20 24 [id number] Ambulatory Building:NOM S NB OPHT [facility] 03/31/2024/03/31/20 24 [id number] Ambulatory [place]FM [facility] 03/24/2024 [id number] Ambulatory [place]FM [facility] 03/15/2024 [id number] Emergency [facility] :EDRoom: ED-11Bed: CD:[id number] [facility] 03/15/2024/03/15/20 24 [id number] Emergency [facility] :EDRoom: ED-11Bed: CD:[id number] [facility] 03/15/2024 [id number] Emergency [facility]Building :EDRoom: [facility] 02/25/2024/02/25/20 24 [id number] Ambulatory Building:BSR NEURO [facility] 02/01/2024/02/01/20 24 [id number] Ambulatory [place]:FM [facility] 02/01/2024/02/01/20 24 [id number] Ambulatory [facility] :FT.Cardiolo gy ClinicRoom: CD:[id number] [facility] 01/30/[id number] Ambulatory [facility] :FT CR3 [facility] 01/30/2024/06/15/19 [id number] Ambulatory [facility] :FT CR3 [facility] 01/17/2024/01/17/20 [id number] Ambulatory Building:NOM S Alvina NEURO [facility] 01/04/2024/01/04/20 24 [id number] Ambulatory [place]FM [facility] 12/31/2023/12/31/19 [id number] Jonathan Hernandez Ambulatory [facility] :FT.Cardiolo gy ClinicRoom: CD:[id number] [facility] 12/26/2023/01/25/20 24 [id number] DawsonTodd Junior Ambulatory CD:[id number] 5Building:CD :[id number] [facility] 12/23/[id number] Gennari, Antonietta Inpatient Encounter [facility] :2NRoom: O985Qoo: 01 [facility] 12/23/2023 [id number] Gennari, Antonietta Inpatient Encounter [facility] :FT.EDHOLDRo om: 12Bed: A [facility] 12/23/2023 [id number] Gennari, Antonietta Inpatient Encounter [facility] :2NRoom: K474Hlk: 01 [facility] 12/23/2023 [id number] Gennari, Antonietta Inpatient Encounter [facility] :2NRoom: C325Ssc: 01 [facility] 12/23/[id number] Gennari, Antonietta Inpatient Encounter [facility] :2NRoom: M841Grp: 01 [facility] 12/23/2023/12/25/19 24 [id number] Gennari, Antonietta Inpatient Encounter [facility] :2NRoom: Y314Epd: 01 [facility] 12/23/2023 [id number] Emergency [facility]Building :EDRoom: [facility] 12/20/2023/12/20/19 24 [id number] Ambulatory [place]FM [facility] 12/17/2023/12/17/19 24 [id number] Ambulatory Building:MYKEL COLLAZO [facility] 12/17/2023/12/24/19 24 [id number] Todd Osman Ambulatory CD:[id number]:CD :[id number] [facility] 12/12/2023 [id number] AMIR, Hasan Inpatient Encounter [facility] :3NRoom: I923Kgp: [facility] 12/12/2023 [id number] AMIR, Hasan Inpatient Encounter [facility] :3NRoom: K321Bim: [facility] 12/12/2023 [id number] AMIR, Hasan Inpatient Encounter [facility] :ICRoom: PI65Ald: 01 [facility] 12/12/2023/12/15/19 24 [id number] Leopoldo Patel Inpatient Encounter [facility] :3NRoom: I105Ihz: [facility] 12/12/2023 [id number] AMIR, Hasan Inpatient Encounter [facility] :ICRoom: ZF58Iwj: [facility] 12/12/2023 [id number] AMIR, Hasan Inpatient Encounter [facility] :3NRoom: X172Quq: 01 [facility] PAYERS ENCOUNTER GUARANTOR PAYER SUBSCRIBER SOURCE 11/04/2024 RAY GOLDEN: [address] [address]Sdx: (HP) Primary Insurance:AETNA MEDICARE ADVANTAGEPolicy Number: [id number] Date:2022-05-28 RAY PATRICKB: [id number] [address] [address] [facility] 10/28/2024 RAY PATRICKB: [facility] 306Tel: ~~( 69 (HP) Primary Insurance:AETNAPolicy Number: [id number] Date:9255-57-44PI [address] [place] [address]OP: RAY M LIMBERIEast [facility] 09/25/2024 RAY SUAREZDOB: [address], [place] [address]Jrh: (HP) Primary Insurance:AETNA MEDICAREPolicy Number: [id number] Date:2022-05-28 RAY SUAREZDOB: [id number], [place] [address]Gui: (HP) [facility] 07/29/2024 RAY SUAREZDOB: [facility] [address] 306Tel: ~~( 56 (HP) Primary Insurance:AETNAPolicy Number: [id number] Date:4081-39-81JI [address] [place] [address]QE: RAY SUAREZAdena [facility] 07/29/2024 RAY SUAREZDOB: [facility] 306Tel: ~~( 56 (HP) Primary Insurance:AETNAPolicy Number: [id number] Date:4565-73-78IB [address] [place] [address]NC: RAY BORDEN [facility] 07/22/2024 RAY SUAREZDOB: [facility] 306Tel: ~~( 56 (HP) Primary Insurance:AETNAPolicy Number: [id number] Date:3878-20-94MO [address] [place] [address]UC: RAY SUAREZAdena [facility] 07/07/2024 RAY SUAREZDOB: [address], [place] [address]Szs: (HP) Primary Insurance:AETNAPolicy Number: [id number] Date:2022-05-28 RAY YOUNGOSDOB: [id number], [place] [address]Suu: (HP) [facility] 06/26/2024 RAY SUAREZDOB: [address], [place] [address]Xed: (HP) Primary Insurance:AETNAPolicy Number: [id number] Date:2022-05-28 RAY SUAREZDOB: [id number], [place] [address]Mrb: (HP) [facility] 06/10/2024 RAY SUAREZDOB: [facility] 306Tel: ~~( 56 (HP) Primary Insurance:AETNAPolicy Number: [id number] Date:0370-27-24AJ [address] [place] [address]ET: RAY Vieyra [facility]ITALJON[facility] 06/10/2024 Secondary Insurance:SELF PAYPolicy Number: [id number] Date:2024-09-08 RAY BORDEN [facility] 05/23/2024 RAY SUAREZDOB: [facility] 306Tel: ~~( 56 (HP) Primary Insurance:AETNAPolicy Number: [id number] Date:1890-24-56YS [address] [place] [address]SA: RAY BORDEN [facility] 05/15/2024 RAY SUAREZDOB: [facility] 306Tel: ~~( 56 (HP) Primary Insurance:AETNAPolicy Number: [id number] Date:0527-62-61VN [address]FUMARIBELL [place] [address]SI: RAY BORDEN [facility] 05/15/2024 RAY YOUNGOSDOB: [id number] [facility] [address] 306Tel: ~~( 56 (HP) Primary Insurance:AETNAPolicy Number: [id number] Date:5436-14-02CA [address]PJMARIBELL [place] [address]QR: RAY BORDEN [facility] 05/14/2024 RAY SUAREZDOB: [id number] [facility] [address] 306Tel: ~~( 56 (HP) Primary Insurance:AETNAPolicy Number: [id number] Date:8014-84-36YV [address]XD [facility] [place] [address]WG: RAY BORDEN [facility] 05/06/2024 RAY SUAREZDOB: [id number] [facility] [address] 306Tel: ~~( 41 (HP) Primary Insurance:AETNAPolicy Number: [id number] Date:4888-49-73VX [address]KYMARIBELL [place] [address]TK: RAY BORDEN [facility] 05/06/2024 RAY YOUNGOSDOB: [id number] [facility] [address] 306Tel: ~~( 41 (HP) Primary Insurance:AETNAPolicy Number: [id number] Date:6204-66-11NJ [address] [place] [place] [address]GC: RAY BORDEN [facility] 05/06/2024 RAY SUAREZDOB: [id number] [facility] [address] 306Tel: ~~( 41 (HP) Primary Insurance:AETNAPolicy Number: [id number] Date:1101-05-50[address] [place], [place] [address]TC: RAY BORDEN [facility] 05/02/2024 RAY Vieyra LIMBERIOSDOB: [facility] [address] 306Tel: ~~( 41 (HP) Primary Insurance:AETNAPolicy Number: [id number] Date:2648-83-58JF [address] [place], [place] [address]WR: RAY BORDEN [facility] 05/02/2024 RAY YOUNGOSDOB: [id number] [facility] 306Tel: ~~( 41 (HP) Primary Insurance:AETNAPolicy Number: [id number] Date:8718-48-71EW [address] [place], [place] [address]ZR: RAY BORDEN [facility] 04/30/2024 RAY SUAREZDOB: [address] [place] [address]Kgz: (HP) Primary Insurance:AETNA MEDICARE ADVANTAGEPolicy Number: [id number] Date:2022-05-28 RAY YOUNGOSDOB: [id number] [address] [place] [address] [facility] 03/31/2024 RAY YOUNGOSDOB: [id number] [facility] [address] 306Tel: (HP) Primary Insurance:AETNAPolicy Number: [id number] Date:0122-88-99VD [address] [place], [place] [address]WG: RAY M LIMBERIOSAdena [facility] 03/24/2024 RAY PRESSLEYERIOSDOB: [facility] 306Tel: (HP) Primary Insurance:AETNAPolicy Number: [id number] Date:3509-03-48YZ [address] [place], [place] [address]KZ: RAY BORDEN [facility] 03/15/2024 RAY Vieyra LIMBERIOSDOB: [facility] 306Tel: (HP) Primary Insurance:AETNAPolicy Number: [id number] Date:4553-46-97YN [address] [place], [place] [address]CG: RAY Vieyra [facility] 03/15/2024 RAY YOUNGOSDOB: [facility] 306Tel: (HP) Primary Insurance:AETNAPolicy Number: [id number] Date:7646-47-34[address] [place], [place] [address]VM: RAY BORDEN [facility] 03/15/2024 RAY YOUNGOSDOB: [facility] 306Tel: (HP) Primary Insurance:AETNAPolicy Number: [id number] Date:6501-97-17GZ [address] [place] [address], [place] [address]WK: RAY BORDEN [facility] 02/25/2024 RAY YOUNGOSDOB: . [address], [place] [address]Ifr: (HP) Primary Insurance:AETNA MEDICARE ADVANTAGEPolicy Number: [id number] Date:2022-05-28 RAY SUAREZDOB: [id number] [address] [address] [facility] 02/01/2024 RAY SUAREZDOB: [facility] [address] 306Tel: (HP) Primary Insurance:AETNAPolicy Number: [id number] Date:5506-36-76ZD [address] [place] [address]GK: RAY BORDEN [facility] 02/01/2024 RAY PRESSLEYERIOSDOB: [facility] [address] 306Tel: (HP) Primary Insurance:AETNAPolicy Number: [id number] Date:9012-87-70CD [address] [place] [address]NE: RAY Vieyra [facility] 01/30/2024 RAY SUAREZDOB: [facility] 306Tel: (HP) Primary Insurance:AETNAPolicy Number: [id number] Date:7549-94-63WD [address] [place] [address]RI: RAY BORDEN [facility] 01/30/2024 RAY SUAREZDOB: [facility] 306Tel: ~~( 56 (HP) Primary Insurance:AETNAPolicy Number: [id number] Date:1058-90-51US [address] [place] [address]AD: RAY SUAREZAdena [facility] 01/30/2024 Secondary Insurance:SELF PAYPolicy Number: [id number] Date:2024-02-26 RAY BORDEN [facility] 01/17/2024 RAY SUAREZDOB: [address], [place] [address]Akl: (HP) Primary Insurance:AETNA MEDICARE ADVANTAGEPolicy Number: [id number] Date:2022-05-28 RAY YOUNGOSDOB: [id number] [address], [place] [address] [facility] 01/04/2024 RAY SUAREZDOB: [facility] [address] 306Tel: (HP) Primary Insurance:AETNAPolicy Number: [id number] Date:4694-74-58NI [address] [place] [address]GK: RAY BORDEN [facility] 12/31/2023 RAY SUAREZDOB: [id number] [facility] [address] 306Tel: (HP) Primary Insurance:AETNAPolicy Number: [id number] Date:1653-69-50KV [address] [place], [place] [address]B[place]U [address]SB: RAY BORDEN [facility] 12/23/2023 RAY SUAREZDOB: [id number] [facility] 306Tel: (HP) Primary Insurance:AETNAPolicy Number: [id number] Date:9179-89-44TS [address] [place] [address]GX: RAY BORDEN [facility] 12/23/2023 RAY SUAREZDOB: [id number] [facility] [address] 306Tel: (HP) Primary Insurance:AETNAPolicy Number: [id number] Date:5185-01-87OJ [address] [place] [address]VG: RAY BORDEN [facility] 12/23/2023 RAY YOUNGOSDOB: [facility] [address] 306Tel: (HP) Primary Insurance:AETNAPolicy Number: [id number] Date:1101-50-30CY [address] [place], [place] [address]TW: RAY BORDEN [facility] 12/23/2023 RYA YOUNGOSDOB: [facility] [address] 306Tel: (HP) Primary Insurance:AETNAPolicy Number: [id number] Date:0706-99-60AT [address] [place], [place] [address]ID: RAY BORDEN [facility] 12/23/2023 RAY SUAREZDOB: [facility] 306Tel: (HP) Primary Insurance:AETNAPolicy Number: [id number] Date:1879-88-52VV [address] [place], [place] [address]KP: RAY BORDEN [facility] 12/23/2023 RAY SUAREZDOB: [facility] [address] 306Tel: ~~ 56 (HP) Primary Insurance:AETNAPolicy Number: [id number] Date:7241-61-55QG [address] [place], [place] [address]YY: RAY BORDEN [facility] 12/23/2023 Secondary Insurance:SELF PAYPolicy Number: [id number] Date:2023-12-27 RAY BORDEN [facility] 12/23/2023 RAY YOUNGOSDOB: [facility] [address] 306Tel: (HP) Primary Insurance:AETNAPolicy Number: [id number] Date:7687-06-92KC [address]MRBINDU GRIJALVA [address]CS: RAY BORDEN [facility] 12/20/2023 RAY PRESSLEYERIOSDOB: [id number] [facility] 306Tel: (HP) Primary Insurance:AETNAPolicy Number: [id number] Date:4325-29-72OJ [address]RBBINDU HU[address]ES [address]OT: RAY BORDEN [facility] 12/17/2023 RAY YOUNGOSDOB: [address] [address]Tlr: (HP) Primary Insurance:AETNA MEDICARE ADVANTAGEPolicy Number: [id number] Date:2022-05-28 RAY YOUNGOSDOB: [id number] [address] [address] [facility] 12/12/2023 RAY YOUNGOSDOB: [id number] [facility] 306Tel: (HP) Primary Insurance:AETNAPolicy Number: [id number] Date:0726-45-99DA [address] [address]NX: RAY BORDEN [facility] 12/12/2023 RAY Vieyra LIMBERIOSDOB: [id number] [facility] 306Tel: (HP) Primary Insurance:AETNAPolicy Number: [id number] Date:8818-94-84ZV [address]OX [place] [address]UD: RAY BORDEN [facility] 12/12/2023 RAY YOUNGOSDOB: [id number] [facility] 306Tel: (HP) Primary Insurance:AETNAPolicy Number: [id number] Date:3248-59-70RD [address] [place] [address]RD: RAY BORDEN [facility] 12/12/2023 RAY YOUNGOSDOB: [facility] 306Tel: ~~( 56 (HP) Primary Insurance:AETNAPolicy Number: [id number] Date:0268-72-26GV [address] [place] [address]BQ: RAY BORDEN [facility] 12/12/2023 Secondary Insurance:SELF PAYPolicy Number: [id number] Date:2023-11-26 RAY BORDEN [facility] 12/12/2023 RAY SUAREZDOB: [facility] 306Tel: (HP) Primary Insurance:AETNAPolicy Number: [id number] Date:4792-96-93IG [address] [place] [address]TZ: RAY BORDEN [facility] 12/12/2023 RAY SUAREZDOB: [facility] 306Tel: (HP) Primary Insurance:AETNAPolicy Number: [id number] Date:7205-66-68AP [address] [place] [address]PH: RAY Vieyra [facility]ITALJONOAdena [facility]
--- OUTSIDE RECORDS SUMMARY | 2024-12-01 14:50 | XMS_ITS | Clinical Summary ---
Author Organization [facility] Address [address] [place] [address] Phone Care Team Providers Care It Service Delivery Manager Name Role Phone Link, Todd Pacheco DO Primary Care Provider [phone] Osei Nam MD Unavailable [phone] Allergies No known active allergies Medications aspirin 81 mg chewable tablet Chew 1 tablet (81 mg) once daily. Active SITagliptin phos-metformin (Janumet) 50-1,000 mg tablet Take 1 tablet by mouth 2 times daily (morning and late afternoon). 07/13/2023 Active ticagrelor (Brilinta) 90 mg tablet Take 1 tablet (90 mg) by mouth twice a day. 12/27/2023 Active Entresto 49-51 mg tablet Take 1 tablet by mouth twice a day. 01/04/2024 Active levothyroxine (Synthroid, Levoxyl) 175 mcg tablet Take 0.5 tablets (87.5 mcg) by mouth. Active ezetimibe (Zetia) 10 mg tablet Take 0.5 tablets (5 mg) by mouth once daily. Active cyanocobalamin (Vitamin B-12) 1,000 mcg tablet Take 1 tablet (1,000 mcg) by mouth once daily. 07/13/2023 Active montelukast (Singulair) 10 mg tablet Take 1 tablet (10 mg) by mouth once daily in the evening. Active azelastine (Astelin) 137 mcg (0.1 %) nasal spray 1 spray by Does not apply route twice a day. Active multivitamin tablet Take 1 tablet by mouth once daily. Active carvedilol (Coreg) 3.125 mg tabletIndicatio ns:Acute combined systolic and diastolic heart failure Take 1 tablet (3.125 mg) by mouth 2 times a day. 90 tablet 3 09/25/2024 Active cholecalciferol (Vitamin D-3) 50 mcg (2,000 units) tablet Take 1 tablet (50 mcg) by mouth once daily. Active Encounters Date Type Department Care Team Description 09/25/2024 1:00 PM EDT Office Visit [facility] Medical Office Building [address] [facility] [address] [place] [address] Osei Nam MD Acute combined systolic and diastolic heart failure 09/25/2024 Travel 09/19/2024 Orders Only [facility] [address] [place] [address] from Last 3 Months Family History Medical History Relation Name Comments Diabetes Father Prostate cancer Father Diabetes Mother Lung cancer Mother Relation Name Status Comments Father Mother Social History Tobacco Use Types Packs/Day Years Used Date Smoking Tobacco: Former Cigarettes Q uit: 1976 Smokeless Tobacco: Former Snuff Quit: 2020 Tobacco Cessation:Counseling Given: Not Answered Alcohol Use Standard Drinks/Week Comments Yes 0 (1 standard drink = 0.6 oz pur e alcohol) 2 beers per year. Sex and Gender Information Value Date Recorded Sex Assigned at Not on file Legal Sex Male 2:27 PM EST Gender Identity Not on file Sexual Orientation Not on file Last Filed Vital Signs Vital Sign Reading Time Taken Comments Blood Pressure 116/58 09/25/2024 12:30 PM EDT Pulse 55 09/25/2024 12:30 PM EDT Temperature - - Respiratory Rate - - Oxygen Saturation - - Inhaled Oxygen Concentration - - Weight 92.4 kg (203 lb 12.8 oz) 025 12:30 PM EDT Height 175.3 cm (5' 9 ) 09/25/2024 12:3 0 PM EDT Body Mass Index 30.1 09/25/2024 12:30 PM EDT Plan of Treatment Upcoming Encounters Date Type Department Care Team (Late st Contact Info) Description 04/01/2025 1:15 PM EST Office Visit [address] [place] [id number] Osei Nam MD [address] [place] [address] [address] [place] [address] Health Maintenance Due Date Last Done Comments Lipid Panel 1945 Medicare Annual Wellness Visit (AWV) 1945 TSH Level 1945 Diabetes Screening 08/04/1961 Pneumococcal Vaccine (1 of 2 - PCV) 08/04/1962 DTaP/Tdap/Td Vaccines (1 - Tdap) 08/04/1965 Zoster Vaccines (2 of 3) 06/18/2013 04/23/2013 COVID-19 Vaccine ( season) 2025 07/20/2024, 02/18/2023, 05/16/2022, Additional history exists Influenza Vaccine (#1) 2025 03/31/2024, 2020 Echocardiogram 06/10/2025 06/10/2024 Creatinine Level 07/01/2025 07/01/2024 Potassium Level 07/01/2025 07/01/2024 RSV High Risk: (Elderly (60+) or Population) Completed 07/20/2024 HIB Vaccines Aged Out No longer eligi ble based on patient's age to complete this topic HPV Vaccines (No Doses Required) Completed Hepatitis A Vaccines Aged Out No long er eligible based on patient's age to complete this topic Hepatitis B Vaccines Aged Out No long er eligible based on patient's age to complete this topic IPV Vaccines Aged Out No longer eligi ble based on patient's age to complete this topic Meningococcal Vaccine Aged Out No mark katina eligible based on patient's age to complete this topic Rotavirus Vaccines Aged Out No longer eligible based on patient's age to complete this topic Procedures Procedure Name Priority Date/Time Associated Diagnosis Comments BASIC METABOLIC PANEL Routine 07/01/2024 2:05 PM EST 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 73m2 [facility] BUN/CREATININE RATIO SEE NOTE: 6 - 22 (calc) [facility] Comment: Not Reported: BUN and Creatinine are within reference range. SODIUM 142 135 - 146 mmol/L [facility] POTASSIUM 4.8 3.5 - 5.3 mmol/L [facility] CHLORIDE 107 98 - 110 mmol/L [facility] CARBON DIOXIDE 25 20 - 32 mmol/L [facility] ELECTROLYTE BALANCE 10 7 - 17 mmol/L (calc) [facility] CALCIUM 10.3 8.6 - 10.3 mg/dL [facility] Blood Venous blood specimen / Unknown 07/01/2024 2:05 PM EST 07/01/2024 2:[address] [facility] - 07/02/2024 4:57 PM EST FASTING:NO FASTING: NO us Osei Nam MD LAB BLOOD ORDERABLES Fi nal Result [facility] [employer] [facility] [address] [facility] [place] [address] * Transthoracic Echo Complete (06/10/2024 10:20 AM EST) us Outside Study CV ECHO PROCEDURES Final Result from Last 3 Months or Most Recently Relevant to Health Maintenance Insurance [facility] Care Teams It Service Delivery Manager Relationship Specialty Start Date End Date Link, Todd Pacheco DO PCP - General Family Medicine 07/07/24 Osei Nam MD [address] [place] [id number] Consulting Physician Cardiology 08/07/24
--- OUTSIDE RECORDS SUMMARY | 2024-12-01 14:50 | XMS_ITS | Clinical Summary ---
Author Organization [facility] Address [id number] [place] [address] Care Team Providers Care Drafting Technician Name Role Phone Christo Goins DO, Charles L Primary Care Provider Allergies Active Allergy Reactions Criticality Noted Date Comments Iodinated Contrast Media 07/06/2006 Other reaction(s): GI Upset Iodine 10/28/2008 Other reaction(s): GI Upset Pollens Extract 04/15/2015 Other reaction(s): Other: See Comments sneezing Medications pediatric multivitamin-iro n tablet,chewable Chew and swallow. Active mometasone furoate (NASONEX NASL) Administer into each nostril. Active esomeprazole (NexIUM) 20 mg capsule 1 CAPSULE DAILY Acti ve aspirin (ECOTRIN LOW STRENGTH) 81 mg Take by mouth. 9 Active azelastine (ASTELIN) 137 mcg (0.1 %) nasal spray 1 spray by NOT APPLICABLE route 2 (two) times a day. Active carvediloL (COREG) 12.5 mg tablet 9 Active cholecalciferol (VITAMIN D3) 1,000 units tablet Take 1,000 Units by mouth daily. Active ezetimibe (ZETIA) 10 mg tablet Take by mouth. 9 Active furosemide (LASIX) 40 mg tablet Take 40 mg by mouth daily. 0 Active gabapentin (NEURONTIN) 100 mg capsule Take 100 mg by mouth 2 (two) times a day. Active hydrocortisone (WESTCORT) 0.2 % cream Apply topically daily. Active ketoconazole (NIZORAL) 2 % shampoo 9 Active SYNTHROID 175 mcg tablet 0 Active lisinopriL (PRINIVIL,ZESTRI L) 20 mg tablet Take by mouth. 7 Active metFORMIN (GLUCOPHAGE) 1000 mg tablet 0 Active metoprolol succinate XL (TOPROL XL) 100 mg 24 hr tablet Take by mouth. Active MYRBETRIQ 50 mg tablet extended release 24 hr 0 Active montelukast (SINGULAIR) 10 mg tablet Take 10 mg by mouth. Active orphenadrine (NORFLEX) 100 mg 12 hr tablet Take 100 mg by mouth 2 (two) times a day. 0 Active OXcarbazepine (TRILEPTAL) 300 mg tablet Take 300 mg by mouth 2 (two) times a day. Active pantoprazole (PROTONIX) 40 mg EC tablet Take 40 mg by mouth daily. Active pravastatin (PRAVACHOL) 20 mg tablet 9 Active predniSONE (DELTASONE) 10 mg tablet TAKE 5 TABS BY MOUTH DAILY X3 DAYS, 4 TABS DAILY X3, 3 TABS DAILY X3, 2 TABS X3 DAYS, 1 TAB X3 DAYS 0 Active ENTRESTO 97-103 mg tablet 0 Active sodium chloride (AYR) 0.65 % drops Administer into each nostril. 7 Active spironolactone (ALDACTONE) 50 mg tablet Take 25 mg by mouth daily. Active mometasone (ELOCON) 0.1 % ointmentIndicati ons:Eczema, unspecified type Apply 1 application topically daily. 45 g 0 Active SPIRIVA RESPIMAT 2.5 mcg/actuation mist 1 Active famotidine (PEPCID) 40 mg tablet 1 Active clotrimazole-bet amethasone (LOTRISONE) creamIndications :Eczema, unspecified type Apply 1 application topically 2 (two) times a day. 30 g 1 Active Active Problems Problem Noted Date Diagnosed Date Cerumen debris on tympanic membrane of both ears 07/22/2019 Bilateral hearing loss 07/22/2019 Dermatitis, eczematoid 07/22/2019 Social History Tobacco Use Types Packs/Day Years Used Date Smoking Tobacco: Never Smokeless Tobacco: Never Alcohol Use Standard Drinks/Week Comments Not Currently 0 (1 standard drink = 0.6 oz pur e alcohol) PHQ-2 Answer Date Recorded Total Score 0 04/07/2021 Childcare Answer Date Recorded Childcare Unknown 11/05/2018 Employment Answer Date Recorded Employment Unknown 11/05/2018 Purpose - Life Answer Date Recorded Purpose and direction in life Unknown Sex and Gender Information Value Date Recorded Sex Assigned at Not on file Legal Sex Male 8:20 PM EDT Gender Identity Not on file Sexual Orientation Not on file Last Filed Vital Signs Vital Sign Reading Time Taken Comments Blood Pressure 110/78 03/18/2014 12:00 AM EDT Pulse 56 03/18/2014 12:00 AM EDT Temperature - - Respiratory Rate - - Oxygen Saturation - - Inhaled Oxygen Concentration - - Weight 98.4 kg (217 lb) 04/07/2021 11:44 AM EST Height 172.7 cm (5' 8 ) 04/07/2021 11:44 AM EST Body Mass Index 32.99 04/07/2021 11:44 AM EST Plan of Treatment Health Maintenance Due Date Last Done Comments Depression Screening 1957 Tobacco Screening 1957 DTaP,Tdap and Td Vaccines (1 - Tdap) 08/04/1962 Zoster (Shingles) Vaccine (1 of 2) 08/04/1993 Fall Risk Screening 08/04/2008 Influenza Vaccine 01/26/2025 Medical Devices Not on file Insurance [employer] MEDICARE Care Teams Drafting Technician Relationship Specialty Start Date End Date Papa Villafuerte Jr., DO [address] [place] [address] PCP - General Internal Medicine 07/22/19
--- OUTSIDE RECORDS SUMMARY | 2024-12-01 14:50 | XMS_ITS | Encounter Summary ---
Author Organization [facility] Address [address] [place] [address] Care Team Providers Care Lime Kiln Worker Name Role Phone Papa Villafuerte MD Primary Care Provider [phone] Todd Osman MD Primary Care Provider [phone] Encounter Details Date Type Department Care Team (Late st Contact Info) Description 12/06/2023 Orders Only [facility] [address] [place] [address] Deangelo Ortiz DO [address] [place] [address] Carpal tunnel syndrome on left (Primary Dx) Social History Tobacco Use Types Packs/Day Years Used Date Smoking Tobacco: Former Cigarettes Smokeless Tobacco: Never Alcohol Use Standard Drinks/Week Comments Yes 0 (1 standard drink = 0.6 oz pur e alcohol) socially Sex and Gender Information Value Date Recorded Sex Assigned at Not on file Legal Sex Male 8:33 PM EDT Gender Identity Not on file Sexual Orientation Not on file documented as of this encounter Plan of Treatment Upcoming Encounters Date Type Department Care Team (Late st Contact Info) Description 12/09/2024 10:00 AM EDT Office Visit [facility] [address] [place] [address] Norris Aranda DO [address] [place] [address] 12/23/2024 10:00 AM EDT Office Visit [facility] [address] [place] [phone] Norris Aranda, DO [address] [place] [address] documented as of this encounter Visit Diagnoses Diagnosis Carpal tunnel syndrome on left- Primary Carpal tunnel syndrome documented in this encounter Care Teams Lime Kiln Worker Relationship Specialty Start Date End Date Papa Villafuerte MD [facility] [place] [address] PCP - General Internal Medicine 04/23/23 02/24/24 Todd Osman MD [facility] [address] [place] [address] PCP - General Family Medicine 02/25/24 documented as of this encounter
--- OUTSIDE RECORDS SUMMARY | 2024-12-01 14:50 | XMS_ITS | Encounter Summary ---
Author Organization [facility] Address [address] [place] [address] Care Team Providers Care Rental Clerk Tool And Equipment Name Role Phone Christo Goins DO, Charles Lewis Primary Care [facility] Source Comments In the event this information is protected by the Federal Confidentiality of Alcohol and Drug AbusePatient Records regulations: The Federal rules restrict any use of the information to criminally investigate or prosecute any alcohol or drug abuse patient.[facility] Encounter Details Date Type Department Care Team (Late st Contact Info) Description 12/13/2008 Patient Msg Medical Records [address] [place] [id number] Provider, [facility] RE: Patient Registration Completed Social History Tobacco Use Types Packs/Day Years Used Date Smoking Tobacco: Former Cigarettes 1 15 0 05/28/1958 - 05/28/1973 Alcohol Use Standard Drinks/Week Comments Yes 0 (1 standard drink = 0.6 oz pur e alcohol) occassional Sex and Gender Information Value Date Recorded Sex Assigned at Not on file Legal Sex Male 8:56 AM EST Gender Identity Not on file Sexual Orientation Not on file Occupation Industry Job Start Date Job End Date retired Not on file Not on file Not on file documented as of this encounter Plan of Treatment Not on file documented as of this encounter Visit Diagnoses Not on filedocumented in this encounter Care Teams Rental Clerk Tool And Equipment Relationship Specialty Start Date End Date Papa Villafuerte Jr., [address] [place] [phone] PCP - General 10/05/08 documented as of this encounter
--- OUTSIDE RECORDS SUMMARY | 2024-12-01 14:50 | XMS_ITS | Clinical Summary ---
Author Organization [facility] Address [address] [place], [place] [id number] Care Team Providers Care Area Cleaner Name Role Phone Christo Goins DO, Charles Lewis Primary Care Provi becky Allergies Active Allergy Reactions Criticality Noted Date Comments Contrast Dye GI Upset 10/28/2008 Iodine GI Upset 10/28/2008 Pollens Extract Other: See Comments 04/15/2015 sneezing Wood Dusts Other: See Comments 04/15/2015 Sneezing with hickory wood Medications ezetimibe(ZETIA 10 MG TAB) Take one(1) tablet daily. 0 10/28/2008 Active VACUUM ERECTION DEVICE SYSTEM KITIndications: Malignant neoplasm of prostate (HCC) Directed (Dx: 607.84) 1 0 02/08/2009 Active METFORMIN 500 MG TAB Take one(1) tablet three times daily. 0 05/13/2009 Active pravastatin sodium(PRAVACHO L 20 MG TAB) Take one(1) tablet daily at bedtime. 0 05/13/2009 Active aspirin(ECOTRIN LOW STRENGTH 81 MG TAB) Take one(1) tablet daily. 0 05/13/2009 Active gabapentin (NEURONTIN) 100 mg capsule Take 100 mg by mouth twice daily. Active montelukast (SINGULAIR) 10 mg tablet Take 10 mg by mouth daily at bedtime. Active pantoprazole DR (PROTONIX) 40 mg tablet Take 40 mg by mouth once daily. Active levothyroxine (LEVOTHROID) 175 mcg tablet Take 175 mcg by mouth daily before breakfast. Active carvedilol (COREG) 12.5 mg tablet Take 12.5 mg by mouth twice daily with meals. Active hydrocortisone valerate (WESTCORT) 0.2 % cream Apply to affected area once daily. Active azelastine (ASTELIN) 0.1% nasal spray Use 1 Heber in each nostril twice daily. Active OXcarbazepine (TRILEPTAL) 300 mg tablet Take 300 mg by mouth twice daily. Active spironolactone- hctz 25/25 (ALDACTAZIDE) 25-25 mg per tablet Take 1 tablet by mouth once daily. 30 tablet 3 05/06/2015 Active spironolactone (ALDACTONE) 50 mg tablet Take 25 mg by mouth once daily. Active cholecalciferol (VITAMIN D3) 1,000 unit tab tablet Take 1,000 Units by mouth once daily. Active DICLOFENAC SODIUM (PENNSAID TOPICAL) Apply 2 pumps to affected area twice daily as needed. 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 05/06/2015 S/P laminectomy 04/15/2015 Impotence of organic origin 10/28/2014 Malignant neoplasm of prostate 12/25/2008 Unspecified sleep apnea Overview (11/30/2008): on CPAP Other and unspecified hyperlipidemia Unspecified essential hypertension Other acute and subacute form of ischemic heart disease Personal history of malignant neoplasm of prosta te Unspecified hypothyroidism Overview (11/30/2008): Goiter removed in 2005 Esophageal reflux Acute bronchitis Prostate cancer Diabetes Myocardial infarct Former smoker Family History Medical History Relation Comments Hypertension Brother hepatitis [Other] Brother None Daughter 1 None Daughter 2 None Daughter 3 Cancer Father prostate cancer, diabetes, alzheimers Cancer Mother lung cancer, smo ker, diabetes Cancer Paternal Grandfather prostate ca ncer Thyroid Sister 1 Thyroid cancer. Thyroid Sister 2 Thyroid Sister 3 None Son 1 None Son 2 Relation Status Comments Brother Daughter 1 Daughter 2 Daughter 3 Father Mother Paternal Grandfather Sister 1 Sister 2 Sister 3 Son 1 Son 2 Social History Tobacco Use Types Packs/Day Years Used Date Smoking Tobacco: Former Cigarettes 1 15 0 05/28/1958 - 05/28/1973 Smokeless Tobacco: Current Snuff Alcohol Use Standard Drinks/Week Comments Yes 0 [...] file Not on file Not on file Last Filed Vital Signs Vital Sign Reading Time Taken Comments Blood Pressure 141/81 11/10/2015 1:45 PM EDT Patient was encouraged to chack with PCP for elevated BP Pulse 67 11/10/2015 1:45 PM EDT Temperature 36.6 C (97.8 F) 03/29/2017 10:12 AM EDT Respiratory Rate 18 11/10/2015 1:41 PM EDT Oxygen Saturation 97% 05/06/2015 11: 52 AM EST Inhaled Oxygen Concentration - - Weight 113.4 kg (250 lb) 11/10/2015 1:4 1 PM EDT self reported wt/ht Height 172.7 cm (5' 8 ) 11/10/2015 1:41 PM EDT Body Mass Index 38.01 11/10/2015 1:41 PM EDT Plan of Treatment Health Maintenance Due Date Last Done Comments Anxiety Screening 08/04/1963 Depression Screening 08/04/1961 DTaP,Tdap,Td Vaccine (1 - Tdap) 08/04/1962 Pneumococcal Vaccine: 50+ (1 of 1 - PCV) 08/04/1993 Shingrix Vaccine (1 of 2) 08/04/1993 Diabetes Screening 12/23/2011 12/22/2008, 0 12/21/2008, 12/20/2008, Additional history exists RSV Vaccine (1 - 1-dose 75+ series) 08/04/2018 Covid-19 Vaccine (2023-2 5 season) 2024 Advance Directive Discussion 05/28/2024 Influenza Vaccine (#1) 2025 Procedures Procedure Name Priority Date/Time Associated Diagnosis Comments BASIC METABOLIC PANEL Routine 12/22/2008 3:45 AM EDT from Last 3 Months or Most Recently Relevant to Health Maintenance Results * (ABNORMAL) BASIC METABOLIC PNL (12/22/2008 3:45 AM EDT) Glucose 109(H) 65 - 100 mg/dL [facility] BUN 15 10 - 25 mg/dL [facility] Creatinine 1.66(H) 0.70 - 1.40 mg/dL [facility] Sodium 137 135 - 146 mmol/L [facility] Potassium 3.7 3.5 - 5.0 mmol/L [facility] Chloride 101 98 - 110 mmol/L [facility] CO2 21(L) 23 - 32 mmol/L [facility] Anion Gap 15 0 - 15 mmol/L [facility] Calcium 8.6 8.5 - 10.5 mg/dL [facility] Blood specimen (specimen) BLOOD SPECIMEN / Unknown 12/22/2008 3:45 AM EDT Mary Edwards MD LABORATORY Final Result Performing Organization Address City/State/[facility] Co de Phone Number [facility] [address] [place] [address] from Last 3 Months or Most Recently Relevant to Health Maintenance Insurance [employer] MEDICARE Care Teams Area Cleaner Relationship Specialty Start Date End Date Papa Villafuerte Jr., [address] [place] [phone] PCP - General 10/05/08
--- OUTSIDE RECORDS SUMMARY | 2024-12-01 14:50 | XMS_ITS | Clinical Summary ---
Author Organization [facility] Address [address] [place] [address] Care Team Providers Care Completion Engineer Name Role Phone Link, Todd AUGUSTE Primary Care Provider [phone] Allergies Active Allergy Reactions Criticality Noted Date Comments Spironolactone 11/28/2023 Gramineae Pollens 04/15/2015 Other Reaction(s): Other: See Comments Other reaction(s): Other: See Comments sneezing sneezing Iodinated Contrast Media 07/06/2006 Other Reaction(s): GI Upset, Unknown Other reaction(s): GI Upset Iodine 10/28/2008 Other Reaction(s): GI Upset Other reaction(s): GI Upset Ketorolac Tromethamine 11/28/2023 Medications aspirin 81 MG chewable tablet Chew 1 tablet in the morning. Active cholecalciferol (Vitamin D-3) 25 MCG (1000 UT) tablet Take 1,000 Units by mouth in the morning. Active levothyroxine (Synthroid, Levoxyl) 175 MCG tablet Take 0.5 tablets by mouth in the morning. Take before meals. Active montelukast (Singulair) 10 MG tablet Take 10 mg by mouth. Active Multiple Vitamin tablet Take by mouth. Active SITagliptin-met FORMIN (Janumet) 50-1000 MG tablet Take 1 tablet by mouth in the morning and 1 tablet in the evening. Take with meals. Active ezetimibe (Zetia) 10 MG tablet Take 5 mg by mouth Daily Active nitroglycerin (Nitrostat) 0.4 MG SL tablet 4 Active atorvastatin (Lipitor) 40 MG tablet Take 40 mg by mouth Daily Active carvedilol (Coreg) 3.125 MG tablet Take 3.125 mg by mouth in the morning and 3.125 mg in the evening. Take with meals. Active sacubitril-vals federico (Entresto) 49-51 MG tablet Take 1 tablet by mouth in the morning and 1 tablet before bedtime. Active ticagrelor (Brilinta) 90 MG tablet Take 90 mg by mouth in the morning and 90 mg before bedtime. Active Prednisolon-Mox iflox-Bromfenac 1-0.5-0.075 % solutionIndicat ions:Age-relate d nuclear cataract of both eyes Administer 1 drop into affected eye(s) in the morning and 1 drop at noon and 1 drop in the evening and 1 drop before bedtime. 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 04/23/2023 Encounters Date Type Department Care Team Description 11/12/2024 Orders Only [facility] [address] [place] [address] Norris Aranda, Age-related nuclear cataract of both eyes 11/04/2024 2:15 PM EDT Office Visit [facility] [address] [place] [address] Norris Aranda DO Age-related nuclear cataract of both eyes (Primary Dx) 11/04/2024 Bamboo flowsheet [facility] [address] [place] [address] Norris Aranda, 11/04/2024 Travel from Last 3 Months Social History Tobacco Use Types Packs/Day Years [...] Sign Reading Time Taken Comments Blood Pressure 126/72 02/25/2024 3:33 PM EDT Pulse 68 02/25/2024 3:33 PM EDT Temperature 36.3 C (97.4 F) 11/28/2023 10:54 AM EDT Respiratory Rate - - Oxygen Saturation - - Inhaled Oxygen Concentration - - Weight 87.1 kg (192 lb) 02/25/2024 3:33 PM EDT Height 177.8 cm (5' 10 ) 02/25/2024 3:33 PM EDT Body Mass Index 27.55 02/25/2024 3:33 PM EDT Plan of Treatment Upcoming Encounters Date Type Department Care Team (Late st Contact Info) Description 12/09/2024 10:00 AM EDT Office Visit [facility] [address] [place] [id number] Norris Aranda DO [address] [place] [address] 12/23/2024 10:00 AM EDT Office Visit [facility] [address] [place] [id number] Norris Aranda DO [address] [place] [address] Health Maintenance Due Date Last Done Comments Pneumococcal Vaccine: 65+ Ye ars (1 of 1 - PCV) 08/04/1993 Influenza Vaccine (#1) 2025 03/31/2024, 2020 Procedures Procedure Name Priority Date/Time Associated Diagnosis Comments IOL BIOMETRY - OU - BOTH EYES Routine 11/04/2024 3:20 PM EDT Age-related nuclear cataract of both eyes from Last 3 Months Results * IOL Biometry - OU - Both Eyes (CPT 10726) (11/04/2024 3:20 PM EDT) Anatomical Region Laterality Modality Head Other Narrative 11/04/2024 3:20 PM EDT Diagnosis: Cataract both eyes (OU) Testing Indication: Performed for preop measurements in the determination of an intraocular lens (IOL) for both eyes (OU) Test Reliability: Good quality both eyes (OU) Interpretation: Good measurements for intraocular lens (IOL) calculation purposes. Calculation made for both eyes (OU). us Norris Aranda DO OPHTH ULTRASOUND Final Resu lt from Last 3 Months Insurance [employer] MED[employer]ARE [employer]VANTAGE Care Teams Completion Engineer Relationship Specialty Start Date End Date Todd Osman MD [address] [facility] [address] [place] [id number] PCP - General Family Medicine 02/25/24
--- OUTSIDE RECORDS SUMMARY | 2024-12-01 14:50 | XMS_ITS | Clinical Summary ---
Author Organization The [facility] Address [address] [place] [address] Care Team Providers Care Mixer Attendant Name Role Phone Unavailable Primary Care Provider Unavailabl e Social History Tobacco Use Types Packs/Day Years Used Date Smoking Tobacco: Never Assessed [place] Safety & Environment Answer Date Rec orded Fear of Current or Ex-Partner Not on file Emotionally Abused Not on file 07/19/2023 Physically Abused Not on file 07/19/2023 Sexually Abused Not on file 07/19/2023 Physically or Sexually Abused Not on file Sex and Gender Information Value Date Recorded Sex Assigned at Not on file Legal Sex Male 12:37 PM EDT Gender Identity Not on file Sexual Orientation Not on file Plan of Treatment Health Maintenance Due Date Last Done Comments Depression Screening 1957 Adult Tetanus 08/04/1965 Pneumococcal Vaccine: 50+ Ye ars (1 of 1 - PCV) 08/04/1993 Zoster Vaccines (1 of 2) 08/04/1993 Fall Risk Screening 08/04/2008 COVID-19 Vaccine ( - 2023-2 5 season) 2024 Influenza Vaccine (#1) 2025 HIB Vaccines Aged Out No longer eligi ble based on patient's age to complete this topic HPV Vaccines Aged Out No longer eligi ble based on patient's age to complete this topic IPV Vaccines Aged Out No longer eligi ble based on patient's age to complete this topic Meningococcal B Vaccine Aged Out No l onger eligible based on patient's age to complete this topic Meningococcal Vaccine Aged Out No mark katina eligible based on patient's age to complete this topic Rotavirus Vaccines Aged Out No longer eligible based on patient's age to complete this topic
--- NOTE | 2024-12-01 14:52 | XR_ITS ---
The [address] [address] Patient Name: RAY SUAREZ MRN: [id number] date: 1945 Sex: M Assigned Patient Location: ED.MAIN Current Patient Location: ED.MAIN Accession/Order Number: [id number] Exam Date: 12/01/2024 15:17 Report Date: 12/01/2024 15:18 At the request of: MIGUELANGEL ORELLANA Procedure: XR finger RT min 2V XR finger RT min 2V 12/01/2024 3:07 PM SIGNS AND SYMPTOMS: Injury to right thumb PROTOCOL: Frontal, lateral, and oblique radiographs of the right first digit COMPARISON: None FINDINGS: There is laceration of the palmar aspect distal tip of the right first digit. No abnormal radiopaque foreign body. No acute displaced fracture. No dislocation. XR/XR finger RT min 2V IMPRESSION: No fracture or abnormal radiopaque foreign body. There is laceration of the distal aspect of the thumb. Impression dictated by: Ziggy Duong M.D. 12/01/2024 3:18 PM Dictation Location: [place] [address] Electronically authenticated by: [id number] Y Date: 12/01/2024 15:18
[2024-12-01 14:53] VITALS: BP 185/98; PULSE 71; TEMP 36.8; O2SAT 99; BMI 28.0
[2024-12-01] MEDS: ADACEL DIPH,PERTUSS(ACELL),TET VAC/PF 0.5 ML ADULT SYRINGE IM (15:05)
[2024-12-01] MEDS: BUPIVACAINE HCL 0.25% PF 25 MG/10 ML VIAL INJ (15:05)
--- NOTE | 2024-12-01 16:24 | ED.UPPEXIN1 ---
HPI HPI - Extremity Injury (Upper) General Chief Complaint: Extremity Injury, Upper Stated Complaint: LACERATION R HAND Time Seen by Provider: 12/01/24 14:38 Source: patient and family () Mode of arrival: walk-in Limitations: no limitations and physical limitation Exam limitations: laceration to the right thumb History of Present Illness HPI narrative: 79-year-old male presents to the emergency department with his with complaint of injury to his right thumb. Injury occurred shortly prior to arrival while he was cutting some wood with a band saw. States the piece of wood slipped, causing the injury. Complains of pain, bleeding from the wound. Denies any motor or sensory changes, paresthesias. Unsure of last tetanus shot Patient is right-handed. Quality:?Penetrating injury Severity:?moderate Timing:?as above, constant, injury occurred shortly prior to arrival Context: Normal setting and activity? Modifying factors:?Pain worse with palpation Associated symptoms: as above Related Data Home Medications ?Medication ?Instructions ?Recorded ?Confirmed aspirin 81 mg capsule 81 mg PO DAILY 12/12/23 12/12/23 carvedilol 12.5 mg tablet 12.5 mg PO DAILY 12/12/23 12/12/23 levothyroxine 175 mcg tablet 175 mcg PO DAILY 12/12/23 12/12/23 montelukast 10 mg tablet 10 mg PO DAILY 12/12/23 12/12/23 pravastatin 20 mg tablet 20 mg PO DAILY 12/12/23 12/12/23 sacubitril 97 mg-valsartan 103 mg 1 tab PO BID 12/12/23 12/12/23 tablet (Entresto) sitagliptin phosphate 50 1 tab PO BID 12/12/23 12/12/23 mg-metformin 1,000 mg tablet (Janumet) Previous Rx's ?Medication ?Instructions ?Recorded cephalexin 500 mg capsule 500 mg PO TID 5 days #15 caps 12/01/24 hydrocodone 5 mg-acetaminophen 325 1 tab PO Q8H PRN pain 3 days #8 12/01/24 mg tablet tabs Allergies Allergy/AdvReac Type Severity Reaction Status Date / Time Iodinated Contrast Media AdvReac Intermediate Vomiting Verified 12/12/23 06:33 Review of Systems ROS Narrative CONST: Denies diaphoresis, weakness MS: Denies arthralgias, myalgias SKIN:? +wound.? NEURO: Denies weakness, PFSH PFSH Social History Little interest or pleasure in doing things: not at all Feeling down, depressed, or hopeless: not at all Exam Narrative Exam Narrative: Vital signs noted Nurses notes reviewed CONST: Nontoxic, well appearing, well nourished, in no distress.? No diaphoresis.?? HENT: normocephalic, atraumatic, CV: 2+ palpable radial pulse MS: Right thumb: Patient has large flap-like laceration involving the distal pad of his thumb measuring approximately 4.5 cm in total. There is associated tenderness. ? No tenderness to the remainder of his hand.? No ecchymosis, discoloration, crepitus.? ROM full flexion, extension, abduction, abduction, opposition to all digits .? Strength 5/5 NEURO: He has a sensory deficit to the distal aspect of the flap defect. Sensory intact to the distal tip of the digit SKIN: + laceration PSYCHIATRIC: normal mood, affect Constitutional Vital Signs, click to edit/add: Last Vital Signs Temp 98.2 F 12/01/24 14:53 Pulse 12/01/24 14:53 Resp 12/01/24 14:53 BP 185/98 H 12/01/24 14:53 Pulse Ox 99 12/01/24 14:53 O2 Del Method Room Air 12/01/24 14:53 Course Vital Signs Vital signs: Vital Signs Temperature 98.2 F 12/01/24 14:53 Pulse Rate 12/01/24 14:53 Respiratory Rate 12/01/24 14:53 Blood Pressure 185/98 H 12/01/24 14:53 Pulse Oximetry 99 12/01/24 14:53 Oxygen Delivery Method Room Air 12/01/24 14:53 Temperature 98.2 F 12/01/24 14:53 Pulse Rate 71 12/01/24 14:53 Respiratory Rate 12/01/24 14:53 Blood Pressure 185/98 H 12/01/24 14:53 Pulse Oximetry 99 12/01/24 14:53 Oxygen Delivery Method Room Air 12/01/24 14:53 MDM - Extremity Injury (Upper) MDM Narrative Medical decision making narrative: This is a pleasant 79-year-old male who presents to the emergency department for evaluation of right thumb injury On arrival, afebrile, vital signs stable. On exam, nontoxic, well appearing patient, in no apparent distress. He has flap-like avulsion, about 4.5 cm to the distal pad of the right thumb. Wound only extends into fat layer. Small vessel injuries noted. He has sensation to the distal tip of the thumb. He has reduced sensation to the flap segment. No pressurize bleeding noted from the wound. Right thumb x-ray imaging, per radiologist reveals soft tissue injury, no acute osseous findings He was given prophylactic Keflex dose in the emergency department. Favor laceration right thumb FB/deep structure involvement less likely based on exam History and Record Review Discussion with independent historian: Additional records reviewed: Tetanus Management Independent interpretation: Right thumb x-ray: Soft tissue defect, no acute osseous injury Re-Evaluation: Pain improved after Treatment: Disposition ? The patient was discharged. Prescriptions sent to pharmacy: Keflex and [place] Wound care instructions given both verbally and on discharge paperwork Plan: Patient will be discharged to home.? Condition at time of disposition: stable, improved.? Advised to follow up with referral provider, hand specialist in 1 day, name and number placed on discharge paperwork. Advised to return for any worsening and/or development of new, concerning signs or symptoms : PLEASE NOTE: Portions of the medical record may have been produced using electronic philosophy specialist and may contain errors with respect to translation of words which may not have been identified prior to finalization of the chart. Medical Records Attestation: I reviewed the patient's medical records. Imaging Data Right thumb: Radiologist's impression: ITS Impressions Finger X-Ray 12/01/24 14:52 IMPRESSION: No fracture or abnormal radiopaque foreign body. There is laceration of the distal aspect of the thumb. Impression dictated by: Ziggy Duong M.D. 12/01/2024 3:18 PM Dictation Location: [place] [address] Electronically authenticated by: [id number] Y Date: 12/01/2024 15:18 Discharge Plan Discharge Chief Complaint: Extremity Injury, Upper Clinical Impression: Laceration of right thumb, Pain of right thumb Patient Disposition: Home, Self-Care Time of Disposition Decision: 15:59 Condition: Good Mode of Transportation: Private Vehicle Prescriptions / Home Meds: New hydrocodone-acetaminophen 5-325 mg tablet 1 tab PO Q8H PRN (Reason: pain) 3 Days Qty: 8 0RF cephalexin 500 mg capsule 500 mg PO TID 5 Days Qty: 15 0RF No Action carvedilol 12.5 mg tablet 12.5 mg PO DAILY levothyroxine 175 mcg tablet 175 mcg PO DAILY montelukast 10 mg tablet 10 mg PO DAILY pravastatin 20 mg tablet 20 mg PO DAILY Entresto 97-103 mg tablet 1 tab PO BID Janumet 50-1,000 mg tablet 1 tab PO BID aspirin 81 mg capsule 81 mg PO DAILY Print Language: Cuban Additional Instructions: Laceration, Sutures ? You have been treated for a laceration (cut). ? Follow up with your doctor OR come back here OR go to the nearest Emergency Department to have your sutures (stitches) taken out. Sutures should be taken out in: 7-10 days. ? Use the following wound care instructions: Keep the wound clean and dry for the next 24 hours. You can wash the wound gently with soap and water. DO NOT allow your wound to soak in water (don?t do the dishes or go swimming, for example). You can shower, but do not rub your stitches too hard. Let the wound dry before putting another bandage on. Take off old dressings every day. Then put on a clean, dry dressing. If the bandage sticks to the wound, slightly moisten it with water. This way, it can come off more easily. You can wash the wound gently with soap and water. To help remove a scab, cleanse the area with a mixture of half hydrogen peroxide and half water. This will also help us to take out the sutures later. Allow the area to dry completely before putting on a new bandage. Unless you receive instructions not to do so, you can place a thin layer of antibiotic ointment over the wound. You can buy Polysporin?, Bacitracin?, or Neosporin? at the store. Neosporin? can sometimes cause irritation to your skin. If this happens, stop using it and switch to another topical (surface) antibiotic. If needed, put a clean, dry bandage over the wound to protect it. ? Keep the affected area elevated (lifted) for the next 24 hours. This will decrease swelling and pain. You may also want to put ice on the area. By applying ice to the affected area, swelling and pain can be reduced. Place some ice cubes in a re-sealable (Ziploc?) bag and add some water. Put a thin washcloth between the bag and the skin. Apply the ice bag to the area for at least 20 minutes. Do this at least 4 times per day. It is OK to use the ice more frequently and for longer periods of time. DO NOT APPLY ICE DIRECTLY TO THE SKIN! ? If you had a local anesthetic, it will wear off in about 2 hours. Until then, be careful not to hurt yourself because of having less feeling in the area. ? YOU SHOULD SEEK MEDICAL ATTENTION IMMEDIATELY, EITHER HERE OR AT THE NEAREST EMERGENCY DEPARTMENT, IF ANY OF THE FOLLOWING OCCURS: You see redness or swelling. There are red streaks going up from the injured area. The wound smells bad or has a lot of drainage. You have fever (temperature higher than 100.4?F / 38?C), chills, worse pain and / or swelling. ? ?BE SURE TO: Call the Doctor today (or tomorrow AM) for appointment. Call us or return for any questions\problems. Return to Emergency at anytime if you are worse. Have your prescription(s) filled right now. WOUND CARE: Have your sutures removed in 7-10 days. Keep wound clean, dry, and covered. Use peroxide once a day to help remove build up. Vitamin A&D ointment or Vitamin E lotion after sutures are removed.? Massage in. Referrals: Kain Gonzalez MD [Physician, Orthopedics] - 12/02/24 Referral Note: CALL TOMORROW FOR FOLLOW UP APPOINTMENT DAY AND TIME Clinical Impression: Laceration of right thumb Procedures ED Laceration Laceration Right thumb: Site: hand (Right thumb) Side (if applicable): right Size (cm): 4.5 Description: flap Depth: simple, single layer (into fat layer. Tendon, osseous structures not visible) Anesthetic used: bupivacaine (0.25) Anesthesia technique: nerve block Amount (ml): 8 Pre-repair: wound explored, irrigated extensively and deep structures intact Skin layer closed with: other (Nylon) Size (cm): 5-0 Number of sutures: 14 Technique: simple, interrupted Additional comments: Bloodless field after tourniquet applied at the base of the thumb. After dressings applied, tourniquet released, bleeding controlled. Tolerated well, antibiotic bulky dressing applied by nurse
[2024-12-01] MEDS: CEPHALEXIN 500 MG CAPSULE PO (16:29)
[2024-12-01] MEDS: BACITRACIN 0.9 GM PACKET 1 PACKET TOPICAL (16:29)
== END 2024-12-01 16:20 | disposition home or self-care (01) ==
PROVIDERS: Emergency Provider Emergency Medicine; PCP Family Medicine
DX: S61.011A Laceration without foreign body of right thumb without damage to nail, initial encounter (principal); W29.8XXA Contact with other powered hand tools and household machinery, initial encounter
CPT/HCPCS: 12002; 73140; 90471; 90715; 99284; J0665